=== PATIENT | male | born 1955 | race Caucasian/White ===

== ENCOUNTER 2023-11-18 12:29 | Emergency (ER) | payer BC, MEDICARE, SELFPAY ==
[2023-11-18 12:31] VITALS: BP 153/118
--- NOTE | 2023-11-18 13:37 | ED.GENMED ---
History of Present Illness
General
Chief Complaint: Urinary Symptoms
Source: patient
Exam Limitations: none
Time Seen by Provider: 11/18/23 13:25
Travel History
Have you had any contact with someone who has COVID-19?: No
Do you have any symptoms of coronavirus? Fever > 100 degrees, chills, cough, shortness of breath, sore throat, loss of taste or smell, muscle aches, or headache?: No
History of Present Illness
History of Present Illness:
68-year-old male presents with right lower back pain with associated dark urine starting this morning. This was sudden in onset has been coming and going in waves. He noted chills and shakes as well. He has a history of chronic kidney disease
stage III and follows with nephrology here. He is treated for hypertension
Past History
Past History
ED Past Medical History: HTN, Hypercholesterolemia, Hypothyroidism, Psychiatric and Other ( chronic kidney disease, gout, avascular necrosis, osteoarthritis, sciatica, Pancreatitis)
ED Past Surgical History: Orthopedic (Bilateral hip replacements)
Social History
Tobacco: Former smoker
Alcohol: None
Drug: None
Personal:
Living: with family
Employment: Retired
Family History
Family History: Hypertension
Phy Exam
Physical Exam
Physical Exam:
General: Well-appearing male no acute respiratory distress
HEENT: Normocephalic atraumatic
Heart: Regular rate and rhythm no murmurs
Lungs: Clear to auscultation bilaterally no wheezing
Abdomen is soft nontender nondistended no guarding rebound normal bowel sounds
Musculoskeletal exam: Mild right-sided lower back tenderness.
Extremities: No cyanosis
Course
Orders/Labs/Results
Orders:
Orders
11/18/23 13:33
CT Abd/pel Without Iv Or Oral Urgent
Comment:
Reason For Exam: right flank pain, dark urine
11/18/23 14:00
Complete Blood Count/With Diff Urgent
Comprehensive Metabolic Panel Urgent
11/18/23 14:13
Urinalysis Reflex To Culture Urgent
Date Specimen was Collected: 11/18/23
Time Specimen was Collected: 14:06
Urine Microscopic Reflex Cult Urgent
Abnormal Lab Results
11/18/23 11/18/23
14:00 14:13
Abs Immat Gran (auto) 0.1 H 10^3/uL
(0-0.05)
Absolute Neuts (auto) 6.9 H 10^3/uL
(1.4-6.5)
Absolute Monos (auto) 0.9 H 10^3/uL
(0.1-0.6)
Immature Gran % 0.9 H %
(0-0.5)
Lymphocytes % 13.8 L %
(20.5-51.1)
Monocytes % 9.6 H %
(1.7-9.3)
BUN 40 H mg/dl
(9-20)
Creatinine 2.2 H mg/dL
(0.7-1.3)
Glucose 105 H mg/dl
(70-99)
Urine Glucose 3+ A
(Negative)
Urine Albumin (Reflex) 1+ A
(Neg - Trace)
11/18/23 14:00
11/18/23 14:00
Vital Signs
Initial and Last Documented VS:
Initial Vital Signs
Temp Pulse Resp BP Pulse Ox
97.8 F 90 20 153/118 96
11/18/23 12:31 11/18/23 12:31 11/18/23 12:31 11/18/23 12:31 11/18/23 12:31
Last Documented Vital Signs
Temp Pulse Resp BP Pulse Ox
97.8 F 90 20 138/103 95
11/18/23 12:31 11/18/23 12:31 11/18/23 12:31 11/18/23 13:47 11/18/23 14:00
MDM/Problems Addressed
Differential Diagnosis Includes:
Lower back/flank pain with associated darker urine. Question UTI versus pyelonephritis versus renal colic. Will check labs and urinalysis. CT pending.
*Critical Care Note
Total Time (30-74mins, 75-104mins- exclusive of procedures): Not Applicable
Update Note
Update Note:
Urine has cleared kidney functions are stable CT negative. Labs reviewed without significant finding. Patient feeling better. Etiology of dark urine and flank pain unclear he may have passed a stone. No indication for any further invention at
this time. He will follow-up with his animal pathology teacher
ED Attending Note
-
Portions of this chart may have been created with voice recognition software.� Occasional wrong word or��sound alike� substitutions may have occurred due to the inherent limitations of voice recognition software.
Discharge Plan
Departure
Patient Disposition: Home (Routine Discharge)
Date of Disposition: 11/18/23
Time of Disposition: 15:50
Patient with high blood pressure during this ER visit?: No
Discharge Problem:
Acute flank pain
Prescriptions:
No Action
metoprolol tartrate 50 MG tablet
50 mg PO BID
valsartan 80 MG tablet
80 mg PO DAILY
levothyroxine 175 MCG tablet
175 mcg PO DAILY@0730 Qty: 60 0RF
tamsulosin 0.4 MG capsule
0.4 mg PO HS Qty: 60 0RF
nifedipine 60 MG tablet extended release
60 mg PO BID Qty: 1 0RF
Belsomra
15 mg PO HS
cyclobenzaprine 10 MG tablet
10 mg PO TIDPRN PRN (Reason: muscle spasm/pain) Qty: 12 0RF
cyclobenzaprine 10 MG tablet
10 mg PO TIDPRN PRN (Reason: muscle spasms) Qty: 20 1RF
Referrals:
Alicia Yanez PA [Family Provider] -
Activity Restrictions/Additional Instructions:
Please return here for worsening symptoms otherwise follow-up with your animal pathology teacher
Interventions
Interventions:
*Risk Screen - Suicide Last Done: 11/18/23 13:46
*General Assessment Last Done: 11/18/23 13:46
*Neglect/Abuse Screening Last Done: 11/18/23 13:46
ED- Fall Risk Assessment Last Done: 11/18/23 13:46
*ED COVID-19 Vaccine History Last Done: 11/18/23 12:31
ED-Male Genitourinary Assessment Last Done: 11/18/23 13:46
Discharge Date and Time
Print Language: JAMAICAN
[2023-11-18 13:46] VITALS: BMI 28.6
[2023-11-18 13:47] VITALS: BP 138/103
[2023-11-18 14:00] VITALS: BP 136/104
[2023-11-18 14:10] LABS: % Basophils 0.6 % (0-2); % Eosinophils 0.2 % (0-6); % Immature Granulocytes 0.9 % (0-0.5); % Lymphocytes 13.8 % (20.5-51.1); % Monocytes 9.6 % (1.7-9.3); % Neutrophils 74.9 % (42.2-75.2); Absolute Basophils 0.1 10^3/uL (0-0.2); Absolute Immature Granulocytes 0.1 10^3/uL (0-0.05); Absolute Lymphocytes 1.3 10^3/uL (1.2-3.4); Absolute Monocytes 0.9 10^3/uL (0.1-0.6); Absolute Neutrophils 6.9 10^3/uL (1.4-6.5); Hematocrit 42.5 % (39.0-52.0); Hemoglobin 14.5 g/dL (13.0-18.0); Mean Corp Hgb Conc. 34.1 g/dL (33.0-37.0); Mean Corpuscular Hgb 29.1 pg (27.0-31.0); Mean Corpuscular Volume 85.3 fL (80.0-94.0); Mean Platelet Volume 9.5 fL (7.4-10.4); Nucleated Red Blood Cells % 0 % (-); Platelet Count 252 10^3/uL (130-400); Red Blood Cell Count 4.98 10^6/uL (4.70-6.10); Red Cell Dist. Width 13.3 % (11.5-14.5); White Blood Cell Count 9.3 10^3/uL (4.8-10.8)
[2023-11-18 14:22] LABS: Urine Albumin 1+ (Neg - Trace); Urine Bilirubin Negative (Negative); Urine Character Clear (Clear); Urine Color Yellow; Urine Glucose 3+ (Negative); Urine Ketone Negative (Negative); Urine Leukocyte Negative (Negative); Urine Nitrite Negative (Negative); Urine Occult Blood Negative (Negative); Urine Specific Gravity 1.015 (<1.030); Urine Urobilinogen Negative (Neg - 1+)
[2023-11-18 14:26] LABS: ALT (SGPT) 16 U/L (0-50); AST (SGOT) 24 U/L (17-59); Albumin 4.2 g/dl (3.5-5.0); Alkaline Phosphatase 88 U/L (38-126); Blood Urea Nitrogen 40 mg/dl (9-20); Calcium 9.6 mg/dl (8.4-10.2); Carbon Dioxide 27 mmol/L (22-30); Chloride 104 mmol/L (98-107); Estimated Creatinine Clearance 32 ml/min; Glucose 105 mg/dl (70-99); Potassium 3.8 mmol/L (3.5-5.1); Sodium 137 mmol/L (135-145); Total Bilirubin 0.8 mg/dl (0.2-1.3); Total Protein 7.6 g/dl (6.3-8.2); eGFR 31.83
[2023-11-18 14:33] LABS: Urine Red Blood Cell 0-2 /HPF (0-2); Urine Squamous Cell 0-2 /LPF (Few); Urine White Cell 0-2 /HPF (0-5)
[2023-11-18 16:11] VITALS: BP 134/105
== END 2023-11-18 16:14 | disposition home or self-care (01) ==
LOC: EMR 12:29
PROVIDERS: Physician Assistant; EMERGENCY PHYSICIAN Emergency Medicine; FAMILY PHYSICIAN Physician Assistant Medical
DX: R10.9 Unspecified abdominal pain (principal); M54.50 Low back pain, unspecified; R68.83 Chills (without fever); R82.90 Unspecified abnormal findings in urine; I12.9 Hypertensive chronic kidney disease with stage 1 through stage 4 chronic kidney disease, or unspecified chronic kidney disease; N18.30 Chronic kidney disease, stage 3 unspecified; M10.9 Gout, unspecified; E78.00 Pure hypercholesterolemia, unspecified; M87.9 Osteonecrosis, unspecified; E03.9 Hypothyroidism, unspecified; M54.30 Sciatica, unspecified side; M19.90 Unspecified osteoarthritis, unspecified site; Z96.643 Presence of artificial hip joint, bilateral; Z87.891 Personal history of nicotine dependence
CPT/HCPCS: 99284; 74176; 80053; 81003; 81015; 85025

== ENCOUNTER 2024-05-02 18:45 | Inpatient (IN) | payer BC, MEDICARE, SELFPAY ==
[2024-05-02] VITALS (13 sets, daily range): BP systolic 146–201; BP diastolic 88–128; BMI 27.6; BMI 26.0
--- NOTE | 2024-05-02 14:34 | ED.GENMED ---
History of Present Illness
General
Chief Complaint: Change in Mental Status
Source: patient
Exam Limitations: none
Time Seen by Provider: 05/02/24 14:22
History of Present Illness
History of Present Illness:
69-year-old male presents via EMS from home with change in mental status. Patient was noticed to be confused by family. Patient states he got on the floor last evening to do something. He refused help. He slept on the floor. He remained on the
floor all night. He denies pain. He denies headache or fever. He was found to be incontinent today. He denies any unilateral weakness. He is currently being worked up for Parkinson's. He denies any alcohol use
Past History
Past History
ED Past Medical History: HTN, Hypercholesterolemia, Hypothyroidism, Psychiatric and Other ( chronic kidney disease, gout, avascular necrosis, osteoarthritis, sciatica, Pancreatitis)
ED Past Surgical History: Orthopedic (Bilateral hip replacements)
Social History
Tobacco: Former smoker
Alcohol: None
Drug: None
Personal:
Living: with family
Employment: Retired
Family History
Family History: Hypertension
Phy Exam
Physical Exam
Physical Exam:
General: Unkempt male no acute respiratory distress
HEENT: Normocephalic atraumatic mucosa dry
Heart: Regular rate and rhythm no murmurs lungs: Clear no wheeze
Abdomen is soft nontender nondistended
Extremities: No cyanosis
Neurologic exam: Alert oriented to person and place. No unilateral deficit no facial asymmetry tends to lose focus at times
Skin is cool to the touch no rash
Course
Orders/Labs/Results
Orders:
Orders
05/02/24 14:13
EKG [Electrocardiogram (*1)] Urgent
Reason for Study: Fatigue / Weakness
05/02/24 14:15
EKG- Treatment ONCE
05/02/24 14:18
Complete Blood Count/With Diff Urgent
Comprehensive Metabolic Panel Urgent
Creatine Phosphokinase Urgent
05/02/24 14:32
CT Head W/o Iv Contrast Urgent
Comment:
Reason For Exam: confusion
05/02/24 14:47
0.9% Sodium Chloride 1000 ml [Nss] 1,000 ml IV BOLUS
05/02/24 15:04
COVID-19 Antigen Urgent
Source: Nasal Swab
Urinalysis Reflex To Culture Urgent
Date Specimen was Collected: 05/02/24
Time Specimen was Collected: 14:59
Urine Microscopic Reflex Cult Urgent
Influenza A+B Rapid Molecular Urgent
LUPILLO Source: Nasal Swab
Specimen Description:
Urine Culture Urgent
LUPILLO Source: U
Specimen Description:
Date Specimen was Collected: 05/02/24
Time Specimen was Collected: 14:59
05/02/24 16:22
CefTRIAXone [Rocephin] 1,000 mg IV NOW STA
Abnormal Lab Results
05/02/24 05/02/24
14:18 15:04
WBC 12.4 H 10^3/uL
(4.8-10.8)
Abs Immat Gran (auto) 0.2 H 10^3/uL
(0-0.05)
Absolute Neuts (auto) 9.9 H 10^3/uL
(1.4-6.5)
Absolute Lymphs (auto) 1.0 L 10^3/uL
(1.2-3.4)
Absolute Monos (auto) 1.3 H 10^3/uL
(0.1-0.6)
Immature Gran % 1.2 H %
(0-0.5)
Neutrophils % 79.6 H %
(42.2-75.2)
Lymphocytes % 7.9 L %
(20.5-51.1)
Monocytes % 10.7 H %
(1.7-9.3)
BUN 55 H mg/dl
(9-20)
Creatinine 2.7 H mg/dL
(0.7-1.3)
Glucose 113 H mg/dl
(70-99)
Total Bilirubin 1.7 H mg/dl
(0.2-1.3)
AST 70 H U/L
(17-59)
Creatine Kinase 1439 H U/L
(55-170)
Ur Occult Blood Reflex 4+ A
(Negative)
Urine RBC 3-6 A /HPF
(0-2)
Urine Bacteria (Reflex) Moderate A
(Negative)
Urine Glucose 3+ A
(Negative)
Urine Albumin (Reflex) 2+ A
(Neg - Trace)
05/02/24 14:18
05/02/24 14:18
Vital Signs
Initial and Last Documented VS:
Initial Vital Signs
Temp Pulse Resp Pulse Ox
98.6 F 92 25 98
05/02/24 14:04 05/02/24 14:04 05/02/24 14:04 05/02/24 14:04
Last Documented Vital Signs
Temp Pulse Resp BP Pulse Ox
98.6 F 94 5 183/120 95
05/02/24 14:04 05/02/24 15:01 05/02/24 14:33 05/02/24 15:01 05/02/24 15:01
MDM/Problems Addressed
Differential Diagnosis Includes:
Patient here with confusion and fatigue. He got on the floor to do something last evening but could not get up and refused help. He slept on the floor all night and was incontinent. Question underlying infectious source versus rhabdo versus
electrolyte abnormality. Will CT head check urine check for COVID and flu
*Critical Care Note
Total Time (30-74mins, 75-104mins- exclusive of procedures): Not Applicable
Update Note
Update Note:
Workup here demonstrates CT without acute traumatic injury. CPK is elevated at 1439. Patient has chronic kidney disease and creatinine is 2.7. now in the room. She states that he is off from his baseline. He is more confused than normal.
Urinalysis likely with UTI. Will order Rocephin and fluids. Admit to hospital for rhabdomyolysis and confusion
ED Attending Note
-
Portions of this chart may have been created with voice recognition software.� Occasional wrong word or��sound alike� substitutions may have occurred due to the inherent limitations of voice recognition software.
Discharge Plan
Departure
Patient Disposition: Admit
Date of Disposition: 05/02/24
Time of Disposition: 16:32
Admit to: Telemetry
Presentation/result/management discussed w/ accepting MD/DO: Hospitalist
Discharge Problem:
Rhabdomyolysis
Prescriptions:
No Action
valsartan 80 MG tablet
80 mg PO DAILY
metoprolol succinate 50 mg tablet extended release 24 hr
50 mg PO DAILY
Theragen Tablet
1 tab PO DAILY
carbidopa-levodopa 25-100 mg tablet
1 tab PO TID
dapagliflozin propanediol [Farxiga] 10 mg tablet
10 mg PO DAILY
psyllium husk [Metamucil] 0.4 gram Capsule
0.4 g PO DAILY
levothyroxine 175 MCG tablet
175 mcg PO DAILY
Referrals:
UNKNOWN - PT DOES,NOT KNOW [Family Provider] -
Interventions
Interventions:
*Risk Screen - Suicide Last Done: 05/02/24 14:04
*General Assessment Last Done: 05/02/24 14:04
*Neglect/Abuse Screening Last Done: 05/02/24 14:04
ED- Fall Risk Assessment Last Done: 05/02/24 14:15
*ED COVID-19 Vaccine History Last Done: 05/02/24 14:04
ED- Pulmonary Assessment Last Done: 05/02/24 14:15
ED- Neurological Assessment Last Done: 05/02/24 14:15
ED- Cardiac Assessment Last Done: 05/02/24 14:15
Discharge Date and Time
Print Language: GREEK
[2024-05-02 14:36] LABS: % Basophils 0.5 % (0-2); % Eosinophils 0.1 % (0-6); % Immature Granulocytes 1.2 % (0-0.5); % Lymphocytes 7.9 % (20.5-51.1); % Monocytes 10.7 % (1.7-9.3); % Neutrophils 79.6 % (42.2-75.2); Absolute Basophils 0.1 10^3/uL (0-0.2); Absolute Immature Granulocytes 0.2 10^3/uL (0-0.05); Absolute Monocytes 1.3 10^3/uL (0.1-0.6); Absolute Neutrophils 9.9 10^3/uL (1.4-6.5); Hematocrit 43.1 % (39.0-52.0); Hemoglobin 14.6 g/dL (13.0-18.0); Mean Corp Hgb Conc. 33.9 g/dL (33.0-37.0); Mean Corpuscular Hgb 29.6 pg (27.0-31.0); Mean Corpuscular Volume 87.4 fL (80.0-94.0); Mean Platelet Volume 9.7 fL (7.4-10.4); Nucleated Red Blood Cells % 0 % (-); Platelet Count 254 10^3/uL (130-400); Red Blood Cell Count 4.93 10^6/uL (4.70-6.10); Red Cell Dist. Width 13.3 % (11.5-14.5); White Blood Cell Count 12.4 10^3/uL (4.8-10.8)
[2024-05-02 14:52] LABS: ALT (SGPT) 26 U/L (0-50); AST (SGOT) 70 U/L (17-59); Albumin 4.1 g/dl (3.5-5.0); Alkaline Phosphatase 110 U/L (38-126); Blood Urea Nitrogen 55 mg/dl (9-20); Calcium 9.5 mg/dl (8.4-10.2); Carbon Dioxide 27 mmol/L (22-30); Chloride 104 mmol/L (98-107); Creatine Phosphokinase 1439 U/L (55-170); Estimated Creatinine Clearance 27 ml/min; Glucose 113 mg/dl (70-99); Potassium 3.6 mmol/L (3.5-5.1); Sodium 143 mmol/L (135-145); Total Bilirubin 1.7 mg/dl (0.2-1.3); Total Protein 7.2 g/dl (6.3-8.2); eGFR 24.74
[2024-05-02] MEDS: NSS 1000 IV ×2 (15:05→22:48)
[2024-05-02 15:19] LABS: Urine Albumin 2+ (Neg - Trace); Urine Bilirubin Negative (Negative); Urine Character Clear (Clear); Urine Color Yellow; Urine Glucose 3+ (Negative); Urine Ketone Negative (Negative); Urine Leukocyte Negative (Negative); Urine Nitrite Negative (Negative); Urine Occult Blood 4+ (Negative); Urine Urobilinogen Negative (Neg - 1+)
[2024-05-02 15:32] LABS: COVID-19 Antigen Negative (Negative)
[2024-05-02 15:43] LABS: Urine Bacteria Moderate (Negative); Urine White Cell 0-2 /HPF (0-5)
[2024-05-02] MEDS: ROCEPHIN 1000 MG IV (16:38)
--- NOTE | 2024-05-02 17:32 | HPS.HSE ---
Family Physician
-
Family Physician: NOT KNOW UNKNOWN - PT DOES
Chief Complaint
-
confusion
History of Present Illness
69-year-old male past medical history of HTN, Hypercholesterolemia, Hypothyroidism, Psychiatric and Other ( chronic kidney disease, gout, avascular necrosis, osteoarthritis, sciatica, Pancreatitis) presenting with altered mental status. He was
noted to be confused by family today. He got on the floor last evening to do something and refused help. He was on the floor all night. He denies pain. He denies headache or fever. He was incontinent of urine today. He denies any weakness.
Currently being worked up for Parkinson's disease. He denies alcohol use.
Medical History
Past Medical History
Past Medical History: Reports Other (HTN, Hypercholesterolemia, Hypothyroidism, Psychiatric and Other ( chronic kidney disease, gout, avascular necrosis, osteoarthritis, sciatica, Pancreatitis))
Past Surgical History: Reports None
Social History
Tobacco: Non-smoker
Alcohol: None
Drug: None
Family History
Family History: Not pertinent
Allergies / Home Medications
Allergies reflects when Allergies were last updated in [employer].
Home Medications with original date entered in [employer]
Allergy/Medication List:
Allergies
Allergy/AdvReac Type Severity Reaction Status Date / Time
No Known Allergies Allergy Verified 11/18/23 12:31
Home Medications
valsartan 80 mg tablet 80 mg PO DAILY 11/19/18
carbidopa 25 mg-levodopa 100 mg tablet 1 tab PO TID 05/02/24
dapagliflozin propanediol 10 mg tablet (Farxiga) 10 mg PO DAILY 05/02/24
levothyroxine 175 mcg tablet 175 mcg PO DAILY 05/02/24
metoprolol succinate 50 mg tablet,extended release 24 hr 50 mg PO DAILY 05/02/24
psyllium husk 0.4 gram capsule (Metamucil) 0.4 g PO DAILY 05/02/24
therapeutic multivitamin 1 tab PO DAILY 05/02/24
Review of Systems
-
History Source: Patient
A 12 point ROS was completed and negative except as noted: Yes
Constitutional: Reports No Symptoms
EENT: Reports No Symptoms
Respiratory: Reports No Symptoms
Cardiac: Reports No Symptoms
Abdomen/GI: Reports No Symptoms
: Reports No Symptoms
Musculoskeletal: Reports No Symptoms
Skin: Reports No Symptoms
Neurological: Reports No Symptoms
Endocrine: Reports No Symptoms
Hematologic/Lymphatic: Reports No Symptoms
Psych: Reports No Symptoms
Physical Exam
Vital Signs
Vital Signs
Temp Pulse Resp BP Pulse Ox
98.6 F 78 11 149/115 99
05/02/24 14:04 05/02/24 16:30 05/02/24 16:30 05/02/24 16:22 05/02/24 16:30
Physical Exam
General: Well Developed, Well Nourished and No Apparent Distress
HEENT: NormoCephalic, Moist mucous membranes and Atraumatic
Respiratory: Clear
Cardiac: S1/S2 and Regular Rhythm; No Murmur or Rub
GI: Soft, Non Tender, Non Distended and Normal Bowel Sounds; No Organomegaly
Rectal: Deferred by Provider
Musculoskeletal: No Clubbing, No Cyanosis and No Edema
Skin: No Rash
Neuro: Nonfocal/grossly intact
Laboratory Results
-
05/02/24 14:18
05/02/24 14:18
Laboratory Results
Total Bilirubin 1.7 mg/dl (0.2-1.3) H 05/02/24 14:18
AST 70 U/L (17-59) H 05/02/24 14:18
ALT 26 U/L (0-50) 05/02/24 14:18
Alkaline Phosphatase 110 U/L (38-126) 05/02/24 14:18
Data Reviewed
-
Lab Data: Labs Reviewed by me
Old Records: Reviewed
Impression/Plan
-
IMPRESSION:
PLAN:
# Acute kidney injury on CKD
# Rhabdomyolysis
-Creatinine of 2.7 from 2.2 baseline
-CK 1400
-CT head negative
-IV fluids
-Hold valsartan
-Hold dapagliflozin
-Urinalysis negative
Possible Parkinson's
-Continue carbidopa-levodopa
Essential hypertension
-Continue metoprolol
Hypercholesterolemia
Hypothyroidism
-Continue levothyroxine
Psychiatric history
Gout
Osteoarthritis
Full code
DVT prophylaxis�heparin
Regular diet
[2024-05-02] MEDS: HEPARIN 5000 UNITS SC (22:47)
[2024-05-02] MEDS: SINEMET 25-100 1 TABLET PO (22:48)
[2024-05-02] MEDS: LOPRESSOR 5 MG IV (23:57)
[2024-05-03] VITALS (7 sets, daily range): BP systolic 137–178; BP diastolic 97–113
[2024-05-03] MEDS: SYNTHROID 175 MCG PO (04:51)
[2024-05-03 08:28] LABS: % Basophils 0.5 % (0-2); % Eosinophils 0.1 % (0-6); % Immature Granulocytes 0.9 % (0-0.5); % Lymphocytes 7.9 % (20.5-51.1); % Monocytes 11.1 % (1.7-9.3); % Neutrophils 79.5 % (42.2-75.2); Absolute Basophils 0.1 10^3/uL (0-0.2); Absolute Immature Granulocytes 0.1 10^3/uL (0-0.05); Absolute Lymphocytes 1.1 10^3/uL (1.2-3.4); Absolute Monocytes 1.6 10^3/uL (0.1-0.6); Absolute Neutrophils 11.1 10^3/uL (1.4-6.5); Hematocrit 42.2 % (39.0-52.0); Hemoglobin 14.4 g/dL (13.0-18.0); Mean Corp Hgb Conc. 34.1 g/dL (33.0-37.0); Mean Corpuscular Hgb 29.8 pg (27.0-31.0); Mean Corpuscular Volume 87.4 fL (80.0-94.0); Mean Platelet Volume 10.3 fL (7.4-10.4); Nucleated Red Blood Cells % 0 % (-); Platelet Count 232 10^3/uL (130-400); Red Blood Cell Count 4.83 10^6/uL (4.70-6.10); Red Cell Dist. Width 13.4 % (11.5-14.5)
[2024-05-03] MEDS: THERAGRAN 1 TABLET PO (08:57)
[2024-05-03] MEDS: SINEMET 25-100 1 TABLET PO ×3 (08:57→21:59)
[2024-05-03] MEDS: METAMUCIL, KONSYL 1 PACKET PO (08:57)
[2024-05-03] MEDS: HEPARIN 5000 UNITS SC ×2 (08:57→21:59)
[2024-05-03] MEDS: TOPROL XL 50 MG PO (08:58)
[2024-05-03 09:07] LABS: ALT (SGPT) 13 U/L (0-50); AST (SGOT) 82 U/L (17-59); Albumin 3.8 g/dl (3.5-5.0); Alkaline Phosphatase 105 U/L (38-126); Blood Urea Nitrogen 47 mg/dl (9-20); Calcium 9.3 mg/dl (8.4-10.2); Carbon Dioxide 23 mmol/L (22-30); Chloride 107 mmol/L (98-107); Creatine Phosphokinase 1421 U/L (55-170); Estimated Creatinine Clearance 32 ml/min; Glucose 90 mg/dl (70-99); Potassium 3.9 mmol/L (3.5-5.1); Sodium 143 mmol/L (135-145); Total Bilirubin 1.4 mg/dl (0.2-1.3); Total Protein 6.8 g/dl (6.3-8.2); eGFR 29.99
--- NOTE | 2024-05-03 09:31 | W.PN.HOSP.TC ---
Today's Communication/Plan
-
Continue IV fluids
Monitor on telemetry
BMP/electrolytes recheck
Assessment / Plan
Assessment / Plan
Physical Exam
General: Well Developed, Well Nourished and No Apparent Distress
HEENT: NormoCephalic, Moist mucous membranes and Atraumatic
Respiratory: Clear
Cardiac: S1/S2 and Regular Rhythm
GI: Soft, Non Tender, Non Distended and Normal Bowel Sounds
Musculoskeletal: No Cyanosis and No Edema
Skin: Warm. Dry.
Neuro: Nonfocal/grossly intact
Assessment/Plan
# Acute kidney injury on CKD
# Rhabdomyolysis
-Creatinine of 2.7 from 2.2 baseline --> now down to 2.3
-CK 1439-->1421
-CT head negative
-Continue IV fluids
-Hold valsartan
-Hold dapagliflozin
-Urinalysis negative
Possible Parkinson's
-Continue carbidopa-levodopa
Essential hypertension
-Continue metoprolol
-Added Amlodipine 2.5 mg daily
-Also prn IV Hydralazine
Hypercholesterolemia
Hypothyroidism
-Continue levothyroxine
Psychiatric history
Gout
Osteoarthritis
Full code
DVT prophylaxis�heparin
Regular diet
Anticipated Discharge: 24 - 48 hours
Subjective/Interval History
-
Date of Service: May 03, 2024
Patient was seen and examined. He denied any new symptoms or complaints.
Objective Data
-
Labs:
Laboratory Results
05/03/24
07:58
WBC 14.0 H
Hgb 14.4
Hct 42.2
Plt Count 232
Sodium 143
Potassium 3.9
Chloride 107
Carbon Dioxide 23
BUN 47 H
Creatinine 2.3 H
Glucose 90
Calcium 9.3
Total Bilirubin 1.4 H
AST 82 H
ALT 13
Alkaline Phosphatase 105
Vital Signs:
Vital Signs
Temp Pulse Resp BP Pulse Ox
99.3 F 91 22 156/101 97
05/03/24 07:44 05/03/24 07:44 05/03/24 07:44 05/03/24 07:44 05/03/24 07:44
I&O
05/02/24 05/03/24 05/04/24
06:59 06:59 06:59
Intake Total 480 / 480
Output Total 200 / 200
Balance 280 / 280
[2024-05-03] MEDS: NORVASC 2.5 MG PO (11:18)
[2024-05-03] MEDS: NSS 1000 IV ×2 (11:20→17:53)
[2024-05-03] MEDS: APRESOLINE 5 MG IV (16:15)
[2024-05-04 00:41] LABS: Blood Urea Nitrogen 50 mg/dl (9-20); Calcium 9.1 mg/dl (8.4-10.2); Carbon Dioxide 24 mmol/L (22-30); Chloride 105 mmol/L (98-107); Estimated Creatinine Clearance 29 ml/min; Glucose 113 mg/dl (70-99); Potassium 4.2 mmol/L (3.5-5.1); Sodium 144 mmol/L (135-145); eGFR 25.88
[2024-05-04] MEDS: NSS 1000 IV ×3 (02:56→23:08)
[2024-05-04] MEDS: SYNTHROID 175 MCG PO (05:34)
[2024-05-04 07:50] VITALS: BP 164/98
[2024-05-04] MEDS: TOPROL XL 50 MG PO (09:04)
[2024-05-04] MEDS: SINEMET 25-100 1 TABLET PO ×3 (09:04→21:15)
[2024-05-04] MEDS: METAMUCIL, KONSYL 1 PACKET PO (09:05)
[2024-05-04] MEDS: THERAGRAN 1 TABLET PO (09:05)
[2024-05-04] MEDS: HEPARIN 5000 UNITS SC ×2 (09:05→21:15)
[2024-05-04] MEDS: NORVASC 2.5 MG PO (09:05)
[2024-05-04 10:05] LABS: % Basophils 0.4 % (0-2); % Eosinophils 0.1 % (0-6); % Immature Granulocytes 1.2 % (0-0.5); % Lymphocytes 4.1 % (20.5-51.1); % Monocytes 9.4 % (1.7-9.3); % Neutrophils 84.8 % (42.2-75.2); Absolute Basophils 0.1 10^3/uL (0-0.2); Absolute Immature Granulocytes 0.2 10^3/uL (0-0.05); Absolute Lymphocytes 0.8 10^3/uL (1.2-3.4); Absolute Monocytes 1.8 10^3/uL (0.1-0.6); Absolute Neutrophils 16.1 10^3/uL (1.4-6.5); Mean Corp Hgb Conc. 34.2 g/dL (33.0-37.0); Mean Corpuscular Hgb 29.1 pg (27.0-31.0); Mean Platelet Volume 10.2 fL (7.4-10.4); Nucleated Red Blood Cells % 0 % (-); Platelet Count 257 10^3/uL (130-400); Red Blood Cell Count 4.47 10^6/uL (4.70-6.10); Red Cell Dist. Width 13.9 % (11.5-14.5); White Blood Cell Count 18.9 10^3/uL (4.8-10.8)
[2024-05-04 11:06] LABS: ALT (SGPT) 10 U/L (0-50); AST (SGOT) 59 U/L (17-59); Albumin 3.3 g/dl (3.5-5.0); Alkaline Phosphatase 87 U/L (38-126); Blood Urea Nitrogen 59 mg/dl (9-20); Calcium 8.9 mg/dl (8.4-10.2); Carbon Dioxide 20 mmol/L (22-30); Chloride 108 mmol/L (98-107); Creatine Phosphokinase 617 U/L (55-170); Estimated Creatinine Clearance 24 ml/min; Glucose 111 mg/dl (70-99); Potassium 4.1 mmol/L (3.5-5.1); Sodium 143 mmol/L (135-145); Total Bilirubin 1.1 mg/dl (0.2-1.3); Total Protein 6.1 g/dl (6.3-8.2); eGFR 20.96
[2024-05-04 11:08] VITALS: BP 176/97
[2024-05-04] MEDS: APRESOLINE 5 MG IV ×2 (11:37→18:10)
--- NOTE | 2024-05-04 12:52 | PN.CDI ---
CDI
- -
CDI:
Physician Documentation Request
Admit Date: 05/02/24 18:45
Dear Doctor Austin,
Please review the following and provide your response in the progress notes.
Clinical Indicators:
- 05/03 PN 'Rhabdomyolysis'
- 05/02 H&P 'He got on the floor last evening to do something and refused help. He was on the floor all night'
- 5L IVF given
Laboratory Tests
05/02/24 05/03/24 05/04/24
14:18 07:58 09:34
Creatine Kinase 1439 H 1421 H 617 H D
Please provide a diagnosis that supports the above lab abnormalities and evaluation/monitoring.
Traumatic rhabdomyolysis
Non traumatic rhabdomyolysis
Other (please specify)
Use of terms such as suspected, likely, concern for, or probable (associated with a specific diagnosis that is being evaluated, monitored, or treated as if it exists) are acceptable and can be coded in the inpatient setting, when documented at the
time of discharge.
Thank you,
David Sibley RN
CDI Specialist
Please use your independent medical judgment in providing your response.
--- NOTE | 2024-05-04 12:58 | PN.CDI ---
CDI
- -
CDI:
Physician Documentation Request
Admit Date: 05/02/24 18:45
Dear Doctor Austin,
Please review the following and provide your response in the progress notes.
Clinical Indicators:
- 05/03 PN 'Acute kidney injury on CKD...2.2 baseline'
Laboratory Tests
05/02/24 05/03/24 05/04/24
14:18 07:58 00:11
Creatinine 2.7 H 2.3 H 2.6 H
eGFR 24.74 29.99 25.88
05/04/24
09:34
Creatinine 3.1 H
eGFR 20.96
Please clarify which of the following accurately represents the patient's renal status:
JIMMY on CKD 3b
JIMMY on CKD 4
Other (please specify)
Criteria for JIMMY*
1 Increase in serum creatinine by > or = to 0.3 mg/dL (> or = to 26.5 micromol/L) within 48 hours, OR
2 Increase in serum creatinine to > or = to 1.5 times baseline, which is known or presumed to have occurred within 7 days, OR
3 Urine volume < 0.5 nL/kg/hour for six hours
Stages of Chronic Kidney Disease*
Level Description GFR
G1 Normal or High >90
G2 Mildly decreased 60-89
G3a Mildly to moderately decreased 45-59
G3b Moderately to severely decreased 30-44
G4 Severely decreased 15-29
G5 Kidney failure <15
Use of terms such as suspected, likely, concern for, or probable (associated with a specific diagnosis that is being evaluated, monitored, or treated as if it exists) are acceptable and can be coded in the inpatient setting, when documented at the
time of discharge.
Thank you,
David Sibley RN
CDI Specialist
Please use your independent medical judgment in providing your response.
*Source: Kidney Disease: Improving Global Outcomes (KDIGO) 2012
[2024-05-04 13:52] VITALS: BP 174/95
[2024-05-04 15:32] VITALS: BP 179/109
--- NOTE | 2024-05-04 16:56 | W.PN.HOSP.TC ---
Today's Communication/Plan
-
Worsening leukocytosis, no fever, patient poor historian due to chronic Parkinson's Disease
CXR, UA, IV fluids, Bladder Scans, Renal and Bladder Ultrasound, Nephrology consult appreciated
Continue to monitor on tele
Assessment / Plan
Assessment / Plan
Physical Exam
General: Not in acute distress
HEENT: Normocephalic, Moist mucous membranes and Atraumatic
Respiratory: Clear to Auscultation Bilaterally
Cardiac: S1/S2 and Regular Rhythm
GI: Soft, Non Tender, Non Distended and Normal Bowel Sounds
Musculoskeletal: No Cyanosis and No Edema
Skin: Warm. Dry.
Neuro: Nonfocal/grossly intact
Assessment/Plan
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
# Concern for non-traumatic rhabdomyolysis
-Creatinine of 2.7 from 2.2 baseline --> now 2.3-->2.6-->3.1
-CK 1439-->1421-->617
-CT head negative
-Continue IV fluids
-Hold valsartan
-Hold dapagliflozin
-Urinalysis negative
-Ordered renal and bladder ultrasound
#Leukocytosis, worsening
-Check COVID again and Flu
-CXR, repeat UA
-Ordered renal and bladder ultrasound as above
-May need ID and maybe hematology consult
#Urinary Retention reported by patient's spouse
-Bladder Scans protocol
#Possible Parkinson's
-Continue carbidopa-levodopa
-Per patient's , patient sees Dr. Pozo outpatient -- planned for MRI brain in May 2024
#Essential hypertension
-Continue metoprolol
-Added Amlodipine 2.5 mg daily
-Also prn IV Hydralazine
#Hypercholesterolemia
#Hypothyroidism
-Continue levothyroxine
Psychiatric history
Gout
Osteoarthritis
Full code
DVT prophylaxis�heparin
Regular diet
I called patient's today and updated her.
Total time spent today on caring for patient, including chart review, seeing and examining patient, documentation, consulting nephrology, and speaking with patient's was 55 minutes.
Anticipated Discharge: > 48 hours
Subjective/Interval History
-
Date of Service: May 04, 2024
Patient was seen and examined. He was confused, no new events or complaints reported.
Objective Data
-
Labs:
Laboratory Results
05/04/24
09:34
WBC 18.9 H
Hgb 13.0
Hct 38.0 L
Plt Count 257
Sodium 143
Potassium 4.1
Chloride 108 H
Carbon Dioxide 20 L
BUN 59 H
Creatinine 3.1 H
Glucose 111 H
Calcium 8.9
Total Bilirubin 1.1
AST 59
ALT 10
Alkaline Phosphatase 87
Vital Signs:
Vital Signs
Temp Pulse Resp BP Pulse Ox
98.2 F 89 20 179/109 97
05/04/24 15:32 05/04/24 15:32 05/04/24 15:32 05/04/24 15:32 05/04/24 15:32
I&O
05/03/24 05/04/24 05/05/24
06:59 06:59 06:59
Intake Total 480 / 480 480 / 480
Output Total 200 / 200 200 / 200
Balance 280 / 280 280 / 280
--- NOTE | 2024-05-04 17:00 | CM ---
Patient seen bedside.
Confused conversation, answers some questions appropriately.
IA completed via call with spouse.
Spouse employed by and patient has insurance thru her.
Spouse home s/p mastectomy on Tuesday, still with drains in place.
Per spouse, she works from home and keeps an eye on .
He is usually more oriented and able to get around.
He was recently diagnosed with suspected Parkinsons.
Patient ambulates independently in the home.
Has been having morning incontinence, but continent of B+B the rest of the day.
Patient does not use assistive devices but has a RW in the home.
No hx VN.
Has not driven in about a year.
PCP and pharmacy verified, preferred pharmacy switched to [facility].
PT recommending skilled rehab.
referrals to [facility] and [facility].
Plan: skilled rehab one medically stable.
[2024-05-04 17:54] LABS: COVID-19 Antigen Negative (Negative)
--- NOTE | 2024-05-04 18:32 | PTCARENOTE ---
Patient agitated, screaming 'Help' non stop; naked, not letting us touch him and trying to hit staff. Dr. Avila notified via TT. Order received to adm Ativan IV. See MAR. Unable to bladder scan patient at this time due to agitation. Unable to go
for chest X-ray and Abd x-ray at this time. Plan of care ongoing.
[2024-05-04] MEDS: ATIVAN 0.125 MG IV (18:35)
[2024-05-04] MEDS: NSS (PRESERVATIVE FREE) 0.125 ML IV (18:36)
[2024-05-04 19:00] VITALS: BP 150/76
[2024-05-04 21:48] LABS: Blood Urea Nitrogen 70 mg/dl (9-20); Calcium 9.2 mg/dl (8.4-10.2); Carbon Dioxide 22 mmol/L (22-30); Chloride 108 mmol/L (98-107); Estimated Creatinine Clearance 18 ml/min; Glucose 122 mg/dl (70-99); Potassium 4.2 mmol/L (3.5-5.1); Sodium 144 mmol/L (135-145); eGFR 14.56
--- NOTE | 2024-05-04 22:45 | W.PN.UPDATE ---
Update Note
Progress Note Update
Cr level is trending up now cr is 4.2 previously 3.1, industrial security analyst recommended to increase IVF NSS to 125ml/hr and place pinto.
[2024-05-04 23:00] VITALS: BP 143/80
[2024-05-04 23:17] LABS: Urine Albumin 2+ (Neg - Trace); Urine Bilirubin Negative (Negative); Urine Character Clear (Clear); Urine Color Yellow; Urine Glucose 2+ (Negative); Urine Ketone Trace (Negative); Urine Leukocyte Negative (Negative); Urine Nitrite Negative (Negative); Urine Occult Blood Trace (Negative); Urine Specific Gravity 1.015 (<1.030); Urine Urobilinogen Negative (Neg - 1+)
[2024-05-04 23:27] LABS: Urine Bacteria Few (Negative)
[2024-05-04 23:30] LABS: Urine White Cell None Seen /HPF (0-5)
[2024-05-05] VITALS (16 sets, daily range): BP systolic 80–183; BP diastolic 62–112; BMI 26.0
[2024-05-05 00:47] LABS: Urine Sodium 65 mmol/L (30-90)
[2024-05-05] MEDS: SYNTHROID 175 MCG PO (05:40)
[2024-05-05 08:35] LABS: % Basophils 0.3 % (0-2); % Eosinophils 0.1 % (0-6); % Immature Granulocytes 1.2 % (0-0.5); % Lymphocytes 6.2 % (20.5-51.1); % Monocytes 8.3 % (1.7-9.3); % Neutrophils 83.9 % (42.2-75.2); Absolute Basophils 0.1 10^3/uL (0-0.2); Absolute Immature Granulocytes 0.2 10^3/uL (0-0.05); Absolute Lymphocytes 1.1 10^3/uL (1.2-3.4); Absolute Monocytes 1.4 10^3/uL (0.1-0.6); Absolute Neutrophils 14.3 10^3/uL (1.4-6.5); Hematocrit 36.3 % (39.0-52.0); Hemoglobin 12.3 g/dL (13.0-18.0); Mean Corp Hgb Conc. 33.9 g/dL (33.0-37.0); Mean Corpuscular Hgb 29.6 pg (27.0-31.0); Mean Corpuscular Volume 87.5 fL (80.0-94.0); Mean Platelet Volume 9.9 fL (7.4-10.4); Nucleated Red Blood Cells % 0 % (-); Platelet Count 247 10^3/uL (130-400); Red Blood Cell Count 4.15 10^6/uL (4.70-6.10); White Blood Cell Count 17.1 10^3/uL (4.8-10.8)
[2024-05-05 08:55] LABS: Blood Urea Nitrogen 69 mg/dl (9-20); Calcium 8.7 mg/dl (8.4-10.2); Carbon Dioxide 19 mmol/L (22-30); Chloride 113 mmol/L (98-107); Estimated Creatinine Clearance 19 ml/min; Glucose 92 mg/dl (70-99); Magnesium 2.1 mg/dl (1.6-2.3); Sodium 145 mmol/L (135-145); eGFR 15.44
[2024-05-05] MEDS: APRESOLINE 5 MG IV ×2 (09:23→15:07)
[2024-05-05] MEDS: NORVASC 2.5 MG PO (09:25)
[2024-05-05] MEDS: HEPARIN 5000 UNITS SC ×2 (09:25→20:28)
[2024-05-05] MEDS: SINEMET 25-100 1 TABLET PO ×3 (09:25→20:28)
[2024-05-05] MEDS: TOPROL XL 50 MG PO (09:26)
[2024-05-05] MEDS: NSS 1000 IV ×2 (09:26→18:05)
[2024-05-05] MEDS: THERAGRAN 1 TABLET PO (09:26)
[2024-05-05] MEDS: METAMUCIL, KONSYL 1 PACKET PO (09:40)
--- NOTE | 2024-05-05 10:02 | W.PN.HOSP.TC ---
Today's Communication/Plan
-
Transferred to IMU given hypertension, tachycardia, worsened leukocytosis and significantly worsened JIMMY
Continue IV fluids
Monitor closely for urinary retention
BMP in AM
Assessment / Plan
Assessment / Plan
Physical Exam
General: Not in acute distress
HEENT: Normocephalic, Moist mucous membranes and Atraumatic
Respiratory: Clear to Auscultation Bilaterally
Cardiac: S1/S2 and Regular Rhythm
GI: Soft, Non Tender, Non Distended and Normal Bowel Sounds
Musculoskeletal: No Cyanosis and No Edema
Skin: Warm. Dry.
Neuro: Confused. Responds to some questions.
Assessment/Plan
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
# Concern for non-traumatic rhabdomyolysis
-Creatinine of 2.7 from 2.2 baseline --> now 2.3-->2.6-->3.1-->4.2-->4.0
-Appreciate nephrology: it is suspected that this is all due to urinary retention and obstructive uropathy
-CK 1439-->1421-->617-->347
-CT head negative
-Continue IV fluids due to JIMMY
-Hold valsartan
-Hold dapagliflozin
-Urinalysis negative
-Ordered renal and bladder ultrasound
#Leukocytosis, worsened
-Check COVID again (negative) and Flu (negative)
-CXR (atelectasis), repeat UA
-Ordered renal and bladder ultrasound as above
-Consulted ID, appreciate their evaluation and recommendations
-Check PRP and WNV
-IR attempted LP on 05/05/24 --> but it was dry tap
-Follow blood cultures
#Urinary Retention reported by patient's spouse
-Bladder Scans protocol
#Microscopic Hematuria
#Proteinuria
-Needs nephrology follow-up
#Possible Parkinson's
-Continue carbidopa-levodopa
-Per patient's , patient sees Dr. Pozo outpatient -- planned for MRI brain in May 2024
#Essential hypertension
-Continue metoprolol
-Added Amlodipine 2.5 mg daily
-Also prn IV Hydralazine
#Hypercholesterolemia
#Hypothyroidism
-Continue levothyroxine
Psychiatric history
Gout
Osteoarthritis
Full code
DVT prophylaxis�heparin
Diet: IDDSI Level 4 Puree diet, thin liquids. Medications whole in puree. Aspiration precautions including 1:1 assist, ensure oral cavity clear after meal. Monitor for signs of aspiration and d/c oral diet if any decline in mental/respiratory status.
Total time spent today on caring for patient, including chart review, seeing and examining patient, documentation, consulting infectious disease, and speaking with patient's was 52 minutes.
Anticipated Discharge: > 48 hours
Subjective/Interval History
-
Date of Service: May 05, 2024
Patient was seen and examined. He was very restless and confused per patient's nurse, this morning.
Objective Data
-
Labs:
Laboratory Results
05/05/24
08:07
WBC 17.1 H
Hgb 12.3 L
Hct 36.3 L
Plt Count 247
Sodium 145
Potassium 4.0
Chloride 113 H
Carbon Dioxide 19 L
BUN 69 H
Creatinine 4.0 H
Glucose 92
Calcium 8.7
Vital Signs:
Vital Signs
Temp Pulse Resp BP Pulse Ox
100 F 103 20 183/102 98
05/05/24 07:30 05/05/24 09:26 05/05/24 07:30 05/05/24 09:26 05/05/24 07:30
I&O
05/04/24 05/05/24 05/06/24
06:59 06:59 06:59
Intake Total 480 / 480 1900 / 1900
Output Total 200 / 200 1800 / 1800
Balance 280 / 280 100 / 100
--- NOTE | 2024-05-05 10:09 | PTCARENOTE ---
Patient found with IV pump and pole across body in bed. Patient does not have any apparent injuries. MD notified. Patient placed on med sitter. BP 183/102 and heart rate 103. Hydralazine given as ordered. Temperature 100. Ice packs placed under both
arms. Patient's skin is warm and skin flushed. MD aware of vital signs. IVF maintained NSS at 125 mls/hour. Merrem ordered. Blood cultures ordered and pending.
--- NOTE | 2024-05-05 10:20 | PTCARENOTE ---
Repeat BP 150/78. Repeat temp 99.5. MD to bedside to examine patient. Blood cultures, thyroid studies and troponin drawn and pending. Renal US pending.
[2024-05-05] MEDS: MERREM 500 MG IV (10:54)
[2024-05-05] MEDS: STERILE WATER FOR INJECTION 10 ML IV (10:54)
[2024-05-05 11:12] LABS: Creatine Phosphokinase 347 U/L (55-170)
[2024-05-05 11:27] LABS: Troponin I 0.285 ng/ml
[2024-05-05 11:35] LABS: Free T4 1.49 ng/dl (0.78-2.19)
[2024-05-05 11:49] LABS: TSH Reflex To Free T4 4.98 uIU/ml (0.47-4.68)
--- NOTE | 2024-05-05 12:16 | PTCARENOTE ---
Positive trop called. Patient with complaints of chest pain and right shoulder pain. MD notified. EKG completed. Transferred to IMU. Report given to LUIS Miles.
--- NOTE | 2024-05-05 12:50 | PTCARENOTE ---
Pt to IR in bed
--- NOTE | 2024-05-05 13:11 | CON.NEURO ---
Addendum entered and electronically signed by Shonna Hutton MD 05/05/24 15:24:
L visual field defects with BL OUTSIDE SALES distribution hypodencities. Deferential diagnosis includes vascular vs neoplastic etiologies.
Original Note:
Consultation
Order
Date of Consultation: 05/05/24
Requesting Provider:
Reason for Consult: Multifactorial encephalopathy
CC:
HPI: This is a 69-year-old RH man who presented to [facility] on May 02, 2024 after he was found down.
ER VS: 155/113�201/88-, afebrile.
EKG: NSR, QTc Int : 486 ms
PDMP: Alprazolam 0.5 Mg�30 tabs filled in on 08/22/2023.
Labs: WBC�12.4-18.9, CK�1439�347, Cr 2.7-4.2, TSH-4.98, gluc 113,
CT head-prominent decreased density within the periventricular white matter, especially within the posterior occipital lobes. Findings would suggest leukomalacia, advanced for the patient's age of 69 years. Mild to moderate atrophy.
PMH: parkinsonism, HTN, hypothyroidism, CKD, BPH, OA, gout
PSH: BL MICHELLE
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
FH: father dies in his 40s
All: NKDA
ROS:Constitutional: Negative. Negative for chills, fever and unexpected weight change.
HENT: Negative for ear pain, hearing loss, tinnitus and trouble swallowing.
Eyes: Negative. Negative for photophobia, pain and visual disturbance.
Respiratory: Negative for cough, choking and shortness of breath.
Cardiovascular: Negative for chest pain, palpitations and leg swelling.
Gastrointestinal: positive for constipation
Endocrine: Negative. Negative for cold intolerance.
Genitourinary: Negative for dysuria, flank pain and urgency.
Musculoskeletal: Negative for back pain, gait problem, neck pain and neck stiffness.
Skin: Negative for rash.
Allergic/Immunologic: Negative. Negative for immunocompromised state.
Neurological: positive for encephalopathy, resting tremor
Psychiatric/Behavioral: positive behavioral problems, confusion
General: Well developed. In no acute distress.
Cardio: Regular rate and rhythm without murmur. Extremities are without cyanosis or edema.
Neuro:
Mental Status: Alert, oriented to place, month, not year. Impaired attention and recall. Good fund of knowledge. Follows complex requests across the midline. Comprehension, naming, and repetition intact.
Cranial Nerves: . Pupils are equally round and reactive to light. EOMs full. Visual sheth full to confrontation. No ptosis. No nystagmus. V1-V3 intact to light touch and pinprick bilaterally, symmetric. Face symmetric. Normal hearing AU.
The palate elevated well. SCMs and traps 5/5. Tongue midline. No dysarthria.
Motor: Increased motor tone in UE/LE
Reflexes: limited exam due to increased motor tone
Coordination: R hand resting tremor
Gait: deferred
Assessment and Plan:
I. Parkinsonism. LBD?
II. Encephalopathy
III. JIMMY on CKD
- Fall precautions
- Avoid DA blockers
- Brain MRI wo dieter
- Obtain Medical records form patient's neurologist
- I have contacted patient's spouse to obtain collateral history and left a massage with request to call back.
I personally reviewed all radiology and labs along with past medical records pertinent to current medical problems. Total time spent in patient care is 60 minutes.
Thank you for allowing us to participate in the care of this patient. We will continue to follow. Please do not hesitate to contact us with any questions or concerns.
Subjective/Objective
Subjective Data
Date of Service: May 05, 2024
Objective Data
Vital Signs
Temp Pulse Resp BP Pulse Ox
37.0 C 79 18 140/87 98
05/05/24 11:28 05/05/24 11:28 05/05/24 11:28 05/05/24 11:28 05/05/24 11:28
Lab Results
05/05/24 08:07
05/05/24 08:07
Sodium 145 mmol/L (135-145) 05/05/24 08:07
Potassium 4.0 mmol/L (3.5-5.1) 05/05/24 08:07
BUN 69 mg/dl (9-20) H 05/05/24 08:07
Glucose 92 mg/dl (70-99) 05/05/24 08:07
Calcium 8.7 mg/dl (8.4-10.2) 05/05/24 08:07
Patient Allergies
No Known Allergies Allergy (Verified 11/18/23 12:31)
Medications
-
Active Medications
Generic Name Dose Route Start Last Admin
Trade Name Freq PRN Reason Stop Dose Admin
Amlodipine Besylate 2.5 mg 05/03/24 10:00 05/05/24 09:25
Amlodipine 2.5 Mg Tablet PO 05/31/24 09:59 2.5 mg
DAILY ARELI Administration
Carbidopa/Levodopa 1 tablet 05/02/24 22:25 05/05/24 09:25
Carbidopa (25 Mg)/Levodopa (100 Mg) Regular Release Tablet PO 05/30/24 22:24 1 tablet
TID ARELI Administration
Heparin Sodium 5,000 units 05/02/24 22:25 05/05/24 09:25
Heparin 5,000 Units/Ml 1 Ml Vial SC 05/30/24 22:24 5,000 units
Q12 ARELI Administration
Hydralazine HCl 5 mg 05/03/24 09:32 05/05/24 09:23
Hydralazine 20 Mg/Ml Vial IV 05/31/24 09:31 5 mg
Q6HPRN PRN Administration
SBP>160 mmHg
Sodium Chloride 1,000 mls @ 125 mls/hr 05/02/24 22:25 05/05/24 09:26
Nss IV 1,000 mls
.Q8H ARELI Administration
Levothyroxine Sodium 175 mcg 05/03/24 06:00 05/05/24 05:40
Levothyroxine 175 Mcg Tablet PO 05/31/24 05:59 175 mcg
DAILY @ 0600 ARELI Administration
Meropenem 500 mg 05/05/24 10:00 05/05/24 10:54
Meropenem 500 Mg/10 Ml Vial IV 500 mg
Q12H ARELI Administration
Metoprolol Succinate 50 mg 05/03/24 08:00 05/05/24 09:26
Metoprolol 50 Mg Extended Release Tablet PO 05/31/24 07:59 50 mg
DAILY ARELI Administration
Multivitamins Therapeutic 1 tablet 05/03/24 08:00 05/05/24 09:26
Multivitamin Tablet PO 05/31/24 07:59 1 tablet
DAILY ARELI Administration
Psyllium Hydrophilic Mucilloid 1 packet 05/03/24 08:00 05/05/24 09:40
Psyllium Packet PO 05/31/24 07:59 1 packet
DAILY ARELI Administration
Sodium Chloride 0 flush 05/02/24 23:00
Sodium Chloride 0.9% (Flush) Syringe IV 05/30/24 22:59
PER PROTOCOL ARELI
Sterile Water 10 ml 05/05/24 10:00 05/05/24 10:54
Sterile Water For Injection 10 Ml Vial IV 06/02/24 09:59 10 ml
Q12H ARELI Administration
Home Medications
�Medication �Instructions �Recorded
valsartan 80 mg tablet 80 mg PO DAILY 11/19/18
carbidopa 25 mg-levodopa 100 mg 1 tab PO TID 05/02/24
tablet
dapagliflozin propanediol 10 mg 10 mg PO DAILY 05/02/24
tablet (Farxiga)
levothyroxine 175 mcg tablet 175 mcg PO DAILY 05/02/24
metoprolol succinate 50 mg 50 mg PO DAILY 05/02/24
tablet,extended release 24 hr
psyllium husk 0.4 gram capsule 0.4 g PO DAILY 05/02/24
(Metamucil)
therapeutic multivitamin 1 tab PO DAILY 05/02/24
Vital Signs and Labs
-
Vital Signs and Labs:
Vital Signs
Temp Pulse Resp BP Pulse Ox
37.0 C 80 16 171/103 95
05/05/24 11:28 05/05/24 13:20 05/05/24 13:20 05/05/24 15:07 05/05/24 13:20
Lab Results
05/05/24 08:07
05/05/24 08:07
Sodium 145 mmol/L (135-145) 05/05/24 08:07
Potassium 4.0 mmol/L (3.5-5.1) 05/05/24 08:07
BUN 69 mg/dl (9-20) H 05/05/24 08:07
Glucose 92 mg/dl (70-99) 05/05/24 08:07
Calcium 8.7 mg/dl (8.4-10.2) 05/05/24 08:07
Medications
-
Medications:
Generic Name Dose Route Start Last Admin
Trade Name Britney PRN Reason Stop Dose Admin
Amlodipine Besylate 2.5 mg 05/03/24 10:00 05/05/24 09:25
Amlodipine 2.5 Mg Tablet PO 05/31/24 09:59 2.5 mg
DAILY ARELI Administration
Carbidopa/Levodopa 1 tablet 05/02/24 22:25 05/05/24 15:06
Carbidopa (25 Mg)/Levodopa (100 Mg) Regular Release Tablet PO 05/30/24 22:24 1 tablet
TID ARELI Administration
Heparin Sodium 5,000 units 05/02/24 22:25 05/05/24 09:25
Heparin 5,000 Units/Ml 1 Ml Vial SC 05/30/24 22:24 5,000 units
Q12 ARELI Administration
Hydralazine HCl 5 mg 05/03/24 09:32 05/05/24 15:07
Hydralazine 20 Mg/Ml Vial IV 05/31/24 09:31 5 mg
Q6HPRN PRN Administration
SBP>160 mmHg
Sodium Chloride 1,000 mls @ 125 mls/hr 05/02/24 22:25 05/05/24 09:26
Nss IV 1,000 mls
.Q8H ARELI Administration
Levothyroxine Sodium 175 mcg 05/03/24 06:00 05/05/24 05:40
Levothyroxine 175 Mcg Tablet PO 05/31/24 05:59 175 mcg
DAILY @ 0600 ARELI Administration
Meropenem 500 mg 05/05/24 10:00 05/05/24 10:54
Meropenem 500 Mg/10 Ml Vial IV 500 mg
Q12H ARELI Administration
Metoprolol Succinate 50 mg 05/03/24 08:00 05/05/24 09:26
Metoprolol 50 Mg Extended Release Tablet PO 05/31/24 07:59 50 mg
DAILY ARELI Administration
Multivitamins Therapeutic 1 tablet 05/03/24 08:00 05/05/24 09:26
Multivitamin Tablet PO 05/31/24 07:59 1 tablet
DAILY ARELI Administration
Psyllium Hydrophilic Mucilloid 1 packet 05/03/24 08:00 05/05/24 09:40
Psyllium Packet PO 05/31/24 07:59 1 packet
DAILY ARELI Administration
Sodium Chloride 0 flush 05/02/24 23:00
Sodium Chloride 0.9% (Flush) Syringe IV 05/30/24 22:59
PER PROTOCOL ARELI
Sterile Water 10 ml 05/05/24 10:00 05/05/24 10:54
Sterile Water For Injection 10 Ml Vial IV 06/02/24 09:59 10 ml
Q12H ARELI Administration
Home Medications
-
Home Medications
valsartan 80 mg tablet 80 mg PO DAILY 11/19/18
carbidopa 25 mg-levodopa 100 mg tablet 1 tab PO TID 05/02/24
dapagliflozin propanediol 10 mg tablet (Farxiga) 10 mg PO DAILY 05/02/24
levothyroxine 175 mcg tablet 175 mcg PO DAILY 05/02/24
metoprolol succinate 50 mg tablet,extended release 24 hr 50 mg PO DAILY 05/02/24
psyllium husk 0.4 gram capsule (Metamucil) 0.4 g PO DAILY 05/02/24
therapeutic multivitamin 1 tab PO DAILY 05/02/24
--- NOTE | 2024-05-05 13:11 | PTCARENOTE ---
Pt from 4th floor AAO,talking elbows contracted very rigid body Lungs are diminished on RA, Awaiting IR for spinal tap
--- NOTE | 2024-05-05 13:14 | W.PN.UPDATE ---
Update Note
Progress Note Update
- Fluoro guided LP attempted x2. Needle in good position with no return of fluid. Dry tap.
- Pt tolerated well. No immediate issues.
--- NOTE | 2024-05-05 13:54 | W.CON.NEPH ---
Consultation
-
Date/Time Consultation Requested: 05/05/24 1000
Date/Time Consultation Performed: 05/05/24 1400
Requesting Provider: Dr. Avila
Performing Provider: Dr. Doe
Reason for Consultation: JIMMY
Medical History
-
Chief Complaint: Mental status change
History of Present Illness:
This is a 69-year-old gentleman with Parkinson's on Sinemet. He also has hypertension on a multidrug regimen as well as hypothyroidism on Synthroid therapy. He has known chronic kidney disease baseline creatinine approximately 2.2. He follows
with us with Dr. Tamayo in the office. He was brought in because of mental status change. Apparently he was found on the floor and had been there overnight. At the time of admission his creatinine was slightly elevated and has only worsened up
to 4.2. He remains somewhat confused. Zepeda catheter was placed with output of 1.1 L immediately.
Past Medical History
Hypertension, hyperlipidemia, hypothyroidism, Parkinson's, avascular necrosis, osteoarthritis, sciatica, pancreatitis, CKD 4
Social History
Tobacco: Non-Smoker
Alcohol: None
Family History
Family History: Not Pertinent
Allergies / Home Medications
Allergy/AdvReac Type Severity Reaction Status Date / Time
No Known Allergies Allergy Verified 11/18/23 12:31
�Medication �Instructions �Recorded �Confirmed �Type
valsartan 80 mg tablet 80 mg PO DAILY 11/19/18 05/02/24 History
carbidopa 25 mg-levodopa 100 mg 1 tab PO TID 05/02/24 05/02/24 History
tablet
dapagliflozin propanediol 10 mg 10 mg PO DAILY 05/02/24 05/02/24 History
tablet (Farxiga)
levothyroxine 175 mcg tablet 175 mcg PO DAILY 05/02/24 05/02/24 History
metoprolol succinate 50 mg 50 mg PO DAILY 05/02/24 05/02/24 History
tablet,extended release 24 hr
psyllium husk 0.4 gram capsule 0.4 g PO DAILY 05/02/24 05/02/24 History
(Metamucil)
therapeutic multivitamin 1 tab PO DAILY 05/02/24 05/02/24 History
Review of Systems
-
Thirsty
All other systems: Negative unless noted
Physical Exam
Vital Signs
Vital Signs
Temp Pulse Resp BP Pulse Ox
98.6 F 80 16 153/99 95
05/05/24 11:28 05/05/24 13:20 05/05/24 13:20 05/05/24 13:20 05/05/24 13:20
Lab Results
WBC 17.1 10^3/uL (4.8-10.8) H 05/05/24 08:07
RBC 4.15 10^6/uL (4.70-6.10) L 05/05/24 08:07
Hgb 12.3 g/dL (13.0-18.0) L 05/05/24 08:07
Hct 36.3 % (39.0-52.0) L 05/05/24 08:07
Plt Count 247 10^3/uL (130-400) 05/05/24 08:07
Sodium 145 mmol/L (135-145) 05/05/24 08:07
Potassium 4.0 mmol/L (3.5-5.1) 05/05/24 08:07
Chloride 113 mmol/L (98-107) H 05/05/24 08:07
Carbon Dioxide 19 mmol/L (22-30) L 05/05/24 08:07
BUN 69 mg/dl (9-20) H 05/05/24 08:07
Creatinine 4.0 mg/dL (0.7-1.3) H 05/05/24 08:07
eGFR 15.44 05/05/24 08:07
Glucose 92 mg/dl (70-99) 05/05/24 08:07
Calcium 8.7 mg/dl (8.4-10.2) 05/05/24 08:07
Albumin 3.3 g/dl (3.5-5.0) L 05/04/24 09:34
Laboratory Tests
11/18/23
14:00
Carbon Dioxide 27
Creatinine 2.2 H
Physical Exam
Patient is awake alert oriented and in no distress. Mood and affect were pleasant, insight and judgment were good. Pupils are equal round and reactive to light, extraocular movements are intact, sclera were anicteric. Hearing was normal, ears and
nose are intact. Oropharynx was clear and dry. Neck was supple with trachea midline and no thyromegaly. Heart was regular rate and rhythm without rubs. Lower extremities without edema. Lungs were clear to auscultation bilaterally and with normal
excursion. Abdomen was soft, nontender, with normal active bowel sounds, and no hepatosplenomegaly. Skin was without rash and with normal turgor.
Data Reviewed
-
Radiology: Image Personally Visualized and interpreted (Chest x-ray on 05/04/2024 by reading shows decreased lung volume, cardiomegaly)
Medical Tests (Nuc Med, Echo etc): Image Personally Visualized and interpreted (EKG on 05/02/2024 by my reading shows normal sinus rhythm prolonged QT, nonspecific ST abnormality)
Labs: Labs Reviewed by me
Old Records: Reviewed
Assessment/Plan
-
Assessment
CKD 4
JIMMY
Urinary retention
Mental status change
Parkinson's
Hypertension
Metabolic acidosis
Plan
IV fluids may continue
Goal is to keep I/O equal
Follow BMP
I suspect that this is all urinary retention and obstructive uropathy
--- NOTE | 2024-05-05 15:59 | PTOTSP ---
SPEECH THERAPY SWALLOW EVALUATION:
Patient exhibits clinical signs of oropharyngeal dysphagia, likely chronic related to Parkinson's Disease and acutely exacerbated by JIMMY/UTI and related AMS/confusion. Patient remains at risk for aspiration and related complications given confusion
and reduced awareness at this time. Recommend IDDSI Level 4 Puree diet, thin liquids. Medications whole in puree. Aspiration precautions: 1:1 assistance, 100% supervision; Upright positioning; Small single sips/bites; Slow rate of intake; Eat only
when awake/alert; Remain upright 30 minutes after eating; Ensure oral cavity clear after oral intake; Alternate textures; Monitor for signs of aspiration; D/c oral diet if any decline in mental or respiratory status. ST to follow, assess diet
tolerance and modify as appropriate, monitor CXR and labs, determine indication for VSE as warranted, provide continued diagnostic swallow therapy as appropriate.
RECOMMEND:
1) IDDSI Level 4 Puree diet, thin liquids
2) Medications whole in puree
3) Aspiration precautions: 1:1 assistance, 100% supervision; Upright positioning; Small single sips/bites; Slow rate of intake; Eat only when awake/alert; Remain upright 30 minutes after eating; Ensure oral cavity clear after oral intake; Alternate
textures; Monitor for signs of aspiration; D/c oral diet if any decline in mental or respiratory status
4) ST to follow, determine indication for VSE if appropriate
--- NOTE | 2024-05-05 17:02 | CON.ID ---
Consultation
-
Date/Time Consultation Requested: May 05, 2024
Date/Time Consultation Performed: May 05, 2024
Requesting Provider: Dr. Timothy Hernandez
Performing Provider: Dr. Barbara Alegria
Reason for Consultation: Fever and mental status change
Chief Complaint / Past History
Chief Complaint
Change in mental status
History of Present Illness
History obtained from review of medical records as well as from the patient who is a poor historian. He is a 69-year-old male with tremors, suspecting Parkinson's on Sinemet, hypertension, CKD 3 who presented to the hospital on May 02 after
being down on the floor overnight. Patient noted to be confused. Head CT no acute pathology. White count 12.4. Afebrile. Patient noted to be in acute renal failure and rhabdomyolysis. However renal function continues to deteriorate during the
hospital stay. Urine culture negative. Chest x-ray bibase atelectasis. White count continues to trend up. He was started on meropenem. Lumbar puncture ordered but it was unsuccessful with a dry tap by IR. Today patient keeps saying he wants to
see his mother which has had breast cancer surgery. He wants to leave the hospital. He is oriented to himself and place. He could not recall how he ended up on the floor. Has mild frontal headache. No sinus congestion. No sore throat. No neck
stiffness. No fevers. No cough. No abdominal pain or diarrhea. No dysuria or flank pain. No rash.
Past History
Additional Past Medical History:
Hypertension
Dyslipidemia
Hypothyroidism
CKD 3
gout
avascular necrosis
Lumbar radiculopathy
Bilateral MICHELLE
Allergy History:
No Known Allergies Allergy (Verified 11/18/23 12:31)
Medications Reviewed: Yes
Current Antibiotics:
Meropenem d1
Social History
Tobacco: Non-Smoker
Alcohol: None
Drug: None
Personal:
Family History
Family History: Not Pertinent
Review of Systems
Review of Systems
General: Negative Fever, Chills or Change in Appetite
HEENT: Negative Stiff Neck, Sinus Problems or Pharyngitis
Cardiovascular: Negative Chest Pain or Dyspnea
Respiratory: Negative Dyspnea or Cough
Gasteroenterology: Negative Nausea, Vomiting or Diarrhea
Genital / Urological: Negative Dysuria or Flank Pain
Neurological: Negative Dizziness
All systems: All other systems were reviewed and were negative
Vital Signs
Temp Pulse Resp BP Pulse Ox
98.8 F 88 28 132/84 95
05/05/24 15:05 05/05/24 16:00 05/05/24 16:00 05/05/24 16:00 05/05/24 14:00
Physical Exam
Physical Exam
Constitutional: No Acute Distress and Comfortable
Head: Other (No frontal or maxillary sinus tenderness)
Eyes: No Conjunctival Hemorrhage and Sclera Anicteric
Pharynx: Benign
Cardiovascular: Regular Rate and S1/S2
Pulmonary: Other (Decreased BS at bases)
Gastrointestinal: Soft, Non Tender, Non Distended, Normal Bowel Sounds and Decreased Bowel Sounds
Genito-Urinary: Zepeda and Clear Urine
Extremities: Negative Edema
Skin: Negative Rash or Jaundice
Neurological: Awake, Alert and Oriented (to self and place); Negative Meningeal Signs
Psychological: Confused
Lab / Diagnostic Study Results
05/05/24 08:07
05/05/24 08:07
Abs Immat Gran (auto) 0.2 10^3/uL (0-0.05) H 05/05/24 08:07
Absolute Neuts (auto) 14.3 10^3/uL (1.4-6.5) H 05/05/24 08:07
Absolute Lymphs (auto) 1.1 10^3/uL (1.2-3.4) L 05/05/24 08:07
Absolute Monos (auto) 1.4 10^3/uL (0.1-0.6) H 05/05/24 08:07
Absolute Basos (auto) 0.1 10^3/uL (0-0.2) 05/05/24 08:07
Immature Gran % 1.2 % (0-0.5) H 05/05/24 08:07
Neutrophils % 83.9 % (42.2-75.2) H 05/05/24 08:07
Lymphocytes % 6.2 % (20.5-51.1) L 05/05/24 08:07
Monocytes % 8.3 % (1.7-9.3) 05/05/24 08:07
Eosinophils % 0.1 % (0-6) 05/05/24 08:07
Basophils % 0.3 % (0-2) 05/05/24 08:07
Microbiology Results
Micro:
05/05/24 10:48 Blood Culture - Pending
Blood/Venous
05/04/24 17:15 Influenza Types A & B (LILIA) - Final
Nasal Swab Negative for Influenza A & B, NAAT
Negative results must be combined with clinical observations
and patient history.
Nucleic Acid Amplification test (NAAT)performed on the
[employer] platform.
05/02/24 15:04 Urine Culture - Final
Urine NO GROWTH
05/02/24 15:04 Influenza Types A & B (LILIA) - Final
Nasal Swab Negative for Influenza A & B, NAAT
Negative results must be combined with clinical observations
and patient history.
Nucleic Acid Amplification test (NAAT)performed on the
[employer] platform.
05/02 CT head No evidence of acute intracranial abnormality. Prominent decreased density within the periventricular white matter, especially within the posterior occipital lobes. 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
69 years. Mild to moderate atrophy.
05/04 CXR: Basilar probable atelectasis.
Assessment / Plan
# Encephalopathy
- Does not appear to have meningitis picture.
- LP dry tap. Cancelled LP lab orders
- Check PRP, WNV serology in am
- Appreciate neuro eval.
# Worsening leukocytosis - suspect reactive
- Afebrile
- UA/Ucx neg.
-CXR neg
- blood cx's pending
- dc meropenem
- Follow wbc
# JIMMY on CKD
# Hand tremors
- Parkinson's work-up in progress
- On Sinemet
# Constipation
- Ordered prn Miralax
Care Review
Plan reviewed with: Physician (Dr. Aguirre)
[2024-05-05 18:14] LABS: Troponin I 0.212 ng/ml
[2024-05-05 22:41] LABS: Troponin I 0.196 ng/ml
[2024-05-06] VITALS (11 sets, daily range): BP systolic 138–161; BP diastolic 86–136; BMI 26.4
[2024-05-06] MEDS: NSS 1000 IV ×3 (02:44→19:30)
--- NOTE | 2024-05-06 03:01 | PTCARENOTE ---
Patient noted to have necrotic right second toe. bingo caller provider made aware and wound care consult placed.
--- NOTE | 2024-05-06 03:17 | W.PN.UPDATE ---
Update Note
Progress Note Update
Nurse noted necrotic area to right 2nd toe. This has not been documented before during admission. Wound appears not new. Great toe and second toe with very cracked dry skin. +pulses.
Wound care consulted. No drainage so unable to obtain culture.
[2024-05-06 04:00] LABS: % Basophils 0.4 % (0-2); % Eosinophils 0.1 % (0-6); % Immature Granulocytes 1.1 % (0-0.5); % Lymphocytes 4.8 % (20.5-51.1); % Monocytes 8.3 % (1.7-9.3); % Neutrophils 85.3 % (42.2-75.2); Absolute Basophils 0.1 10^3/uL (0-0.2); Absolute Immature Granulocytes 0.2 10^3/uL (0-0.05); Absolute Lymphocytes 0.7 10^3/uL (1.2-3.4); Absolute Monocytes 1.2 10^3/uL (0.1-0.6); Absolute Neutrophils 12.6 10^3/uL (1.4-6.5); Hematocrit 37.6 % (39.0-52.0); Hemoglobin 12.6 g/dL (13.0-18.0); Mean Corp Hgb Conc. 33.5 g/dL (33.0-37.0); Mean Corpuscular Hgb 29.6 pg (27.0-31.0); Mean Corpuscular Volume 88.3 fL (80.0-94.0); Mean Platelet Volume 9.9 fL (7.4-10.4); Nucleated Red Blood Cells % 0 % (-); Platelet Count 248 10^3/uL (130-400); Red Blood Cell Count 4.26 10^6/uL (4.70-6.10); Red Cell Dist. Width 14.2 % (11.5-14.5); White Blood Cell Count 14.8 10^3/uL (4.8-10.8)
[2024-05-06 04:16] LABS: Blood Urea Nitrogen 68 mg/dl (9-20); Calcium 8.8 mg/dl (8.4-10.2); Carbon Dioxide 20 mmol/L (22-30); Chloride 112 mmol/L (98-107); Estimated Creatinine Clearance 22 ml/min; Glucose 99 mg/dl (70-99); Potassium 3.7 mmol/L (3.5-5.1); Sodium 145 mmol/L (135-145); eGFR 18.76
[2024-05-06] MEDS: SYNTHROID 175 MCG PO (05:00)
[2024-05-06] MEDS: TYLENOL 650 MG PO (05:40)
--- NOTE | 2024-05-06 07:30 | W.PN.HOSP.TC ---
Today's Communication/Plan
-
JIMMY improving
Doing better
No longer very hypertensive or tachycardic and Cr and leukocytosis improving - transfer back to telemetry
Assessment / Plan
Assessment / Plan
Physical Exam
General: Not in acute distress
HEENT: Normocephalic, Moist mucous membranes and Atraumatic
Respiratory: Clear to Auscultation Bilaterally
Cardiac: S1/S2 and Regular Rhythm
GI: Soft, Non Tender, Non Distended and Normal Bowel Sounds
Musculoskeletal: No Cyanosis and No Edema
Skin: Warm. Dry.
Neuro: Confused. Responds to some questions.
Assessment/Plan
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
# Concern for non-traumatic rhabdomyolysis
-Creatinine of 2.7 from 2.2 baseline --> now 2.3-->2.6-->3.1-->4.2-->4.0-->3.4
-Appreciate nephrology: it is suspected that this is all due to urinary retention and obstructive uropathy
-CK 1439-->1421-->617-->347
-CT head negative
-Continue IV fluids due to JIMMY
-Hold valsartan
-Hold dapagliflozin
-Urinalysis negative
-Ordered renal and bladder ultrasound
#Fever on 05/06/24
#Leukocytosis, worsened initially, now improving
#Necrotic area to the right 2nd toe - right second toe tip black hyperkeratotic lesion (?Verrucae vs subungular SCC vs benign)
-Check COVID again today given new fever
-CXR (atelectasis), repeat UA
-Ordered renal and bladder ultrasound as above
-Consulted ID, appreciate their evaluation and recommendations
-Check PRP and WNV
-IR attempted LP on 05/05/24 --> but it was dry tap
-Follow blood cultures
-Wound care
-Outpatient referral to Podiatry for excisional biopsy
#Suspected Acute Toxic Metabolic Encephalopathy
-Neurology consulted given patient's Parkinson's Disease and unclear etiology of confusion and leukocytosis
-MRI imaging pending
-Appreciate neurology
#Urinary Retention reported by patient's spouse
-Bladder Scans protocol
#Bilateral renal cysts which measure up to 10.0 cm on the left and 5.6 cm on the right (as per radiologist's report on renal ultrasound)
#Microscopic Hematuria
#Proteinuria
-Needs nephrology follow-up
#Possible Parkinson's
-Continue carbidopa-levodopa
-Per patient's , patient sees Dr. Pozo outpatient -- planned for MRI brain in May 2024
#Essential hypertension
-Continue metoprolol
-Added Amlodipine 2.5 mg daily
-Also prn IV Hydralazine
#Hypercholesterolemia
#Hypothyroidism
-Continue levothyroxine
Psychiatric history
Gout
Osteoarthritis
Full code
DVT prophylaxis�heparin
Diet: IDDSI Level 4 Puree diet, thin liquids. Medications whole in puree. Aspiration precautions including 1:1 assist, ensure oral cavity clear after meal. Monitor for signs of aspiration and d/c oral diet if any decline in mental/respiratory status.
Anticipated Discharge: > 48 hours
Subjective/Interval History
-
Date of Service: May 06, 2024
Patient was seen and examined. He was much more alert and interactive today.
Objective Data
-
Labs:
Laboratory Results
05/06/24
03:46
WBC 14.8 H
Hgb 12.6 L
Hct 37.6 L
Plt Count 248
Sodium 145
Potassium 3.7
Chloride 112 H
Carbon Dioxide 20 L
BUN 68 H
Creatinine 3.4 H
Glucose 99
Calcium 8.8
Vital Signs:
Vital Signs
Temp Pulse Resp BP Pulse Ox
100.8 F H 83 20 138/109 96
05/06/24 05:26 05/06/24 06:00 05/06/24 06:00 05/06/24 06:00 05/06/24 06:00
I&O
05/05/24 05/06/24 05/07/24
06:59 06:59 06:59
Intake Total 1900 / 1900 1979 / 1979 1500 / 1500
Output Total 1800 / 1800 3500 / 3500
Balance 100 / 100 -1520 / -1520 1500 / 1500
--- NOTE | 2024-05-06 07:44 | PTCARENOTE ---
DR Avila tt re necrotic toe on r ft 2nd toe
[2024-05-06] MEDS: HEPARIN 5000 UNITS SC ×2 (08:48→19:30)
[2024-05-06] MEDS: METAMUCIL, KONSYL 1 PACKET PO (08:48)
[2024-05-06] MEDS: SINEMET 25-100 1 TABLET PO ×3 (08:52→19:30)
[2024-05-06] MEDS: TOPROL XL 50 MG PO (08:54)
[2024-05-06] MEDS: NORVASC 2.5 MG PO (08:55)
[2024-05-06] MEDS: THERAGRAN 1 TABLET PO (08:55)
--- NOTE | 2024-05-06 09:28 | PTCARENOTE ---
Pt fed about 20% of breakfast he stated he was full. DR Nita Alegria saw pt. Iv teamreplacing IV site . Pt remains confused . Tp on RA at 96%. Mitts remain on due to pulls everything off including IV. Med sitter also on pt
--- NOTE | 2024-05-06 09:41 | W.PN.NEPH.PH ---
Today's Communication / Plan
-
IVF
Assessment/Plan
-
Assessment
CKD 4
JIMMY
Urinary retention
Mental status change
Parkinson's
Hypertension
Metabolic acidosis
Plan
IV fluids may continue
Goal is to keep I/O equal
Follow BMP
maintain pinto given obstructive uropathy
-
-
Date of Service: May 06, 2024
CC / HPI / ROS
-
Chief Complaint:
JIMMY
History of Present Illness:
JIMMY/CR down to 3.[address], nonoliguric
BP stable
restrained-pulling at lines
Review of Systems:
no CP/SOB
Labs
-
Labs:
WBC 14.8 10^3/uL (4.8-10.8) H 05/06/24 03:46
RBC 4.26 10^6/uL (4.70-6.10) L 05/06/24 03:46
Hgb 12.6 g/dL (13.0-18.0) L 05/06/24 03:46
Hct 37.6 % (39.0-52.0) L 05/06/24 03:46
Plt Count 248 10^3/uL (130-400) 05/06/24 03:46
Sodium 145 mmol/L (135-145) 05/06/24 03:46
Potassium 3.7 mmol/L (3.5-5.1) 05/06/24 03:46
Chloride 112 mmol/L (98-107) H 05/06/24 03:46
Carbon Dioxide 20 mmol/L (22-30) L 05/06/24 03:46
BUN 68 mg/dl (9-20) H 05/06/24 03:46
Creatinine 3.4 mg/dL (0.7-1.3) H 05/06/24 03:46
eGFR 18.76 05/06/24 03:46
Glucose 99 mg/dl (70-99) 05/06/24 03:46
Calcium 8.8 mg/dl (8.4-10.2) 05/06/24 03:46
Albumin 3.3 g/dl (3.5-5.0) L 05/04/24 09:34
Physical Exam
-
Vital Signs:
Vital Signs
Temp Pulse Resp BP Pulse Ox
100.8 F H 91 20 155/136 96
05/06/24 05:26 05/06/24 08:54 05/06/24 06:00 05/06/24 08:54 05/06/24 06:00
Cardiovascular:: Regular rate and rhythm
Respiratory:: Bilateral: Coarse
Lung Excursion:: Normal
Abdomen:: Nontender and Soft
Bowel Sounds:: Normal
Extremity Edema:: None: Bilateral:
--- NOTE | 2024-05-06 09:59 | W.PN.ID1 ---
Date of Service
Date of Service: May 06, 2024
Today's Communication
See below.
Assessment / Plan
# New fever today.
- Check COVID ag.
- 05/05 UA neg, BCX neg to date, CXR no PNA
- Observe off abx for now.
# leukocytosis trending down
- trend wbc
# Right second toe tip black hyperkeratotic lesion
- ?Verrucae vs subungular SCC vs benign
- Outpt referral to Podiatry for excisional biopsy
# Encephalopathy
- Does not appear to have septic meningitis picture.
- LP dry tap. Cancelled LP lab orders
- RPR, WNV serology pendion
- Appreciate neuro eval.
# JIMMY on CKD
# Hand tremors
- Parkinson's work-up in progress
- On Sinemet
Chief Complaint
-: Leukocytosis
Subjective / Review of Systems
Has mild frontal SO. No cough/SOB. No diarrhea.
Vital Signs / Physical Exam
Vital Signs
Vital Signs
Temp Pulse Resp BP Pulse Ox
100.8 F H 91 20 155/136 96
05/06/24 05:26 05/06/24 08:54 05/06/24 06:00 05/06/24 08:54 05/06/24 06:00
Physical Exam
Constitutional: No Acute Distress and Non-toxic
Head: Other (No frontal or maxillary sinus tenderness.)
Cardiovascular: Regular Rate and S1/S2
Pulmonary: Clear
Gastrointestinal: Soft, Non Tender, Non Distended and Normal Bowel Sounds
Genito-Urinary: Zepeda and Clear Urine
Extremities: Negative Edema
Wound: Other (Right second toe tip medial side - hard hyperkeratotic black tissue, dry, no surrounding erythema)
Neurological: Awake and Alert
Psychological: Confused
Objective Data
Lab Data
Lab Results
05/06/24 03:46
05/06/24 03:46
Estimated Creat Clear 22 ml/min 05/06/24 03:46
Total Bilirubin 1.1 mg/dl (0.2-1.3) 05/04/24 09:34
AST 59 U/L (17-59) 05/04/24 09:34
ALT 10 U/L (0-50) 05/04/24 09:34
Alkaline Phosphatase 87 U/L (38-126) 05/04/24 09:34
Most recent labs reviewed.
Micro Results:
05/05/24 17:18 Blood Culture - Pending
Blood/Venous
05/05/24 10:48 Blood Culture - Pending
Blood/Venous
05/04/24 17:15 Influenza Types A & B (LILIA) - Final
Nasal Swab Negative for Influenza A & B, NAAT
Negative results must be combined with clinical observations
and patient history.
Nucleic Acid Amplification test (NAAT)performed on the
[employer] NOW platform.
05/02/24 15:04 Urine Culture - Final
Urine NO GROWTH
05/02/24 15:04 Influenza Types A & B (LILIA) - Final
Nasal Swab Negative for Influenza A & B, NAAT
Negative results must be combined with clinical observations
and patient history.
Nucleic Acid Amplification test (NAAT)performed on the
[employer] NOW platform.
05/02 CT head No evidence of acute intracranial abnormality. Prominent decreased density within the periventricular white matter, especially within the posterior occipital lobes. 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
69 years. Mild to moderate atrophy.
05/04 CXR: Basilar probable atelectasis.
Care Review
Plan reviewed with: Physician (Dr. Avila)
[2024-05-06 11:14] LABS: COVID-19 Antigen Negative (Negative)
[2024-05-06] MEDS: THIAMINE INJECTION 100 MG IV (14:25)
--- NOTE | 2024-05-06 15:00 | PTCARENOTE ---
Pt brother visiting
[2024-05-06] MEDS: APRESOLINE 5 MG IV (21:25)
[2024-05-07] VITALS (14 sets, daily range): BP systolic 103–168; BP diastolic 67–123; PULSE 78–84; BMI 25.8
[2024-05-07] MEDS: NSS 1000 IV ×2 (00:59→08:56)
[2024-05-07 04:50] LABS: % Basophils 0.4 % (0-2); % Eosinophils 0.2 % (0-6); % Immature Granulocytes 1.1 % (0-0.5); % Lymphocytes 8.5 % (20.5-51.1); % Monocytes 8.9 % (1.7-9.3); % Neutrophils 80.9 % (42.2-75.2); Absolute Basophils 0.1 10^3/uL (0-0.2); Absolute Immature Granulocytes 0.2 10^3/uL (0-0.05); Absolute Lymphocytes 1.1 10^3/uL (1.2-3.4); Absolute Monocytes 1.2 10^3/uL (0.1-0.6); Absolute Neutrophils 10.8 10^3/uL (1.4-6.5); Hematocrit 37.2 % (39.0-52.0); Hemoglobin 12.5 g/dL (13.0-18.0); Mean Corp Hgb Conc. 33.6 g/dL (33.0-37.0); Mean Corpuscular Hgb 28.7 pg (27.0-31.0); Mean Corpuscular Volume 85.5 fL (80.0-94.0); Mean Platelet Volume 10.2 fL (7.4-10.4); Nucleated Red Blood Cells % 0 % (-); Platelet Count 286 10^3/uL (130-400); Red Blood Cell Count 4.35 10^6/uL (4.70-6.10); Red Cell Dist. Width 13.9 % (11.5-14.5); White Blood Cell Count 13.4 10^3/uL (4.8-10.8)
[2024-05-07] MEDS: SYNTHROID 175 MCG PO (04:57)
[2024-05-07 04:58] LABS: Blood Urea Nitrogen 54 mg/dl (9-20); Calcium 8.4 mg/dl (8.4-10.2); Carbon Dioxide 22 mmol/L (22-30); Chloride 109 mmol/L (98-107); Estimated Creatinine Clearance 31 ml/min; Glucose 88 mg/dl (70-99); Potassium 3.7 mmol/L (3.5-5.1); Sodium 145 mmol/L (135-145); eGFR 28.49
[2024-05-07] MEDS: APRESOLINE 5 MG IV (05:47)
[2024-05-07] MEDS: MIRALAX 17 GRAMS PO (05:47)
--- NOTE | 2024-05-07 05:51 | PTCARENOTE ---
Patient confused and hypertensive overnight. Medsitter in place. PRN hydralazine given.
--- NOTE | 2024-05-07 05:52 | PTCARENOTE ---
Patient with no bowel movement this admission. PRN miralax given.
[2024-05-07] MEDS: SINEMET 25-100 1 TABLET PO ×3 (08:51→21:06)
[2024-05-07] MEDS: THERAGRAN 1 TABLET PO (08:52)
[2024-05-07] MEDS: NORVASC 2.5 MG PO (08:52)
[2024-05-07] MEDS: THIAMINE INJECTION 100 MG IV (08:52)
[2024-05-07] MEDS: HEPARIN 5000 UNITS SC ×2 (08:52→20:50)
[2024-05-07] MEDS: TOPROL XL 50 MG PO (08:53)
[2024-05-07] MEDS: METAMUCIL, KONSYL 1 PACKET PO (08:56)
--- NOTE | 2024-05-07 09:36 | W.PN.NEPH.PH ---
Today's Communication / Plan
-
change IVFs to 1/2ns
maintain pinto
Assessment/Plan
-
Assessment
CKD 4
JIMMY
Urinary retention
Mental status change
Parkinson's
Hypertension
Metabolic acidosis
Plan
IV fluids may continue
Creatinine is down to 2.4
Urine output 3.4 L
change IVFs to 1/2 at reduced rate of 80cc/hr
Goal is to keep I/O equal
Follow BMP
maintain pinto given obstructive uropathy
Valsartan held in setting of acute kidney injury
for MRI of head due to mental status changes
-
-
Date of Service: May 07, 2024
CC / HPI / ROS
-
Chief Complaint:
JIMMY
History of Present Illness:
JIMMY/CR down to 2.[address], nonoliguric
BP stable
restrained-pulling at lines
Review of Systems:
no CP/SOB
some persistent mental status changes
Labs
-
Labs:
WBC 13.4 10^3/uL (4.8-10.8) H 05/07/24 04:05
RBC 4.35 10^6/uL (4.70-6.10) L 05/07/24 04:05
Hgb 12.5 g/dL (13.0-18.0) L 05/07/24 04:05
Hct 37.2 % (39.0-52.0) L 05/07/24 04:05
Plt Count 286 10^3/uL (130-400) 05/07/24 04:05
Sodium 145 mmol/L (135-145) 05/07/24 04:05
Potassium 3.7 mmol/L (3.5-5.1) 05/07/24 04:05
Chloride 109 mmol/L (98-107) H 05/07/24 04:05
Carbon Dioxide 22 mmol/L (22-30) 05/07/24 04:05
BUN 54 mg/dl (9-20) H 05/07/24 04:05
Creatinine 2.4 mg/dL (0.7-1.3) H 05/07/24 04:05
eGFR 28.49 05/07/24 04:05
Glucose 88 mg/dl (70-99) 05/07/24 04:05
Calcium 8.4 mg/dl (8.4-10.2) 05/07/24 04:05
Albumin 3.3 g/dl (3.5-5.0) L 05/04/24 09:34
Physical Exam
-
Vital Signs:
Vital Signs
Temp Pulse Resp BP Pulse Ox
99.2 F 99 18 149/83 99
05/07/24 07:33 05/07/24 08:53 05/07/24 06:50 05/07/24 08:53 05/06/24 19:36
Cardiovascular:: Regular rate and rhythm
Respiratory:: Bilateral: Coarse
Lung Excursion:: Normal
Abdomen:: Nontender and Soft
Bowel Sounds:: Normal
Extremity Edema:: None: Bilateral:
--- NOTE | 2024-05-07 10:26 | W.PN.NEURO.1 ---
Today's Communication / Plan
-
Ecasa 81 mg
Sinemet 25/100 TID
BP control
Neuro Assessment/Plan
Assessment
69 yr. old male with h/o uncontrolled HTN renal insufficiency and Parkinsons presented with AMS resolved with BP management
Plan
BP control
Ecasa
Sinemet 25/100 TID
Subjective/Objective
Subjective Data
Date of Service: May 07, 2024
Pat has no new complaints. Still confused with left arm tremor
Objective Data
Vital Signs
Temp Pulse Resp BP Pulse Ox
37.3 C 99 21 149/83 99
05/07/24 07:33 05/07/24 08:53 05/07/24 08:51 05/07/24 08:53 05/06/24 19:36
Lab Results
05/07/24 04:05
05/07/24 04:05
Sodium 145 mmol/L (135-145) 05/07/24 04:05
Potassium 3.7 mmol/L (3.5-5.1) 05/07/24 04:05
BUN 54 mg/dl (9-20) H 05/07/24 04:05
Glucose 88 mg/dl (70-99) 05/07/24 04:05
Calcium 8.4 mg/dl (8.4-10.2) 05/07/24 04:05
Patient Allergies
No Known Allergies Allergy (Verified 11/18/23 12:31)
Data Reviewed
-
MRI Head: Image Reviewed (MRI head: Right occipital lobe white matter changes c/w Posterior reversible encephalopathy )
--- NOTE | 2024-05-07 13:54 | W.PN.ID1 ---
Date of Service
Date of Service: May 07, 2024
Today's Communication
Observe off abx.
Assessment / Plan
# Fever today x 1 resolved
- COVID ag neg
- 05/05 UA neg, BCX neg to date, CXR no PNA
- Observe off abx
# leukocytosis trending down
- trend wbc
# Right second toe tip black hyperkeratotic lesion
- ?Verrucae vs subungular SCC vs benign
- Outpt referral to Podiatry for excisional biopsy
- Appreciate Wound Care eval.
# Encephalopathy
- MRI brain + 3.5cm lesion posterior right occipital lobe
- LP dry tap.
- RPR, WNV serology pending
# JIMMY on CKD
# Hand tremors
- Parkinson's work-up in progress
- On Sinemet
Chief Complaint
-: Leukocytosis
Subjective / Review of Systems
Sitting up in chair. Feels well.
Vital Signs / Physical Exam
Vital Signs
Vital Signs
Temp Pulse Resp BP Pulse Ox
99.3 F 77 17 138/111 94
05/07/24 11:06 05/07/24 12:00 05/07/24 12:00 05/07/24 12:00 05/07/24 12:35
Physical Exam
Constitutional: No Acute Distress and Comfortable
Eyes: No Conjunctival Hemorrhage and Sclera Anicteric
Cardiovascular: Regular Rate and S1/S2
Pulmonary: Clear
Gastrointestinal: Soft, Non Tender and Non Distended
Genito-Urinary: Clear Urine
Extremities: Negative Edema
Neurological: Awake and Alert
Objective Data
Lab Data
Lab Results
05/07/24 04:05
05/07/24 04:05
Estimated Creat Clear 31 ml/min 05/07/24 04:05
Total Bilirubin 1.1 mg/dl (0.2-1.3) 05/04/24 09:34
AST 59 U/L (17-59) 05/04/24 09:34
ALT 10 U/L (0-50) 05/04/24 09:34
Alkaline Phosphatase 87 U/L (38-126) 05/04/24 09:34
Most recent labs reviewed.
Micro Results:
05/05/24 10:48 Blood Culture - Preliminary
Blood/Venous No Growth in 48 hours- Final report to follow
05/05/24 17:18 Blood Culture - Preliminary
Blood/Venous No Growth in 24 hours- Final report to follow
05/04/24 17:15 Influenza Types A & B (LILIA) - Final
Nasal Swab Negative for Influenza A & B, NAAT
Negative results must be combined with clinical observations
and patient history.
Nucleic Acid Amplification test (NAAT)performed on the
[employer] platform.
05/02/24 15:04 Urine Culture - Final
Urine NO GROWTH
05/02/24 15:04 Influenza Types A & B (LILIA) - Final
Nasal Swab Negative for Influenza A & B, NAAT
Negative results must be combined with clinical observations
and patient history.
Nucleic Acid Amplification test (NAAT)performed on the
[employer] platform.
05/02 CT head No evidence of acute intracranial abnormality. Prominent decreased density within the periventricular white matter, especially within the posterior occipital lobes. 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
69 years. Mild to moderate atrophy.
05/04 CXR: Basilar probable atelectasis.
05/07 Brain MRI: 3.5 cm region of signal abnormality in the cortical ibanez matter and subcortical white matter of the POSTERIOR RIGHT OCCIPITAL LOBE with associated edema and a mild intraparenchymal microhemorrhage. Diagnostic possibilities are (1)
posterior reversible encephalopathy syndrome (PRES), (2) an acute inflammatory or infectious encephalitis, (3) a slow flow cerebral vascular malformation, or (4) a primary or metastatic brain tumor.
--- NOTE | 2024-05-07 14:00 | WOUNDNOTE ---
R 2ND TOE TIP
--- NOTE | 2024-05-07 14:06 | WOUNDNOTE ---
[facility] RN note: Patient admitted with JIMMY, rhabdomyolysis. Patient lives with his who recently had surgery.
See H&P for complete history.
PMH: CKD 4
JIMMY
Urinary retention
Mental status change Parkinson's Hypertension.
Wound Location and type/assessment: Patient admitted with: R distal 2nd to dry black ulcer/lesion. +Palpable pedal pulses. Trace pedal edema.
Appetite: good.
Pressure redistribution devices in place: [employer] air bed. He stood with a walker and 2 assist (RN Salma assisted) for sacral skin assessment.
Plan: Dressing applied to R 2nd toe. Air chair cushion placed in recliner chair. Instructed patient to follow up with a oven loader for toenail and R 2nd toe care.
Updated and confirmed local care with with Dr. Quijano and Dr. Alegria. Defer to hospitalist if podiatry consult indicated. Defer to ID if x-ray R 2nd toe indicated to r/o OM.
Care plan to be updated and will follow as needed.
Note to case management requested for discharge: VN if goes home.
--- NOTE | 2024-05-07 14:52 | PTOTSP ---
SPEECH THERAPY SWALLOW FOLLOW UP NOTE AND COGNITIVE EVALUATION:
Patient exhibits moderate-severe cognitive communication impairments, moderate receptive language impairments, and mild expressive language impairments characterized by deficits in: Formulation, processing speed, STM, Attention, safety awareness,
insight, visuospatial skills, executive functioning skills, abstraction, reasoning, orientation. MOCA version 8.1 administered. Patient scored 7/30, indicating below normal level of functioning (greater than or equal to 26/30). Subscores as follows:
Visuospatial/executive functionin/5; Namin/3; Memory/Recall: 0/5 (Memory Index Score 5/15); Attention: 1/2; Language: 0/2; Abstraction: 0/2; Orientation: 2/6. Deficits likely related to occipital lesion of unknown etiology as demonstrated on
MRI, along with Parkinson's disease. Speech Therapy services are indicated at the acute care level and upon discharge.
Patient continues to exhibit clinical signs of oropharyngeal dysphagia. Appears to be tolerating current diet without signs of aspiration at this time. Improved oral swallow function at this time. Recommend diet upgrade to IDDSI Level 6 Soft and
Bite diet, thin liquids. Medications whole in applesauce. Aspiration precautions: 100% supervision/assist as needed; Upright positioning; Small sips/ bites; Slow rate; Oral care after meals; Eat only when awake/alert; Remain upright 30 minutes after
eating/drinking; Alternate textures; Monitor for signs of aspiration; D/c oral diet if any decline in mental or respiratory status. ST to continue to follow, assess diet tolerance, and modify as appropriate.
RECOMMEND:
1) IDDSI Level 6 Soft and Bite diet, thin liquids
2) Medications whole in applesauce
3) Aspiration precautions: 100% supervision/assist as needed; Upright positioning; Small sips/ bites; Slow rate; Oral care after meals; Eat only when awake/alert; Remain upright 30 minutes after eating/drinking; Alternate textures; Monitor for signs
of aspiration; D/c oral diet if any decline in mental or respiratory status
4) ST to continue to follow for swallow and cognitive communication
[2024-05-07] MEDS: NSS IV (16:01)
[2024-05-07] MEDS: 0.45%NACL 1000 IV (16:02)
--- NOTE | 2024-05-07 17:58 | W.PN.HOSP.TC ---
Today's Communication/Plan
-
continue IVF
await further input from neuro
Assessment / Plan
Assessment / Plan
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
improving
# Concern for non-traumatic rhabdomyolysis
-Creatinine of 2.7 from 2.2 baseline --> now 2.3-->2.6-->3.1-->4.2-->4.0-->3.4-->2.4
-Appreciate nephrology: it is suspected that this is all due to urinary retention and obstructive uropathy
-CK 1439-->1421-->617-->347
-CT head negative
-Continue IV fluids due to JIMMY
changed by nephro to 1/2NS at 80 cc/hr
-Hold valsartan
-Hold dapagliflozin
-Urinalysis negative
#Fever on 05/06/24
#Leukocytosis, worsened initially, now improving
#Necrotic area to the right 2nd toe - right second toe tip black hyperkeratotic lesion (?Verrucae vs subungular SCC vs benign)
-Check COVID again today given new fever
-CXR (atelectasis), repeat UA
-Ordered renal and bladder ultrasound:No hydronephrosis or suspicious renal lesions. Bilateral renal cysts which measure up to 10.0 cm on the left and 5.6 cm on the right.
The urinary bladder is decompressed with Zepeda catheter.
-Consulted ID, appreciate their evaluation and recommendations
-Check PRP and WNV
-IR attempted LP on 05/05/24 --> but dry tap x2
-Follow blood cultures
-Wound care
-Outpatient referral to Podiatry for excisional biopsy
#Suspected Acute Toxic Metabolic Encephalopathy
-Neurology consulted given patient's Parkinson's Disease and unclear etiology of confusion and leukocytosis
-MRI:1. 3.5 cm region of signal abnormality in the cortical ibanez matter and subcortical white matter of the POSTERIOR RIGHT OCCIPITAL LOBE with associated edema and a mild intraparenchymal microhemorrhage. Diagnostic possibilities are (1)
posterior reversible encephalopathy syndrome (PRES), (2) an acute inflammatory or infectious encephalitis, (3) a slow flow cerebral vascular malformation, or (4) a primary or metastatic brain tumor.
2. Moderate white matter leukoaraiosis in both cerebral hemispheres.
3. Mild diffuse cerebral and cerebellar volume loss.
4. Severe discogenic degenerative disease at C3/C4 with a central disc-osteophyte complex causing moderate spinal cord compression and central canal stenosis.
-Appreciate neurology, have requested follow up
#Urinary Retention reported by patient's spouse
-Bladder Scans protocol
#Microscopic Hematuria
#Proteinuria
-Needs nephrology follow-up
#Possible Parkinson's
-Continue carbidopa-levodopa
-Per patient's , patient sees Dr. Pozo outpatient -- planned for MRI brain in May 2024
#Essential hypertension
-Continue metoprolol
-Added Amlodipine 2.5 mg daily
-Also prn IV Hydralazine
#Hypercholesterolemia
#Hypothyroidism
-Continue levothyroxine
Psychiatric history
Gout
Osteoarthritis
Full code
DVT prophylaxis�heparin
Diet: IDDSI Level 4 Puree diet, thin liquids. Medications whole in puree. Aspiration precautions including 1:1 assist, ensure oral cavity clear after meal. Monitor for signs of aspiration and d/c oral diet if any decline in mental/respiratory status.
Met with s-i-l (listed as contact assembler and son ~30 minutes) reviewed extensive hx, especially MRI report
reviewed with RN
extensive complex visit
Anticipated Discharge: > 48 hours
Subjective/Interval History
-
Date of Service: May 07, 2024
dgt in law in room, with extensive review of situation
Objective Data
-
Vital Signs:
Vital Signs
Temp Pulse Resp BP Pulse Ox
97.7 F 77 20 138/111 94
05/07/24 15:53 05/07/24 14:00 05/07/24 14:00 05/07/24 12:00 05/07/24 12:35
I&O
05/06/24 05/07/24 05/08/24
06:59 06:59 06:59
Intake Total 1979 / 1979 3000 / 3000
Output Total 3500 / 3500 3450 / 3450 1075 / 1075
Balance -1520 / -1520 -450 / -450 -1075 / -1075
Review of Systems
-
History Source: Patient, Family (son and d-i-l) and Coordinated Provider
Constitutional: Denies Fever (afebrile since 05/06 at 5:26 AM)
Respiratory: Reports No Symptoms; Denies Cough
Cardiac: Reports No Symptoms; Denies Chest Pain
Abdomen/GI: Reports No Symptoms
Physical Exam
-
General: Well Developed, Well Nourished, No Apparent Distress and Appears Chronically Ill
HEENT: Normocephalic, Atraumatic and Moist Mucous Membranes
Respiratory: Clear to Auscultation; Negative Wheezes, Rales or Rhonchi
Cardiac: Regular Rhythm and S1/S2
GI: Soft, Nontender and Nondistended
Musculoskeletal: No Clubbing, No Cyanosis and No Edema
Neuro: Awake, Alert and Oriented
--- NOTE | 2024-05-07 18:44 | TRANSFER ---
Received pt from IMU via stretcher. Pt AAOX2. NSR on monitor tech. Bed alarm on. Medsitter. Plan of care ongoing.
[2024-05-08] MEDS: APRESOLINE 5 MG IV (00:21)
[2024-05-08 03:48] VITALS: BP 148/87
[2024-05-08] MEDS: 0.45%NACL 1000 IV (03:50)
[2024-05-08 05:05] LABS: Vitamin B12 359 pg/ml (239-931)
[2024-05-08] MEDS: SYNTHROID 175 MCG PO (05:45)
[2024-05-08 06:00] VITALS: BMI 25.9
[2024-05-08 06:20] LABS: % Basophils 0.6 % (0-2); % Eosinophils 0.6 % (0-6); % Immature Granulocytes 1.2 % (0-0.5); % Monocytes 10.8 % (1.7-9.3); % Neutrophils 76.8 % (42.2-75.2); Absolute Basophils 0.1 10^3/uL (0-0.2); Absolute Eosinophils 0.1 10^3/uL (0-0.7); Absolute Immature Granulocytes 0.1 10^3/uL (0-0.05); Absolute Lymphocytes 1.2 10^3/uL (1.2-3.4); Absolute Monocytes 1.3 10^3/uL (0.1-0.6); Hematocrit 36.8 % (39.0-52.0); Hemoglobin 12.3 g/dL (13.0-18.0); Mean Corp Hgb Conc. 33.4 g/dL (33.0-37.0); Mean Corpuscular Hgb 28.5 pg (27.0-31.0); Mean Corpuscular Volume 85.4 fL (80.0-94.0); Mean Platelet Volume 10.3 fL (7.4-10.4); Nucleated Red Blood Cells % 0 % (-); Platelet Count 285 10^3/uL (130-400); Red Blood Cell Count 4.31 10^6/uL (4.70-6.10); Red Cell Dist. Width 13.8 % (11.5-14.5); White Blood Cell Count 11.7 10^3/uL (4.8-10.8)
[2024-05-08 06:41] LABS: Blood Urea Nitrogen 48 mg/dl (9-20); Calcium 8.4 mg/dl (8.4-10.2); Carbon Dioxide 23 mmol/L (22-30); Chloride 106 mmol/L (98-107); Estimated Creatinine Clearance 34 ml/min; Glucose 81 mg/dl (70-99); Potassium 3.5 mmol/L (3.5-5.1); Sodium 143 mmol/L (135-145); eGFR 31.63
[2024-05-08 07:18] VITALS: BP 146/95
--- NOTE | 2024-05-08 07:54 | EEG.RPT ---
Electroencephalogram Report
Recording
Date of EE05/08/24
Type of EEG: Routine
Length of EEG recordin minutes
Done with Video Recording: Yes
Patient Status: Inpatient
Recording Conditions: Awake and Drowsy
Hyperventilation Performed: No
Photic Stimulation Performed: Yes
Report
LESS THAN 1 HOUR EEG REPORT
LESS THAN 1 HOUR EEG INTERPRETATION:
Moderately abnormal EEG for age in wakefulness due to diffuse bihemispheric slowing
CLINICAL CORRELATION:
This study was suggestive of mild diffuse cortical dysfunction without focal abnormality. No seizures were recorded. Consideration for prolonged monitoring
Clinical correlation is advised.
METHODS:
A 21 channel digitized electroencephalogram (EEG) was performed at the bedside. The 10/20 international system of electrode placement was used with ECG and lateral/vertical eye movements recorded. The Infoharmoni quantitative system was utilized.
QUALITY OF STUDY:
Fair-good
ELECTROENCEPHALOGRAPHER IMPRESSION(S):
Background
Amplitude: Unremarkable
Anterior-Posterior Organization: Fair, good at times
Maximum: Theta
Asymmetry: None
Sleep
Drowsiness present
Photic Stimulation
Failed to activate the record
ECG
Normal sinus rhythm
[2024-05-08] MEDS: NORVASC 2.5 MG PO (09:02)
[2024-05-08] MEDS: THERAGRAN 1 TABLET PO (09:02)
[2024-05-08] MEDS: VITAMIN B1 200 MG PO (09:03)
[2024-05-08] MEDS: SINEMET 25-100 1 TABLET PO ×3 (09:03→23:03)
[2024-05-08] MEDS: TOPROL XL 50 MG PO (09:03)
[2024-05-08] MEDS: HEPARIN 5000 UNITS SC ×2 (09:04→20:20)
[2024-05-08] MEDS: BACTROBAN 2% OINTMENT 1 APPLIC TOPICAL (09:04)
[2024-05-08] MEDS: METAMUCIL, KONSYL 1 PACKET PO (09:04)
--- NOTE | 2024-05-08 09:30 | PN.CDI ---
CDI
- -
CDI:
Physician Documentation Request
Admit Date: 05/02/24 18:45
Dear Doctor Samm,
Please review the following and provide your response in the progress notes.
Clinical Indicators:
- Patient admit for change in mental status, JIMMY, and rhabdomyolysis
- per Nephrology baseline CKD 4
- 'maintain pinto given obstructive uropathy'
Laboratory Tests
05/05/24 05/05/24 05/05/24
10:49 17:18 22:01
Troponin I 0.285 H* 0.212 H* D 0.196 H*
Please clarify the following regarding the documented myocardial infarction
Non-ischemic myocardial injury
Clinically insignificant abnormal lab value
Other
Use of terms such as suspected, likely, concern for, or probable (associated with a specific diagnosis that is being evaluated, monitored, or treated as if it exists) are acceptable and can be coded in the inpatient setting, when documented at the
time of discharge.
Thank you,
David Sibley RN
CDI Specialist
Please use your independent medical judgment in providing your response.
[2024-05-08 11:28] VITALS: BP 136/92
--- NOTE | 2024-05-08 11:50 | PTOTSP ---
ST Follow-Up
Pt continues to present with clinical signs of mild oropharyngeal dysphagia characterized by prolonged mastication and distraction with PO intake with subsequent reduced airway protection.
Recommendations:
- Upgrade to SOFT BITE SIZED SOLIDS and continue with thin liquids with meds whole in puree.
- Aspiration precautions.
- MAINFRAME DEVELOPER to f/u re: dysphagia and cognitive linguistic tx. Would try to gather some information regarding baseline cognitive linguistic function to measure the extent in which pt has changed from baseline.
--- NOTE | 2024-05-08 13:26 | W.PN.ID1 ---
Date of Service
Date of Service: May 08, 2024
Today's Communication
Observing off abx.
Assessment / Plan
# Fever x 1 resolved
- COVID ag neg
- 05/05 UA neg, BCX neg to date, CXR no PNA
- Observe off abx
# leukocytosis trending down
- trend wbc
# Right second toe tip black hyperkeratotic lesion
- Foot XRAY no bony erosion
- Outpt referral to Podiatry
- Appreciate Wound Care eval.
# Encephalopathy - improving
- MRI brain + 3.5cm lesion posterior right occipital lobe
- LP dry tap.
- RPR, WNV serology pending
# JIMMY on CKD - improving
# Hand tremors
- Parkinson's work-up in progress
- On Sinemet
Chief Complaint
-: Leukocytosis
Subjective / Review of Systems
Feels better.
Vital Signs / Physical Exam
Vital Signs
Vital Signs
Temp Pulse Resp BP Pulse Ox
98.1 F 72 20 136/92 98
05/08/24 11:28 05/08/24 11:28 05/08/24 11:28 05/08/24 11:28 05/08/24 11:28
Physical Exam
Constitutional: No Acute Distress and Comfortable
Cardiovascular: Regular Rate and S1/S2
Pulmonary: Clear
Gastrointestinal: Soft, Non Tender and Non Distended
Neurological: AO x 3
Objective Data
Lab Data
Lab Results
05/08/24 04:26
05/08/24 04:26
Estimated Creat Clear 34 ml/min 05/08/24 04:26
Total Bilirubin 1.1 mg/dl (0.2-1.3) 05/04/24 09:34
AST 59 U/L (17-59) 05/04/24 09:34
ALT 10 U/L (0-50) 05/04/24 09:34
Alkaline Phosphatase 87 U/L (38-126) 05/04/24 09:34
Most recent labs reviewed.
Micro Results:
05/05/24 10:48 Blood Culture - Preliminary
Blood/Venous No Growth in 72 hours- Final report to follow
05/05/24 17:18 Blood Culture - Preliminary
Blood/Venous No Growth in 48 hours- Final report to follow
05/04/24 17:15 Influenza Types A & B (LILIA) - Final
Nasal Swab Negative for Influenza A & B, NAAT
Negative results must be combined with clinical observations
and patient history.
Nucleic Acid Amplification test (NAAT)performed on the
FinalCAD NOW platform.
05/02/24 15:04 Urine Culture - Final
Urine NO GROWTH
05/02/24 15:04 Influenza Types A & B (LILIA) - Final
Nasal Swab Negative for Influenza A & B, NAAT
Negative results must be combined with clinical observations
and patient history.
Nucleic Acid Amplification test (NAAT)performed on the
FinalCAD NOW platform.
05/02 CT head No evidence of acute intracranial abnormality. Prominent decreased density within the periventricular white matter, especially within the posterior occipital lobes. 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
69 years. Mild to moderate atrophy.
05/04 CXR: Basilar probable atelectasis.
05/07 Brain MRI: 3.5 cm region of signal abnormality in the cortical ibanez matter and subcortical white matter of the POSTERIOR RIGHT OCCIPITAL LOBE with associated edema and a mild intraparenchymal microhemorrhage. Diagnostic possibilities are (1)
posterior reversible encephalopathy syndrome (PRES), (2) an acute inflammatory or infectious encephalitis, (3) a slow flow cerebral vascular malformation, or (4) a primary or metastatic brain tumor.
--- NOTE | 2024-05-08 14:12 | W.PN.NEPH.PH ---
Today's Communication / Plan
-
Add back valsartan
Follow-up BMP
DC further IV fluid
Assessment/Plan
-
Assessment
CKD 4
JIMMY
Urinary retention
Mental status change
Parkinson's
Hypertension
Metabolic acidosis
MRI brain + 3.5cm lesion posterior right occipital lobe
Plan
Discontinue further IV fluids as patient now eating and attempting to drink
Creatinine is down to 2.2
Urine output 2L with pinto
change IVFs to 1/2 at reduced rate of 80cc/hr
Goal is to keep I/O equal
Follow BMP
maintain pinto given obstructive uropathy
Valsartan held in setting of acute kidney injury, will add back likely tomorrow if bp remains elevated
s/p MRI of head due to mental status changes, noted 3.5cm posterior right lobe lesion
Mental status is improving
-
-
Date of Service: May 08, 2024
CC / HPI / ROS
-
Chief Complaint:
JIMMY
History of Present Illness:
JIMMY/CR down to 2.[address], nonoliguric
BP stable
Review of Systems:
no CP/SOB
some persistent mental status changes now improving, patient recognized and asked appropriate questions
Labs
-
Labs:
WBC 11.7 10^3/uL (4.8-10.8) H 05/08/24 04:26
RBC 4.31 10^6/uL (4.70-6.10) L 05/08/24 04:26
Hgb 12.3 g/dL (13.0-18.0) L 05/08/24 04:26
Hct 36.8 % (39.0-52.0) L 05/08/24 04:26
Plt Count 285 10^3/uL (130-400) 05/08/24 04:26
Sodium 143 mmol/L (135-145) 05/08/24 04:26
Potassium 3.5 mmol/L (3.5-5.1) 05/08/24 04:26
Chloride 106 mmol/L (98-107) 05/08/24 04:26
Carbon Dioxide 23 mmol/L (22-30) 05/08/24 04:26
BUN 48 mg/dl (9-20) H 05/08/24 04:26
Creatinine 2.2 mg/dL (0.7-1.3) H 05/08/24 04:26
eGFR 31.63 05/08/24 04:26
Glucose 81 mg/dl (70-99) 05/08/24 04:26
Calcium 8.4 mg/dl (8.4-10.2) 05/08/24 04:26
Albumin 3.3 g/dl (3.5-5.0) L 05/04/24 09:34
Physical Exam
-
Vital Signs:
Vital Signs
Temp Pulse Resp BP Pulse Ox
98.1 F 72 20 136/92 98
05/08/24 11:28 05/08/24 11:28 05/08/24 11:28 05/08/24 11:28 05/08/24 11:28
Cardiovascular:: Regular rate and rhythm
Respiratory:: Bilateral: Coarse
Lung Excursion:: Normal
Abdomen:: Nontender and Soft
Bowel Sounds:: Normal
Extremity Edema:: None: Bilateral:
Pinto Catheter: Yes
--- NOTE | 2024-05-08 14:27 | CM ---
CM following for discharge planning. Ryan has been evaluated by PT, OT and ST with recommendation for SNF at discharge. CM met with Ryan today, however he was not able to provide any details about how he managed at home. He did mention that
he is going through a lot, and his was recently diagnosed with breast cancer which has been difficult for both of them.
CM contacted Ryan's at home to discuss transfer to SNF. She is familiar with [facility] and [facility] in [place] and would like referrals to be submitted to both facilities.
CM to place referrals via [facility] and will f/u in am to determine bed availability.
[2024-05-08 15:19] LABS: Syphilis/T. pallidum Ab Reflex Negative (Negative)
[2024-05-08 15:25] VITALS: BP 137/89
[2024-05-08] MEDS: 0.45%NACL IV (18:06)
--- NOTE | 2024-05-08 18:58 | W.PN.HOSP.TC ---
Today's Communication/Plan
-
advance diet
will need to further review with neuro
Assessment / Plan
Assessment / Plan
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
improving
# Concern for non-traumatic rhabdomyolysis
-Creatinine of 2.7 from 2.2 baseline --> now 2.3-->2.6-->3.1-->4.2-->4.0-->3.4-->2.4-->2.2
-Appreciate nephrology: it is suspected that this is all due to urinary retention and obstructive uropathy
-CK 1439-->1421-->617-->347
-CT head negative
-Continue IV fluids due to JIMMY
changed by nephro to 1/2NS at 80 cc/hr
-Hold valsartan
-Hold dapagliflozin
-Urinalysis negative
#Fever on 05/06/24
#Leukocytosis, worsened initially, now improving
#Necrotic area to the right 2nd toe - right second toe tip black hyperkeratotic lesion (?Verrucae vs subungular SCC vs benign)
-Check COVID again today given new fever
-CXR (atelectasis), repeat UA
-Ordered renal and bladder ultrasound:No hydronephrosis or suspicious renal lesions. Bilateral renal cysts which measure up to 10.0 cm on the left and 5.6 cm on the right.
The urinary bladder is decompressed with Zepeda catheter.
-Consulted ID, appreciate their evaluation and recommendations
-Check PRP and WNV
-IR attempted LP on 05/05/24 --> but dry tap x2
-Follow blood cultures
-Wound care
-Outpatient referral to Podiatry for excisional biopsy
#Suspected Acute Toxic Metabolic Encephalopathy
-Neurology consulted given patient's Parkinson's Disease and unclear etiology of confusion and leukocytosis
-MRI:1. 3.5 cm region of signal abnormality in the cortical ibanez matter and subcortical white matter of the POSTERIOR RIGHT OCCIPITAL LOBE with associated edema and a mild intraparenchymal microhemorrhage. Diagnostic possibilities are (1)
posterior reversible encephalopathy syndrome (PRES), (2) an acute inflammatory or infectious encephalitis, (3) a slow flow cerebral vascular malformation, or (4) a primary or metastatic brain tumor.
2. Moderate white matter leukoaraiosis in both cerebral hemispheres.
3. Mild diffuse cerebral and cerebellar volume loss.
4. Severe discogenic degenerative disease at C3/C4 with a central disc-osteophyte complex causing moderate spinal cord compression and central canal stenosis.
-Appreciate neurology, have requested follow up
#Urinary Retention reported by patient's spouse
-Bladder Scans protocol
#Microscopic Hematuria
#Proteinuria
-nephrology stopped IVF
#Possible Parkinson's
-Continue carbidopa-levodopa
-Per patient's , patient sees Dr. Pozo outpatient -- planned for MRI brain in May 2024
#Essential hypertension
-Continue metoprolol
-Added Amlodipine 2.5 mg daily
-Also prn IV Hydralazine
#Hypercholesterolemia
#Hypothyroidism
-Continue levothyroxine
Psychiatric history
Gout
Osteoarthritis
Full code
DVT prophylaxis�heparin
Diet: IDDSI Level 4 Puree diet, thin liquids. Medications whole in puree. Aspiration precautions including 1:1 assist, ensure oral cavity clear after meal. Monitor for signs of aspiration and d/c oral diet if any decline in mental/respiratory
status. As per speech, will advance diet
Call placed and reviewed with , Monica as per her request
reviewed with RN
Anticipated Discharge: > 48 hours
Subjective/Interval History
-
Date of Service: May 08, 2024
Awake, alert, generally looks better
Objective Data
-
Vital Signs:
Vital Signs
Temp Pulse Resp BP Pulse Ox
98.2 F 73 20 137/89 96
05/08/24 15:25 05/08/24 15:25 05/08/24 15:25 05/08/24 15:25 05/08/24 15:25
I&O
05/07/24 05/08/24 05/09/24
06:59 06:59 06:59
Intake Total 3000 / 3000 0 / 0 480 / 480
Output Total 3450 / 3450 2625 / 2625 1100 / 1100
Balance -450 / -450 -2625 / -2625 -620 / -620
Review of Systems
-
History Source: Patient and Coordinated Provider
Constitutional: Denies Fever (afebrile since 05/06 at 5:26 AM)
Respiratory: Reports No Symptoms; Denies Cough
Cardiac: Reports No Symptoms; Denies Chest Pain
Abdomen/GI: Reports No Symptoms
Physical Exam
-
General: Well Developed, Well Nourished, No Apparent Distress and Appears Chronically Ill
HEENT: Normocephalic, Atraumatic and Moist Mucous Membranes
Respiratory: Clear to Auscultation; Negative Wheezes, Rales or Rhonchi
Cardiac: Regular Rhythm and S1/S2
GI: Soft, Nontender and Nondistended
Musculoskeletal: No Clubbing, No Cyanosis and No Edema
Neuro: Awake, Alert and Oriented
[2024-05-08 19:44] VITALS: BP 175/114
[2024-05-08] MEDS: TYLENOL 650 MG PO (20:23)
--- NOTE | 2024-05-08 21:58 | W.PN.NEURO.1 ---
Today's Communication / Plan
-
Continue fluid management as per Nephrology
Neuro Assessment/Plan
Assessment
69 yr. old male with h/o uncontrolled HTN renal insufficiency and Parkinsons presented with fever & AMS improving with Fluid & BP management
Plan
BP control
Ecasa
Sinemet 25/100 TID
1/2 NS
PT
Subjective/Objective
Subjective Data
Date of Service: May 08, 2024
Pat remains confused
Objective Data
Lab Results
05/08/24 04:26
05/08/24 04:26
Sodium 143 mmol/L (135-145) 05/08/24 04:26
Potassium 3.5 mmol/L (3.5-5.1) 05/08/24 04:26
BUN 48 mg/dl (9-20) H 05/08/24 04:26
Glucose 81 mg/dl (70-99) 05/08/24 04:26
Calcium 8.4 mg/dl (8.4-10.2) 05/08/24 04:26
Vitamin B12 359 pg/ml (239-931) 05/07/24 04:05
Patient Allergies
No Known Allergies Allergy (Verified 11/18/23 12:31)
Physical Exam
-
General: Well Developed, Well Nourished, No Apparent Distress and Appears Chronically Ill
Eyes: Able to visualize OU and Unremarkable
HEENT: Normocephalic, Atraumatic and Anicteric
Neck: Full Range of Motion
Extremities: No Clubbing, No Cyanosis and Edema +1
Psych: Confused
Extended Neurological Exam
Mood & Affect: Unable to Assess
Attention Span & Concentration: Awake, Lethargic, Severe Difficulty with 2 Step Request and Unable to spell 5 letter words forwards and backwards
Memory: Reduced
Tremor: At Rest (Left hand Parkinsonian tremor)
Speech: Moderately Reduced Output
Cranial Nerve II: Left Eye: Pupillary Reactivity Unremarkable, Pupillary Size Unremarkable and Visual Patel Grossly Intact
Cranial Nerve II: Right Eye: Pupillary Reactivity Unremarkable, Pupillary Size Unremarkable and Visual Patel Grossly Intact
Cranial Nerves III, IV, : Extraocular Movement: Extraocular Movement Full in all Directions
Cranial Nerve V: Facial Sensation: Facial Sensation Unremarkable to Cold
Cranial Nerve VII: Facial Symmetry: Normal Facial Symmetry
Cranial Nerve VIII: Hearing: Grossly Reduced
Cranial Nerves IX, X: Palate Movement: Palate Elevation Symmetric
Cranial Nerve XI: Shoulder Shrug: Unremarkable
Cranial Nerve XII: Tongue Protusion: Midline
Muscle Strength, Overall: Reduced Throughout
Muscle Bulk & Tone: Increased Tone (LEFT)
Pronator Drift: Drift in Left Upper Extremity
Deep Tendon Reflexes: Trace Throughout
Cold Sensation: Reduced
Vibration Sensation: Reduced
Touch Sensation: Pin Prick Reduced
Coordination: Unable to Assess
Babinski Sign: Absent Bilaterally
Gait & Station: Up from Lying with Difficulty and Other (Bedbound)
Data Reviewed
-
MRI Head: Image Reviewed (PRES)
[2024-05-08 23:00] VITALS: BP 147/92
--- NOTE | 2024-05-09 00:47 | PTCARENOTE ---
Patient agitated. He made continuous attempts to get OOB, Pulled at IV and Zepeda. Unable to be redirected by Medsitter or this keno writer / runner. Restraints as per order.
[2024-05-09 04:00] VITALS: BP 154/93
--- NOTE | 2024-05-09 04:03 | DOWNTIME ---
There was a [employer] Client Transfusion Nurse Downtime on 05/09/2024 from 0100 to 05/09/2024 at 0355. Downtime documentation of patient's care, including medication administrations, has been reconciled in the electronic record per guidelines. Refer to the
patient's paper chart under the miscellaneous tab to see printed paper medication records and downtime forms.
[2024-05-09] MEDS: SYNTHROID 175 MCG PO (05:27)
[2024-05-09 06:00] VITALS: BMI 26.0
[2024-05-09 07:40] VITALS: BP 156/92
[2024-05-09 08:44] LABS: % Basophils 0.4 % (0-2); % Eosinophils 0.4 % (0-6); % Immature Granulocytes 1.6 % (0-0.5); % Lymphocytes 6.1 % (20.5-51.1); % Monocytes 8.7 % (1.7-9.3); % Neutrophils 82.8 % (42.2-75.2); Absolute Basophils 0.1 10^3/uL (0-0.2); Absolute Eosinophils 0.1 10^3/uL (0-0.7); Absolute Immature Granulocytes 0.2 10^3/uL (0-0.05); Absolute Lymphocytes 0.9 10^3/uL (1.2-3.4); Absolute Monocytes 1.3 10^3/uL (0.1-0.6); Absolute Neutrophils 12.6 10^3/uL (1.4-6.5); Hematocrit 38.4 % (39.0-52.0); Hemoglobin 12.9 g/dL (13.0-18.0); Mean Corp Hgb Conc. 33.6 g/dL (33.0-37.0); Mean Corpuscular Hgb 28.5 pg (27.0-31.0); Mean Platelet Volume 10.5 fL (7.4-10.4); Nucleated Red Blood Cells % 0 % (-); Platelet Count 331 10^3/uL (130-400); Red Blood Cell Count 4.52 10^6/uL (4.70-6.10); Red Cell Dist. Width 13.7 % (11.5-14.5); White Blood Cell Count 15.2 10^3/uL (4.8-10.8)
--- NOTE | 2024-05-09 09:06 | CM ---
[facility] referrals sent to [facility]. Both appear to have bed availability. Await response and will contact Ryan[facility] with available options.
[2024-05-09] MEDS: BACTROBAN 2% OINTMENT 1 APPLIC TOPICAL (09:26)
[2024-05-09] MEDS: DIOVAN 80 MG PO (09:27)
[2024-05-09] MEDS: NORVASC 2.5 MG PO (09:28)
[2024-05-09] MEDS: THERAGRAN 1 TABLET PO (09:28)
[2024-05-09] MEDS: TOPROL XL 50 MG PO (09:28)
[2024-05-09] MEDS: VITAMIN B1 200 MG PO (09:28)
[2024-05-09] MEDS: SINEMET 25-100 1 TABLET PO ×3 (09:29→21:05)
[2024-05-09] MEDS: HEPARIN 5000 UNITS SC ×2 (09:29→20:16)
[2024-05-09] MEDS: METAMUCIL, KONSYL 1 PACKET PO (09:29)
[2024-05-09 09:43] LABS: Blood Urea Nitrogen 45 mg/dl (9-20); Calcium 8.7 mg/dl (8.4-10.2); Carbon Dioxide 25 mmol/L (22-30); Chloride 103 mmol/L (98-107); Estimated Creatinine Clearance 35 ml/min; Glucose 83 mg/dl (70-99); Potassium 3.6 mmol/L (3.5-5.1); Sodium 141 mmol/L (135-145); eGFR 33.45
--- NOTE | 2024-05-09 10:20 | PN.CDI ---
CDI
- -
CDI:
Physician Documentation Request
Admit Date: 05/02/24 18:45
Dear Neurology,
Please review the following and provide your response in the progress notes.
Clinical Indicators:
The diagnosis of edema was included in the signed 05/07 Brain MRI
- 05/07 Brain MRI '3.5 cm region of signal abnormality ...of the POSTERIOR RIGHT OCCIPITAL LOBE with associated edema'
Please indicate in your progress notes if you are in agreement that the above diagnosis is valid for this patient:
____ - Cerebral edema is a valid diagnosis (Please include it in your progress notes)
____ - Cerebral edema is not a valid diagnosis for this patient
____ - Cerebral edema is not yet confirmed but remains a suspected condition
____ - Other
Use of terms such as suspected, likely, concern for, or probable are acceptable for a diagnosis that is being evaluated, monitored or treated as if it exists and can be coded in the inpatient setting, when documented at the time of discharge.
Thank you,
David Sibley RN
CDI Specialist
Please use your independent medical judgment in providing your response.
[2024-05-09 11:09] VITALS: BP 128/85
--- NOTE | 2024-05-09 12:08 | W.PN.NEPH.PH ---
Today's Communication / Plan
-
restart ARB
Assessment/Plan
-
Assessment
CKD 4
JIMMY
Urinary retention
Mental status change
Parkinson's
Hypertension
Metabolic acidosis
MRI brain + 3.5cm lesion posterior right occipital lobe
Plan
Follow BMP
maintain pinto given obstructive uropathy
back on valsartan
-
-
Date of Service: May 09, 2024
CC / HPI / ROS
-
Chief Complaint:
JIMMY
History of Present Illness:
JIMMY/CR down to 2.[address], nonoliguric
BP stable
Review of Systems:
no CP/SOB
Labs
-
Labs:
WBC 15.2 10^3/uL (4.8-10.8) H 05/09/24 07:23
RBC 4.52 10^6/uL (4.70-6.10) L 05/09/24 07:23
Hgb 12.9 g/dL (13.0-18.0) L 05/09/24 07:23
Hct 38.4 % (39.0-52.0) L 05/09/24 07:23
Plt Count 331 10^3/uL (130-400) 05/09/24 07:23
Sodium 141 mmol/L (135-145) 05/09/24 07:23
Potassium 3.6 mmol/L (3.5-5.1) 05/09/24 07:23
Chloride 103 mmol/L (98-107) 05/09/24 07:23
Carbon Dioxide 25 mmol/L (22-30) 05/09/24 07:23
BUN 45 mg/dl (9-20) H 05/09/24 07:23
Creatinine 2.1 mg/dL (0.7-1.3) H 05/09/24 07:23
eGFR 33.45 05/09/24 07:23
Glucose 83 mg/dl (70-99) 05/09/24 07:23
Calcium 8.7 mg/dl (8.4-10.2) 05/09/24 07:23
Albumin 3.3 g/dl (3.5-5.0) L 05/04/24 09:34
Physical Exam
-
Vital Signs:
Vital Signs
Temp Pulse Resp BP Pulse Ox
98.8 F 77 18 128/85 96
05/09/24 11:09 05/09/24 11:09 05/09/24 11:09 05/09/24 11:09 05/09/24 11:09
Cardiovascular:: Regular rate and rhythm
Respiratory:: Bilateral: Coarse
Lung Excursion:: Normal
Abdomen:: Nontender and Soft
Bowel Sounds:: Normal
Extremity Edema:: None: Bilateral:
[2024-05-09] MEDS: PROVIGIL 100 MG PO (12:46)
--- NOTE | 2024-05-09 15:09 | W.PN.NEURO.1 ---
Today's Communication / Plan
-
Bp management
Sinemet 25/100 TID
PT/OT
Neuro Assessment/Plan
Assessment
69 yr. old male with h/o uncontrolled HTN renal insufficiency and Parkinsons presented with fever & AMS improving with Fluid & BP management. MRI reveal subcortical hyperintensity c/w posterior reversible encephalopathy syndrome(PRES) secondary to
HTN. (self resolving with BP management)
Plan
BP control
[facility]
Sinemet 25/100 TID
1/2 NS
PT
Subjective/Objective
Subjective Data
Date of Service: May 09, 2024
Pat is easily arousable slow but oriented to person, place & month. Speech is slow but fluent. Denies pain. Continues to have pill rolling parkinsonian tremors
Objective Data
Vital Signs
Temp Pulse Resp BP Pulse Ox
37.1 C 77 18 128/85 96
05/09/24 11:09 05/09/24 11:09 05/09/24 11:09 05/09/24 11:09 05/09/24 11:09
Lab Results
05/09/24 07:23
05/09/24 07:23
Sodium 141 mmol/L (135-145) 05/09/24 07:23
Potassium 3.6 mmol/L (3.5-5.1) 05/09/24 07:23
BUN 45 mg/dl (9-20) H 05/09/24 07:23
Glucose 83 mg/dl (70-99) 05/09/24 07:23
Calcium 8.7 mg/dl (8.4-10.2) 05/09/24 07:23
Vitamin B12 359 pg/ml (239-931) 05/07/24 04:05
Patient Allergies
No Known Allergies Allergy (Verified 11/18/23 12:31)
Physical Exam
-
General: Comfortable and Appears Chronically Ill
Eyes: Able to visualize OU, Unremarkable and Round OU
HEENT: Normocephalic and Atraumatic
Neck: Full Range of Motion
Extended Neurological Exam
Attention Span & Concentration: Awake, Interactive and No Difficulty with 2 Step Request
Memory: Able to Recall
Tremor: Other (LUE: Parkinsonia tremor)
Involuntary Movement: None
Speech: Mildly Reduced Output
Cranial Nerve II: Left Eye: Pupillary Reactivity Unremarkable, Pupillary Size Unremarkable and Visual Patel Grossly Intact
Cranial Nerve II: Right Eye: Pupillary Reactivity Unremarkable, Pupillary Size Unremarkable and Visual Patel Grossly Intact
Cranial Nerves III, IV, : Extraocular Movement: Extraocular Movement Full in all Directions
Cranial Nerve V: Facial Sensation: Intact to Light Touch
Cranial Nerve VII: Facial Symmetry: Normal Facial Symmetry
Cranial Nerve VIII: Hearing: Unremarkable Hearing to Normal Conversational Volume
Cranial Nerve XI: Shoulder Shrug: Unremarkable
Cranial Nerve XII: Tongue Protusion: Midline
Muscle Strength, Overall: Reduced on Left
Muscle Bulk & Tone: Bulk Unremarkable and Increased Tone
Pronator Drift: Drift in Left Upper Extremity
Deep Tendon Reflexes: Trace Throughout
Cold Sensation: Unremarkable and Reduced
Vibration Sensation: Unremarkable
Touch Sensation: Unremarkable
Coordination: Reaches for Objects without Difficulty
Babinski Sign: Absent Bilaterally
Gait & Station: Up from Lying with Difficulty
--- NOTE | 2024-05-09 15:29 | W.PN.ID1 ---
Date of Service
Date of Service: May 09, 2024
Today's Communication
Observe off abx.
Assessment / Plan
# Fever x 1 resolved
- COVID ag neg
- 05/05 UA neg, BCX neg to date, CXR no PNA
- Observe off abx
# leukocytosis trended up today
- follow for now
# Encephalopathy - improving
- MRI brain + 3.5cm lesion posterior right occipital lobe
- LP dry tap.
- RPR, WNV serology NEGATIVE
# Right second toe tip black hyperkeratotic lesion
- Foot XRAY no bony erosion
- Outpt referral to Podiatry
- Appreciate Wound Care eval.
# JIMMY on CKD - improving
# Cosntipation
- Miralax daily, hold if diarrhea.
# Parkinson's
- On Sinemet
Chief Complaint
-: Leukocytosis
Vital Signs / Physical Exam
Vital Signs
Vital Signs
Temp Pulse Resp BP Pulse Ox
98.8 F 77 18 128/85 96
05/09/24 11:09 05/09/24 11:09 05/09/24 11:09 05/09/24 11:09 05/09/24 11:09
Physical Exam
Constitutional: No Acute Distress
Pulmonary: Clear
Gastrointestinal: Soft, Non Tender and Non Distended
Genito-Urinary: Zepeda and Clear Urine; Negative CVA Tenderness
Neurological: Awake and Alert
Objective Data
Lab Data
Lab Results
05/09/24 07:23
05/09/24 07:23
Estimated Creat Clear 35 ml/min 05/09/24 07:23
Total Bilirubin 1.1 mg/dl (0.2-1.3) 05/04/24 09:34
AST 59 U/L (17-59) 05/04/24 09:34
ALT 10 U/L (0-50) 05/04/24 09:34
Alkaline Phosphatase 87 U/L (38-126) 05/04/24 09:34
Most recent labs reviewed.
Micro Results:
05/05/24 10:48 Blood Culture - Preliminary
Blood/Venous No Growth in 4 days- Final report to follow
05/05/24 17:18 Blood Culture - Preliminary
Blood/Venous No Growth in 72 hours- Final report to follow
05/04/24 17:15 Influenza Types A & B (LILIA) - Final
Nasal Swab Negative for Influenza A & B, NAAT
Negative results must be combined with clinical observations
and patient history.
Nucleic Acid Amplification test (NAAT)performed on the
[employer] NOW platform.
05/02/24 15:04 Urine Culture - Final
Urine NO GROWTH
05/02/24 15:04 Influenza Types A & B (LILIA) - Final
Nasal Swab Negative for Influenza A & B, NAAT
Negative results must be combined with clinical observations
and patient history.
Nucleic Acid Amplification test (NAAT)performed on the
[employer] NOW platform.
05/02 CT head No evidence of acute intracranial abnormality. Prominent decreased density within the periventricular white matter, especially within the posterior occipital lobes. 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
69 years. Mild to moderate atrophy.
05/04 CXR: Basilar probable atelectasis.
05/07 Brain MRI: 3.5 cm region of signal abnormality in the cortical ibanez matter and subcortical white matter of the POSTERIOR RIGHT OCCIPITAL LOBE with associated edema and a mild intraparenchymal microhemorrhage. Diagnostic possibilities are (1)
posterior reversible encephalopathy syndrome (PRES), (2) an acute inflammatory or infectious encephalitis, (3) a slow flow cerebral vascular malformation, or (4) a primary or metastatic brain tumor.
[2024-05-09 15:30] VITALS: BP 143/80
--- NOTE | 2024-05-09 17:21 | W.PN.HOSP.TC ---
Today's Communication/Plan
-
check Procal
Assessment / Plan
Assessment / Plan
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
improving
# Concern for non-traumatic rhabdomyolysis
-Creatinine 2.3-->2.6-->3.1-->4.2-->4.0-->3.4-->2.4-->2.2-->2.1
-Appreciate nephrology: it is suspected that this is all due to urinary retention and obstructive uropathy
-CK 1439-->1421-->617-->347
-CT head negative
-Continue IV fluids due to JIMMY
changed by nephro to 1/2NS at 80 cc/hr
- valsartan resumed 05/09
-Hold dapagliflozin
-Urinalysis negative
#Fever on 05/06/24
#Leukocytosis, worsened initially
WBC 18.9-->17.1-->14.8-->13.4-->11.7-->15.2
of unclear etiology. Input of ID appreciated
will order procal
#Necrotic area to the right 2nd toe - right second toe tip black hyperkeratotic lesion (?Verrucae vs subungular SCC vs benign)
-Checked COVID x2 -negative
-CXR (atelectasis), repeat UA
-Ordered renal and bladder ultrasound:No hydronephrosis or suspicious renal lesions. Bilateral renal cysts which measure up to 10.0 cm on the left and 5.6 cm on the right.
The urinary bladder is decompressed with Zepeda catheter.
-Consulted ID, appreciate their evaluation and recommendations
-IR attempted LP on 05/05/24 --> but dry tap x2
-NGTD blood cultures
-Wound care
-Outpatient referral to Podiatry for excisional biopsy
Non-ischemic myocardial injury with minimal elevated troponin
#Suspected Acute Toxic Metabolic Encephalopathy
-Neurology consulted given patient's Parkinson's Disease and unclear etiology of confusion and leukocytosis
-MRI:1. 3.5 cm region of signal abnormality in the cortical ibanez matter and subcortical white matter of the POSTERIOR RIGHT OCCIPITAL LOBE with associated edema and a mild intraparenchymal microhemorrhage. Diagnostic possibilities are (1)
posterior reversible encephalopathy syndrome (PRES), (2) an acute inflammatory or infectious encephalitis, (3) a slow flow cerebral vascular malformation, or (4) a primary or metastatic brain tumor.
2. Moderate white matter leukoaraiosis in both cerebral hemispheres.
3. Mild diffuse cerebral and cerebellar volume loss.
4. Severe discogenic degenerative disease at C3/C4 with a central disc-osteophyte complex causing moderate spinal cord compression and central canal stenosis.
-Appreciate neurology, Dr. Rogers believes 3.5 cm signal abnormality is most consistent with posterior reversible encephalopathy syndrome (PRES). He also believes that pt has Parkinsonian dementia as a component.
Will need to start considering disposition to SNF rehab
#Urinary Retention reported by patient's spouse
-Bladder Scans protocol
#Microscopic Hematuria
#Proteinuria
-nephrology stopped IVF
# Parkinson's
-Continue carbidopa-levodopa
-Per patient's , patient sees Dr. Pozo outpatient -- planned for MRI brain in May 2024
#Essential hypertension
BP 128-156/80-92 range primarily
-Continue metoprolol
-Added Amlodipine 2.5 mg daily
-Also prn IV Hydralazine
#Hypercholesterolemia
#Hypothyroidism
-Continue levothyroxine
Psychiatric history
Gout
Osteoarthritis
Full code
DVT prophylaxis�heparin
Diet: IDDSI Level 4 Puree diet, thin liquids. Medications whole in puree. Aspiration precautions including 1:1 assist, ensure oral cavity clear after meal. Monitor for signs of aspiration and d/c oral diet if any decline in mental/respiratory
status. As per speech, will advance diet
Call placed and reviewed with , Monica as per her request 05/08
reviewed with RN
Anticipated Discharge: 24 - 48 hours
Subjective/Interval History
-
Date of Service: May 09, 2024
Mentation slightly better, though remains impaired
Objective Data
-
Labs:
Laboratory Results
05/09/24
07:23
WBC 15.2 H
Hgb 12.9 L
Hct 38.4 L
Plt Count 331
Sodium 141
Potassium 3.6
Chloride 103
Carbon Dioxide 25
BUN 45 H
Creatinine 2.1 H
Glucose 83
Calcium 8.7
Vital Signs:
Vital Signs
Temp Pulse Resp BP Pulse Ox
98.9 F 79 18 143/80 97
05/09/24 15:30 05/09/24 15:30 05/09/24 15:30 05/09/24 15:30 05/09/24 15:30
I&O
05/08/24 05/09/24 05/10/24
06:59 06:59 06:59
Intake Total 0 / 0 2079 / 2079
Output Total 2625 / 2625 1100 / 1100
Balance -2625 / -2625 980 / 980
Review of Systems
-
History Source: Patient and Coordinated Provider
Constitutional: Denies Fever (afebrile since 05/06 at 5:26 AM)
Respiratory: Reports No Symptoms; Denies Cough
Cardiac: Reports No Symptoms; Denies Chest Pain
Abdomen/GI: Reports No Symptoms
Physical Exam
-
General: Well Developed, Well Nourished, No Apparent Distress and Appears Chronically Ill
HEENT: Normocephalic, Atraumatic and Moist Mucous Membranes
Respiratory: Clear to Auscultation; Negative Wheezes, Rales or Rhonchi
Cardiac: Regular Rhythm and S1/S2
GI: Soft, Nontender and Nondistended
Musculoskeletal: No Clubbing, No Cyanosis and No Edema
Neuro: Awake, Alert, Oriented (though cognition remains marginal) and Other (cogwheel rigidity noted)
[2024-05-09 19:15] VITALS: BP 141/85
[2024-05-09] MEDS: TYLENOL 650 MG PO (20:24)
--- NOTE | 2024-05-09 21:00 | PTCARENOTE ---
Patient getting agitated/ trying to get OOB/ trying to pull pinto cath despite of frequent reorientation. GABRIELA Gore made aware. New order for restraints. when this nurse came back to room, Patient apologized for his behavior. will hold off
applying restraints at this time and will continue to monitor
[2024-05-09] MEDS: MELATONIN 10 MG PO (21:26)
[2024-05-09 23:47] VITALS: BP 137/81
[2024-05-10] VITALS (7 sets, daily range): BP systolic 110–162; BP diastolic 72–114; PULSE 82; O2SAT 97; BMI 25.5
[2024-05-10 06:01] LABS: % Basophils 0.5 % (0-2); % Eosinophils 0.6 % (0-6); % Immature Granulocytes 1.9 % (0-0.5); % Lymphocytes 9.1 % (20.5-51.1); % Neutrophils 78.9 % (42.2-75.2); Absolute Basophils 0.1 10^3/uL (0-0.2); Absolute Eosinophils 0.1 10^3/uL (0-0.7); Absolute Immature Granulocytes 0.3 10^3/uL (0-0.05); Absolute Lymphocytes 1.5 10^3/uL (1.2-3.4); Absolute Monocytes 1.5 10^3/uL (0.1-0.6); Absolute Neutrophils 13.2 10^3/uL (1.4-6.5); Hematocrit 35.3 % (39.0-52.0); Hemoglobin 12.2 g/dL (13.0-18.0); Mean Corp Hgb Conc. 34.6 g/dL (33.0-37.0); Mean Corpuscular Hgb 29.9 pg (27.0-31.0); Mean Corpuscular Volume 86.5 fL (80.0-94.0); Mean Platelet Volume 9.9 fL (7.4-10.4); Nucleated Red Blood Cells % 0 % (-); Platelet Count 316 10^3/uL (130-400); Red Blood Cell Count 4.08 10^6/uL (4.70-6.10); Red Cell Dist. Width 13.7 % (11.5-14.5); White Blood Cell Count 16.8 10^3/uL (4.8-10.8)
[2024-05-10 06:29] LABS: Blood Urea Nitrogen 51 mg/dl (9-20); Calcium 8.7 mg/dl (8.4-10.2); Carbon Dioxide 28 mmol/L (22-30); Chloride 103 mmol/L (98-107); Estimated Creatinine Clearance 31 ml/min; Glucose 90 mg/dl (70-99); Potassium 3.3 mmol/L (3.5-5.1); Sodium 140 mmol/L (135-145); eGFR 28.49
[2024-05-10 06:33] LABS: Procalcitonin 0.35 ng/ml (0.0-0.25)
[2024-05-10] MEDS: TOPROL XL 50 MG PO (09:41)
[2024-05-10] MEDS: PROVIGIL 100 MG PO (09:41)
[2024-05-10] MEDS: SINEMET 25-100 1 TABLET PO ×3 (09:41→21:05)
[2024-05-10] MEDS: DIOVAN 80 MG PO (09:42)
[2024-05-10] MEDS: VITAMIN B1 200 MG PO (09:43)
[2024-05-10] MEDS: HEPARIN 5000 UNITS SC ×2 (09:59→21:05)
[2024-05-10] MEDS: THERAGRAN 1 TABLET PO (10:01)
[2024-05-10] MEDS: MIRALAX 17 GRAMS PO (10:02)
[2024-05-10] MEDS: NORVASC 2.5 MG PO (10:02)
[2024-05-10] MEDS: METAMUCIL, KONSYL 1 PACKET PO (10:03)
[2024-05-10] MEDS: SYNTHROID 175 MCG PO (10:05)
--- NOTE | 2024-05-10 11:16 | W.PN.NEPH.PH ---
Today's Communication / Plan
-
hold vasartan
Assessment/Plan
-
Assessment
CKD 4
JIMMY
Urinary retention
Mental status change
Parkinson's
Hypertension
Metabolic acidosis
MRI brain + 3.5cm lesion posterior right occipital lobe
Plan
Follow BMP
maintain pinto given obstructive uropathy
hold valsartan
-
-
Date of Service: May 10, 2024
CC / HPI / ROS
-
Chief Complaint:
JIMMY
History of Present Illness:
JIMMY/Cr up to 2.4
K low 3.[address], nonoliguric
BP stable
Review of Systems:
no CP/SOB
Labs
-
Labs:
WBC 16.8 10^3/uL (4.8-10.8) H 05/10/24 05:33
RBC 4.08 10^6/uL (4.70-6.10) L 05/10/24 05:33
Hgb 12.2 g/dL (13.0-18.0) L 05/10/24 05:33
Hct 35.3 % (39.0-52.0) L 05/10/24 05:33
Plt Count 316 10^3/uL (130-400) 05/10/24 05:33
Sodium 140 mmol/L (135-145) 05/10/24 05:33
Potassium 3.3 mmol/L (3.5-5.1) L 05/10/24 05:33
Chloride 103 mmol/L (98-107) 05/10/24 05:33
Carbon Dioxide 28 mmol/L (22-30) 05/10/24 05:33
BUN 51 mg/dl (9-20) H 05/10/24 05:33
Creatinine 2.4 mg/dL (0.7-1.3) H 05/10/24 05:33
eGFR 28.49 05/10/24 05:33
Glucose 90 mg/dl (70-99) 05/10/24 05:33
Calcium 8.7 mg/dl (8.4-10.2) 05/10/24 05:33
Albumin 3.3 g/dl (3.5-5.0) L 05/04/24 09:34
Physical Exam
-
Vital Signs:
Vital Signs
Temp Pulse Resp BP Pulse Ox
98.7 F 78 18 157/114 95
05/10/24 11:02 05/10/24 11:02 05/10/24 11:02 05/10/24 11:02 05/10/24 11:02
Cardiovascular:: Regular rate and rhythm
Respiratory:: Bilateral: Coarse
Lung Excursion:: Normal
Abdomen:: Nontender and Soft
Bowel Sounds:: Normal
Extremity Edema:: None: Bilateral:
[2024-05-10] MEDS: BACTROBAN 2% OINTMENT 1 APPLIC TOPICAL (11:50)
--- NOTE | 2024-05-10 12:20 | WOUNDNOTE ---
[facility] RN note: Skin on patient's sacrum and heels intact. Instructed patient pressure injury prevention measures. Spoke with LUIS Salamanca re: recommend air mattress for patient. t/c Spoke with bed kirstin Hicks to bring up a [employer] air bed. LUIS Salamanca to
coordinate switching patient's bed from [employer] accumax to a [employer] air bed.
--- NOTE | 2024-05-10 15:33 | W.PN.ID1 ---
Date of Service
Date of Service: May 10, 2024
Today's Communication
-Trend wbc. If continues to trend up, check UA reflex Ucx, CXR.
Assessment / Plan
# Leukocytosis trending up again
# Fever (05/06/24) x 1 resolved
- COVID ag neg
- 05/04 UA neg, BCX neg to date, CXR no PNA
- No diarrhea. Is constipated. No BM since admission (05/02). Ordered Miralax daily.
- Procalcitonin 0.32 likely false positive in setting of JIMMY.
- Observing off abx.
-Trend wbc. If continues to trend up, check UA reflex Ucx, CXR.
# Encephalopathy - improving
- MRI brain + 3.5cm lesion posterior right occipital lobe
- LP dry tap.
- RPR, WNV serology NEGATIVE
# Right second toe tip black hyperkeratotic lesion
- Foot XRAY no bony erosion
- Outpt referral to Podiatry
- Appreciate Wound Care eval.
# JIMMY on CKD - improving
# Parkinson's
- On Sinemet
Chief Complaint
-: Leukocytosis
Subjective / Review of Systems
No complains. Frontal SO better.
No BM yet.
Review of Systems: No Fever, No Chills, No Cough, No Abdominal Pain, No Nausea and No Vomiting
Vital Signs / Physical Exam
Vital Signs
Vital Signs
Temp Pulse Resp BP Pulse Ox
97.6 F 72 18 129/73 95
05/10/24 15:04 05/10/24 15:04 05/10/24 15:04 05/10/24 15:04 05/10/24 15:04
Physical Exam
Constitutional: No Acute Distress and Comfortable
Eyes: No Conjunctival Hemorrhage and Sclera Anicteric
Cardiovascular: Regular Rate and S1/S2
Pulmonary: Clear and Non Labored
Gastrointestinal: Soft, Non Tender, Non Distended and Normal Bowel Sounds
Genito-Urinary: Zepeda and Clear Urine
Neurological: Awake and Alert
Objective Data
Lab Data
Lab Results
05/10/24 05:33
05/10/24 05:33
Estimated Creat Clear 31 ml/min 05/10/24 05:33
Total Bilirubin 1.1 mg/dl (0.2-1.3) 05/04/24 09:34
AST 59 U/L (17-59) 05/04/24 09:34
ALT 10 U/L (0-50) 05/04/24 09:34
Alkaline Phosphatase 87 U/L (38-126) 05/04/24 09:34
Most recent labs reviewed.
Micro Results:
05/05/24 10:48 Blood Culture - Final
Blood/Venous No Growth - Final Report
05/05/24 17:18 Blood Culture - Preliminary
Blood/Venous No Growth in 4 days- Final report to follow
05/04/24 17:15 Influenza Types A & B (LILIA) - Final
Nasal Swab Negative for Influenza A & B, NAAT
Negative results must be combined with clinical observations
and patient history.
Nucleic Acid Amplification test (NAAT)performed on the
[employer] ID NOW platform.
05/02/24 15:04 Urine Culture - Final
Urine NO GROWTH
05/02/24 15:04 Influenza Types A & B (LILIA) - Final
Nasal Swab Negative for Influenza A & B, NAAT
Negative results must be combined with clinical observations
and patient history.
Nucleic Acid Amplification test (NAAT)performed on the
[employer] ID NOW platform.
05/02 CT head No evidence of acute intracranial abnormality. Prominent decreased density within the periventricular white matter, especially within the posterior occipital lobes. 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
69 years. Mild to moderate atrophy.
05/04 CXR: Basilar probable atelectasis.
05/07 Brain MRI: 3.5 cm region of signal abnormality in the cortical ibanez matter and subcortical white matter of the POSTERIOR RIGHT OCCIPITAL LOBE with associated edema and a mild intraparenchymal microhemorrhage. Diagnostic possibilities are (1)
posterior reversible encephalopathy syndrome (PRES), (2) an acute inflammatory or infectious encephalitis, (3) a slow flow cerebral vascular malformation, or (4) a primary or metastatic brain tumor.
--- NOTE | 2024-05-10 18:55 | W.PN.HOSP.TC ---
Today's Communication/Plan
-
check UA, CXR
will need SNF rehab
Assessment / Plan
Assessment / Plan
# Acute kidney injury on CKD 4
improvement appears to have plateaued
# Concern for non-traumatic rhabdomyolysis
-Creatinine 2.3-->2.6-->3.1-->4.2-->4.0-->3.4-->2.4-->2.2-->2.1-->2.4
-Appreciate nephrology: it is suspected that this is all due to urinary retention and obstructive uropathy
-CK 1439-->1421-->617-->347
-CT head negative
-Continue IV fluids due to JIMMY
changed by nephro to 1/2NS at 80 cc/hr
- valsartan resumed 05/09, stopped 05/10 with rising Creat
-Hold dapagliflozin
-Urinalysis negative
#Fever on 05/06/24
#Leukocytosis, worsened initially
WBC 18.9-->17.1-->14.8-->13.4-->11.7-->15.2-->16.8
of unclear etiology. Input of ID appreciated, ?related to toe. Will trend, recheck UA and CXR
procal 0.35 (minimally elevated possibly from CKD)
#Necrotic area to the right 2nd toe - right second toe tip black hyperkeratotic lesion (?Verrucae vs subungular SCC vs benign)
-Checked COVID x2 -negative
-CXR (atelectasis), repeat UA
-Ordered renal and bladder ultrasound:No hydronephrosis or suspicious renal lesions. Bilateral renal cysts which measure up to 10.0 cm on the left and 5.6 cm on the right.
The urinary bladder is decompressed with Zepeda catheter.
-Consulted ID, appreciate their evaluation and recommendations
-IR attempted LP on 05/05/24 --> but dry tap x2
-NGTD blood cultures
-Wound care
-Outpatient referral to Podiatry for excisional biopsy
Non-ischemic myocardial injury with minimal elevated troponin
#Suspected Acute Toxic Metabolic Encephalopathy
-Neurology consulted given patient's Parkinson's Disease and unclear etiology of confusion and leukocytosis. Confusion appears to be improved (05/10) along with marked improvement in speech
-MRI:1. 3.5 cm region of signal abnormality in the cortical ibanez matter and subcortical white matter of the POSTERIOR RIGHT OCCIPITAL LOBE with associated edema and a mild intraparenchymal microhemorrhage. Diagnostic possibilities are (1)
posterior reversible encephalopathy syndrome (PRES), (2) an acute inflammatory or infectious encephalitis, (3) a slow flow cerebral vascular malformation, or (4) a primary or metastatic brain tumor.
2. Moderate white matter leukoaraiosis in both cerebral hemispheres.
3. Mild diffuse cerebral and cerebellar volume loss.
4. Severe discogenic degenerative disease at C3/C4 with a central disc-osteophyte complex causing moderate spinal cord compression and central canal stenosis.
-Appreciate neurology, Dr. Rogers believes 3.5 cm signal abnormality is most consistent with posterior reversible encephalopathy syndrome (PRES). He also believes that pt has Parkinsonian dementia as a component.
Will need to start considering disposition to SNF rehab ( told)
#Urinary Retention reported by patient's spouse
-Bladder Scans protocol
#Microscopic Hematuria
#Proteinuria
-nephrology stopped IVF
# Parkinson's
-Continue carbidopa-levodopa
-Per patient's , patient sees Dr. Pozo outpatient -- planned for MRI brain in May 2024
#Essential hypertension
BP 128-156/80-92 range primarily
-Continue metoprolol
-Added Amlodipine 2.5 mg daily
-Also prn IV Hydralazine
#Hypercholesterolemia
#Hypothyroidism
-Continue levothyroxine
Psychiatric history
Gout
Osteoarthritis
Full code
DVT prophylaxis�heparin
Diet: IDDSI Level 4 Puree diet, thin liquids. Medications whole in puree. Aspiration precautions including 1:1 assist, ensure oral cavity clear after meal. Monitor for signs of aspiration and d/c oral diet if any decline in mental/respiratory
status. As per speech, will advance diet
Call placed and reviewed with , Monica as per her request 05/10
reviewed with RN
Anticipated Discharge: > 48 hours
Subjective/Interval History
-
Date of Service: May 10, 2024
Speech much clearer
Objective Data
-
Vital Signs:
Vital Signs
Temp Pulse Resp BP Pulse Ox
97.6 F 72 18 129/73 95
05/10/24 15:04 05/10/24 15:04 05/10/24 15:04 05/10/24 15:04 05/10/24 15:04
I&O
05/09/24 05/10/24 05/11/24
06:59 06:59 06:59
Intake Total 2080 / 2080 360 / 360 360 / 360
Output Total 1100 / 1100 850 / 850 300 / 300
Balance 980 / 980 -490 / -490 60 / 60
Review of Systems
-
History Source: Patient and Coordinated Provider
Constitutional: Denies Fever (afebrile since 05/06 at 5:26 AM)
Respiratory: Reports No Symptoms; Denies Cough
Cardiac: Reports No Symptoms; Denies Chest Pain
Abdomen/GI: Reports No Symptoms
Physical Exam
-
General: Well Developed, Well Nourished, No Apparent Distress and Appears Chronically Ill
HEENT: Normocephalic, Atraumatic and Moist Mucous Membranes
Respiratory: Clear to Auscultation; Negative Wheezes, Rales or Rhonchi
Cardiac: Regular Rhythm and S1/S2
GI: Soft, Nontender and Nondistended
Musculoskeletal: No Clubbing, No Cyanosis and No Edema
Neuro: Awake, Alert, Oriented (though cognition remains marginal, speech has improved) and Other (cogwheel rigidity noted)
Psych: Calm
[2024-05-11 06:00] VITALS: BMI 25.7
[2024-05-11] MEDS: SYNTHROID 175 MCG PO (06:21)
[2024-05-11 07:40] VITALS: BP 140/88
[2024-05-11 08:06] LABS: Hematocrit 36.5 % (39.0-52.0); Hemoglobin 12.4 g/dL (13.0-18.0); Mean Corpuscular Hgb 28.6 pg (27.0-31.0); Mean Corpuscular Volume 84.3 fL (80.0-94.0); Mean Platelet Volume 9.9 fL (7.4-10.4); Platelet Count 315 10^3/uL (130-400); Red Blood Cell Count 4.33 10^6/uL (4.70-6.10); Red Cell Dist. Width 13.8 % (11.5-14.5); White Blood Cell Count 14.2 10^3/uL (4.8-10.8)
[2024-05-11 08:27] LABS: Blood Urea Nitrogen 55 mg/dl (9-20); Calcium 8.5 mg/dl (8.4-10.2); Carbon Dioxide 26 mmol/L (22-30); Chloride 102 mmol/L (98-107); Estimated Creatinine Clearance 28 ml/min; Glucose 89 mg/dl (70-99); Potassium 3.6 mmol/L (3.5-5.1); Sodium 140 mmol/L (135-145); eGFR 24.74
--- NOTE | 2024-05-11 09:30 | WOUNDNOTE ---
[facility] RN note: Confirmed patient is on a [facility] air bed.
[2024-05-11] MEDS: TOPROL XL 50 MG PO (09:51)
[2024-05-11] MEDS: PROVIGIL 100 MG PO (09:51)
[2024-05-11] MEDS: SINEMET 25-100 1 TABLET PO ×3 (09:51→21:52)
[2024-05-11] MEDS: THERAGRAN 1 TABLET PO (09:52)
[2024-05-11] MEDS: METAMUCIL, KONSYL 1 PACKET PO (09:52)
[2024-05-11] MEDS: NORVASC 2.5 MG PO (09:52)
[2024-05-11] MEDS: BACTROBAN 2% OINTMENT 1 APPLIC TOPICAL (09:53)
[2024-05-11] MEDS: HEPARIN 5000 UNITS SC ×2 (09:53→21:52)
[2024-05-11] MEDS: MIRALAX 17 GRAMS PO (09:53)
[2024-05-11] MEDS: TYLENOL 650 MG PO (10:09)
--- NOTE | 2024-05-11 10:50 | CM ---
Chart reviewed and call placed to [facility] to provide update regarding current status, therapy and placement. [facility] is not ready for SNF transfer, however referrals were sent to [facility] ([facility] who are willing to
admit at discharge pending bed availability.
MD indicates discharge to be >48 hours.
CM will continue to follow to coordinate transfer to SNF when medically ready and update [facility] via telephone; she is unable to come to the hospital due to her own medical needs. IMM reviewed via telephone; Ryan unable to sign IMM himself
due to confusion.
--- NOTE | 2024-05-11 11:47 | CM ---
Case discussed with Dr. Quijano. Discharge anticipated no earlier than 05/14/2024. CM will follow to coordinate SNF transfer when medically ready. Will need SNF authorization.
[2024-05-11 13:01] LABS: Urine Albumin 1+ (Neg - Trace); Urine Bilirubin Negative (Negative); Urine Character Clear (Clear); Urine Color Yellow; Urine Glucose 1+ (Negative); Urine Ketone Negative (Negative); Urine Leukocyte Negative (Negative); Urine Nitrite Negative (Negative); Urine Occult Blood 1+ (Negative); Urine Urobilinogen Negative (Neg - 1+)
--- NOTE | 2024-05-11 14:00 | W.PN.HOSP.TC ---
Today's Communication/Plan
-
follow Creat and WBC
Once these aspects settled, will need SNF rehab
Assessment / Plan
Assessment / Plan
# Acute kidney injury on CKD 4
improvement appears to have plateaued
slight rise in Creat possibly due to resumption of Valsartan, since stopped
# Concern for non-traumatic rhabdomyolysis
-Creatinine 2.3-->2.6-->3.1-->4.2-->4.0-->3.4-->2.4-->2.2-->2.1-->2.4-->2.7
-Appreciate nephrology: it is suspected that this is all due to urinary retention and obstructive uropathy
-CK 1439-->1421-->617-->347
-CT head negative
-Continue IV fluids due to JIMMY
changed by nephro to 1/2NS at 80 cc/hr
- valsartan resumed 05/09, stopped 05/10 with rising Creat
-Hold dapagliflozin
-Urinalysis negative
#Fever on 05/06/24
#Leukocytosis, worsened initially
WBC 18.9-->17.1-->14.8-->13.4-->11.7-->15.2-->16.8-->14.2
of unclear etiology. Input of ID appreciated, ?related to toe. Will trend, recheck UA (appears neg) and CXR (NAPD)
procal 0.35 (minimally elevated possibly from CKD)
#Necrotic area to the right 2nd toe - right second toe tip black hyperkeratotic lesion (?Verrucae vs subungular SCC vs benign)
-Checked COVID x2 -negative
-CXR (atelectasis), repeat UA
-Ordered renal and bladder ultrasound:No hydronephrosis or suspicious renal lesions. Bilateral renal cysts which measure up to 10.0 cm on the left and 5.6 cm on the right.
The urinary bladder is decompressed with Zepeda catheter.
-Consulted ID, appreciate their evaluation and recommendations
-IR attempted LP on 05/05/24 --> but dry tap x2
-NGTD blood cultures
-Wound care
-Outpatient referral to Podiatry for excisional biopsy
Non-ischemic myocardial injury with minimal elevated troponin
#Suspected Acute Toxic Metabolic Encephalopathy
-Neurology consulted given patient's Parkinson's Disease and unclear etiology of confusion and leukocytosis. Confusion appears to be improved (05/10) along with marked improvement in speech
-MRI:1. 3.5 cm region of signal abnormality in the cortical ibanez matter and subcortical white matter of the POSTERIOR RIGHT OCCIPITAL LOBE with associated edema and a mild intraparenchymal microhemorrhage. Diagnostic possibilities are (1)
posterior reversible encephalopathy syndrome (PRES), (2) an acute inflammatory or infectious encephalitis, (3) a slow flow cerebral vascular malformation, or (4) a primary or metastatic brain tumor.
2. Moderate white matter leukoaraiosis in both cerebral hemispheres.
3. Mild diffuse cerebral and cerebellar volume loss.
4. Severe discogenic degenerative disease at C3/C4 with a central disc-osteophyte complex causing moderate spinal cord compression and central canal stenosis.
-Appreciate neurology, Dr. Rogers believes 3.5 cm signal abnormality is most consistent with posterior reversible encephalopathy syndrome (PRES). He also believes that pt has Parkinsonian dementia as a component.
Will need to start considering disposition to SNF rehab ( told)
#Urinary Retention reported by patient's spouse
-Bladder Scans protocol
#Microscopic Hematuria
#Proteinuria
-nephrology stopped IVF
# Parkinson's
-Continue carbidopa-levodopa
-Per patient's , patient sees Dr. Pozo outpatient -- planned for MRI brain in May 2024
#Essential hypertension
BP 128-156/80-92 range primarily
-Continue metoprolol
-Added Amlodipine 2.5 mg daily
-Also prn IV Hydralazine
#Hypercholesterolemia
#Hypothyroidism
-Continue levothyroxine
Psychiatric history
Gout
Osteoarthritis
Full code
DVT prophylaxis�heparin
Diet: IDDSI Level 4 Puree diet, thin liquids. Medications whole in puree. Aspiration precautions including 1:1 assist, ensure oral cavity clear after meal. Monitor for signs of aspiration and d/c oral diet if any decline in mental/respiratory
status. As per speech, will advance diet
Call placed and reviewed with , Monica as per her request 05/10
reviewed with RN
Anticipated Discharge: > 48 hours
Subjective/Interval History
-
Date of Service: May 11, 2024
much more awake and conversant. Knew who the [employer] are playing on Tuesday ([employer]), answering multiple questions
Objective Data
-
Labs:
Laboratory Results
05/11/24
07:36
WBC 14.2 H
Hgb 12.4 L
Hct 36.5 L
Plt Count 315
Sodium 140
Potassium 3.6
Chloride 102
Carbon Dioxide 26
BUN 55 H
Creatinine 2.7 H
Glucose 89
Calcium 8.5
Vital Signs:
Vital Signs
Temp Pulse Resp BP Pulse Ox
98.7 F 65 18 140/88 99
05/11/24 07:40 05/11/24 09:51 05/11/24 07:40 05/11/24 09:51 05/11/24 07:40
I&O
05/10/24 05/11/24 05/12/24
06:59 06:59 06:59
Intake Total 360 / 360 360 / 360
Output Total 850 / 850 900 / 900
Balance -490 / -490 -540 / -540
Review of Systems
-
History Source: Patient and Coordinated Provider
Constitutional: Denies Fever (afebrile since 05/06 at 5:26 AM)
Respiratory: Reports No Symptoms; Denies Cough
Cardiac: Reports No Symptoms; Denies Chest Pain
Abdomen/GI: Reports No Symptoms
Physical Exam
-
General: Well Developed, Well Nourished, No Apparent Distress and Appears Chronically Ill
HEENT: Normocephalic, Atraumatic and Moist Mucous Membranes
Respiratory: Clear to Auscultation; Negative Wheezes, Rales or Rhonchi
Cardiac: Regular Rhythm and S1/S2
GI: Soft, Nontender and Nondistended
Musculoskeletal: No Clubbing, No Cyanosis and No Edema
Neuro: Awake, Alert, Oriented ( cognition significantly better, speech has improved) and Other (cogwheel rigidity noted)
Psych: Calm
--- NOTE | 2024-05-11 14:42 | W.PN.NEPH.PH ---
Today's Communication / Plan
-
Observe for Pinto catheter
Follow BMP
Assessment/Plan
-
Assessment
CKD 4
JIMMY
Urinary retention
Mental status change
Parkinson's
Hypertension
Metabolic acidosis
MRI brain + 3.5cm lesion posterior right occipital lobe
Plan
creatinine up to 2.7 remains nonoliguric via Pinto
Hemodynamically stable
Follow BMP
maintain pinto given obstructive uropathy
holding valsartan
-
-
Date of Service: May 11, 2024
CC / HPI / ROS
-
Chief Complaint:
JIMMY
History of Present Illness:
JIMMY/Cr up to 2.7
K low 3.[address], nonoliguric
BP stable
Review of Systems:
no CP/SOB
Pinto
remains confused
Labs
-
Labs:
WBC 14.2 10^3/uL (4.8-10.8) H 05/11/24 07:36
RBC 4.33 10^6/uL (4.70-6.10) L 05/11/24 07:36
Hgb 12.4 g/dL (13.0-18.0) L 05/11/24 07:36
Hct 36.5 % (39.0-52.0) L 05/11/24 07:36
Plt Count 315 10^3/uL (130-400) 05/11/24 07:36
Sodium 140 mmol/L (135-145) 05/11/24 07:36
Potassium 3.6 mmol/L (3.5-5.1) 05/11/24 07:36
Chloride 102 mmol/L (98-107) 05/11/24 07:36
Carbon Dioxide 26 mmol/L (22-30) 05/11/24 07:36
BUN 55 mg/dl (9-20) H 05/11/24 07:36
Creatinine 2.7 mg/dL (0.7-1.3) H 05/11/24 07:36
eGFR 24.74 05/11/24 07:36
Glucose 89 mg/dl (70-99) 05/11/24 07:36
Calcium 8.5 mg/dl (8.4-10.2) 05/11/24 07:36
Albumin 3.3 g/dl (3.5-5.0) L 05/04/24 09:34
Physical Exam
-
Vital Signs:
Vital Signs
Temp Pulse Resp BP Pulse Ox
98.7 F 65 18 140/88 99
05/11/24 07:40 05/11/24 09:51 05/11/24 07:40 05/11/24 09:51 05/11/24 07:40
Cardiovascular:: Regular rate and rhythm
Respiratory:: Bilateral: Coarse
Lung Excursion:: Normal
Abdomen:: Nontender and Soft
Bowel Sounds:: Normal
Extremity Edema:: None: Bilateral:
Pinto Catheter: Yes
[2024-05-11 14:48] LABS: Urine Amorphous Seen; Urine Mucus Few
[2024-05-11 14:49] LABS: Urine Granular Cast 0-2 /LPF (0); Urine Hyaline Cast 0-2 /LPF (0-2)
[2024-05-11 14:51] LABS: Urine Red Blood Cell 0-2 /HPF (0-2); Urine White Cell 0-2 /HPF (0-5)
[2024-05-11 15:04] VITALS: BP 132/85
[2024-05-11 15:24] VITALS: BP 131/79; PULSE 64; O2SAT 97
[2024-05-11] MEDS: MILK OF MAGNESIA 30 ML PO (17:05)
--- NOTE | 2024-05-11 21:33 | W.PN.NEURO.1 ---
Today's Communication / Plan
-
Increase Sinemet 25/100 QID
Modafinil 100 mg daily
May benefit from Inpatient Rehab
Strict BP control
Neuro Assessment/Plan
Assessment
69 yr. old male with h/o uncontrolled HTN renal insufficiency and Parkinsons presented with fever & AMS improving with Fluid & BP management. MRI reveal subcortical hyperintensity c/w posterior reversible encephalopathy syndrome(PRES) secondary to
HTN. (self resolving with BP management)
Plan
BP control
Ecasa 81 mg
Increase Sinemet 25/100 QID
May benefit from Inpatient Rehab
Subjective/Objective
Subjective Data
Date of Service: May 11, 2024
Mr Vilchis alertness has improved
Objective Data
Vital Signs
Temp Pulse Resp BP Pulse Ox
36.9 C 80 18 132/85 99
05/11/24 15:04 05/11/24 15:04 05/11/24 15:04 05/11/24 15:04 05/11/24 15:04
Lab Results
05/11/24 07:36
05/11/24 07:36
Sodium 140 mmol/L (135-145) 05/11/24 07:36
Potassium 3.6 mmol/L (3.5-5.1) 05/11/24 07:36
BUN 55 mg/dl (9-20) H 05/11/24 07:36
Glucose 89 mg/dl (70-99) 05/11/24 07:36
Calcium 8.5 mg/dl (8.4-10.2) 05/11/24 07:36
Vitamin B12 359 pg/ml (239-931) 05/07/24 04:05
Patient Allergies
No Known Allergies Allergy (Verified 11/18/23 12:31)
Physical Exam
-
General: Well Developed, Well Nourished, No Apparent Distress and Appears Chronically Ill
Eyes: Able to visualize OU, Unremarkable and Round OU
HEENT: Normocephalic, Atraumatic and Anicteric
Neck: Full Range of Motion
Extremities: No Clubbing, No Cyanosis and No Edema
Psych: Confused
Extended Neurological Exam
Mood & Affect: Mood Unremarkable and Affect Unremarkable
Attention Span & Concentration: Awake, Interactive and No Difficulty with 2 Step Request
Memory: Able to Recall and Recalls Objects
Tremor: At Rest (Left hand Parkinsonian tremor)
Speech: Quality Unremarkable and Mildly Reduced Output
Cranial Nerve II: Left Eye: Pupillary Reactivity Unremarkable, Pupillary Size Unremarkable and Visual Patel Grossly Intact
Cranial Nerve II: Right Eye: Pupillary Reactivity Unremarkable, Pupillary Size Unremarkable and Visual Patel Grossly Intact
Cranial Nerves III, IV, : Extraocular Movement: Extraocular Movement Full in all Directions
Cranial Nerve V: Facial Sensation: Intact to Light Touch
Cranial Nerve VII: Facial Symmetry: Normal Facial Symmetry and Other (Masked Face)
Cranial Nerve VIII: Hearing: Unremarkable Hearing to Normal Conversational Volume
Cranial Nerves IX, X: Palate Movement: Palate Elevation Symmetric
Cranial Nerve XI: Shoulder Shrug: Unremarkable
Cranial Nerve XII: Tongue Protusion: Midline
Muscle Strength, Overall: Reduced Throughout
Muscle Bulk & Tone: Increased Tone (Left hand cogwheeling)
Pronator Drift: No Drift in Upper Extremities and No Drift in Lower Extremities
Deep Tendon Reflexes: Trace Throughout
Cold Sensation: Unremarkable and Reduced
Vibration Sensation: Unremarkable
Touch Sensation: Unremarkable
Gait & Station: Up from Seated Without Problem, Romberg Test Positive and Unable to Assess (needs two person assist)
Modified De Borgia Score (MRS)
-
Modified De Borgia Scale (mRS): Moderately severe disability. Unable to attend to bodily needs/walk.
Score: 4
[2024-05-11] MEDS: COLACE 100 MG PO (21:52)
[2024-05-11 23:38] VITALS: BP 144/91
[2024-05-12] MEDS: TUMS CHEWABLE TABLET 200 MG PO (04:14)
[2024-05-12 05:27] VITALS: BMI 25.3
[2024-05-12] MEDS: SYNTHROID 175 MCG PO (05:58)
[2024-05-12 06:20] LABS: % Basophils 0.8 % (0-2); % Eosinophils 0.8 % (0-6); % Lymphocytes 8.8 % (20.5-51.1); % Monocytes 8.3 % (1.7-9.3); % Neutrophils 78.3 % (42.2-75.2); Absolute Basophils 0.1 10^3/uL (0-0.2); Absolute Eosinophils 0.1 10^3/uL (0-0.7); Absolute Immature Granulocytes 0.4 10^3/uL (0-0.05); Absolute Lymphocytes 1.2 10^3/uL (1.2-3.4); Absolute Monocytes 1.1 10^3/uL (0.1-0.6); Absolute Neutrophils 10.4 10^3/uL (1.4-6.5); Hematocrit 36.9 % (39.0-52.0); Hemoglobin 12.6 g/dL (13.0-18.0); Mean Corp Hgb Conc. 34.1 g/dL (33.0-37.0); Mean Corpuscular Hgb 28.4 pg (27.0-31.0); Mean Corpuscular Volume 83.3 fL (80.0-94.0); Mean Platelet Volume 9.8 fL (7.4-10.4); Nucleated Red Blood Cells % 0 % (-); Platelet Count 374 10^3/uL (130-400); Red Blood Cell Count 4.43 10^6/uL (4.70-6.10); Red Cell Dist. Width 13.6 % (11.5-14.5); White Blood Cell Count 13.3 10^3/uL (4.8-10.8)
[2024-05-12 06:45] LABS: Blood Urea Nitrogen 58 mg/dl (9-20); Calcium 8.9 mg/dl (8.4-10.2); Carbon Dioxide 26 mmol/L (22-30); Chloride 101 mmol/L (98-107); Estimated Creatinine Clearance 31 ml/min; Glucose 94 mg/dl (70-99); Potassium 3.9 mmol/L (3.5-5.1); Sodium 138 mmol/L (135-145); eGFR 28.49
[2024-05-12 08:16] VITALS: BP 139/96
[2024-05-12] MEDS: HEPARIN 5000 UNITS SC ×2 (09:26→21:06)
[2024-05-12] MEDS: PROVIGIL 100 MG PO (09:26)
[2024-05-12] MEDS: BACTROBAN 2% OINTMENT 1 APPLIC TOPICAL (09:27)
[2024-05-12] MEDS: THERAGRAN 1 TABLET PO (09:27)
[2024-05-12] MEDS: SINEMET 25-100 1 TABLET PO ×4 (09:27→21:06)
[2024-05-12] MEDS: NORVASC 2.5 MG PO (09:28)
[2024-05-12] MEDS: TOPROL XL 50 MG PO (09:28)
[2024-05-12] MEDS: METAMUCIL, KONSYL 1 PACKET PO (09:29)
[2024-05-12] MEDS: COLACE 100 MG PO ×2 (09:29→21:06)
[2024-05-12] MEDS: MIRALAX 17 GRAMS PO (09:29)
--- NOTE | 2024-05-12 10:44 | W.PN.HOSP.TC ---
Today's Communication/Plan
-
adjust bowel regiment
Assessment / Plan
Assessment / Plan
# Acute kidney injury on CKD 4
improvement appears to have plateaued
slight rise in Creat possibly due to resumption of Valsartan, since stopped
# Concern for non-traumatic rhabdomyolysis
-Creatinine 2.3-->2.6-->3.1-->4.2-->4.0-->3.4-->2.4-->2.2-->2.1-->2.4-->2.7-->2.4
-Appreciate nephrology: it is suspected that this is all due to urinary retention and obstructive uropathy
-CK 1439-->1421-->617-->347
-CT head negative
-IV fluids stopped
- valsartan resumed 05/09, stopped 05/10 with rising Creat
-Hold dapagliflozin
-Urinalysis negative
Constipation
will stop Metamucil, continue Miralax and add Dulcolax, may need enema, may benefit from pinto removal
#Fever on 05/06/24
#Leukocytosis, worsened initially
WBC 18.9-->17.1-->14.8-->13.4-->11.7-->15.2-->16.8-->14.2-->13.3
of unclear etiology. Input of ID appreciated, ?related to toe. Will trend, rechecked UA (appears neg) and CXR (NAPD)
procal 0.35 (minimally elevated possibly from CKD)
#Necrotic area to the right 2nd toe - right second toe tip black hyperkeratotic lesion (?Verrucae vs subungular SCC vs benign)
-Checked COVID x2 -negative
-CXR (atelectasis), repeat UA
-Ordered renal and bladder ultrasound:No hydronephrosis or suspicious renal lesions. Bilateral renal cysts which measure up to 10.0 cm on the left and 5.6 cm on the right.
The urinary bladder is decompressed with Pinto catheter.
-Consulted ID, appreciate their evaluation and recommendations
-IR attempted LP on 05/05/24 --> but dry tap x2
-NGTD blood cultures
-Wound care
-Outpatient referral to Podiatry for excisional biopsy
Non-ischemic myocardial injury with minimal elevated troponin
#Suspected Acute Toxic Metabolic Encephalopathy
-Neurology consulted given patient's Parkinson's Disease and unclear etiology of confusion and leukocytosis. Confusion appears to be improved (05/10) along with marked improvement in speech
-MRI:1. 3.5 cm region of signal abnormality in the cortical ibanez matter and subcortical white matter of the POSTERIOR RIGHT OCCIPITAL LOBE with associated edema and a mild intraparenchymal microhemorrhage. Diagnostic possibilities are (1)
posterior reversible encephalopathy syndrome (PRES), (2) an acute inflammatory or infectious encephalitis, (3) a slow flow cerebral vascular malformation, or (4) a primary or metastatic brain tumor.
2. Moderate white matter leukoaraiosis in both cerebral hemispheres.
3. Mild diffuse cerebral and cerebellar volume loss.
4. Severe discogenic degenerative disease at C3/C4 with a central disc-osteophyte complex causing moderate spinal cord compression and central canal stenosis.
-Appreciate neurology, Dr. Rogers believes 3.5 cm signal abnormality is most consistent with posterior reversible encephalopathy syndrome (PRES). He also believes that pt has Parkinsonian dementia as a component.
Will need to start considering disposition to SNF rehab ( told), reviewed with CM on 05/11, will need prior auth
#Urinary Retention reported by patient's spouse
pinto in place, will do voiding trial
-Bladder Scans protocol
#Microscopic Hematuria
#Proteinuria
-nephrology stopped IVF
# Parkinson's
-Continue carbidopa-levodopa
-Per patient's , patient sees Dr. Pozo outpatient -- planned for MRI brain in May 2024
#Essential hypertension
BP 128-156/80-96 range primarily
-Continue metoprolol
-Added Amlodipine 2.5 mg daily
-Also prn IV Hydralazine
#Hypercholesterolemia
#Hypothyroidism
-Continue levothyroxine
Psychiatric history
Gout
Osteoarthritis
Full code
DVT prophylaxis�heparin
Diet: IDDSI Level 4 Puree diet, thin liquids. Medications whole in puree. Aspiration precautions including 1:1 assist, ensure oral cavity clear after meal. Monitor for signs of aspiration and d/c oral diet if any decline in mental/respiratory
status. As per speech, will advance diet
Call placed and reviewed with , Monica as per her request 05/10
reviewed with RN
Anticipated Discharge: > 48 hours
Subjective/Interval History
-
Date of Service: May 12, 2024
Mentation continues to improve, but remains constipated
Objective Data
-
Labs:
Laboratory Results
05/12/24
05:54
WBC 13.3 H
Hgb 12.6 L
Hct 36.9 L
Plt Count 374
Sodium 138
Potassium 3.9
Chloride 101
Carbon Dioxide 26
BUN 58 H
Creatinine 2.4 H
Glucose 94
Calcium 8.9
Vital Signs:
Vital Signs
Temp Pulse Resp BP Pulse Ox
98.4 F 72 18 139/96 97
05/12/24 08:16 05/12/24 08:16 05/12/24 08:16 05/12/24 08:16 05/12/24 08:16
I&O
05/11/24 05/12/24 05/13/24
06:59 06:59 06:59
Intake Total 360 / 360 780 / 780
Output Total 900 / 900 1125 / 1125
Balance -540 / -540 -345 / -345
Review of Systems
-
History Source: Patient and Coordinated Provider
Constitutional: Denies Fever (afebrile since 05/06 at 5:26 AM)
Respiratory: Reports No Symptoms; Denies Cough
Cardiac: Reports No Symptoms; Denies Chest Pain
Abdomen/GI: Reports No Symptoms
Physical Exam
-
General: Well Developed, Well Nourished, No Apparent Distress and Appears Chronically Ill
HEENT: Normocephalic, Atraumatic and Moist Mucous Membranes
Respiratory: Clear to Auscultation; Negative Wheezes, Rales or Rhonchi
Cardiac: Regular Rhythm and S1/S2
GI: Soft, Nontender, Nondistended and Normal Bowel Sounds
Musculoskeletal: No Clubbing, No Cyanosis and No Edema
Neuro: Awake, Alert, Oriented ( cognition significantly better, speech has improved) and Other (cogwheel rigidity noted)
Psych: Calm
[2024-05-12] MEDS: MILK OF MAGNESIA 30 ML PO (10:49)
--- NOTE | 2024-05-12 11:36 | W.PN.NEPH.PH ---
Today's Communication / Plan
-
Observe
Assessment/Plan
-
Assessment
CKD 4
JIMMY
Urinary retention
Mental status change
Parkinson's
Hypertension
Metabolic acidosis
MRI brain + 3.5cm lesion posterior right occipital lobe
Plan
creatinine stableat 2.4 remains nonoliguric via Pinto
Hemodynamically stable
Follow BMP
maintain pinto given obstructive uropathy
holding valsartan due to recent rise in creatinine
-
-
Date of Service: May 12, 2024
CC / HPI / ROS
-
Chief Complaint:
JIMMY
History of Present Illness:
JIMMY/Cr down to 2.4
K lstable at 3.[address], nonoliguric
BP stable
Review of Systems:
no CP/SOB
Pinto
remains confused
Labs
-
Labs:
WBC 13.3 10^3/uL (4.8-10.8) H 05/12/24 05:54
RBC 4.43 10^6/uL (4.70-6.10) L 05/12/24 05:54
Hgb 12.6 g/dL (13.0-18.0) L 05/12/24 05:54
Hct 36.9 % (39.0-52.0) L 05/12/24 05:54
Plt Count 374 10^3/uL (130-400) 05/12/24 05:54
Sodium 138 mmol/L (135-145) 05/12/24 05:54
Potassium 3.9 mmol/L (3.5-5.1) 05/12/24 05:54
Chloride 101 mmol/L (98-107) 05/12/24 05:54
Carbon Dioxide 26 mmol/L (22-30) 05/12/24 05:54
BUN 58 mg/dl (9-20) H 05/12/24 05:54
Creatinine 2.4 mg/dL (0.7-1.3) H 05/12/24 05:54
eGFR 28.49 05/12/24 05:54
Glucose 94 mg/dl (70-99) 05/12/24 05:54
Calcium 8.9 mg/dl (8.4-10.2) 05/12/24 05:54
Albumin 3.3 g/dl (3.5-5.0) L 05/04/24 09:34
Physical Exam
-
Vital Signs:
Vital Signs
Temp Pulse Resp BP Pulse Ox
98.4 F 72 18 139/96 97
05/12/24 08:16 05/12/24 08:16 05/12/24 08:16 05/12/24 08:16 05/12/24 08:16
Cardiovascular:: Regular rate and rhythm
Respiratory:: Bilateral: Coarse
Lung Excursion:: Normal
Abdomen:: Nontender and Soft
Bowel Sounds:: Normal
Extremity Edema:: None: Bilateral:
Pinto Catheter: Yes
[2024-05-12] MEDS: PROTONIX 40 MG PO (12:50)
[2024-05-12] MEDS: DULCOLAX 10 MG RECTAL (14:44)
[2024-05-12 16:05] VITALS: BP 140/71
[2024-05-12 23:51] VITALS: BP 117/70
[2024-05-13] MEDS: SYNTHROID 175 MCG PO (05:53)
[2024-05-13 06:00] VITALS: BMI 26.2
[2024-05-13 07:00] VITALS: BP 142/79
[2024-05-13 07:08] LABS: % Basophils 0.7 % (0-2); % Eosinophils 1.4 % (0-6); % Immature Granulocytes 3.8 % (0-0.5); % Lymphocytes 17.5 % (20.5-51.1); % Monocytes 8.8 % (1.7-9.3); % Neutrophils 67.8 % (42.2-75.2); Absolute Basophils 0.1 10^3/uL (0-0.2); Absolute Eosinophils 0.2 10^3/uL (0-0.7); Absolute Immature Granulocytes 0.4 10^3/uL (0-0.05); Absolute Neutrophils 7.9 10^3/uL (1.4-6.5); Hematocrit 33.6 % (39.0-52.0); Hemoglobin 11.4 g/dL (13.0-18.0); Mean Corp Hgb Conc. 33.9 g/dL (33.0-37.0); Mean Corpuscular Hgb 28.8 pg (27.0-31.0); Mean Corpuscular Volume 84.8 fL (80.0-94.0); Mean Platelet Volume 10.1 fL (7.4-10.4); Nucleated Red Blood Cells % 0 % (-); Platelet Count 384 10^3/uL (130-400); Red Blood Cell Count 3.96 10^6/uL (4.70-6.10); Red Cell Dist. Width 13.9 % (11.5-14.5); White Blood Cell Count 11.6 10^3/uL (4.8-10.8)
[2024-05-13 07:33] LABS: ALT (SGPT) < 10 U/L (0-50); AST (SGOT) 29 U/L (17-59); Albumin 2.7 g/dl (3.5-5.0); Alkaline Phosphatase 77 U/L (38-126); Blood Urea Nitrogen 53 mg/dl (9-20); Calcium 8.7 mg/dl (8.4-10.2); Carbon Dioxide 28 mmol/L (22-30); Chloride 101 mmol/L (98-107); Creatine Phosphokinase 95 U/L (55-170); Estimated Creatinine Clearance 29 ml/min; Glucose 79 mg/dl (70-99); Potassium 3.9 mmol/L (3.5-5.1); Sodium 138 mmol/L (135-145); Total Bilirubin 0.5 mg/dl (0.2-1.3); Total Protein 5.5 g/dl (6.3-8.2); eGFR 25.88
[2024-05-13] MEDS: PROVIGIL 100 MG PO (08:18)
[2024-05-13] MEDS: BACTROBAN 2% OINTMENT 1 APPLIC TOPICAL (08:18)
[2024-05-13] MEDS: SINEMET 25-100 1 TABLET PO ×4 (08:19→21:01)
[2024-05-13] MEDS: TOPROL XL 50 MG PO (08:19)
[2024-05-13] MEDS: PROTONIX 40 MG PO (08:19)
[2024-05-13] MEDS: COLACE 100 MG PO (08:20)
[2024-05-13] MEDS: THERAGRAN 1 TABLET PO (08:20)
[2024-05-13] MEDS: NORVASC 2.5 MG PO (08:20)
[2024-05-13] MEDS: MIRALAX 17 GRAMS PO (08:21)
[2024-05-13] MEDS: HEPARIN 5000 UNITS SC ×2 (08:21→21:01)
--- NOTE | 2024-05-13 11:37 | W.PN.HOSP.TC ---
Today's Communication/Plan
-
SNF rehab
Assessment / Plan
Assessment / Plan
# Acute kidney injury on CKD 4
improvement appears to have plateaued
slight rise in Creat possibly due to resumption of Valsartan, since stopped
# Concern for non-traumatic rhabdomyolysis
-Creatinine 2.3-->2.6-->3.1-->4.2-->4.0-->3.4-->2.4-->2.2-->2.1-->2.4-->2.7-->2.4-->2.6
-Appreciate nephrology: it is suspected that this is all due to urinary retention and obstructive uropathy
-CK 1439-->1421-->617-->347-->95
no longer an issue
-CT head negative
-IV fluids stopped
- valsartan resumed 05/09, stopped 05/10 with rising Creat
-Hold dapagliflozin
-Urinalysis negative
Constipation
will stop Metamucil, continue Miralax and add Dulcolax, may need enema, may benefit from pinto removal
#Fever on 05/06/24
#Leukocytosis, worsened initially, now improving
WBC 18.9-->17.1-->14.8-->13.4-->11.7-->15.2-->16.8-->14.2-->13.3-->11.6
of unclear etiology. Input of ID appreciated, ?related to toe. Will trend, rechecked UA (appears neg) and CXR (NAPD)
procal 0.35 (minimally elevated possibly from CKD)
#Necrotic area to the right 2nd toe - right second toe tip black hyperkeratotic lesion (?Verrucae vs subungular SCC vs benign)
-Checked COVID x2 -negative
-CXR (atelectasis), repeat UA
-Ordered renal and bladder ultrasound:No hydronephrosis or suspicious renal lesions. Bilateral renal cysts which measure up to 10.0 cm on the left and 5.6 cm on the right.
The urinary bladder is decompressed with Pinto catheter.
-Consulted ID, appreciate their evaluation and recommendations
-IR attempted LP on 05/05/24 --> but dry tap x2
-NGTD blood cultures
-Wound care
-Outpatient referral to Podiatry for excisional biopsy
Non-ischemic myocardial injury with minimal elevated troponin
#Suspected Acute Toxic Metabolic Encephalopathy
-Neurology consulted given patient's Parkinson's Disease and unclear etiology of confusion and leukocytosis. Confusion appears to be improved (05/10) along with marked improvement in speech
-MRI:1. 3.5 cm region of signal abnormality in the cortical ibanez matter and subcortical white matter of the POSTERIOR RIGHT OCCIPITAL LOBE with associated edema and a mild intraparenchymal microhemorrhage. Diagnostic possibilities are (1)
posterior reversible encephalopathy syndrome (PRES), (2) an acute inflammatory or infectious encephalitis, (3) a slow flow cerebral vascular malformation, or (4) a primary or metastatic brain tumor.
2. Moderate white matter leukoaraiosis in both cerebral hemispheres.
3. Mild diffuse cerebral and cerebellar volume loss.
4. Severe discogenic degenerative disease at C3/C4 with a central disc-osteophyte complex causing moderate spinal cord compression and central canal stenosis.
-Appreciate neurology, Dr. Rogers believes 3.5 cm signal abnormality is most consistent with posterior reversible encephalopathy syndrome (PRES). He also believes that pt has Parkinsonian dementia as a component.
Will need to start considering disposition to SNF rehab ( told), reviewed with CM on 05/11, will need prior auth
#Urinary Retention reported by patient's spouse
pinto has been removed this morning, will check post void residual
-Bladder Scans protocol
#Microscopic Hematuria
#Proteinuria
-nephrology stopped IVF
# Parkinson's
-Continue carbidopa-levodopa
-Per patient's , patient sees Dr. Pozo outpatient -- planned for MRI brain in May 2024
#Essential hypertension
BP 128-156/80-96 range primarily
-Continue metoprolol
-Added Amlodipine 2.5 mg daily
-Also prn IV Hydralazine
#Hypercholesterolemia
#Hypothyroidism
-Continue levothyroxine
Psychiatric history
Gout
Osteoarthritis
Full code
DVT prophylaxis�heparin
Diet: IDDSI Level 4 Puree diet, thin liquids. Medications whole in puree. Aspiration precautions including 1:1 assist, ensure oral cavity clear after meal. Monitor for signs of aspiration and d/c oral diet if any decline in mental/respiratory
status. As per speech, will advance diet
Call placed and reviewed with , Monica as per her request 05/10
reviewed with RN. Has certainly improved, though should benefit from SNF rehab
Anticipated Discharge: > 48 hours
Subjective/Interval History
-
Date of Service: May 13, 2024
Mental status probably approaching baseline, very conversant
Objective Data
-
Labs:
Laboratory Results
05/13/24
05:59
WBC 11.6 H
Hgb 11.4 L
Hct 33.6 L
Plt Count 384
Sodium 138
Potassium 3.9
Chloride 101
Carbon Dioxide 28
BUN 53 H
Creatinine 2.6 H
Glucose 79
Calcium 8.7
Total Bilirubin 0.5
AST 29
ALT < 10
Alkaline Phosphatase 77
Vital Signs:
Vital Signs
Temp Pulse Resp BP Pulse Ox
98.1 F 65 18 142/79 97
05/13/24 07:00 05/13/24 07:00 05/13/24 07:00 05/13/24 07:00 05/13/24 07:00
I&O
05/12/24 05/13/24 05/14/24
06:59 06:59 06:59
Intake Total 780 / 780
Output Total 1125 / 1125 875 / 875
Balance -345 / -345 -875 / -875
Review of Systems
-
History Source: Patient and Coordinated Provider
Constitutional: Denies Fever (afebrile since 05/06 at 5:26 AM)
Respiratory: Reports No Symptoms; Denies Cough
Cardiac: Reports No Symptoms; Denies Chest Pain
Abdomen/GI: Reports No Symptoms
Physical Exam
-
General: Well Developed, Well Nourished, No Apparent Distress and Appears Chronically Ill
HEENT: Normocephalic, Atraumatic and Moist Mucous Membranes
Respiratory: Clear to Auscultation; Negative Wheezes, Rales or Rhonchi
Cardiac: Regular Rhythm and S1/S2
GI: Soft, Nontender, Nondistended and Normal Bowel Sounds
Musculoskeletal: No Clubbing, No Cyanosis and No Edema
Neuro: Awake, Alert, Oriented ( cognition significantly better, speech probably at baseline) and Other (cogwheel rigidity noted)
Psych: Calm
--- NOTE | 2024-05-13 14:50 | W.PN.NEPH.PH ---
Today's Communication / Plan
-
Observe
Follow BMP
No new recommendations
Assessment/Plan
-
Assessment
CKD 4 (2.2-2.4)
JIMMY
Urinary retention
Mental status change
Parkinson's
Hypertension
Metabolic acidosis
MRI brain + 3.5cm lesion posterior right occipital lobe
Plan
creatinine at 2.5 remains nonoliguric via Pinto
Hemodynamically stable
Follow BMP
maintain pinto given obstructive uropathy
holding valsartan due to recent rise in creatinine
No new recommendations
-
-
Date of Service: May 13, 2024
CC / HPI / ROS
-
Chief Complaint:
JIMMY
History of Present Illness:
JIMMY/Cr up to 2.6
K stable at 3.[address], nonoliguric
BP stable
Review of Systems:
no CP/SOB
Pinto
remains confused
Labs
-
Labs:
WBC 11.6 10^3/uL (4.8-10.8) H 05/13/24 05:59
RBC 3.96 10^6/uL (4.70-6.10) L 05/13/24 05:59
Hgb 11.4 g/dL (13.0-18.0) L 05/13/24 05:59
Hct 33.6 % (39.0-52.0) L 05/13/24 05:59
Plt Count 384 10^3/uL (130-400) 05/13/24 05:59
Sodium 138 mmol/L (135-145) 05/13/24 05:59
Potassium 3.9 mmol/L (3.5-5.1) 05/13/24 05:59
Chloride 101 mmol/L (98-107) 05/13/24 05:59
Carbon Dioxide 28 mmol/L (22-30) 05/13/24 05:59
BUN 53 mg/dl (9-20) H 05/13/24 05:59
Creatinine 2.6 mg/dL (0.7-1.3) H 05/13/24 05:59
eGFR 25.88 05/13/24 05:59
Glucose 79 mg/dl (70-99) 05/13/24 05:59
Calcium 8.7 mg/dl (8.4-10.2) 05/13/24 05:59
Albumin 2.7 g/dl (3.5-5.0) L 05/13/24 05:59
Physical Exam
-
Vital Signs:
Vital Signs
Temp Pulse Resp BP Pulse Ox
98.1 F 65 18 142/79 97
05/13/24 07:00 05/13/24 07:00 05/13/24 07:00 05/13/24 07:00 05/13/24 08:00
Cardiovascular:: Regular rate and rhythm
Respiratory:: Bilateral: Coarse
Lung Excursion:: Normal
Abdomen:: Nontender and Soft
Bowel Sounds:: Normal
Extremity Edema:: None: Bilateral:
Pinto Catheter: Yes
[2024-05-13 15:00] VITALS: BP 134/87
--- NOTE | 2024-05-13 16:00 | PTCARENOTE ---
Pt pinto removed at 0600am for void trial. Pt bladder scanned multiple times throughout shift for 200s. Bladder scanned at 1715 for 405ml straight cathed x1 for 400ml. Pt tolerated well. Per Dr Quijano pinto can be reinserted if patient retains
greater than 400 again after initial straight cath. Pt updated on POC, call east within reach, plan of care continues.
--- NOTE | 2024-05-13 16:14 | CM ---
CM met with Ryan and his family today. Mental status greatly improved. Will still need SNF transfer prior to returning home; updated therapy notes will be needed for SNF authorization when medically ready for discharge.
--- NOTE | 2024-05-13 18:00 | PTCARENOTE ---
Pt OOBTC for 5+ hours this shift per MD request along with family. Pt tolerated well.
[2024-05-13] MEDS: COLACE PO (20:59)
[2024-05-13 23:18] VITALS: BP 123/75
[2024-05-14] MEDS: SYNTHROID 175 MCG PO (05:24)
[2024-05-14 06:00] VITALS: BMI 25.4
[2024-05-14 07:44] LABS: % Eosinophils 1.7 % (0-6); % Immature Granulocytes 3.8 % (0-0.5); % Lymphocytes 16.9 % (20.5-51.1); % Monocytes 8.8 % (1.7-9.3); % Neutrophils 67.8 % (42.2-75.2); Absolute Basophils 0.1 10^3/uL (0-0.2); Absolute Eosinophils 0.2 10^3/uL (0-0.7); Absolute Immature Granulocytes 0.4 10^3/uL (0-0.05); Absolute Lymphocytes 1.9 10^3/uL (1.2-3.4); Absolute Neutrophils 7.6 10^3/uL (1.4-6.5); Hematocrit 35.4 % (39.0-52.0); Hemoglobin 11.8 g/dL (13.0-18.0); Mean Corp Hgb Conc. 33.3 g/dL (33.0-37.0); Mean Corpuscular Hgb 28.5 pg (27.0-31.0); Mean Corpuscular Volume 85.5 fL (80.0-94.0); Nucleated Red Blood Cells % 0 % (-); Platelet Count 383 10^3/uL (130-400); Red Blood Cell Count 4.14 10^6/uL (4.70-6.10); Red Cell Dist. Width 13.7 % (11.5-14.5); White Blood Cell Count 11.2 10^3/uL (4.8-10.8)
[2024-05-14 07:58] VITALS: BP 151/96
--- NOTE | 2024-05-14 08:05 | W.PN.HOSP.TC ---
Today's Communication/Plan
-
Have asked nurse to try and see whether we can get patient off Med-sitter safely
Fall Precautions. Asked nurse to have nurse and staff overnight monitor patient very closely.
Discharge planning
Assessment / Plan
Assessment / Plan
Physical Exam
General: Not in acute distress
HEENT: Normocephalic
Respiratory: Clear to Auscultation Bilaterally
Cardiac: Regular Rhythm and S1/S2
GI: Soft, Nontender, Nondistended and Normal Bowel Sounds
Musculoskeletal: No Cyanosis and No Edema
Neuro: Awake, Alert, Oriented ( cognition significantly better, speech probably at baseline) and Other (cogwheel rigidity noted)
Psych: Calm
Assessment/Plan
# Acute kidney injury on CKD 4
improvement appears to have plateaued
slight rise in Creat possibly due to resumption of Valsartan, since stopped
# Concern for non-traumatic rhabdomyolysis
-Creatinine 2.3-->2.6-->3.1-->4.2-->4.0-->3.4-->2.4-->2.2-->2.1-->2.4-->2.7-->2.4-->2.6
-Appreciate nephrology: it is suspected that this is all due to urinary retention and obstructive uropathy
-CK 1439-->1421-->617-->347-->95
no longer an issue
-CT head negative
-IV fluids stopped
- valsartan resumed 05/09, then stopped 05/10 with rising Creat
-Hold dapagliflozin
-Urinalysis negative
#Constipation
continue Miralax and add Dulcolax, may need enema, may benefit from pinto removal
#Fever on 05/06/24
#Leukocytosis, worsened initially, now improving
WBC 18.9-->17.1-->14.8-->13.4-->11.7-->15.2-->16.8-->14.2-->13.3-->11.6-->11.2
of unclear etiology. Input of ID appreciated, ?related to toe. Will trend, rechecked UA (appears neg) and CXR (NAPD)
procal 0.35 (minimally elevated possibly from CKD)
#Necrotic area to the right 2nd toe - right second toe tip black hyperkeratotic lesion (?Verrucae vs subungular SCC vs benign)
-Checked COVID x2 -negative
-CXR (atelectasis), repeat UA
-Ordered renal and bladder ultrasound: as per radiologists' report No hydronephrosis or suspicious renal lesions. Bilateral renal cysts which measure up to 10.0 cm on the left and 5.6 cm on the right.
The urinary bladder is decompressed with Pinto catheter.
-Consulted ID, appreciate their evaluation and recommendations
-IR attempted LP on 05/05/24 --> but dry tap x2
-NGTD blood cultures
-Wound care
-Outpatient referral to Podiatry for excisional biopsy
Non-ischemic myocardial injury with minimal elevated troponin
#Suspected Acute Toxic Metabolic Encephalopathy
-Neurology was consulted given patient's Parkinson's Disease and unclear etiology of confusion and leukocytosis. Confusion appears to be improved since 05/10/24 along with marked improvement in speech
-MRI:1. 3.5 cm region of signal abnormality in the cortical ibanez matter and subcortical white matter of the POSTERIOR RIGHT OCCIPITAL LOBE with associated edema and a mild intraparenchymal microhemorrhage. Diagnostic possibilities are (1)
posterior reversible encephalopathy syndrome (PRES), (2) an acute inflammatory or infectious encephalitis, (3) a slow flow cerebral vascular malformation, or (4) a primary or metastatic brain tumor.
2. Moderate white matter leukoaraiosis in both cerebral hemispheres.
3. Mild diffuse cerebral and cerebellar volume loss.
4. Severe discogenic degenerative disease at C3/C4 with a central disc-osteophyte complex causing moderate spinal cord compression and central canal stenosis.
-Appreciate neurology, Dr. Rogers believes 3.5 cm signal abnormality is most consistent with posterior reversible encephalopathy syndrome (PRES). He also believes that pt has Parkinsonian dementia as a component.
-Will need to start considering disposition to SNF rehab ( told), reviewed with CM on 05/11, will need prior auth
#Urinary Retention reported by patient's spouse
pinto has been removed this morning, will check post void residual
-Bladder Scans protocol
#Microscopic Hematuria
#Proteinuria
-nephrology stopped IVF
# Parkinson's
-Continue carbidopa-levodopa - Sinemet was increased to 25/100 QID as per neurology
-Modafinil 100 mg daily as per neurology
-Per patient's , patient sees Dr. Pozo outpatient -- planned for MRI brain in May 2024
#Essential hypertension
-Stable, on the elevated side
-Continue metoprolol
-Added Amlodipine 2.5 mg daily
-Also prn IV Hydralazine
#Hypercholesterolemia
#Hypothyroidism
-Continue levothyroxine
Psychiatric history
Gout
Osteoarthritis
Full code
DVT prophylaxis�heparin
Diet: IDDSI Level 4 Puree diet, thin liquids. Medications whole in puree. Aspiration precautions including 1:1 assist, ensure oral cavity clear after meal. Monitor for signs of aspiration and d/c oral diet if any decline in mental/respiratory
status. As per speech, will advance diet
Dr. Quijano placed call and he reviewed with , Monica as per her request 05/10/24
reviewed with RN. Has certainly improved, though should benefit from SNF rehab
Anticipated Discharge: 24 - 48 hours
Subjective/Interval History
-
Date of Service: May 14, 2024
Patient was seen and examined. He reported no new complaints. He is still on the sitter.
Objective Data
-
Labs:
Laboratory Results
05/14/24
06:32
WBC 11.2 H
Hgb 11.8 L
Hct 35.4 L
Plt Count 383
Sodium Pending
Potassium Pending
Chloride Pending
Carbon Dioxide Pending
BUN Pending
Creatinine Pending
Glucose Pending
Calcium Pending
Vital Signs:
Vital Signs
Temp Pulse Resp BP Pulse Ox
97.9 F 66 18 151/96 96
05/14/24 07:58 05/14/24 07:58 05/14/24 07:58 05/14/24 07:58 05/14/24 07:58
I&O
05/13/24 05/14/24 05/15/24
06:59 06:59 06:59
Intake Total 480 / 480
Output Total 875 / 875 1000 / 1000
Balance -875 / -875 -520 / -520
[2024-05-14 08:17] LABS: Blood Urea Nitrogen 53 mg/dl (9-20); Calcium 8.7 mg/dl (8.4-10.2); Carbon Dioxide 29 mmol/L (22-30); Chloride 100 mmol/L (98-107); Estimated Creatinine Clearance 29 ml/min; Glucose 77 mg/dl (70-99); Potassium 4.2 mmol/L (3.5-5.1); Sodium 139 mmol/L (135-145); eGFR 25.88
[2024-05-14] MEDS: MIRALAX 17 GRAMS PO (08:33)
[2024-05-14] MEDS: THERAGRAN 1 TABLET PO (08:34)
[2024-05-14] MEDS: HEPARIN 5000 UNITS SC ×2 (08:34→19:51)
[2024-05-14] MEDS: SINEMET 25-100 1 TABLET PO ×4 (08:34→22:43)
[2024-05-14] MEDS: TOPROL XL 50 MG PO (08:34)
[2024-05-14] MEDS: PROTONIX 40 MG PO (08:34)
[2024-05-14] MEDS: BACTROBAN 2% OINTMENT 1 APPLIC TOPICAL (08:35)
[2024-05-14] MEDS: COLACE 100 MG PO ×2 (08:35→19:50)
[2024-05-14] MEDS: PROVIGIL 100 MG PO (08:35)
[2024-05-14] MEDS: NORVASC 2.5 MG PO (08:35)
--- NOTE | 2024-05-14 10:13 | CM ---
Remains on med sitter.
Confusion remains
Needs updated PT OT . Past evals indicated SNF need.
as per care [facility] interested,[facility].
Will need auth
Plan Locate SNF obtain auth when medically ready
--- NOTE | 2024-05-14 12:38 | W.PN.NEPH.PH ---
Today's Communication / Plan
-
follow labs
Assessment/Plan
-
Assessment
CKD 4 (2.2-2.4)
JIMMY
Urinary retention
Mental status change
Parkinson's
Hypertension
Metabolic acidosis
MRI brain + 3.5cm lesion posterior right occipital lobe
Plan
cr relatively stable at 2.6 close to baseline
BP are stable
Follow BMP
maintain pinto given obstructive uropathy
holding valsartan due to recent rise in creatinine
placement
-
-
Date of Service: May 14, 2024
CC / HPI / ROS
-
Chief Complaint:
JIMMY
History of Present Illness:
JIMMY/Cr up to 2.6 -no change
K stable at 34.[address], nonoliguric
BP stable
Review of Systems:
no CP/SOB
remains confused
Labs
-
Labs:
WBC 11.2 10^3/uL (4.8-10.8) H 05/14/24 06:32
RBC 4.14 10^6/uL (4.70-6.10) L 05/14/24 06:32
Hgb 11.8 g/dL (13.0-18.0) L 05/14/24 06:32
Hct 35.4 % (39.0-52.0) L 05/14/24 06:32
Plt Count 383 10^3/uL (130-400) 05/14/24 06:32
Sodium 139 mmol/L (135-145) 05/14/24 06:32
Potassium 4.2 mmol/L (3.5-5.1) 05/14/24 06:32
Chloride 100 mmol/L (98-107) 05/14/24 06:32
Carbon Dioxide 29 mmol/L (22-30) 05/14/24 06:32
BUN 53 mg/dl (9-20) H 05/14/24 06:32
Creatinine 2.6 mg/dL (0.7-1.3) H 05/14/24 06:32
eGFR 25.88 05/14/24 06:32
Glucose 77 mg/dl (70-99) 05/14/24 06:32
Calcium 8.7 mg/dl (8.4-10.2) 05/14/24 06:32
Albumin 2.7 g/dl (3.5-5.0) L 05/13/24 05:59
Physical Exam
-
Vital Signs:
Vital Signs
Temp Pulse Resp BP Pulse Ox
97.9 F 66 18 151/96 96
05/14/24 07:58 05/14/24 08:34 05/14/24 07:58 05/14/24 08:34 05/14/24 08:20
Cardiovascular:: Regular rate and rhythm
Respiratory:: Bilateral: CTA
Lung Excursion:: Normal
Abdomen:: Nontender and Soft
Extremity Edema:: None: Bilateral:
Pinto Catheter: Yes
--- NOTE | 2024-05-14 13:48 | W.PN.ID1 ---
Date of Service
Date of Service: May 14, 2024
Today's Communication
ID will sign off.
Assessment / Plan
# Leukocytosis resolving
# Fever (05/06/24) x 1 resolved
- COVID ag neg
- 05/04 UA neg, BCX neg to date, CXR no PNA
- No diarrhea. Is constipated. No BM since admission (05/02). Ordered Miralax daily.
- Procalcitonin 0.32 likely false positive in setting of JIMMY.
- Observing off abx.
# Encephalopathy - improving
- MRI brain + 3.5cm lesion posterior right occipital lobe
- LP dry tap.
- RPR, WNV serology NEGATIVE
# Right second toe tip black hyperkeratotic lesion
- Foot XRAY no bony erosion
- Outpt referral to Podiatry
- Appreciate Wound Care eval.
# JIMMY on CKD - improving
# Parkinson's
- On Sinemet
ID will sign off.
Chief Complaint
-: Leukocytosis
Subjective / Review of Systems
No complaints
Vital Signs / Physical Exam
Vital Signs
Vital Signs
Temp Pulse Resp BP Pulse Ox
97.9 F 66 18 151/96 96
05/14/24 07:58 05/14/24 08:34 05/14/24 07:58 05/14/24 08:34 05/14/24 08:20
Physical Exam
Constitutional: No Acute Distress and Comfortable
Pulmonary: Clear
Gastrointestinal: Soft, Non Tender and Non Distended
Neurological: Negative Meningeal Signs
Objective Data
Lab Data
Lab Results
05/14/24 06:32
05/14/24 06:32
Estimated Creat Clear 29 ml/min 10/21/24 06:32
Total Bilirubin 0.5 mg/dl (0.2-1.3) 05/13/24 05:59
AST 29 U/L (17-59) 05/13/24 05:59
ALT < 10 U/L (0-50) 05/13/24 05:59
Alkaline Phosphatase 77 U/L (38-126) 05/13/24 05:59
Most recent labs reviewed.
Micro Results:
05/05/24 17:18 Blood Culture - Final
Blood/Venous No Growth - Final Report
05/05/24 10:48 Blood Culture - Final
Blood/Venous No Growth - Final Report
05/04/24 17:15 Influenza Types A & B (LILIA) - Final
Nasal Swab Negative for Influenza A & B, NAAT
Negative results must be combined with clinical observations
and patient history.
Nucleic Acid Amplification test (NAAT)performed on the
[employer] NOW platform.
05/02/24 15:04 Urine Culture - Final
Urine NO GROWTH
05/02/24 15:04 Influenza Types A & B (LILIA) - Final
Nasal Swab Negative for Influenza A & B, NAAT
Negative results must be combined with clinical observations
and patient history.
Nucleic Acid Amplification test (NAAT)performed on the
[employer] NOW platform.
05/02 CT head No evidence of acute intracranial abnormality. Prominent decreased density within the periventricular white matter, especially within the posterior occipital lobes. 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
69 years. Mild to moderate atrophy.
05/04 CXR: Basilar probable atelectasis.
05/07 Brain MRI: 3.5 cm region of signal abnormality in the cortical ibanez matter and subcortical white matter of the POSTERIOR RIGHT OCCIPITAL LOBE with associated edema and a mild intraparenchymal microhemorrhage. Diagnostic possibilities are (1)
posterior reversible encephalopathy syndrome (PRES), (2) an acute inflammatory or infectious encephalitis, (3) a slow flow cerebral vascular malformation, or (4) a primary or metastatic brain tumor.
[2024-05-14 14:00] VITALS: BP 145/101; PULSE 80; O2SAT 95
[2024-05-14 15:18] VITALS: BP 145/101; PULSE 80; O2SAT 95
[2024-05-14 15:57] VITALS: BP 144/95
--- NOTE | 2024-05-14 16:48 | CM ---
Pt remains on med sitter .
Will need off med sitter 24 hours and needs auth.
[facility] interested.
PT Ot indicate SNF.
PLAN To SNf after located /auth and medsitter removed
[2024-05-14 23:22] VITALS: BP 156/95
[2024-05-15] VITALS (33 sets, daily range): BP systolic 33–210; BP diastolic 14–145; BMI 25.5
[2024-05-15] MEDS: SYNTHROID 175 MCG PO (06:18)
[2024-05-15] MEDS: PROVIGIL 100 MG PO (07:34)
[2024-05-15] MEDS: THERAGRAN 1 TABLET PO (07:34)
[2024-05-15] MEDS: NORVASC 2.5 MG PO (07:34)
[2024-05-15] MEDS: SINEMET 25-100 1 TABLET PO ×3 (07:34→17:13)
[2024-05-15] MEDS: TOPROL XL 50 MG PO (07:34)
[2024-05-15 07:35] LABS: Hematocrit 37.1 % (39.0-52.0); Hemoglobin 12.3 g/dL (13.0-18.0); Mean Corp Hgb Conc. 33.2 g/dL (33.0-37.0); Mean Corpuscular Hgb 28.6 pg (27.0-31.0); Mean Corpuscular Volume 86.3 fL (80.0-94.0); Mean Platelet Volume 9.5 fL (7.4-10.4); Platelet Count 394 10^3/uL (130-400); Red Cell Dist. Width 13.8 % (11.5-14.5); White Blood Cell Count 11.6 10^3/uL (4.8-10.8)
[2024-05-15] MEDS: COLACE 100 MG PO (07:35)
[2024-05-15] MEDS: BACTROBAN 2% OINTMENT 1 APPLIC TOPICAL (07:35)
[2024-05-15] MEDS: HEPARIN 5000 UNITS SC (07:35)
[2024-05-15] MEDS: PROTONIX 40 MG PO (07:35)
[2024-05-15] MEDS: MIRALAX 17 GRAMS PO (07:35)
[2024-05-15] MEDS: TYLENOL 650 MG PO (07:36)
[2024-05-15 08:08] LABS: Blood Urea Nitrogen 50 mg/dl (9-20); Calcium 8.8 mg/dl (8.4-10.2); Carbon Dioxide 31 mmol/L (22-30); Chloride 98 mmol/L (98-107); Estimated Creatinine Clearance 30 ml/min; Glucose 86 mg/dl (70-99); Magnesium 2.4 mg/dl (1.6-2.3); Potassium 4.5 mmol/L (3.5-5.1); Sodium 139 mmol/L (135-145); eGFR 27.13
--- NOTE | 2024-05-15 12:00 | PTCARENOTE ---
Med sitter removed. Patient comfortable in bed. Bed alarm remains on.
--- NOTE | 2024-05-15 15:58 | W.PN.HOSP.TC ---
Today's Communication/Plan
-
Off sitter, hopefully can remain off sitter going into tomorrow so can be discharged to SNF
Assessment / Plan
Assessment / Plan
Physical Exam
General: Not in acute distress
HEENT: Normocephalic
Respiratory: Clear to Auscultation Bilaterally
Cardiac: Regular Rhythm and S1/S2
GI: Soft, Nontender, Nondistended and Normal Bowel Sounds
Musculoskeletal: No Cyanosis and No Edema
Neuro: Awake, Alert, Oriented ( cognition significantly better, speech probably at baseline) and Other (cogwheel rigidity noted)
Psych: Calm
Assessment/Plan
# Acute kidney injury on CKD 4
improvement appears to have plateaued
slight rise in Creat possibly due to resumption of Valsartan, since stopped
# Concern for non-traumatic rhabdomyolysis
-Creatinine 2.3-->2.6-->3.1-->4.2-->4.0-->3.4-->2.4-->2.2-->2.1-->2.4-->2.7-->2.4-->2.6-->2.5
-Appreciate nephrology: it is suspected that this is all due to urinary retention and obstructive uropathy
-CK 1439-->1421-->617-->347-->95
no longer an issue
-CT head negative
-IV fluids stopped
- valsartan resumed 05/09, then stopped 05/10 with rising Creat
-Hold dapagliflozin
-Urinalysis negative
#Constipation
continue Miralax and add Dulcolax, may need enema, may benefit from pinto removal
#Fever on 05/06/24
#Leukocytosis, worsened initially, now improving
WBC 18.9-->17.1-->14.8-->13.4-->11.7-->15.2-->16.8-->14.2-->13.3-->11.6-->11.2
of unclear etiology. Input of ID appreciated, ?related to toe. Will trend, rechecked UA (appears neg) and CXR (NAPD)
procal 0.35 (minimally elevated possibly from CKD)
#Necrotic area to the right 2nd toe - right second toe tip black hyperkeratotic lesion (?Verrucae vs subungular SCC vs benign)
-Checked COVID x2 -negative
-CXR (atelectasis), repeat UA
-Ordered renal and bladder ultrasound: as per radiologists' report No hydronephrosis or suspicious renal lesions. Bilateral renal cysts which measure up to 10.0 cm on the left and 5.6 cm on the right.
The urinary bladder is decompressed with Pinto catheter.
-Consulted ID, appreciate their evaluation and recommendations
-IR attempted LP on 05/05/24 --> but dry tap x2
-NGTD blood cultures
-Wound care
-Outpatient referral to Podiatry for excisional biopsy
Non-ischemic myocardial injury with minimal elevated troponin
#Suspected Acute Toxic Metabolic Encephalopathy
-Neurology was consulted given patient's Parkinson's Disease and unclear etiology of confusion and leukocytosis. Confusion appears to be improved since 05/10/24 along with marked improvement in speech
-MRI:1. 3.5 cm region of signal abnormality in the cortical ibanez matter and subcortical white matter of the POSTERIOR RIGHT OCCIPITAL LOBE with associated edema and a mild intraparenchymal microhemorrhage. Diagnostic possibilities are (1)
posterior reversible encephalopathy syndrome (PRES), (2) an acute inflammatory or infectious encephalitis, (3) a slow flow cerebral vascular malformation, or (4) a primary or metastatic brain tumor.
2. Moderate white matter leukoaraiosis in both cerebral hemispheres.
3. Mild diffuse cerebral and cerebellar volume loss.
4. Severe discogenic degenerative disease at C3/C4 with a central disc-osteophyte complex causing moderate spinal cord compression and central canal stenosis.
-Appreciate neurology, Dr. Rogers believes 3.5 cm signal abnormality is most consistent with posterior reversible encephalopathy syndrome (PRES). He also believes that pt has Parkinsonian dementia as a component.
-Will need to start considering disposition to SNF rehab ( told), reviewed with CM on 05/11, will need prior auth
#Urinary Retention reported by patient's spouse
-Bladder Scans protocol
#Microscopic Hematuria
#Proteinuria
-nephrology stopped IVF
# Parkinson's
-Continue carbidopa-levodopa - Sinemet was increased to 25/100 QID as per neurology
-Modafinil 100 mg daily as per neurology
-Per patient's , patient sees Dr. Pozo outpatient -- planned for MRI brain in May 2024
#Essential hypertension
-Stable, on the elevated side
-Continue metoprolol
-Added previously Amlodipine 2.5 mg daily
-Also prn IV Hydralazine
#Hypercholesterolemia
#Hypothyroidism
-Continue levothyroxine
Psychiatric history
Gout
Osteoarthritis
Full code
DVT prophylaxis�heparin
Diet: IDDSI Level 4 Puree diet, thin liquids. Medications whole in puree. Aspiration precautions including 1:1 assist, ensure oral cavity clear after meal. Monitor for signs of aspiration and d/c oral diet if any decline in mental/respiratory
status. As per speech, will advance diet
Dr. Quijano placed call and he reviewed with , Monica as per her request 05/10/24
reviewed with RN. Has certainly improved, though should benefit from SNF rehab
Anticipated Discharge: Within 24 hours
Subjective/Interval History
-
Date of Service: May 15, 2024
Patient was seen and examined. He denied any new symptoms or complaints.
Objective Data
-
Labs:
Laboratory Results
05/15/24
07:07
WBC 11.6 H
Hgb 12.3 L
Hct 37.1 L
Plt Count 394
Sodium 139
Potassium 4.5
Chloride 98
Carbon Dioxide 31 H
BUN 50 H
Creatinine 2.5 H
Glucose 86
Calcium 8.8
Vital Signs:
Vital Signs
Temp Pulse Resp BP Pulse Ox
98.3 F 73 18 114/73 96
05/15/24 15:14 05/15/24 15:14 05/15/24 15:14 05/15/24 15:14 05/15/24 15:14
I&O
05/14/24 05/15/24 05/16/24
06:59 06:59 06:59
Intake Total 480 / 480 960 / 960
Output Total 1000 / 1000 1150 / 1150
Balance -520 / -520 -190 / -190
--- NOTE | 2024-05-15 16:10 | W.PN.NEPH.PH ---
Today's Communication / Plan
-
follow labs
Assessment/Plan
-
Assessment
CKD 4 (2.2-2.4)
JIMMY
Urinary retention
Mental status change
Parkinson's
Hypertension
Metabolic acidosis
MRI brain + 3.5cm lesion posterior right occipital lobe
Plan
cr relatively stable at 2.5 close to baseline
BP are stable
maintain pinto given obstructive uropathy
holding valsartan due to recent rise in creatinine
pending placement , off sitter
follow labs
-
-
Date of Service: May 15, 2024
CC / HPI / ROS
-
Chief Complaint:
JIMMY
History of Present Illness:
JIMMY/Cr up to 2.5 -no change
pinto in place, nonoliguric
BP stable
Review of Systems:
no CP/SOB
holds the conversation
no complaints
Labs
-
Labs:
WBC 11.6 10^3/uL (4.8-10.8) H 05/15/24 07:07
RBC 4.30 10^6/uL (4.70-6.10) L 05/15/24 07:07
Hgb 12.3 g/dL (13.0-18.0) L 05/15/24 07:07
Hct 37.1 % (39.0-52.0) L 05/15/24 07:07
Plt Count 394 10^3/uL (130-400) 05/15/24 07:07
Sodium 139 mmol/L (135-145) 05/15/24 07:07
Potassium 4.5 mmol/L (3.5-5.1) 05/15/24 07:07
Chloride 98 mmol/L (98-107) 05/15/24 07:07
Carbon Dioxide 31 mmol/L (22-30) H 05/15/24 07:07
BUN 50 mg/dl (9-20) H 05/15/24 07:07
Creatinine 2.5 mg/dL (0.7-1.3) H 05/15/24 07:07
eGFR 27.13 05/15/24 07:07
Glucose 86 mg/dl (70-99) 05/15/24 07:07
Calcium 8.8 mg/dl (8.4-10.2) 05/15/24 07:07
Albumin 2.7 g/dl (3.5-5.0) L 05/13/24 05:59
Physical Exam
-
Vital Signs:
Vital Signs
Temp Pulse Resp BP Pulse Ox
98.3 F 73 18 114/73 96
05/15/24 15:14 05/15/24 15:14 05/15/24 15:14 05/15/24 15:14 05/15/24 15:14
Cardiovascular:: Regular rate and rhythm
Respiratory:: Bilateral: CTA
Lung Excursion:: Normal
Abdomen:: Nontender and Soft
Extremity Edema:: None: Bilateral:
Pinto Catheter: Yes
--- NOTE | 2024-05-15 16:15 | CS.PSYCHR ---
Consult Summary - Psychiatry
-
Pt is a 69 yo male who presented 05/04/24 with altered mental status, noted by family to be confused, was on the floor at home doing something, refused help to get up and spent the night down. Pt admitted with JIMMY, Rhabdomyolysis. Pt seen by
Neurology, dx'd with encephalopathy, Parkinson's. Brain imaging revealed periventricular white matter ischemic dz, a 3.5 cm post Rt occipital finding c/w PRES due to HTN. Pt was continued on Sinemet, started on Provigil 100 mg daily 05/09. Pt's
mental status has improved overall. He has been noted to be somewhat agitated at night, pulling at tubes, trying to get OOB, although he did well last night. The med-sitter was stopped today at noon in preparation for referral to SNF. Nursing
staff reports pt was mildly agitated this morning, but has done well today. Pt is not on any psychotropic med. He has an order for melatonin 10 mg HS prn, was given only once on 05/09. On interview, pt is alert, mostly oriented, calm,
cooperative, reclining in been in no distress. No agitation. Denies any mood disturbance or anxiety.
Psych Hx: denied
PMH: HTN, Hypercholesterolemia, Hypothyroidism, chronic kidney disease, gout, osteoarthritis, sciatica, pancreatitis
SH: , living with spouse
MSE: alert, calm, mostly oriented, pleasant. No signs of psychosis, no agitation. slight resting tremor of left hand. Insight fair
Imp: TME, improving, with intermittent nighttime mild agitation/restlessness
Rec: continue melatonin at HS prn; will add Ativan 0.5 mg HS as needed
Pt appears psychiatrically stable for discharge. Will follow
--- NOTE | 2024-05-15 17:30 | PTCARENOTE ---
Patient yelling in bed 'I'm having a cardiac arrest' and holding chest. Patient assessed and noted unresponsive. Code 9 called.
--- NOTE | 2024-05-15 17:42 | W.PN.ANESINT ---
Anesthesia Intubation Note
- Intubation Note
Intubation Note:
Diagnosis: cardiac arrest
Blade: 4.0
Tube Size: 8.0 Hi Lo
Depth: 20cm
Side Taped:right
Drugs Used:none
Grade View:I
EtCO2 Present:yes
Atraumatic:yes
Attempts: 1
Insertion Start and Stop Time:4940-4949
SaO2 Pre:0
SaO2 Post:0 CPR stiill going
Glidescope Used:yes
Other Airway Adjustments:
Pre-Oxygenated:yes
Portable Chest X-Ray:ordered
RSI:
Suctioned:yes
Bilateral Breath Sounds Confirmed: yes
Vent Settings:
Settings per ___xAttending Physician
--- NOTE | 2024-05-15 18:00 | W.PN.UPDATE ---
Addendum entered and electronically signed by Marek Carty MD 05/15/24 18:13:
Update: Contact made with , and I discussed the patient's clinical status with her. Continue with full medical management for now. Code status discussed and she we will review this in more detail upon arrival.
Original Note:
Update Note
Progress Note Update
Responded to code 9. When I arrived to the patient's room, CPR was in progress. Appeared to be PEA arrest. Multiple doses of epi were given with ROSC obtained, then pulse lost again with ACLS/CPR resumed. Family were called multiple times with
no answer. Will try again. ROSC obtained after approximately 25 minutes. Epi drip started and is currently at 10mcg/min. End-tidal CO2 was low at 18. Patient intubated during cardiac arrest by anesthesia. Patient being transferred to the ICU
for further care.
--- NOTE | 2024-05-15 18:08 | PTCARENOTE ---
received pt post cod9. He remains unresponsive, HR 141, Epi @ 10mcg/min, BP 114/83 (94), EPI gtt tapered for MAP>65. #8ETT secured 25cm centered. Agonal on ventilator. AC 16/500/.10/+5 pulse ox 100%. Per shoemaker apprentice is on the julia and Enroute.
[2024-05-15 18:22] LABS: B.E. -15.8 mmol/L; PCO2 51 mmHg (35-48); PO2 292 mmHg (83-108)
[2024-05-15 18:24] LABS: HCO3 14.4 mmol/L (21-28); pH 7.06 (7.35-7.45)
--- NOTE | 2024-05-15 18:28 | PTCARENOTE ---
S/P bradycardia 40 with no pulse @ 1818, CODE 9 called, See code sheet. ROSC achieved. and brother at the bedside. ETCO2 26, remains ventilated. Administrative Assistant Office Manager updating family on the plan of care and the events leading up to present time.
--- NOTE | 2024-05-15 18:36 | CON.INTV ---
Consultation
Consultation Request
Date/Time Consultation Requested: 05/15/2024 - 1799
Date/Time Consultation Performed: 05/15/2024 - 1814
Requesting Provider: Dr. Avila
Performing Provider: Dr. Carty
Reason for Consultation: Cardiac Arrest
Medical History
-
Chief Complaint: Confusion
History of Present Illness:
69-year-old male former tobacco smoker with a past medical history of CKD stage IV, hypertension, hypothyroidism, gout, history of pulmonary nodules, anxiety, memory impairment, sciatica and history of urinary incontinence who presents from home for
altered mental status. Apparently 1 night prior to arrival the patient was on the floor and refused to get up and he slept there. [id number] called 911 and was brought here to [facility] for further evaluation. He also was incontinent of urine
on the day of hospital arrival. Initial urinalysis showed moderate bacteria but 0�2 urine WBC, negative nitrites with negative leukocyte esterase. Initial vitals in the ER showed he was afebrile to 98.6 �F, pulse rate 92, breathing at 25
breaths/min, BP 155/113 and saturating 98% on room air. Initial labs showed mild leukocytosis to 12.4, creatinine 2.7, glucose 113, T. bili 1.7, CK 1439, urinalysis with no signs of UTI and COVID antigen negative. Initial urine culture was sent
and flu A/B swab was negative. CT head initially showed no evidence of acute intracranial abnormality with prominently decreased density within the periventricular white matter especially in the posterior supra lobes. He was initially given
ceftriaxone + IVF with NS 0.9% with 1 L, and then admitted to [facility] for further care for JIMMY + rhabdomyolysis. He has continued to be managed on the floor and has been on room air this entire hospitalization. His creatinine continue to worsen
and nephrology was consulted. Also given his initial presentation of being found down with continued encephalopathy and resting tremor, neurology was consulted and parkinsonism was suspected. A lumbar puncture was performed on 05/05 however no CSF
fluid was obtained as it was a dry tap. Brain MRI was performed on 05/07 showing a 3.5 cm region of signal abnormality in the posterior right occipital lobe associated with edema and mild intraparenchymal hemorrhage, which neurology suspected to be
due to PRES. ID was consulted given leukocytosis however they were observing him off antibiotics given there was no pneumonia seen on x-ray, no diarrhea and procalcitonin was only slightly elevated and in the setting of an JIMMY. Neurology had
started the patient on Sinemet as well due to his parkinsonism. On the evening of 05/15/2024, he suffered a cardiac arrest. Apparently he was 'screaming' and said to the nurses that he was going to before he lost a pulse. Code 9 called, and
he was found to be in PEA arrest (see separate update note). Patient brought to the ICU for further care and now concrete pavement installer services consulted for additional management/recommendations.
When the patient was here in the ICU I performed a bedside ultrasound showing an enlarged RV which is >LV diameter, and lower extremity ultrasound shows concern for a left lower extremity popliteal thrombus. Heparin being started. He did suffer a
third cardiac arrest here in the ICU (third total today). ROSC obtained. Multiple family was at bedside including the patient's spouse, Monica, and his 2 brothers. All questions were answered and they verbalized understanding of how critically
ill Ryan is.
PMHx: CKD stage IV, hypertension, hypothyroidism, BPH, arthritis, gout, history of pulmonary nodules, anxiety, memory impairment, tremor in hands, gait disorder, history of urinary incontinence, sciatica, history of pancreatitis
PSHx: Bilateral hip replacement, left carpal tunnel release
Past Medical History
Past Medical History: Other (Above as per HPI)
Past Surgical History: Other (Above as per HPI)
Social History
Tobacco: Former Smoker
Alcohol: None
Drug: None
Employment: Retired ([employer])
Family History
Family History: Cancer (Mother: Pancreatic cancer)
Allergies / Home Medications
Allergies
Allergy/AdvReac Type Severity Reaction Status Date / Time
No Known Allergies Allergy Verified 11/18/23 12:31
Home Medications
�Medication �Instructions �Recorded �Confirmed �Last Taken �Type
valsartan 80 mg tablet 80 mg PO DAILY hypertension 11/19/18 05/02/24 05/02/24 History
carbidopa 25 mg-levodopa 100 mg 1 tab PO TID parkinson's disease 05/02/24 05/02/24 05/02/24 History
tablet
dapagliflozin propanediol 10 mg 10 mg PO DAILY 05/02/24 05/02/24 05/02/24 History
tablet (Farxiga)
levothyroxine 175 mcg tablet 175 mcg PO DAILY Thyroid 05/02/24 05/02/24 05/02/24 History
metoprolol succinate 50 mg 50 mg PO DAILY heart disease/BP 05/02/24 05/02/24 05/02/24 History
tablet,extended release 24 hr
psyllium husk 0.4 gram capsule 0.4 g PO DAILY Constipation 05/02/24 05/02/24 05/02/24 History
(Metamucil)
therapeutic multivitamin 1 tab PO DAILY Supplement 05/02/24 05/02/24 05/02/24 History
melatonin 10 mg tablet 10 mg PO HS PRN sleep 05/09/24 05/09/24 Unknown History
Review of Systems
-
Unable to Obtain full review of systems at this time due to: Acuity and Patient Intubation
Vitals / Labs / Diagnostic Testing
Vital Signs
Temp Pulse Resp BP Pulse Ox
96.5 F L 153 21 121/91 100
05/15/24 19:56 05/15/24 18:30 05/15/24 18:30 05/15/24 18:30 05/15/24 18:54
Lab Data
05/15/24 19:09
Laboratory Results
05/15/24 05/15/24 05/15/24
18:15 19:09 19:25
PT 20.0 H Cancelled
INR 1.72 Cancelled
APTT > 200 H*
pH 7.06 L*
pCO2 51 H
pO2 292 H
HCO3 14.4 L*
O2 Delivery Level 100% fio2
Diagnostic Testing:
Physical Exam
-
HEENT: Normocephalic, Anicteric and Other (ETT in place)
Cardiovascular: S1/S2 and Peripheral Edema (negative)
Respiratory: Wheeze (negative), Rales (negative), Rhonchi (negative), Accessory Resp Muscle Use (positive) and Other (Mechanical breath sounds heard bilaterally)
GI: Soft, Non Distended, Non Tender and Normal Bowel Sounds
Neurology: Tremors (negative) and Other (Unresponsive)
Skin: Warm and Dry
General: Respiratory Distress (Yes, mild at rest), Fever (negative) and Chills (negative)
Assessment
-
Assessment: 69-year-old M former tobacco smoker with a PMHx of CKD stage IV, hypertension, hypothyroidism, gout, history of pulmonary nodules, anxiety, memory impairment, sciatica and history of urinary incontinence who presents from home for
altered mental status. He was admitted to the floor for JIMMY and rhabdomyolysis with nephrology and neurology consulted. LP was attempted but no CSF fluid could be obtained. Brain MRI performed on 05/07/2024 showed a 3.5 cm region of signal
abnormality in the posterior right occipital lobe consistent with mild IPH likely due to posterior reversible encephalopathy syndrome. Patient also had parkinsonism features and Sinemet was started. On the evening of 05/15/2024 he suffered a PEA
cardiac arrest, ROSC obtained and he was brought to the ICU for further care. Water Tester service is now consulted for additional management/recommendations.
Chronic conditions SAUSAGE CUTTER: CKD stage IV, hypertension, hypothyroidism, BPH, arthritis, gout, history of pulmonary nodules, anxiety, memory impairment, tremor in hands, gait disorder, history of urinary incontinence, sciatica, history of pancreatitis
Impression:
#In-hospital cardiac arrest (PEA) likely due to acute PE in the setting of left lower extremity acute DVT
#Acute left lower extremity popliteal DVT seen on bedside ultrasound
#Severe metabolic acidosis likely due to cardiac arrest with lactic acodisos
#Circulatory shock - likely due to vasoplegia from severe metabolic acidosis
#Acute respiratory failure with hypoxia + hypercapnia on mechanical ventilation
#Leukocytosis
#Right occipital lobe white matter changes with history of uncontrolled hypertension which is due to suspected posterior reversible encephalopathy syndrome (per neurology) with 3.5cm R-occipital lobe IPH
#CKD (appears at baseline creatinine is approximately 2.4)
# Anxiety
#Altered mental status with parkinsonism
Plan:
- Continue with mechanical ventilation
- Titrate FiO2 + PEEP to maintain SpO2 >94%
- Maintain plateau pressure <30 with goal driving pressure 15�20
- Daily SAT/SBT if clinically appropriate
- When sedation is lowered he does appear to be awakening and is moving all 4 extremities, hence we will hold off on therapeutic hypothermia and instead will avoid fever for the next 24 hours; consider ATC IV tylenol
- There is concern for a R-sided PTX given absence of lung sliding and reduce BS on right with crepitus felt on exam --> check CTA chest to confirm presence of PTX and if positive then IR to place chest tube
- Bedside ultrasound showed enlarged RV which was >LV, and confirmed presence of left lower extremity popliteal thrombus; no thrombus seen in the entire right lower extremity
- Official echo + lower extremity duplex is pending to confirm the finding seen on my bedside ultrasound
- Check troponin and BNP
- Start heparin drip; would not administer systemic tPA given his right occipital IPH seen on recent brain MRI from 05/07/2024, however if he has another cardiac arrest then would give tPA as a bolus, assuming the family is aware of the high risk
of bleeding, including a hemorrhagic CVA
- Interestingly he has been on heparin SQ 5,000 units q12hr since 05/03/2024
- Check CTA chest and CT head when patient stable to transfer off the ICU floor to radiology
- Once CTA chest confirms presence of an acute PE, would have patient undergo catheter directed thrombolysis versus suction thrombectomy given his recurrent PEA arrest due to suspected massive PE
- In the presence of recent posterior right occipital lobe IPH, would favor suction thrombectomy as opposed to catheter directed thrombolysis, however will defer this decision to IR
- Continue bicarb gtt
- Check lactate and trend until <2mmol/L
- Keep MAP>65
- PICC team consult for better IV access - triple lumen if possible
- Replete electrolytes with K>4, Mg>2
- Maintain euglycemia with goal BG 140-180
- Continue sinemet; neurology on board with recs appreciated
- Trend H/H and transfuse if needed to keep Hb>7g/dL; kep plt>20k, unless there is concern for bleeding then keep plt>50k
- prn nebulized bronchodilators - not currently bronchospastic
- DVT ppx: Heparin gtt
Critical care statement: A total of 40 minutes of critical care time was provided for this patient today. This includes management of unstable vital signs, evaluation of the patient at bedside, reviewing the patient's pertinent medical records
including radiographs, microbiology, laboratory evaluations, and discussion with primary team, consultants, pharmacy, nutrition, physical therapy, case management, charge nurse, critical care nursing, and respiratory therapy.
Data:
CXR 05/15/2024:
Stable appearance of the support lines and tubes.
Chronic elevation of the right hemidiaphragm. No pneumothorax.
Brain MRI 05/07/2024:
1. 3.5 cm region of signal abnormality in the cortical ibanez matter and subcortical white matter of the POSTERIOR RIGHT OCCIPITAL LOBE with associated edema and a mild intraparenchymal microhemorrhage. Diagnostic possibilities are (1) posterior
reversible encephalopathy syndrome (PRES), (2) an acute inflammatory or infectious encephalitis, (3) a slow flow cerebral vascular malformation, or (4) a primary or metastatic brain tumor.
2. Moderate white matter leukoaraiosis in both cerebral hemispheres.
3. Mild diffuse cerebral and cerebellar volume loss.
4. Severe discogenic degenerative disease at C3/C4 with a central disc-osteophyte complex causing moderate spinal cord compression and central canal stenosis.
[2024-05-15 18:38] LABS: Blood Urea Nitrogen 44 mg/dl (9-20); Calcium 7.5 mg/dl (8.4-10.2); Carbon Dioxide 20 mmol/L (22-30); Chloride 100 mmol/L (98-107); Estimated Creatinine Clearance 32 ml/min; Glucose 157 mg/dl (70-99); Potassium 3.5 mmol/L (3.5-5.1); Sodium 139 mmol/L (135-145); eGFR 29.99
[2024-05-15] MEDS: HEPARIN 25000 UNITS/250 ML IV (18:49)
--- NOTE | 2024-05-15 18:49 | W.PN.UPDATE ---
Update Note
Progress Note Update
69 y/o had a code 9 called at 5.57 pm. Responded to it, But was present for the code.
Pt arrested again 6.21 pm. PEA arrest.
pt attained Rosc after CPR and Epinephrine.
Wide open IVF , epinephrine drip was started. Already on Levophed also.
BP post
Bedside echo showed large RV, bedside ultrasound showed left popliteal DVT
USS and CT PE study ordered.
spoke to IRAD and was recommended formal imaging .
Too risky for systemic TPA with 2 CODES
when pt stabiles would get CTA and then get IRAD involved for catheter directed TPA /Suction thrombectomy.
Started on Heparin gtt PE protocol
Would also get a heaad CT at the time .
Multiple family members aware re risks of bleeding .
D/W ICU team
Total critical care time 37 min
Signed out to ICU night team.
[2024-05-15 18:54] LABS: Magnesium 2.3 mg/dl (1.6-2.3); Phosphorus 4.6 mg/dl (2.5-4.5)
--- NOTE | 2024-05-15 19:00 | PTCARENOTE ---
Minimally responsive and following simple commands.
--- NOTE | 2024-05-15 19:01 | W.PN.UPDATE ---
Update Note
Progress Note Update
Patient brought to the ICU and then unfortunately suffered another cardiac arrest after braiding down. Rhythm was PEA. Multiple doses of epi, bicarb x 4 A and calcium gluconate were given. ROSC obtained then post ROSC bedside ultrasound performed
showing enlarged RV with preserved LVEF, no pericardial effusion, lung sliding seen bilaterally with left lower extremity popliteal DVT. Call made out to IR to see if they would agree for catheter directed thrombolysis versus suction thrombectomy.
Unfortunately Dr. Guerrero would need an official CTA chest to confirm the presence of an acute PE before they would call in IR for a procedure. CTA chest and CT head ordered and we will in the meantime start heparin drip and if patient were to have
another cardiac arrest, we will give a bolus of tPA. In the setting of prolonged CPR, would try to avoid systemic tPA given significant bleeding diathesis. Would favor catheter directed thrombolysis vs suction thrombectomy which we will be in
contact with IR tonight following imaging, assuming patient is stable for travel off the ICU floor. Family (, [id number] + brother) were updated on this plan, they are in agreement and all questions were answered.
[2024-05-15] MEDS: SUBLIMAZE 50 MCG IV ×2 (19:15→21:45)
[2024-05-15 19:35] LABS: Hematocrit 33.2 % (39.0-52.0); Hemoglobin 10.7 g/dL (13.0-18.0); Mean Corp Hgb Conc. 32.2 g/dL (33.0-37.0); Mean Corpuscular Hgb 28.8 pg (27.0-31.0); Mean Corpuscular Volume 89.5 fL (80.0-94.0); Mean Platelet Volume 10.2 fL (7.4-10.4); Platelet Count 297 10^3/uL (130-400); Red Blood Cell Count 3.71 10^6/uL (4.70-6.10); Red Cell Dist. Width 13.7 % (11.5-14.5); White Blood Cell Count 26.6 10^3/uL (4.8-10.8)
[2024-05-15 19:38] LABS: INR 1.72
[2024-05-15 19:55] LABS: APTT > 200 Sec (23.4-35.0)
[2024-05-15 20:27] LABS: Blood Urea Nitrogen 43 mg/dl (9-20); Calcium 7.8 mg/dl (8.4-10.2); Carbon Dioxide 19 mmol/L (22-30); Chloride 93 mmol/L (98-107); Estimated Creatinine Clearance 31 ml/min; Glucose 411 mg/dl (70-99); Potassium 3.7 mmol/L (3.5-5.1); Sodium 130 mmol/L (135-145); Triglycerides 116 mg/dl (10-149); eGFR 28.49
[2024-05-15] MEDS: SODIUM BICARBONATE 1150 MEQ IV (21:00)
--- NOTE | 2024-05-15 21:05 | PTCARENOTE ---
"See code sheet. ROSC achieved. Pt maxed on Levo/Epi, Jose added for MAP goal 65. Pt purposeful, reaching for ETT, opening eyes. Propofol restarted for comfort. Fent boluses as needed. Restraints as ordered. Right TLC PICC placed by VAT team. "Kathy"Carloz at bedside,clot suspected in LLE. CT PE ordered. Pt maintained on Heparin/Levo/Jose/Epi/Propofol/Bicarb. Will transport via ACLS protocol. "
--- NOTE | 2024-05-15 22:51 | W.PN.UPDATE ---
Update Note
Progress Note Update
05/15/24
Responded to Code 9 called, PEA arrest 1820 (2nd arrest), see code 9 sheet for full resuscitative efforts. Multiple doses of epi, bicarb, and calcium gluconate were given. ROSC obtained and Dr. Carty did bedside ultrasound of heart showing
enlarged RV concern for pulmonary embolism as probable cause for PEA arrest. Discussed with interventional radiologist Dr. Guerrero whether intervention would be possible with catheter thrombolysis vs suction thrombectomy, he recommended CT angio
chest for complete clinical picture. Case discussed with Dr. Carty, freedom of information officer. Heparin gtt was initiated given suspicion for Pulmonary embolism with right RV strain. CTA chest ordered and US bilateral lower extremities. Systemic TPA was
discussed but only if another arrest. Family updated at bedside, risk/benefits of anticoagulation discussed including complications of bleeding.
I placed patient's Dobbhoff in right nares, auscultated and heard in stomach, chest xray obtained and confirmed placement.
Patient arrested again 1933 (3rd arrest), PEA, CPR initiated with epi and bicarb, ROSC (at 194) achieved again. Dr. Garcia hospitalist at bedside and patient case discussed. Also case and plan of care discussed with Dr. Carty freedom of information officer.
Systemic TPA discussed but upon further chart review MRI of the brain 05/07/24- '3.5 cm region of signal abnormality in the cortical ibanez matter and subcortical white matter of the POSTERIOR RIGHT OCCIPITAL LOBE with associated edema and a mild
intraparenchymal microhemorrhage. Diagnostic possibilities are (1) posterior reversible encephalopathy syndrome (PRES), (2) an acute inflammatory or infectious encephalitis, (3) a slow flow cerebral vascular malformation, or (4) a primary or
metastatic brain tumor.' At this time TPA would be too great of risk for possible intracranial hemorrhage. Decision was made to obtain CTA chest and CT head. Also noted after code patient's had uneven chest rise, no breath sounds on right side,
clinically correlated bedside ultrasound anterior right chest- no lung/muscle sliding right upper chest. Chest xray obtained STAT. Dr. Guerrero, interventional radiologist updated with clinical suspicion for pneumothorax, which was not overtly seen
on chest xray but concerned clinical findings; recommended obtain Ct chest. Family at bedside and updated on clinical condition and plan of care (patient's brothers and ).
PICC line placed by PICC team, chest xray obtained and in place. Currently on vasopressors: levophed, epi, and nicola gtts for hypotension. Propofol gtt for sedation.
Patient given 50mcg fentanyl IV for pain and transported to CT scanner. 'CTA chest 05/15/24- 1. Large, saddle pulmonary embolus extending from the distal main pulmonary artery into the right and left main pulmonary arteries, the bilateral lower
lobe segmental and subsegmental pulmonary arteries as well as the right upper lobe segmental and subsegmental pulmonary arteries. There is evidence of right heart strain with buffered bowing of the interventricular septum, elevated RV/LV ratio and
reflux of contrast into the hepatic veins. 2. Large right-sided pneumothorax with partial collapse of the right lung. 3. Bilateral, displaced anterior rib fractures including the right second through fourth ribs within anterior costal cartilage
fracture of the fifth rib on the right in the left second through fifth ribs. Findings are likely sequelae of chest compressions. 4. Endotracheal tube tip terminates within the mid thoracic trachea. Nasoenteric feeding tube terminates within the
stomach.' 'CT head 05/15/24 - No acute intracranial hemorrhage. There is prominent periventricular white matter hypodensity, most pronounced in the right occipital lobes, similar in appearance to prior.' Dr. Guerrero, interventional radiologist at
CT scanner, discussed risk/benefits of procedures, agreed for right chest tube placement and catheter directed thrombolysis in the pulmonary artery. Patient given fentanyl bolus 50mcg for procedure. Heparin gtt will be continued for PE/DVT protocol.
2340- Patient's Monica called and updated about Ctscan findings, IR intervention procedure, and placement of right chest tube. Again discussed risk/benefits and answered all questions.
Arterial line placement at 0000, left radial.
Cardiology consult Dr. Perez for s/p code/PEA arrest.
[2024-05-15] MEDS: CATHFLO/ACTIVASE 1000 MG INF CATH (23:00)
--- NOTE | 2024-05-15 23:02 | W.PN.IRAD.PR ---
Procedure Note
-
Successful right chest tube placement and initiation off catheter directed thrombolysis via a single infusion catheter positioned within the pulmonary artery trunk.
[2024-05-15] MEDS: SUBLIMAZE 100 IV (23:37)
[2024-05-16] VITALS (21 sets, daily range): BP systolic 66–121; BP diastolic 46–92; BMI 27.2
--- NOTE | 2024-05-16 | PTCARENOTE ---
CTA showed saddle PE and right penumothorax. Pt taken to IRAD for right anterior pigtail CT. Sheath placed in right femoral vein, alteplase to infuse at 1mg/hour. RLE requiring knee immobilizer as well as restraint to maintain straight position.
Propofol/Fentanyl gtt for comfort. Labs repeated. Family updated on plan of care/procedures.
[2024-05-16 00:10] LABS: Lactic Acid 7.2 mmol/L (0.7-2.0)
[2024-05-16 00:22] LABS: NT-proBNP 2920 pg/ml
[2024-05-16 00:41] LABS: B.E. 6.4 mmol/L; HCO3 29.2 mmol/L (21-28); O2 Saturation % 99.9 % (94-98); PCO2 35 mmHg (35-48); PO2 191 mmHg (83-108); pH 7.53 (7.35-7.45)
[2024-05-16] MEDS: LEVOPHED 250 IV ×8 (00:42→20:51)
[2024-05-16 00:45] LABS: O2 Therapy VENT
--- NOTE | 2024-05-16 00:54 | W.PN.UPDATE ---
Update Note
Progress Note Update
05/16/24 at midnight
Operation/Procedure: left radial arterial line placement
Consent for operation or procedure: Emergent need due to patient condition - need for invasive monitoring per protocol
Indications: Hemodynamic monitoring
After properly positioning the patient's wrist in the standard fashion, the site was prepped and draped in a sterile fashion. The radial artery was entered, noting bright red, pulsatile flow. A guidewire was easily inserted, the needle removed, and
the catheter was then placed using the Seldinger technique. The guidewire was removed, with good flow present. The catheter was then connected to the transducer with a good waveform noted. The catheter was secured an occlusive dressing was placed
after properly cleaning and prepping the site.
Complications: The patient tolerated the procedure well and no complications were noted.
Estimated Blood Loss: minimal
Plan: Arterial line to remain in place for hemodynamic monitoring.
[2024-05-16] MEDS: UNASYN IV ×3 (00:55→21:24)
[2024-05-16 01:02] LABS: Hematocrit 33.9 % (39.0-52.0); Hemoglobin 11.8 g/dL (13.0-18.0); INR 1.64; Mean Corp Hgb Conc. 34.8 g/dL (33.0-37.0); Mean Corpuscular Hgb 29.4 pg (27.0-31.0); Mean Corpuscular Volume 84.3 fL (80.0-94.0); Mean Platelet Volume 9.2 fL (7.4-10.4); PT 19.2 Sec (11.4-14.6); Platelet Count 352 10^3/uL (130-400); Red Blood Cell Count 4.02 10^6/uL (4.70-6.10); Red Cell Dist. Width 13.8 % (11.5-14.5); White Blood Cell Count 48.3 10^3/uL (4.8-10.8)
[2024-05-16 01:03] LABS: Fibrinogen 297 MG/DL (199-459)
[2024-05-16 01:17] LABS: APTT > 200 Sec (23.4-35.0)
[2024-05-16 01:30] LABS: ALT (SGPT) 57 U/L (0-50); AST (SGOT) 740 U/L (17-59); Albumin 2.9 g/dl (3.5-5.0); Alkaline Phosphatase 122 U/L (38-126); Blood Urea Nitrogen 57 mg/dl (9-20); Carbon Dioxide 26 mmol/L (22-30); Chloride 93 mmol/L (98-107); Estimated Creatinine Clearance 23 ml/min; Glucose 272 mg/dl (70-99); Potassium 3.9 mmol/L (3.5-5.1); Sodium 137 mmol/L (135-145); Total Bilirubin 0.8 mg/dl (0.2-1.3); eGFR 20.18
[2024-05-16] MEDS: KCL ELIXIR 20 MEQ TUBE (02:24)
[2024-05-16] MEDS: SINEMET 25-100 1 TABLET TUBE ×4 (02:24→23:16)
[2024-05-16 04:40] LABS: B.E. 8.7 mmol/L; HCO3 30.1 mmol/L (21-28); O2 Saturation % 99.8 % (94-98); PCO2 30 mmHg (35-48); PO2 203 mmHg (83-108)
[2024-05-16 04:43] LABS: pH 7.61 (7.35-7.45)
[2024-05-16] MEDS: NEO-SYNEPHRINE 250 IV ×2 (05:09→17:38)
[2024-05-16] MEDS: ADRENALIN 250 IV ×2 (05:09→17:13)
[2024-05-16] MEDS: SYNTHROID 175 MCG TUBE (05:23)
[2024-05-16 05:52] LABS: INR 1.64; PT 19.2 Sec (11.4-14.6)
[2024-05-16 05:53] LABS: Fibrinogen 277 MG/DL (199-459); Lactic Acid 3.4 mmol/L (0.7-2.0)
[2024-05-16 06:00] LABS: APTT 150.7 Sec (23.4-35.0)
[2024-05-16] MEDS: SODIUM BICARBONATE IV (06:10)
[2024-05-16 06:16] LABS: ALT (SGPT) 54 U/L (0-50); AST (SGOT) 549 U/L (17-59); Albumin 2.4 g/dl (3.5-5.0); Alkaline Phosphatase 104 U/L (38-126); Blood Urea Nitrogen 57 mg/dl (9-20); Calcium 7.5 mg/dl (8.4-10.2); Carbon Dioxide 31 mmol/L (22-30); Chloride 94 mmol/L (98-107); Estimated Creatinine Clearance 24 ml/min; Glucose 167 mg/dl (70-99); Magnesium 2.2 mg/dl (1.6-2.3); Phosphorus 3.3 mg/dl (2.5-4.5); Potassium 4.1 mmol/L (3.5-5.1); Sodium 136 mmol/L (135-145); Total Bilirubin 0.5 mg/dl (0.2-1.3); eGFR 20.96
[2024-05-16 06:29] LABS: % Basophils 0.1 % (0-2); % Immature Granulocytes 3.7 % (0-0.5); % Lymphocytes 5.9 % (20.5-51.1); % Monocytes 5.3 % (1.7-9.3); Absolute Basophils 0.1 10^3/uL (0-0.2); Absolute Immature Granulocytes 1.3 10^3/uL (0-0.05); Absolute Lymphocytes 2.1 10^3/uL (1.2-3.4); Absolute Monocytes 1.9 10^3/uL (0.1-0.6); Absolute Neutrophils 30.1 10^3/uL (1.4-6.5); Hematocrit 30.2 % (39.0-52.0); Hemoglobin 10.4 g/dL (13.0-18.0); Mean Corp Hgb Conc. 34.4 g/dL (33.0-37.0); Mean Corpuscular Hgb 28.6 pg (27.0-31.0); Mean Platelet Volume 9.4 fL (7.4-10.4); Nucleated Red Blood Cells % 0.1 % (-); Platelet Count 328 10^3/uL (130-400); Red Blood Cell Count 3.64 10^6/uL (4.70-6.10); Red Cell Dist. Width 13.6 % (11.5-14.5); White Blood Cell Count 35.4 10^3/uL (4.8-10.8)
--- NOTE | 2024-05-16 07:00 | PTCARENOTE ---
Bedside handoff, verified drips, and right femoral site/pulse/neurovascular checks.
--- NOTE | 2024-05-16 07:25 | CON.CAR ---
Addendum entered and electronically signed by Doretha Oglesby MD 05/16/24 10:44:
I saw and examined the patient.
The Infection Control Rn's note was reviewed and I agree with the note.
Comment:
Saddle pulmonary embolism with code and cardiogenic shock. Patient critically ill. On multiple pressors with hypotension. Echocardiogram reviewed with severe RV dilation and moderate to severe RV dysfunction. Increased PA pressure. Left
ventricle appears underfilled. Continue pressor support. Consider dobutamine. Consider boluses of fluid if needed. Continue to follow oxygenation. Multisystem organ failure. Continue to follow. Will reach out to director index service. Trend
troponins but elevation likely secondary to RV dysfunction and pulmonary embolism. Discussed with nursing.
Broken ribs and chest tube in place.
EKG reviewed and likely a junctional tachycardia. Will continue to follow. Follow telemetry.
Intubated and sedated and being followed by director index. Oxygenation stable.
Nephrology following. Renal dysfunction.
Parkinson's disease noted.
Greater than 30 minutes total critical care time coordinating care, discussion with nursing. Reaching out to director index service
Original Note:
Consultation
Consultation Request
Date/Time Consultation Requested: 05/16/24 at 0034
Date/Time Consultation Performed: 05/16/24 at 0730
Requesting Provider: Dr. Avila
Performing Provider: Dr. Paz
Reason for Consultation: Elevated Troponin
Medical History
-
History of Present Illness:
Patient came to [facility] on 05/02/24 with change in mental status and has been admitted since then for work-up and had an in-hospital cardiac arrest last night and cardiology is now consulted. Patient lives at home with his who works for [employer] in
billing. Patient has not seen cardiology in the past. Patient reportedly lowered himself to the floor the night prior to admission to perform an unknown activity and then could not stand on his own and refused help so he slept on the floor that
night. The next day he still could not get up and his family called 911. Patient was admitted for change in mental status and JIMMY on CKD 4. He was seen by nephrology and given IVFs. Patient was already following with neurology as an outpatient for
possible Parkinson's disease work-up and so neurology saw him this admission as well and an LP was attempted, but no fluid could be collected. He seemed to be improving from JIMMY standpoint and Neuro started Sinemet. ID stopped antibiotics, but WBC
continued to trend up. Patient was awaiting SNF placement which was delayed due to ongoing confusion requiring med sitter services. Psychiatry saw patient yesterday. Later last evening patient had bed sitter removed from room and hours later cried
out that he was having chest pain and felt like he was having a heart attack and then coded. Code details as above. Patient now in ICU with Levo, Epi and Jose running. Troponin up to 9 and ECG abnormal.
PMH:
CKD 4
Possible Parkinson's disease
HTN
Hyperlipidemia
Past Medical History
Past Medical History: Other (in HPI)
Past Surgical History: Orthopedic
Social History
Tobacco: Former Smoker
Alcohol: Occasional
Drug: None
Personal:
Living: With Family
Family History
Family History: Cancer (mother with pancreatic cancer)
Allergies / Home Medications
Allergy/AdvReac Type Severity Reaction Status Date / Time
No Known Allergies Allergy Verified 11/18/23 12:31
�Medication �Instructions �Recorded �Confirmed �Type
valsartan 80 mg tablet 80 mg PO DAILY hypertension 11/19/18 05/02/24 History
carbidopa 25 mg-levodopa 100 mg 1 tab PO TID parkinson's disease 05/02/24 05/02/24 History
tablet
dapagliflozin propanediol 10 mg 10 mg PO DAILY 05/02/24 05/02/24 History
tablet (Farxiga)
levothyroxine 175 mcg tablet 175 mcg PO DAILY Thyroid 05/02/24 05/02/24 History
metoprolol succinate 50 mg 50 mg PO DAILY heart disease/BP 05/02/24 05/02/24 History
tablet,extended release 24 hr
psyllium husk 0.4 gram capsule 0.4 g PO DAILY Constipation 05/02/24 05/02/24 History
(Metamucil)
therapeutic multivitamin 1 tab PO DAILY Supplement 05/02/24 05/02/24 History
melatonin 10 mg tablet 10 mg PO HS PRN sleep 05/09/24 05/09/24 History
Review of Systems
-
History Source: Patient
All other systems: Negative unless noted
Physical Exam
Vital Signs
Temp Pulse Resp BP Pulse Ox
97.6 F 115 16 146/116 98
05/16/24 03:17 05/16/24 06:00 05/16/24 06:00 05/15/24 23:14 05/16/24 06:00
GEN: Intubated and sedated
HEENT: MMM
LUNGS: Intubated and on the ventilator. Coarse BS throughout
CV: Sinus tachycardia on tele. Reg and fast, S1/S2, no murmur
ABD: +Dobbhoff, soft, BS+, ND
EXT: No clubbing, cyanosis, lesions or edema B/L
NEURO: Gross non-focal
SKIN: Warm, dry and pink. No rash
Lab Results
05/16/24 05:22
Troponin I 9.020 ng/ml H* 05/16/24 05:22
Eyf-D-Ylkrgoxqdjd Pept 2920 pg/ml 05/15/24 23:44
Impression / Plan
-
PCP: Alicia Yanez PA-C
Cardiology: None prior to admission
Impression:
s/p PEA arrest x3 05/15/24
Admitted with change in mental status 05/02/24
In-hospital cardiac arrest 05/15/24
PEA treated with Epi, CPR, intubation and then Epi gtt at 1800 on 05/15/24
PEA treated with Epi, CPR, Bicarb, calcium gluconate, bedside u/s showed enlarged RV and LLE DVT at 182 on 05/15/24
PEA treated CPR, Epi, Bicarb, CTA chest confirmed PE and Heparin gtt started at 1933 on 05/15/24
Saddle PE and catheter directed thrombolysis via right chest tube started 2301 on 05/15/24
Hypotension and shock
Elevated LFTs and shock liver
LLE DVT by u/s 05/15/24
Elevated Troponin
Abnormal ECG
Acute hypoxic respiratory failure
JIMMY on CKD 4
Parkinson's disease
HTN
Hyperlipidemia
Echo 05/16/24: Study pending
Plan:
-Patient came to [facility] on 05/02/24 with change in mental status and has been admitted since then for work-up and had an in-hospital cardiac arrest last night and cardiology is now consulted. Patient lives at home with his who works for [employer] in
billing. Patient has not seen cardiology in the past. Patient reportedly lowered himself to the floor the night prior to admission to perform an unknown activity and then could not stand on his own and refused help so he slept on the floor that
night. The next day he still could not get up and his family called 911. Patient was admitted for change in mental status and JIMMY on CKD 4. He was seen by nephrology and given IVFs. Patient was already following with neurology as an outpatient for
possible Parkinson's disease work-up and so neurology saw him this admission as well and an LP was attempted, but no fluid could be collected. He seemed to be improving from JIMMY standpoint and Neuro continued Sinemet. ID stopped antibiotics, but WBC
continued to trend up. Patient was awaiting SNF placement which was delayed due to ongoing confusion requiring med sitter services. Psychiatry saw patient yesterday. Later last evening patient had bed sitter removed from room and hours later cried
out that he was having chest pain and felt like he was having a heart attack and then coded. Code details as above. Patient now in ICU with Levo, Epi and Jose running. Troponin up to 9 and ECG abnormal.
-Troponin up to 9 this morning, repeat Troponin at 0900 and 1200 when other labs are already planned for. Troponin elevation could be due to code, CPR and/or PE or ACS. Await echo.
-Check urgent bedside echo
-ECG reviewed by me with anterior T wave inversions
-Check CVE
-Outpatient doses of Toprol XL 50 mg daily and valsartan 80 mg daily on hold
-Hypotensive on pressors, Levo at 16
-Epi at 4
-Jose at 20
-Follow on tele
-IR and Radiology Special Procedure Tech handling pressors and thrombolytics
--- NOTE | 2024-05-16 07:43 | PTCARENOTE ---
Received pt intubated and sedated with restraints. He intermittently is TRIANA's. Left U/E tremors noted at times. Pupils pin point and reactive. Extremities pale, cool poor capillary refill. Right upper arm TL PICC with drip per worklist. Left wrist
with NSS kvo. Left AC#20g protective catheter with Fentanyl and Heparin per worklist. Left radial arterial line transduced, calibrated and monitored with all ports patent ans secured. Correlates to cuff pressure. #8ETT secured 25cm right lip. AC
16/550/.50/+5. Breath sounds anteriorly with right diminished. Right ACW pigtail chest tube to suction, no crepitus, tidaling, or air leak noted. Righ upper quadrant hypoactive BS. None appreciated in the left upper and bilateral lower quadrants.
Right nare DHT clamped, secured 70cm. Zepeda with scant yellow urine, secured. Foul odor noted during catheter care with milky drainage from meatus. Right femoral sheath in place with alteplase infusing @1mg/hr with right knee immobilizer intact.
Strict bedrest with HOB retractions followed as ordered. Right heel protective foam dressing CDI. Right 2nd toe care performed as ordered. Aspiration precautions maintained. Holding Meds via DHT until after he is able to have his head elevated to
prevent aspiration per Dr. Hernandez. Will continue to monitor.
--- NOTE | 2024-05-16 08:12 | W.PN.INTV ---
Today's Communication / Plan
Recommendations
Continue CDT with plans to go back to IR this afternoon for clot burden re-assessment and possible thrombectomy
Continue heparin gtt
Remove pinto
Continue mechanical ventilation
Daily SAT/SBT
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
EEG pending
neuro consulted
Remains full code - Guarded prognosis
Assessment
-
Assessment: 69-year-old M former tobacco smoker with a PMHx of CKD stage IV, hypertension, hypothyroidism, gout, history of pulmonary nodules, anxiety, memory impairment, sciatica and history of urinary incontinence who presents from home for
altered mental status. He was admitted to the floor for JIMMY and rhabdomyolysis with nephrology and neurology consulted. LP was attempted but no CSF fluid could be obtained. Brain MRI performed on 05/07/2024 showed a 3.5 cm region of signal
abnormality in the posterior right occipital lobe consistent with mild IPH likely due to posterior reversible encephalopathy syndrome. Patient also had parkinsonism features and Sinemet was started. On the evening of 05/15/2024 he suffered a PEA
cardiac arrest, ROSC obtained and he was brought to the ICU for further care. Iron Erector service is now consulted for additional management/recommendations.
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
Impression:
#In-hospital cardiac arrest (PEA) due to acute PE in the setting of left lower extremity acute DVT
#Acute massive saddle PE now on catheter directed thrombolysis
#Secondary pneumothorax due to CPR
#Acute left lower extremity popliteal DVT seen on bedside ultrasound
#Severe metabolic acidosis likely due to cardiac arrest with lactic acidoses
#Shock - initially due to severe metabolic acidosis, but now shock is due to obstructive shock due to acute saddle PE
#Acute respiratory failure with hypoxia + hypercapnia on mechanical ventilation
#Leukocytosis
#Acute anemia
#Right occipital lobe white matter changes with history of uncontrolled hypertension which is due to suspected posterior reversible encephalopathy syndrome (per neurology) with 3.5cm R-occipital lobe IPH
#CKD (appears at baseline creatinine is approximately 2.4)
#Hx of anxiety
#Altered mental status with parkinsonism
Plan:
- Continue with mechanical ventilation
- Titrate FiO2 + PEEP to maintain SpO2 >94%
- Maintain plateau pressure <30 with goal driving pressure 15�20
- Daily SAT/SBT if clinically appropriate
- When sedation is lowered he does appear to be awakening and is moving all 4 extremities, hence we will hold off on therapeutic hypothermia and instead will avoid fever for the next 24 hours; consider ATC IV tylenol
- He underwent R-sided chest tube on 05/15/2024 by IR --> keep at negative suction at -[id number], and monitor for air leak
- After his cardiac arrest on 05/15/2024, bedside ultrasound performed by Dr. Carty showed enlarged RV which was >LV, and confirmed presence of left lower extremity popliteal thrombus; no thrombus seen in the entire right lower extremity
- CTA chest showed acute saddle PE and he underwent catheter directed thrombolysis on 05/15/2024 --> going back down to IR today for re-assessment of PA-pressures and clot burden
- Official echo showed enlarged RV with moderate-severely reduced RV systolic function, and moderate PH --> consider starting dobutamine to help improve RV contractility
- LE duplex confirmed LLE popliteal DVT
- Troponin peaked at 9.15 on 05/16/2024 --> no need to continue trending at this point
- Continue heparin drip; would not administer systemic tPA given his right occipital IPH seen on recent brain MRI from 05/07/2024, however if he has another cardiac arrest then would give tPA as a bolus, assuming the family is aware of the high
risk of bleeding, including a hemorrhagic CVA
- Interestingly he has been on heparin SQ 5,000 units q12hr since 05/03/2024
- Continue vasopressors and resume vasopressin
- Start hydrocortisone 50mg IV q6hr
- Now off bicarb gtt
- Trend until <2mmol/L
- Keep MAP>65
- He is at risk of hypoxic/ischemic encephalopathy due to recurrent cardiac arrest --> neurology consulted; EEG today shows mild diffuse cortical dysfunction without focal abnormality with no seizures were recorded.
-There is foul-smelling drainage from around his meatus. Pinto catheter has been in place for over several days. Remove Pinto catheter today and continue to monitor without replacing Pinto catheter at this point.
- PICC team consult for better IV access - triple lumen if possible
- Replete electrolytes with K>4, Mg>2
- Maintain euglycemia with goal BG 140-180
- Continue sinemet; neurology on board with recs appreciated
- Trend H/H and transfuse if needed to keep Hb>7g/dL; kep plt>20k, unless there is concern for bleeding then keep plt>50k
- prn nebulized bronchodilators - not currently bronchospastic
- DVT ppx: Heparin gtt
Critical care statement: A total of 38 minutes of critical care time was provided for this patient today. This includes management of unstable vital signs, evaluation of the patient at bedside, reviewing the patient's pertinent medical records
including radiographs, microbiology, laboratory evaluations, and discussion with primary team, consultants, pharmacy, nutrition, physical therapy, case management, charge nurse, critical care nursing, and respiratory therapy.
Data:
CTA Chest 05/15/2024:
1. Large, saddle pulmonary embolus extending from the distal main pulmonary artery into the right and left main pulmonary arteries, the bilateral lower lobe segmental and subsegmental pulmonary arteries as well as the right upper lobe segmental and
subsegmental pulmonary arteries. There is evidence of right heart strain with buffered bowing of the interventricular septum, elevated RV/LV ratio and reflux of contrast into the hepatic veins.
2. Large right-sided pneumothorax with partial collapse of the right lung.
3. Bilateral, displaced anterior rib fractures including the right second through fourth ribs within anterior costal cartilage fracture of the fifth rib on the right in the left second through fifth ribs. Findings are likely sequelae of chest
compressions.
4. Endotracheal tube tip terminates within the mid thoracic trachea. Nasoenteric feeding tube terminates within the stomach.
CXR 05/15/2024:
Stable appearance of the support lines and tubes.
Chronic elevation of the right hemidiaphragm. No pneumothorax.
Brain MRI 05/07/2024:
1. 3.5 cm region of signal abnormality in the cortical ibanez matter and subcortical white matter of the POSTERIOR RIGHT OCCIPITAL LOBE with associated edema and a mild intraparenchymal microhemorrhage. Diagnostic possibilities are (1) posterior
reversible encephalopathy syndrome (PRES), (2) an acute inflammatory or infectious encephalitis, (3) a slow flow cerebral vascular malformation, or (4) a primary or metastatic brain tumor.
2. Moderate white matter leukoaraiosis in both cerebral hemispheres.
3. Mild diffuse cerebral and cerebellar volume loss.
4. Severe discogenic degenerative disease at C3/C4 with a central disc-osteophyte complex causing moderate spinal cord compression and central canal stenosis.
Lower Extremity Duplex 05/16/2024:
1. Occlusive left popliteal vein thrombus.
2. No evidence of deep venous thrombosis in the right lower extremity
Subjective Dataa
Subjective Data
Date of Service:
Date of Service: May 16, 2024
Chief Complaint: Iron Erector Follow Up
Subjective:
Seen and evaluated this morning. No acute events reported from overnight. He did wake up last night and was trying to speak. He is sedated on 10mcg/kg/min of prop and fent gtt at 50mcg/min. HR 105. Currently on levo at 24mcg/min, epi at
4mcg/min, nicola at 20mcg/min, and heparin gtt. He has a right femoral sheath where CDT is running through. Making little urine. Pinto in place. A-line in place. R-sided chest tube in place, at -[id number] suction, no air leak seen.
Review of Systems
General: Other (unable to obtain given patient's acute clinical status/unresponsive)
Objective Data
Data Reviewed
Vital Signs / I&O / Oxygen:
Vital Signs
Temp Pulse Resp BP Pulse Ox
97.8 F 103 16 95/70 99
05/16/24 07:00 05/16/24 08:00 05/16/24 08:00 05/16/24 08:00 05/16/24 08:43
Intake and Output
05/15/24 05/16/24 05/17/24
06:59 06:59 06:59
Intake Total 960 / 960 3786.6 / 3982.1 701.5 / 701.5
Output Total 1150 / 1150 750 / 750 50 / 50
Balance -190 / -190 3036.6 / 3232.1 651.5 / 651.5
SaO2 [A/C] 99
SaO2 99
Physical Exam
General: Respiratory Distress (negative), Chills (negative), Sweats (negative) and Other (ETT in place)
HEENT: Normocephalic and Anicteric
Cardiovascular: S1-S2 and Peripheral Edema (negative)
Respiratory: Wheeze (negative), Crackles (negative), Rhonchi (negative), ET Tube (mechanical breath sounds heard bilaterally) and Chest Tube (right hemithorax)
GI: Soft, Non Distended, Non Tender and Normal Bowel Sounds
Neurology: Tremors (negative) and Unresponsive
Skin: Warm, Dry, Cyanosis (negative) and Jaundice (negative)
Labs/Micro/Reports
Lab Data
05/16/24 05:22
Laboratory Results
05/15/24 05/15/24 05/15/24
18:15 18:38 19:09
PT 20.0 H
INR 1.72
APTT > 200 H*
pH 7.06 L* Cancelled
pCO2 51 H Cancelled
pO2 292 H Cancelled
HCO3 14.4 L* Cancelled
O2 Delivery Level 100% fio2 Cancelled
05/15/24 05/16/24 05/16/24
19:25 00:32 00:32
PT Cancelled 19.2 H
INR Cancelled 1.64
APTT > 200 H* Cancelled
pH 7.53 H
pCO2 35
pO2 191 H
HCO3 29.2 H
O2 Delivery Level Vent
05/16/24 05/16/24 05/16/24
04:26 05:22 06:00
PT 19.2 H
INR 1.64
APTT 150.7 H*
pH 7.61 H* Cancelled
pCO2 30 L Cancelled
pO2 203 H Cancelled
HCO3 30.1 H Cancelled
O2 Delivery Level Cancelled
--- NOTE | 2024-05-16 08:13 | W.PN.NEPH.PH ---
Today's Communication / Plan
-
Follow labs and ABG
Patient will be at high risk for continued renal deterioration given CT angiogram contrast exposure and hemodynamic instability following PEA events
Assessment/Plan
-
Assessment
CKD 4 (2.2-2.4)
JIMMY
Urinary retention
Mental status change
Parkinson's
Hypertension
Metabolic acidosis
MRI brain + 3.5cm lesion posterior right occipital lobe
Status post PEA event on 05/15/2024 with associated saddle embolus
Plan
patient transferred to ICU last PM following cardiac arrest with PEA,noted left lower extremity popliteal DVT
Chest CT with IV contrast obtained last evening with noted large saddle pulmonary embolus, large right-sided pneumothorax multiple rib fractures
Now on heparin and alteplase infusion
Creatinine rising to 3.1, uop ~750cc
BP are stable
maintain pinto given obstructive uropathy
Patient now maintained on 3 pressor support to keep MAP at 65 or
-
-
Date of Service: May 16, 2024
CC / HPI / ROS
-
Chief Complaint:
JIMMY
History of Present Illness:
JIMMY/Cr up to 3.1
PEA events times 3 last evening
Remains on 3 pressor support
Intubatedwith FiO2
Bilateral saddle embolus now on heparin drip and alteplase infusion
pinto in place, nonoliguric
Review of Systems:
no CP/SOB
Intubated and sedated
pinto
Labs
-
Labs:
Sodium 136 mmol/L (135-145) 05/16/24 05:22
Potassium 4.1 mmol/L (3.5-5.1) 05/16/24 05:22
Chloride 94 mmol/L (98-107) L 05/16/24 05:22
Carbon Dioxide 31 mmol/L (22-30) H 05/16/24 05:22
BUN 57 mg/dl (9-20) H 05/16/24 05:22
Creatinine 3.1 mg/dL (0.7-1.3) H 05/16/24 05:22
eGFR 20.96 05/16/24 05:22
Glucose 167 mg/dl (70-99) H 05/16/24 05:22
Calcium 7.5 mg/dl (8.4-10.2) L 05/16/24 05:22
Phosphorus 3.3 mg/dl (2.5-4.5) 05/16/24 05:22
Ajj-I-Djctgoogvna Pept 2920 pg/ml 05/15/24 23:44
Albumin 2.4 g/dl (3.5-5.0) L 05/16/24 05:22
Physical Exam
-
Vital Signs:
Vital Signs
Temp Pulse Resp BP Pulse Ox
97.6 F 115 16 146/116 98
05/16/24 03:17 05/16/24 06:00 05/16/24 06:00 05/15/24 23:14 05/16/24 06:00
Cardiovascular:: Regular rate and rhythm
Respiratory:: Bilateral: Coarse
Lung Excursion:: Normal
Abdomen:: Nontender
Extremity Edema:: None: Bilateral:
Pinto Catheter: Yes
Other Findings::
Chest tube
Intubated and sedated
right femoral line
[2024-05-16] MEDS: CALCIUM GLUCONATE 100 IV ×3 (08:19→20:44)
[2024-05-16] MEDS: CATHFLO/ACTIVASE 1000 MG INF CATH (08:38)
--- NOTE | 2024-05-16 08:40 | CARDSERVLU ---
Echocardiogram with Lumason completed after protocol screening completed. Allergies verified.
Patent IV site: _Left wrist 20 G PC____
IV site flushed with 0.9% NaCl pre and post administration.
Diluted bolus method utilized to enhance visualization of ventricular gregg.
Total volume given: __3__ mL
Patient tolerated all procedures well without complications.
--- NOTE | 2024-05-16 08:41 | W.PN.HOSP.TC ---
Today's Communication/Plan
-
Appreciate IR procedure to break up and remove clot
CDT
Continue Heparin Drip
Continue pressor support
Monitor closely in the ICU
Appreciate shot peen operator and cardiology, nephrology and neurology
Assessment / Plan
Assessment / Plan
Physical Exam
General: Sedated and intubated
HEENT: Normocephalic
Respiratory: Breath sounds heard bilaterally, patient on mechanical ventilation. Chest tube.
Cardiac: Regular Rhythm and S1/S2
GI: Soft, Nontender, Nondistended and Normal Bowel Sounds
Musculoskeletal: No Cyanosis and No Edema
Neuro: Sedated
Psych: Calm
Assessment/Plan
#In-hospital cardiac arrest (PEA) due to acute PE in the setting of left lower extremity acute DVT
#Acute massive saddle PE now on catheter directed thrombolysis
#Enlarged Right Ventricle on Echocardiogram
#Secondary pneumothorax due to CPR status post right-sided chest tube on 05/15/24 by interventional radiology
#Acute left lower extremity popliteal DVT seen on bedside ultrasound
#Shock, likely obstructive shock
#Acute hypoxic and hypercapnic respiratory failure, currently on mechanical ventilation
-Patient had cardiopulmonary arrest on 05/15/24, 3 times, and then again during IR procedure on 05/16/24. In all instances, ROSC was able to be achieved.
-Bedside echo showed enlarged right ventricle and ultrasound of the lower extremities revealed LLE DVT
-Patient had already been on Heparin DVT prophylaxis dose since hospital admission, and was recently doing well (until cardiopulmonary arrest on 05/15/24), with no signs or symptoms of DVT or PE
-Appreciate Chief Recordist management and help, vent adjustments as per shot peen operator
-Keep chest tube at negative suction, as per shot peen operator
-Received CDT (catheter-directed thrombolysis)
-On 05/16/24, IR removed a large amount of clot from right side, and good amount from the left, and repeat arteriogram showed significant improvement, with relatively good parenchymal perfusion.
-Continue heparin drip
-Continue Vasopressors
-Continue Hydrocortisone
-Continue monitoring of blood pressure with the arterial line
-Additional IV fluids bolus given on 05/16/24 due to hypotension despite pressors
-No systemic tPA given his right occipital IPH seen on recent brain MRI from 05/07/2024, however if patient has another cardiac arrest then would give tPA as a bolus (assuming the family is aware of the high risk of bleeding -
including a hemorrhagic CVA)
-Neurology consulted given patient's recent suspected microhemorrhage finding on Brain MRI and because patient is high risk for ischemic encephalopathy given cardiac arrest
-Appreciate cardiology
#Severe metabolic acidosis likely from cardiac arrest
-Was on bicarb drip, now off
# Acute kidney injury on CKD 4
# Recent concern for non-traumatic rhabdomyolysis
-CK values had improved, previously
-Creatinine 2.3-->2.6-->3.1-->4.2-->4.0-->3.4-->2.4-->2.2-->2.1-->2.4-->2.7-->2.4-->2.6-->2.5-->....-->3.3
-Appreciate nephrology: it was initially suspected that this was all due to urinary retention and obstructive uropathy
-Nephrology following, may need to resume Zepeda Catheter soon
-Now JIMMY from cardiac arrest
-Hold Valsartan and Dapagliflozin
#Constipation
-Will need continued bowel regimen at some point
#Fever on 05/06/24
#Leukocytosis
WBC 18.9-->17.1-->14.8-->13.4-->11.7-->15.2-->16.8-->14.2-->13.3-->11.6-->11.2--->.....--->35.1
initially thought to be of unclear etiology. Input of ID appreciated, ?related to toe.
procal 0.35 (minimally elevated possibly from CKD)
#Necrotic area to the right 2nd toe - right second toe tip black hyperkeratotic lesion (?Verrucae vs subungular SCC vs benign)
-Checked COVID x2 -negative
-CXR (atelectasis), repeat UA
-Ordered renal and bladder ultrasound: as per radiologists' report No hydronephrosis or suspicious renal lesions. Bilateral renal cysts which measure up to 10.0 cm on the left and 5.6 cm on the right.
The urinary bladder is decompressed with Zepeda catheter.
-Consulted ID, appreciate their evaluation and recommendations
-IR attempted LP on 05/05/24 --> but dry tap x2
-NGTD blood cultures
-Wound care
-Outpatient referral to Podiatry for excisional biopsy
#Right occipital lobe white matter changes with history of uncontrolled hypertension which is due to suspected posterior reversible encephalopathy syndrome (per neurology) with 3.5cm R-occipital lobe IPH
#Intraparenchymal microhemorrhage on Brain MRI
-Neurology was consulted given patient's Parkinson's Disease and unclear etiology of confusion and leukocytosis. Confusion had been improving since 05/10/24 along with marked improvement in speech, prior to cardiac arrest
-MRI:1. 3.5 cm region of signal abnormality in the cortical ibanez matter and subcortical white matter of the POSTERIOR RIGHT OCCIPITAL LOBE with associated edema and a mild intraparenchymal microhemorrhage. Diagnostic possibilities are (1)
posterior reversible encephalopathy syndrome (PRES), (2) an acute inflammatory or infectious encephalitis, (3) a slow flow cerebral vascular malformation, or (4) a primary or metastatic brain tumor.
2. Moderate white matter leukoaraiosis in both cerebral hemispheres.
3. Mild diffuse cerebral and cerebellar volume loss.
4. Severe discogenic degenerative disease at C3/C4 with a central disc-osteophyte complex causing moderate spinal cord compression and central canal stenosis.
-Appreciate neurology, Dr. Rogers believes 3.5 cm signal abnormality is most consistent with posterior reversible encephalopathy syndrome (PRES). He also believes that pt has Parkinsonian dementia as a component.
-Re-consulted neurology given patient's hemorrhage on a recent MRI, prior to cardiopulmonary arrest
-EEG completed and results noted
-Seizure precautions
#Urinary Retention reported by patient's spouse
-Bladder Scans protocol
-Zepeda catheter removed on 05/16/24 due to foul smell, but patient may need it again given recent JIMMY with obstructive uropathy thought to be the cause of the JIMMY
#Microscopic Hematuria
#Proteinuria
# Parkinson's
-Continue carbidopa-levodopa - Sinemet was increased to 25/100 QID as per neurology
-Modafinil 100 mg daily held for now
-Per patient's , patient sees Dr. Pozo outpatient -- planned for MRI brain in May 2024
#Essential hypertension
-Hold metoprolol for now given above
-Hold Amlodipine for now given above
#Hypercholesterolemia
#Hypothyroidism
-Continue levothyroxine
Psychiatric history
Gout
Osteoarthritis
Full code
DVT prophylaxis�heparin
Diet: Tube Feeds
Intubation, mechanical ventilation and post cardiac arrest is a high risk encounter.
Anticipated Discharge: > 48 hours
Subjective/Interval History
-
Date of Service: May 16, 2024
Patient was seen and examined today. He remained intubated and on pressors. Patient had a cardiopulmonary arrest yesterday, was resuscitated, he woke up overnight and was trying to speak.
Objective Data
-
Labs:
Laboratory Results
05/15/24 05/16/24 05/16/24
18:38 00:32 00:32
WBC 48.3 H*
Hgb 11.8 L
Hct 33.9 L
Plt Count 352
PT 19.2 H
INR 1.64
APTT > 200 H* Cancelled
HCO3 Cancelled 29.2 H
Sodium
Potassium
Chloride
Carbon Dioxide
BUN
Creatinine
Glucose
Calcium
Total Bilirubin
AST
ALT
Alkaline Phosphatase
05/16/24 05/16/24 05/16/24
00:41 04:26 05:22
WBC 35.4 H
Hgb 10.4 L
Hct 30.2 L
Plt Count 328
PT 19.2 H
INR 1.64
APTT 150.7 H*
HCO3 30.1 H
Sodium 137 136
Potassium 3.9 4.1
Chloride 93 L 94 L
Carbon Dioxide 26 31 H
BUN 57 H 57 H
Creatinine 3.2 H 3.1 H
Glucose 272 H 167 H
Calcium 8.0 L 7.5 L
Total Bilirubin 0.8 0.5
AST 740 H* 549 H*
ALT 57 H 54 H
Alkaline Phosphatase 122 104
05/16/24 05/16/24 05/16/24
06:00 06:15 09:00
WBC
Hgb
Hct
Plt Count
PT
INR
APTT Pending
HCO3 Cancelled Pending
Sodium
Potassium
Chloride
Carbon Dioxide
BUN
Creatinine
Glucose
Calcium
Total Bilirubin
AST
ALT
Alkaline Phosphatase
05/16/24 05/16/24
12:00 18:00
WBC Pending Pending
Hgb Pending Pending
Hct Pending Pending
Plt Count Pending Pending
PT Pending Pending
INR Pending Pending
APTT Pending Pending
HCO3
Sodium
Potassium
Chloride
Carbon Dioxide
BUN
Creatinine
Glucose
Calcium
Total Bilirubin
AST
ALT
Alkaline Phosphatase
Vital Signs:
Vital Signs
Temp Pulse Resp BP Pulse Ox
97.8 F 115 16 146/116 98
05/16/24 07:00 05/16/24 06:00 05/16/24 06:00 05/15/24 23:14 05/16/24 06:00
I&O
05/15/24 05/16/24 05/17/24
06:59 06:59 06:59
Intake Total 960 / 960 3786.6 / 3982.1 195.5 / 195.5
Output Total 1150 / 1150 750 / 750
Balance -190 / -190 3036.6 / 3232.1 195.5 / 195.5
[2024-05-16] MEDS: BACTROBAN 2% OINTMENT 1 APPLIC TOPICAL (09:27)
[2024-05-16] MEDS: NSS (PRESERVATIVE FREE) 10 ML IV ×2 (09:28→20:49)
[2024-05-16] MEDS: THERAGRAN PO (09:28)
[2024-05-16] MEDS: PROTONIX IV 40 MG IV ×2 (09:28→20:50)
[2024-05-16] MEDS: SINEMET 25-100 TUBE ×2 (09:28→20:49)
[2024-05-16 09:29] LABS: HCO3 29.5 mmol/L (21-28); PCO2 33 mmHg (35-48); PO2 103 mmHg (83-108); pH 7.56 (7.35-7.45)
[2024-05-16 10:02] LABS: Lactic Acid 2.4 mmol/L (0.7-2.0)
[2024-05-16] MEDS: DIPRIVAN 100 IV (10:32)
[2024-05-16] MEDS: NSS 250 IV (11:32)
[2024-05-16] MEDS: PITRESSIN 100 IV ×2 (11:35→20:29)
[2024-05-16 11:37] LABS: HDL Cholesterol 35 mg/dl; LDL Cholesterol, Calculated 34 mg/dl; Total Cholesterol 82 mg/dl (50-199); Triglyceride 68 mg/dl (10-149); Very Low Density Lipoprotein 13 mg/dl (0-30)
--- NOTE | 2024-05-16 11:46 | W.PN.UPDATE ---
Update Note
Progress Note Update
chart was reviewed. psych will sign off at this point . patient transferred to icu and currently intubated. please call us if you need us to return.
--- NOTE | 2024-05-16 12:53 | W.PN.NEURO.1 ---
Today's Communication / Plan
-
stat EEG
repeat MRI brain when able
Neuro Assessment/Plan
Assessment
69 yr. old male with h/o uncontrolled HTN renal insufficiency and possible Parkinson's presented with fever & AMS, admitted 05/02. MRI brain revealed 3.5 cm region of signal abnormality in the cortical ibanez matter and subcortical white matter of the
POSTERIOR RIGHT OCCIPITAL LOBE with associated edema and a mild intraparenchymal microhemorrhage felt to be d/t PRES 2/2 hypertension.
Now s/p PEA arrest x3 on 05/15/24, found to have saddle PE, DVT, cardiogenic shock with pneumothorax, rib fractures and multisystem organ failure; hypotensive, on pressors. HCT was unchanged compared to imaging prior in hospitalization.
He woke up and spoke ('What is going on here?') during his CTA, otherwise no purposeful speech/movement; moves all 4 extremities spontaneously but not to command, has not followed commands but remains sedated on propofol. No overt clinical seizure
activity noted.
His presentation is concerning for possible anoxic encephalopathy s/p cardiac arrest.
Results:
HCT showed, 05/15 s/p code:
No acute intracranial hemorrhage.
There is prominent periventricular white matter hypodensity, most pronounced in the right occipital lobes, similar in appearance to prior.
MRI brain, 05/07:
1. 3.5 cm region of signal abnormality in the cortical ibanez matter and subcortical white matter of the POSTERIOR RIGHT OCCIPITAL LOBE with associated edema and a mild intraparenchymal microhemorrhage. Diagnostic possibilities are (1) posterior
reversible encephalopathy syndrome (PRES), (2) an acute inflammatory or infectious encephalitis, (3) a slow flow cerebral vascular malformation, or (4) a primary or metastatic brain tumor.
2. Moderate white matter leukoaraiosis in both cerebral hemispheres.
3. Mild diffuse cerebral and cerebellar volume loss.
4. Severe discogenic degenerative disease at C3/C4 with a central disc-osteophyte complex causing moderate spinal cord compression and central canal stenosis.
MRA neck, 05/07:
1. Mild atherosclerotic plaque in both proximal internal carotid arteries causing less than 50% diameter stenosis.
2. Mild diffuse hypoplasia of the right vertebral artery.
HCT, 05/02:
No evidence of acute intracranial abnormality.
Prominent decreased density within the periventricular white matter, especially within the posterior occipital lobes. Findings would suggest leukomalacia, advanced for the patient's age of 69 years. Mild to moderate atrophy.
Plan
-stat EEG
-continue pressors, supportive care
-MRI brain when able to assess for evidence of anoxic injury
-continue neurochecks, seizure precautions
-reviewed cardiology, social media campaign manager, nephrology, previous neurology notes, imaging results; discussed with nursing at bedside
Critical care time 45 mins
Will c/t follow
Subjective/Objective
Subjective Data
Date of Service: May 16, 2024
intubated and sedated on propofol, not following any commands, no overt clinical seizure activity
Objective Data
Vital Signs
Temp Pulse Resp BP Pulse Ox
98.2 F 104 16 88/66 99
05/16/24 11:00 05/16/24 10:37 05/16/24 10:37 05/16/24 10:37 05/16/24 12:00
Lab Results
05/16/24 05:22
PT 19.2 Sec (11.4-14.6) H 05/16/24 05:22
INR 1.64 05/16/24 05:22
APTT Cancelled 05/16/24 06:15
Sodium 136 mmol/L (135-145) 05/16/24 05:22
Potassium 4.1 mmol/L (3.5-5.1) 05/16/24 05:22
BUN 57 mg/dl (9-20) H 05/16/24 05:22
Glucose 167 mg/dl (70-99) H 05/16/24 05:22
Calcium 7.5 mg/dl (8.4-10.2) L 05/16/24 05:22
Phosphorus 3.3 mg/dl (2.5-4.5) 05/16/24 05:22
Vjb-G-Fwralxlegjd Pept 2920 pg/ml 05/15/24 23:44
LDL Cholesterol, Calc 34 mg/dl 05/16/24 05:22
Vitamin B12 359 pg/ml (506-931) 05/07/24 04:05
Patient Allergies
No Known Allergies Allergy (Verified 11/18/23 12:31)
Physical Exam
Extended Neurological Exam
Mood & Affect: Unable to Assess (intubated and sedated on propofol, unresponsive to voice/noxious stimulation, follows no commands)
Memory: Unable to Assess
Tremor: Negative Hand Tremor Absent (currently no evidence of tremor on my exam but nursing noted a rest tremor earlier today at times) or Head Tremor Absent
Involuntary Movement: None
Speech: Mute
Cranial Nerve II: Left Eye: Unable to Assess Visual Patel
Cranial Nerve II: Right Eye: Unable to Assess Visual Patel
Cranial Nerves III, IV, : Extraocular Movement: Unable to Assess
Cranial Nerve V: Facial Sensation: Unable to Assess
Cranial Nerve VII: Facial Symmetry: Unable to Assess
Cranial Nerve VIII: Hearing: Unable to Assess
Cranial Nerve XI: Shoulder Shrug: Unable to Assess
Cranial Nerve XII: Tongue Protusion: Unable to Assess
Muscle Strength, Overall: Negative Spontaneously Moves
Muscle Bulk & Tone: Reduced Tone (diffusely)
Deep Tendon Reflexes: Trace Throughout
Touch Sensation: Negative Withdrawal to Pain (in all 4 extremities)
Coordination: Unable to Assess
Babinski Sign: Other (mute bilaterally)
Gait & Station: Unable to Assess
[2024-05-16 13:02] LABS: Hematocrit 23.4 % (39.0-52.0); Hemoglobin 8.1 g/dL (13.0-18.0); Mean Corp Hgb Conc. 34.6 g/dL (33.0-37.0); Mean Corpuscular Hgb 28.9 pg (27.0-31.0); Mean Corpuscular Volume 83.6 fL (80.0-94.0); Mean Platelet Volume 9.3 fL (7.4-10.4); Platelet Count 267 10^3/uL (130-400); Red Cell Dist. Width 13.9 % (11.5-14.5); White Blood Cell Count 28.7 10^3/uL (4.8-10.8)
[2024-05-16 13:08] LABS: INR 1.46; PT 17.9 Sec (11.4-14.6)
[2024-05-16 13:09] LABS: APTT 64.6 Sec (23.4-35.0)
[2024-05-16 13:13] LABS: Fibrinogen 333 MG/DL (199-459)
[2024-05-16 13:14] LABS: Lactic Acid 2.6 mmol/L (0.7-2.0)
--- NOTE | 2024-05-16 13:17 | SUR.OPER ---
Hemoglobin drop >1gm. Dr. Zuñiga notified via TT, then called [facility] @[phone] and spoke with Hoa SMITH. Will continue with current therapy and she will notify Dr. Zuñiga who is currently in a case.
[2024-05-16] MEDS: HEPARIN 3300 UNITS IV (13:31)
[2024-05-16] MEDS: DOBUTREX 500 MG 250 IV (14:03)
--- NOTE | 2024-05-16 14:04 | EEG.RPT ---
Electroencephalogram Report
Recording
Date of EE05/16/24
Type of EEG: Routine
Length of EEG recordin minutes
Done with Video Recording: Yes
Patient Status: Inpatient
Recording Conditions: Drowsy
Hyperventilation Performed: No
Photic Stimulation Performed: Yes
Report
GREATER THAN 1 HOUR EEG REPORT
GREATER THAN 1 HOUR EEG INTERPRETATION:
Mildly abnormal EEG for age in wakefulness through sleep due to mild diffuse bihemispheric slowing
CLINICAL CORRELATION:
This study was suggestive of mild diffuse cortical dysfunction without focal abnormality. No seizures were recorded.
Clinical correlation is advised.
METHODS:
A 21 channel digitized electroencephalogram (EEG) was performed at the bedside in the ICU. The 10/20 international system of electrode placement was used with ECG and lateral/vertical eye movements recorded. The [employer] quantitative analysis system
was utilized.
QUALITY OF STUDY:
Fair
ELECTROENCEPHALOGRAPHER IMPRESSION(S):
Background
Amplitude: Low
Anterior-Posterior Organization: None
Maximum: Theta, typically theta
Asymmetry: None
Sleep
Drowsiness present
Photic Stimulation
Failed to activate the record
ECG
Normal sinus rhythm
--- NOTE | 2024-05-16 14:45 | PTCARENOTE ---
Pt transported to [facility] with RPT on ventilator, with drips per work list monitored with chest tube off suction as ordered. He was unstable with MAP 55. Report provided to [facility] RN and remained with pt until on the table and titrated drips as ordered.
[2024-05-16] MEDS: SOLU-CORTEF 100 MG IV (15:45)
--- NOTE | 2024-05-16 15:51 | W.PN.UPDATE ---
Update Note
Progress Note Update
Called for code 9 in IR when they were re-assessing his acute PE. I arrived to the IR suite and CPR was in progress. ROSC obtained after several rounds of CPR, epi + bicarb. I called the and told her that Ryan is in cardiac arrest again.
She is unable to come into the hospital as she just had breast surgery. She is aware that he is very ill and that this clot in his lungs is the primary etiology of his cardiac arrest. I explained that we can give a bolus of tPA to help break up
this clot, but this carries great risk, including internal bleeding, hemorrhagic stroke, and . Given that there is a chance that this tPA will lead to his heart pumping again on its own, she was ok with tPA push despite these risks. I
answered all her questions, and she verbalized understanding. I explained that if we continue to do CPR and total time passes 30 minutes, that we will stop CPR at that time due to futility. She was ok with this as well. She wants full medical
management in the meantime.
--- NOTE | 2024-05-16 15:51 | W.PN.UPDATE ---
Update Note
Progress Note Update
Repeat right pulmonary arteriogram showed large amount of residual right sided embolus, PA pressure elevated (27/11, mean PA pressure 15 mmHg). Right arteriogram showed large residual embolus burden on the right.
Used Penumbra Lightning catheter to remove large amount of embolus from right main PA. While repositioning the catheter, the patient's blood pressure dropped, and the pulse was lost. Code called, patient is currently undergoing
resuscitation/compressions.
--- NOTE | 2024-05-16 16:13 | PTOTSP ---
Reviewed chart, noted events from 05/15. Pt had code 9, transferred from 4th floor to ICU, intubated at this time. Will require new PT orders when stable to participate in PT activity.
[2024-05-16 16:18] LABS: B.E. 10.5 mmol/L; HCO3 35.8 mmol/L (21-28); O2 Saturation % 99.3 % (94-98); PCO2 54 mmHg (35-48); PO2 204 mmHg (83-108); pH 7.43 (7.35-7.45)
--- NOTE | 2024-05-16 16:22 | W.PN.UPDATE ---
Update Note
Progress Note Update
Code 9 called overhead to IR. Patient in IR for planned thrombectomy. Thrombectomy procedure was in progress with small of amount of clot suctioned when patient started with bradycardia and then PEA. CPR, Epi and Bicarb. Pulse returned and then lost
x2. ABG ordered. STAT CBC, CMP and Troponin repeated. Echo from earlier today with EF 70-75%, enlarged right ventricular size, moderately to severely reduced right ventricular systolic function. Catheter in RV. Cigar Head Holer and [facility] considering
attempting additional thrombectomy. Cardiology will be on standby. 31 min critical care time.
[2024-05-16 16:27] LABS: Hematocrit 17.1 % (39.0-52.0); Hemoglobin 5.6 g/dL (13.0-18.0); Mean Corp Hgb Conc. 32.7 g/dL (33.0-37.0); Mean Corpuscular Hgb 29.2 pg (27.0-31.0); Mean Corpuscular Volume 89.1 fL (80.0-94.0); Red Blood Cell Count 1.92 10^6/uL (4.70-6.10); Red Cell Dist. Width 14.3 % (11.5-14.5); White Blood Cell Count 31.1 10^3/uL (4.8-10.8)
--- NOTE | 2024-05-16 16:27 | W.PN.UPDATE ---
Update Note
Progress Note Update
Responded to code called. He was treated again for PEA arrest in the setting of PE while undergoing thrombectomy. ROSC acheived with ACLS protocol including epinepherine and bicarb.
Cont to monitor bp with A-line
Labs pending including ABG.
IR to resume procedure given significance of the large clot burden causing hemodynamic compromise and family would like to continue to be aggressive with care. unable to come to hospital due to her illness.
Pt remains in serious condition.
Cont supportive care.
Discussed with golf manager and with primary service.
[2024-05-16 16:35] LABS: Mean Platelet Volume 9.7 fL (7.4-10.4); Platelet Count 185 10^3/uL (130-400)
[2024-05-16 16:54] LABS: AST (SGOT) 266 U/L (17-59); Albumin 1.4 g/dl (3.5-5.0); Alkaline Phosphatase 41 U/L (38-126); Blood Urea Nitrogen 49 mg/dl (9-20); Calcium 6.6 mg/dl (8.4-10.2); Carbon Dioxide 17 mmol/L (22-30); Chloride 99 mmol/L (98-107); Estimated Creatinine Clearance 23 ml/min; Glucose 320 mg/dl (70-99); Potassium 3.6 mmol/L (3.5-5.1); Sodium 137 mmol/L (135-145); Total Bilirubin 0.3 mg/dl (0.2-1.3); Total Protein 2.9 g/dl (6.3-8.2); eGFR 19.44
[2024-05-16 17:03] LABS: ALT (SGPT) 33 U/L (0-50)
--- NOTE | 2024-05-16 17:20 | W.PN.UPDATE ---
Update Note
Progress Note Update
Patient coded on the table after procedure started. ROSC and we were able to resume procedure. Removed a large amount of clot from right side, and good amount from the left. Repeat arteriogram showed significant improvement, with relatively good
parenchymal perfusion.
A good deal of the embolus appeared to be older on gross inspection.
OK to resume systemic anticoagulation around 7 pm.
--- NOTE | 2024-05-16 17:45 | PTCARENOTE ---
Post [facility] procedure. Incontinent of loose brown heme + stool. Complete CHG bath given. Right femoral gauze dressing CDI, site soft, no s/s hematoma. Extremities cool, mottled, poor capillary refill, + palpable DP pulses. Right L/E knee immobilizer
intact. Heels elevated on air pillows. Right heel protective foam dressing intact. Optifoam gentle dressing to his sacrum intact. Drips as documented in the work list. Propofol and fentanyl drips were turned off in [facility] due to hypotension & Code-9.
Was temporarily restarted @ 10mcg/kg/min prior to leaving [facility] due to restlessness and movement of his extremities, and increased WOB. Was very shortly there after turned off for MAP 50's. Aspiration precautions maintained. Will continue to
monitor. Pt's brother Ken remains in the waiting room and was provided an update from our nurse educator who remained with the pt intraprocedure. PRBS's called for. Safe environment maintained. Will continue to monitor.
--- NOTE | 2024-05-16 18:02 | PTCARENOTE ---
Dr. Carty and Dr. Hernandez notified of Heme + stool and that his SBP is 71 w/MAP 57. They are aware that sedation contnues to be off since [facility].
[2024-05-16] MEDS: SUBLIMAZE 100 IV (18:07)
[2024-05-16] MEDS: MIRALAX TUBE (18:11)
[2024-05-16] MEDS: NSS 1000 IV ×2 (18:12→19:52)
--- NOTE | 2024-05-16 18:28 | PTCARENOTE ---
Dr. Zuñiga notified via TT that Heparin drip was infusing throughout [facility] procedure and that I had received him with Heparin @ 650units/hr.
[2024-05-16] MEDS: SUBLIMAZE 50 MCG IV ×7 (18:42→23:54)
--- NOTE | 2024-05-16 18:44 | PTCARENOTE ---
Pt opening his eyes, Moving and bending his legs. Right knee immobilizer intact. Fentanyl bolus administered
[2024-05-16 19:53] LABS: Hematocrit 17.4 % (39.0-52.0); Hemoglobin 5.7 g/dL (13.0-18.0); INR 2.62; Mean Corp Hgb Conc. 32.8 g/dL (33.0-37.0); Mean Corpuscular Hgb 29.7 pg (27.0-31.0); Mean Corpuscular Volume 90.6 fL (80.0-94.0); Mean Platelet Volume 9.7 fL (7.4-10.4); PT 28.4 Sec (11.4-14.6); Platelet Count 154 10^3/uL (130-400); Red Blood Cell Count 1.92 10^6/uL (4.70-6.10); Red Cell Dist. Width 15.6 % (11.5-14.5); White Blood Cell Count 35.1 10^3/uL (4.8-10.8)
[2024-05-16] MEDS: SODIUM BICARBONATE 50 MEQ IV (19:53)
[2024-05-16 19:54] LABS: Fibrinogen 202 MG/DL (199-459)
[2024-05-16] MEDS: KCL ELIXIR 40 MEQ TUBE (19:59)
[2024-05-16 20:11] LABS: Lactic Acid 12.3 mmol/L (0.7-2.0)
--- NOTE | 2024-05-16 20:18 | W.PN.UPDATE ---
Addendum entered and electronically signed by GABRIELA Swenson 05/16/24 20:59:
At this time patient is hemodynamically unstable to transport for Ctscan.
Original Note:
Update Note
Progress Note Update
Repeat hgb after 1 u PRBC transfused is 5 and continues to be hypotensive increased vasopressors. Assessed patient abdomen soft not rigid, no new ecchymotic areas, no bruising on flank or swelling. No s/s of bleeding from pinto, ETT or IV sites.
Nursing marked previous bruising sites to watch for expansion (patient had chest tube placed and cpr previously). RN sent for second unit of PRBCs. Ordered additional 2 u PRBCs to be transfused (4 in total), albumin, bicarb 1 amp push IV, calcium
gluconate IV, and repeat labs H&H and BMP. Discussed continued drop in hgb with Dr. Carty, carpenter form, agreed with plan of care and orders.
[2024-05-16 20:44] LABS: APTT > 200 Sec (23.4-35.0)
[2024-05-16] MEDS: NEO-SYNEPHRINE IV (20:50)
[2024-05-16 21:22] LABS: APTT > 200 Sec (23.4-35.0)
[2024-05-16] MEDS: SOLU-CORTEF 50 MG IV (21:37)
[2024-05-16] MEDS: CATHFLO/ACTIVASE INF CATH (21:54)
[2024-05-16] MEDS: FLEXBUMIN 100 IV (21:58)
[2024-05-16] MEDS: NEO-SYNEPHRINE 1% 260 MG IV (22:03)
[2024-05-16] MEDS: LEVOPHED 258 MG IV (22:31)
[2024-05-16 23:06] LABS: Hematocrit 29.2 % (39.0-52.0); Hemoglobin 9.7 g/dL (13.0-18.0)
[2024-05-16] MEDS: ADRENALIN 258 MG IV (23:12)
[2024-05-16 23:20] LABS: APTT 194.9 Sec (23.4-35.0)
[2024-05-17] VITALS (19 sets, daily range): BP systolic 84–158; BP diastolic 53–111; PULSE 103
[2024-05-17 00:07] LABS: Blood Urea Nitrogen 52 mg/dl (9-20); Calcium 7.3 mg/dl (8.4-10.2); Carbon Dioxide 22 mmol/L (22-30); Chloride 99 mmol/L (98-107); Estimated Creatinine Clearance 21 ml/min; Glucose 127 mg/dl (70-99); Sodium 135 mmol/L (135-145); eGFR 18.12
[2024-05-17] MEDS: SUBLIMAZE 50 MCG IV ×4 (00:37→08:44)
--- NOTE | 2024-05-17 01:00 | PTCARENOTE ---
initial assessment as documented, 2130 SBP from A-line 80's pt restless CPOT 4 fentanyl bolus per SEP fent gtt started per worklist, pt remains maxed on levo epi and nicola, labs drawn, PTT >200 Heparin gtt off PROCESSING TECH notified, calcium repleted, albumin,
total of 4 units PRBC repeat H&H 9.7, pharm ordered DC pressors, R chest tube @ handoff 15cc serosanguineous output, 2230 chest tube output 50cc PROCESSING TECH notified CXR ordered, pt remained restless multiple fentanyl boluses per SEP fent gtt titrated per
worklist, R PICC dressing changed, CT scan ordered, transferred with x3 RN PROCESSING TECH RT otherwise refer to documentation
--- NOTE | 2024-05-17 01:41 | W.PN.UPDATE ---
Update Note
Progress Note Update
05/16/24
2000- hgb repeat is 5.7, ordered additional 2 u PRBCs.
2100- PTT high >200, heparin gtt on hold.
2200- Blood noted in chest tube drainage approximately 50cc, continues to drain blood when tubing drained. Concerning for bleeding and discussed with Dr. Carty. Will finish PRBCs and stabilize patient prior to Ctscan.
2300- Ordered Ctscan head, chest abdomen, pelvis without IV contrast (creat 3.5). Concern for bleeding with continued anemia and hypotension.
05/17/24
0115- Results Ctscan- 'small right side pneumothorax, decreased in size compared to prior, has chest tube. Small bilateral pleural effusions, tracheobronchomalacia with atelectasis at the lung bases. Small amount of hemorrhage in the anterior
mediastinum presumably related to CPR and multiple bilateral costicartilage fractures. Additional bilateral anterior rib fractures compatible with cpr. New moderate amoount of hemoperitoneum with blood clot noted around the liver and spleen. In
the left hepatic lobe there is a 6.9x4.3 cm low attenuation area, this is concerning for cpr related to liver injury/laceration.' Results communicated with Dr. Carty, ob/gyn physician, will stop heparin gtt (it has been on hold since 9pm). Discussed
with general surgeon Dr. Velazquez patient is not a surgical candidate with Ctscan findings, medical management only recommended.
0130- Updated patient's Monica that patient now has internal bleeding including hemoperitoneum with blood clot around liver/spleen. Discussed with general surgeon, Dr. Velazquez patient not deemed surgical candidate give multiple medical
complications and overall poor prognosis/outcome. Heparin gtt cannot be continued with these new findings on Ctscan. verbalized understanding and answered all questions. She agreed to make patient DNR with no CPR, no defibrillation or ACLS
medications, but continue all current treatment.
[2024-05-17 01:55] LABS: B.E. -5.7 mmol/L; HCO3 22.1 mmol/L (21-28); O2 Saturation % 98.3 % (94-98); PCO2 54 mmHg (35-48); PO2 97 mmHg (83-108); pH 7.22 (7.35-7.45)
[2024-05-17 02:02] LABS: Hemoglobin 9.6 g/dL (13.0-18.0); Mean Corp Hgb Conc. 34.3 g/dL (33.0-37.0); Mean Corpuscular Hgb 28.7 pg (27.0-31.0); Mean Corpuscular Volume 83.6 fL (80.0-94.0); Platelet Count 143 10^3/uL (130-400); Red Blood Cell Count 3.35 10^6/uL (4.70-6.10); Red Cell Dist. Width 17.6 % (11.5-14.5); White Blood Cell Count 47.3 10^3/uL (4.8-10.8)
[2024-05-17 02:09] LABS: INR 2.08; PT 23.6 Sec (11.4-14.6)
[2024-05-17 02:11] LABS: APTT 66.3 Sec (23.4-35.0)
--- NOTE | 2024-05-17 02:19 | PTCARENOTE ---
returned from CT scan, vitals stable through transfer, gtts titrated per worklist, CHG bath oral care, MANAGER OF INVESTIGATIONS dc'd heparin after CT revealed liver laceration, code status updated by MANAGER OF INVESTIGATIONS to limited DNR per , labs sent otherwise refer to documentation
[2024-05-17] MEDS: LEVOPHED 258 MG IV ×5 (02:38→21:38)
[2024-05-17 02:44] LABS: Fibrinogen 238 MG/DL (199-459)
[2024-05-17 02:45] LABS: Blood Urea Nitrogen 53 mg/dl (9-20); Calcium 7.2 mg/dl (8.4-10.2); Carbon Dioxide 22 mmol/L (22-30); Chloride 101 mmol/L (98-107); Estimated Creatinine Clearance 20 ml/min; Glucose 132 mg/dl (70-99); Potassium 5.2 mmol/L (3.5-5.1); Sodium 136 mmol/L (135-145); eGFR 16.95
[2024-05-17 03:35] LABS: Lactic Acid 4.6 mmol/L (0.7-2.0)
[2024-05-17 03:41] LABS: Magnesium 1.9 mg/dl (1.6-2.3)
[2024-05-17] MEDS: SOLU-CORTEF 50 MG IV ×4 (04:41→21:38)
[2024-05-17] MEDS: NOVOLIN R 10 UNITS IV ×2 (04:50→21:39)
[2024-05-17] MEDS: DEXTROSE 50% SYRINGE 25 GRAMS IV ×2 (04:50→21:39)
[2024-05-17] MEDS: CALCIUM GLUCONATE 100 IV ×2 (04:50→22:25)
[2024-05-17 04:59] LABS: Glucose - Point of Care 150 mg/dl (70-99)
[2024-05-17] MEDS: SYNTHROID 175 MCG TUBE (05:06)
[2024-05-17 05:36] LABS: B.E. -6.5 mmol/L; HCO3 20.6 mmol/L (21-28); O2 Saturation % 99.5 % (94-98); PCO2 48 mmHg (35-48); PO2 166 mmHg (83-108); pH 7.24 (7.35-7.45)
[2024-05-17 05:53] LABS: Fibrinogen 243 MG/DL (199-459); INR 1.92; PT 22.1 Sec (11.4-14.6)
[2024-05-17 05:54] LABS: APTT 46.5 Sec (23.4-35.0)
[2024-05-17 05:59] LABS: Hematocrit 24.3 % (39.0-52.0); Hemoglobin 8.5 g/dL (13.0-18.0); Mean Corpuscular Hgb 29.3 pg (27.0-31.0); Mean Corpuscular Volume 83.8 fL (80.0-94.0); Platelet Count 130 10^3/uL (130-400); Red Cell Dist. Width 17.8 % (11.5-14.5)
[2024-05-17 06:15] LABS: Glucose - Point of Care 198 mg/dl (70-99)
[2024-05-17] MEDS: PITRESSIN 100 IV ×2 (06:30→19:55)
[2024-05-17 07:25] LABS: Glucose - Point of Care 170 mg/dl (70-99)
--- NOTE | 2024-05-17 07:40 | W.PN.CARDCBS ---
Addendum entered and electronically signed by Fco Paz DO 05/17/24 10:34:
I saw and examined the patient.
The Screwdown Operator's note was reviewed and I agree with the note.
Comment:
Plan:
Patient remains critically ill. He is on 4 pressors. Beta-bruce and valsartan are on hold.
PEA arrest last evening in the setting of IR procedure for suction thrombectomy of saddle PE.
Significant anemia, status post 4 units PRBCs. Hemoglobin improving to 8.5 on May 17.
Liver laceration noted by CT. Heparin is stopped. Patient is not a surgical candidate.
Patient is now limited DNR with no additional CPR, only medications and vent management.
Recent echo with preserved EF without wall motion abnormalities. RV enlarged in the setting of significant PE.
Discussed with catering chef last 24 hours
Discussed with nursing
Prognosis is extremely poor
Critical care time 33 minutes.
Original Note:
Today's Communication / Plan
-
Recheck ECG
Troponin trending down
Pressors and vent only, no compressions or shocks
Impression / Plan
-
PCP: Alicia Yanez PA-C
Cardiology: None prior to admission
Impression:
s/p PEA arrest x3 05/15/24 and again in IR during thrombectomy 05/16/24
Admitted with change in mental status 05/02/24
In-hospital cardiac arrest
PEA treated with Epi, CPR, intubation and then Epi gtt at 1800 on 05/15/24
PEA treated with Epi, CPR, Bicarb, calcium gluconate, bedside u/s showed enlarged RV and LLE DVT at 1821 on 05/15/24
PEA treated CPR, Epi, Bicarb, CTA chest confirmed PE and Heparin gtt started at 1934 on 05/15/24
PEA treated with CPR, Epi and Bicarb during thrombectomy 05/16/24
Saddle PE and catheter directed thrombolysis via right chest tube started 2302 on 05/15/24
Hypotension and shock
Elevated LFTs and shock liver
LLE DVT by u/s 05/15/24
Right-sided PTX with CT placement 05/15/24
Hemoperitoneum, possible liver injury/laceration by CT 05/17/24
Elevated Troponin
Abnormal ECG
Acute hypoxic respiratory failure
JIMMY on CKD 4
Parkinson's disease
HTN
Hyperlipidemia
Right 2nd toe nonhealing wound
Echo 05/16/24: EF 70 to 75%, normal regional wall motion, mild concentric LVH, enlarged RV size, moderate to severely reduced RV systolic function mild TR with PAP 40 to 45 mmHg
Plan:
-Overnight events noted, patient now with flail chest and hemoperitoneum with concern for liver injury/laceration on CT. Heparin gtt stopped. Patient is not a surgical candidate. Patient is now a limited DNR with no additional CPR, meds and vent
only.
-4 units PRBCs given, Hgb 8.5 on 05/17/24 AM
-Troponin peaked at 9.15 on 05/16/24. ECG with anterior T wave inversions, will repeat 05/17/24.
-EF stable without WMA by echo. RV enlarged and moderately to severely reduced RV systolic function in the setting of PE
-LDL 34
-Outpatient doses of Toprol XL 50 mg daily and valsartan 80 mg daily on hold
-Hypotensive on pressors, Levo at 30
-Epi at 10
-Jose at 160
-Vasopressin at 0.03
HPI: [facility] with change in mental status and has been admitted since then for work-up and had an in-hospital cardiac arrest last night and cardiology is now consulted. Patient lives at home with his who works for [employer] in
[place]. Patient has not seen cardiology in the past. Patient reportedly lowered himself to the floor the night prior to admission to perform an unknown activity and then could not stand on his own and refused help so he slept on the floor that
night. The next day he still could not get up and his family called 911. Patient was admitted for change in mental status and JIMMY on CKD 4. He was seen by nephrology and given IVFs. Patient was already following with neurology as an outpatient for
possible Parkinson's disease work-up and so neurology saw him this admission as well and an LP was attempted, but no fluid could be collected. He seemed to be improving from JIMMY standpoint and Neuro continued Sinemet. ID stopped antibiotics, but WBC
continued to trend up. Patient was awaiting SNF placement which was delayed due to ongoing confusion requiring med sitter services. Psychiatry saw patient yesterday. Later last evening patient had bed sitter removed from room and hours later cried
out that he was having chest pain and felt like he was having a heart attack and then coded. Code details as above. Patient now in ICU with Levo, Epi and Jose running. Troponin up to 9 and ECG abnormal.
Progress Note - Director Of Rehabilitation And Wellness
Subjective
Date of Service: May 17, 2024
Unresponsive
Objective
Labs:
Labs
Hgb 8.5 g/dL (13.0-18.0) L 05/17/24 05:29
Hct 24.3 % (39.0-52.0) L 05/17/24 05:29
Plt Count 130 10^3/uL (130-400) 05/17/24 05:29
PT 22.1 Sec (11.4-14.6) H 05/17/24 05:29
INR 1.92 05/17/24 05:29
APTT 46.5 Sec (23.4-35.0) H 05/17/24 05:29
Sodium 136 mmol/L (135-145) 05/17/24 01:48
Potassium 5.2 mmol/L (3.5-5.1) H 05/17/24 01:48
BUN 53 mg/dl (9-20) H 05/17/24 01:48
Creatinine 3.7 mg/dL (0.7-1.3) H 05/17/24 01:48
Glucose 132 mg/dl (70-99) H 05/17/24 01:48
Troponins
05/15/24 05/16/24 05/16/24
23:44 05:22 09:20
Troponin I 7.980 H* 9.020 H* 9.150 H*
05/16/24 05/16/24
12:40 16:00
Troponin I 8.970 H* 7.800 H*
Vital Signs and I&O:
Vital Signs
Temp Pulse Resp BP Pulse Ox
98.2 F 106 21 131/89 100
05/17/24 07:31 05/17/24 06:30 05/17/24 06:30 05/17/24 04:00 05/17/24 06:30
Vital Signs
Temp Pulse Resp BP Pulse Ox
98.2 F 106 21 131/89 100
05/17/24 07:31 05/17/24 06:30 05/17/24 06:30 05/17/24 04:00 05/17/24 06:30
Intake & Output
05/15/24 05/16/24 05/17/24 05/18/24
06:59 06:59 06:59 06:59
Intake Total 960 / 960 3786.6 / 3982.1 8338.0 / 8338.0
Output Total 1150 / 1150 750 / 750 218 / 218
Balance -190 / -190 3036.6 / 3232.1 8120.0 / 8120.0
Physical Exam
Physical Exam
GEN: Intubated and sedated
HEENT: MMM
LUNGS: Intubated and on the ventilator. Coarse BS throughout
CV: Sinus tachycardia on tele. No murmur
ABD: +Dobbhoff, soft
EXT: No edema B/L. Right second toe wound wrapped
NEURO: Sedated
SKIN: No rash
[2024-05-17 07:45] LABS: Blood Urea Nitrogen 56 mg/dl (9-20); Calcium 7.6 mg/dl (8.4-10.2); Carbon Dioxide 23 mmol/L (22-30); Chloride 99 mmol/L (98-107); Estimated Creatinine Clearance 19 ml/min; Glucose 156 mg/dl (70-99); Sodium 135 mmol/L (135-145); eGFR 15.44
[2024-05-17] MEDS: NEO-SYNEPHRINE 1% 260 MG IV (07:49)
--- NOTE | 2024-05-17 08:15 | W.PN.NEPH.PH ---
Today's Communication / Plan
-
Blood products
Pressor support
If family demands continued aggressive care ill-advised CRRT could be implemented
Assessment/Plan
-
Assessment
CKD 4 (2.2-2.4)
JIMMY
Urinary retention
Mental status change
Parkinson's
Hypertension
Metabolic acidosis
MRI brain + 3.5cm lesion posterior right occipital lobe
Status post PEA event on 05/15/2024 with associated saddle embolus
Plan
JIMMY continues to worsen with creatinine now up to 4
patient transferred to ICU following cardiac arrest with PEA (05/15/24),noted left lower extremity popliteal DVT
Repeat PEA event yesterday in IR, status post clot thrombectomy
Chest CT with IV contrast obtained with noted large saddle pulmonary embolus, large right-sided pneumothorax multiple rib fractures
Now off anti-coagulation due to ongoing hemorrhage
Remains on 4 pressor support
Creatinine rising to 4, uop ~28cc
Intermittently hemodynamically unstable
Continues to require blood transfusions for worsening anemia and hypotension
Patient now DNR, no ACLS
I would not pursue CRRT as I do not believe this is even feasible given his ongoing hemorrhaging and hemodynamic compromise on 4 pressors
I also do not believe the modality is indicated as patient is now DNR no ACLS
Zepeda was removed due to gross purulent discharge
Patient remains critically ill with vent dependent respiratory failure worsening renal failure ongoing hemorrhage requiring multiple blood transfusion and 4 pressor dependent hypotension
32 minutes critical care time spent with patient
-
-
Date of Service: May 17, 2024
CC / HPI / ROS
-
Chief Complaint:
JIMMY
History of Present Illness:
JIMMY/Cr up to 4
Multiple PEA events requiring code and chest compression over past 48 hours
Remains on 4 pressor support
Remains intubated
Bilateral saddle embolus now off heparin drip and alteplase infusion due to hemorrhage
Review of Systems:
Anuric
Weights up greater than 14 kg
Intubated and sedated
Labs
-
Labs:
Sodium 135 mmol/L (135-145) 05/17/24 07:14
Potassium 5.0 mmol/L (3.5-5.1) 05/17/24 07:14
Chloride 99 mmol/L (98-107) 05/17/24 07:14
Carbon Dioxide 23 mmol/L (22-30) 05/17/24 07:14
BUN 56 mg/dl (9-20) H 05/17/24 07:14
Creatinine 4.0 mg/dL (0.7-1.3) H 05/17/24 07:14
eGFR 15.44 05/17/24 07:14
Glucose 156 mg/dl (70-99) H 05/17/24 07:14
Calcium 7.6 mg/dl (8.4-10.2) L 05/17/24 07:14
Phosphorus 3.3 mg/dl (2.5-4.5) 05/16/24 05:22
Obc-F-Fuyskzvaxuj Pept 2920 pg/ml 05/15/24 23:44
Albumin 1.4 g/dl (3.5-5.0) L 05/16/24 16:00
Physical Exam
-
Vital Signs:
Vital Signs
Temp Pulse Resp BP Pulse Ox
98.2 F 106 21 131/89 100
05/17/24 07:31 05/17/24 06:30 05/17/24 06:30 05/17/24 04:00 05/17/24 06:30
Cardiovascular:: Regular rate and rhythm
Respiratory:: Bilateral: Coarse
Lung Excursion:: Normal
Abdomen:: Distended
Extremity Edema:: +2: Bilateral:
Zepeda Catheter: No
Other Findings::
General Intubated sedated
Chest tube
--- NOTE | 2024-05-17 08:20 | W.PN.INTV ---
Today's Communication / Plan
Recommendations
Stop heparin gtt
Transfuse PRBC if Hb<7, keep plt>50k, INR<1.8
Continue mechanical ventilation
Brain MRI when able to travel off the ICU floor
Daily SAT/SBT
Given recurrent cardiac arrest he likely has SHANK TURNER dysfunction due to hypoxic/ischemic encephalopathy
Neuro consulted, recs appreciated
DNR
Guarded prognosis
Assessment
-
Assessment: 69-year-old M former tobacco smoker with a PMHx of CKD stage IV, hypertension, hypothyroidism, gout, history of pulmonary nodules, anxiety, memory impairment, sciatica and history of urinary incontinence who presents from home for
altered mental status. He was admitted to the floor for JIMMY and rhabdomyolysis with nephrology and neurology consulted. LP was attempted but no CSF fluid could be obtained. Brain MRI performed on 05/07/2024 showed a 3.5 cm region of signal
abnormality in the posterior right occipital lobe consistent with mild IPH likely due to posterior reversible encephalopathy syndrome. Patient also had parkinsonism features and Sinemet was started. On the evening of 05/15/2024 he suffered a PEA
cardiac arrest, ROSC obtained and he was brought to the ICU for further care. Retail Training Manager service is now consulted for additional management/recommendations.
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
Impression:
#In-hospital cardiac arrest (PEA) due to acute PE in the setting of left lower extremity acute DVT
#Acute massive saddle PE s/p catheter directed thrombolysis (05/15) with subsequent suction thrombectomy (05/16)
#CPR related internal bleeding with anterior hemomediastinum + hemoperitoneum in setting of systemic AC; also liver hematoma with suspected --> heparin gtt now off and he has required multiple blood transfusions
#Acute blood loss anemia due to CPR in setting of heparin gtt to treat acute massive PE
#Secondary R-sided pneumothorax due to CPR
#Acute left lower extremity popliteal DVT
#Severe metabolic acidosis likely due to cardiac arrest with lactic acidosis
#Shock - initially due to severe metabolic acidosis, but now shock is due to hemorrhage in setting of obstructive shock due to acute saddle PE
#Acute respiratory failure with hypoxia + hypercapnia on mechanical ventilation
#Leukocytosis
#Acute anemia
#Elevated tropinin due to demand ischemia with type II NC in setting of severe acute blood loss anemia
#Right occipital lobe white matter changes with history of uncontrolled hypertension which is due to suspected posterior reversible encephalopathy syndrome (per neurology) with 3.5cm R-occipital lobe IPH
#JIMMY on CKD (appears at baseline creatinine is approximately 2.4) - likely due to shock in setting of contrast-induced JIMMY
#Hx of anxiety
#Altered mental status with parkinsonism
#New onset atrial flutter with variable AV block (seen on EKG from 05/17/2024)
Plan:
- Continue with mechanical ventilation
- Titrate FiO2 + PEEP to maintain SpO2 >94%
- Maintain plateau pressure <30 with goal driving pressure 15�20
- Daily SAT/SBT if clinically appropriate
- When sedation is lowered he initially appeared to be awakening and was moving all 4 extremities, hence we held off on therapeutic hypothermia and instead will avoid fever; consider ATC IV tylenol
- He underwent R-sided chest tube on 05/15/2024 by IR --> keep at negative suction at [id number], and monitor for air leak
- Bloody output seen on 05/16/2024 which coincided with acute anemia --> continue to monitor output; no evidence of hemothorax on CT chest from 05/17/2024
- After his cardiac arrest on 05/15/2024, bedside ultrasound performed by Dr. Craty showed enlarged RV which was >LV, and confirmed presence of left lower extremity popliteal thrombus; no thrombus seen in the entire right lower extremity
- Interestingly he has been on heparin SQ 5,000 units q12hr since 05/03/2024
- CTA chest showed acute saddle PE and he underwent catheter directed thrombolysis on 05/15/2024 --> went back down to IR on 05/16/2024 for suction thrombectomy, where he suffered another PEA cardiac arrest. ROSC obtained and suction embolectomy
completed with large amount of embolus removed from the central right main, left main and main pulmonary trunk. There was significant improvement of the angiographic appearance of the embolus and significant improved parenchymal perfusion following
embolectomy.
- Official echo showed enlarged RV with moderate-severely reduced RV systolic function, and moderate PH --> started dobutamine to help improve RV contractility ---> this was started on 05/16 however he became hypotensive afterwards which coincided
with him being in IR during thrombectomy --> for now we will keep dobutamine off
- LE duplex confirmed LLE popliteal DVT
- Troponin peaked at 9.15 on 05/16/2024 --> no need to continue trending at this point
-In the setting of hemoperitoneum/pneumomediastinum, stop all anticoagulation/antiplatelets
- Trend H/H and transfuse if needed to keep Hb>7g/dL; kep plt>50k
- He is at risk of hypoxic/ischemic encephalopathy due to recurrent cardiac arrest --> neurology consulted; EEG from 05/16/2024 shows mild diffuse cortical dysfunction without focal abnormality with no seizures were recorded.
- Neurology saw the patient today and unfortunately he has poor prognosis --> obtain oli MRI when able considering he is on multiple drips with severe circulatory shock
- EEG performed on 05/16/2024 showed mild diffuse cortical dysfunction without focal abnormality and no seizures recorded
- In setting of A-flutter, keep HR<110
- Unable to do heparin gtt given acute severe anemia
- Replete K>4, Mg>2
- Continue vasopressors
- Continue hydrocortisone 50mg IV q6hr
- Now off bicarb gtt
- Trend until <2mmol/L
- Keep MAP>65
- Continue ABx for suspected aspiration (unasyn)
- Renally dose
-There is foul-smelling drainage from around his meatus seen on 05/16/2024. Zepeda catheter has been in place for over several days, and was removed on 05/16 - continue to monitor without replacing Zepeda catheter at this point
- PICC team consult for better IV access - triple lumen inserted on 05/15/2024
- Replete electrolytes with K>4, Mg>2
- Maintain euglycemia with goal BG 140-180
- Continue sinemet; neurology on board with recs appreciated
- prn nebulized bronchodilators - not currently bronchospastic
- DVT ppx: SCDs
Critical care statement: A total of 51 minutes of critical care time was provided for this patient today. This includes management of unstable vital signs, evaluation of the patient at bedside, reviewing the patient's pertinent medical records
including radiographs, microbiology, laboratory evaluations, and discussion with primary team, consultants, pharmacy, nutrition, physical therapy, case management, charge nurse, critical care nursing, and respiratory therapy.
Data:
CTA Chest 05/15/2024:
1. Large, saddle pulmonary embolus extending from the distal main pulmonary artery into the right and left main pulmonary arteries, the bilateral lower lobe segmental and subsegmental pulmonary arteries as well as the right upper lobe segmental and
subsegmental pulmonary arteries. There is evidence of right heart strain with buffered bowing of the interventricular septum, elevated RV/LV ratio and reflux of contrast into the hepatic veins.
2. Large right-sided pneumothorax with partial collapse of the right lung.
3. Bilateral, displaced anterior rib fractures including the right second through fourth ribs within anterior costal cartilage fracture of the fifth rib on the right in the left second through fifth ribs. Findings are likely sequelae of chest
compressions.
4. Endotracheal tube tip terminates within the mid thoracic trachea. Nasoenteric feeding tube terminates within the stomach.
CT Head 05/17/2024: No acute intracranial hemorrhage. No mass effect. Stable prominent periventricular and subcortical white matter diminished attenuation, most pronounced in the parietal and occipital lobes, right greater than left.
CT Chest/Abd/Pelvis w/o contrast 05/17/2024:
1. Small right-sided pneumothorax, decreased in size status post interval placement of a right-sided pigtail chest tube.
2. Small bilateral pleural effusions which appear increased attenuation, suggesting hemopneumothorax.
3. Small amount of hemorrhage in the anterior mediastinum, likely related to CPR related trauma.
4. Right PICC catheter tip at the inferior cavoatrial junction.
5. Moderate hemoperitoneum, with blood clots and thrombus.
6. Enlarging low-attenuation lesion in the left lobe of the liver, suspicious for hematoma, possibly on the basis of CT or related liver injury/laceration.
7. Persistent renal nephrograms, concerning for acute tubular necrosis or contrast-induced nephropathy.
8. No retroperitoneal hemorrhage.
9. Numerous bilateral anterior rib fractures.
CXR 05/15/2024:
Stable appearance of the support lines and tubes.
Chronic elevation of the right hemidiaphragm. No pneumothorax.
Brain MRI 05/07/2024:
1. 3.5 cm region of signal abnormality in the cortical ibanez matter and subcortical white matter of the POSTERIOR RIGHT OCCIPITAL LOBE with associated edema and a mild intraparenchymal microhemorrhage. Diagnostic possibilities are (1) posterior
reversible encephalopathy syndrome (PRES), (2) an acute inflammatory or infectious encephalitis, (3) a slow flow cerebral vascular malformation, or (4) a primary or metastatic brain tumor.
2. Moderate white matter leukoaraiosis in both cerebral hemispheres.
3. Mild diffuse cerebral and cerebellar volume loss.
4. Severe discogenic degenerative disease at C3/C4 with a central disc-osteophyte complex causing moderate spinal cord compression and central canal stenosis.
Lower Extremity Duplex 05/16/2024:
1. Occlusive left popliteal vein thrombus.
2. No evidence of deep venous thrombosis in the right lower extremity
Subjective Dataa
Subjective Data
Date of Service:
Date of Service: May 17, 2024
Chief Complaint: Retail Training Manager Follow Up
Subjective:
Patient seen and evaluated this morning. Hb yesterday evening was 5.7. Received a total of 4 units PRBC yesterday. Hb this morning is 8.5. Stool was heme positive yesterday. Bloody output from chest tube with no airleak. Currently heart rate
105, BP 103/79, SpO2 100% AC/VC 22/70%/450/5 with PIP 27 cmH2O, VTe 430 and breathing at 24 b/min. Corneal reflexes + gag reflex are intact. Currently on vasopressin at 0.03 units/min, Jose-Synephrine at 130 mcg/min, epi at 10mcg/min, and levo
30mcg/min. Sedated on fentanyl at 100mcg/hr. he was made DNR last night. CT chest, abdomen, pelvis done last night shows a hemomediastinum + hemoperitoneum.
Review of Systems
General: Unobtainable - Pat Unresp
Objective Data
Data Reviewed
Vital Signs / I&O / Oxygen:
Vital Signs
Temp Pulse Resp BP Pulse Ox
98.2 F 102 21 123/79 100
05/17/24 07:31 05/17/24 08:00 05/17/24 08:00 05/17/24 08:00 05/17/24 08:31
Intake and Output
05/16/24 05/17/24 05/18/24
06:59 06:59 06:59
Intake Total 3786.6 / 3982.1 8338.0 / 8456.1 348.3 / 348.3
Output Total 750 / 750 218 / 218 46 / 46
Balance 3036.6 / 3232.1 8120.0 / 8238.1 302.3 / 302.3
SaO2 [A/C] 99
SaO2 100
Physical Exam
General: Respiratory Distress (negative), Chills (negative), Sweats (negative) and Other (ETT in place)
HEENT: Normocephalic and Anicteric
Cardiovascular: S1-S2 and Peripheral Edema (negative)
Respiratory: Wheeze (negative), Crackles (negative), Rhonchi (negative), Non-Labored Respirations, ET Tube (mechanical breath sounds heard bilaterally) and Chest Tube (right hemithorax)
GI: Soft, Non Distended, Non Tender and Normal Bowel Sounds
Neurology: Tremors (negative) and Unresponsive
Skin: Warm, Dry, Cyanosis (negative) and Jaundice (negative)
Labs/Micro/Reports
Lab Data
05/17/24 07:14
Laboratory Results
05/16/24 05/16/24 05/16/24
06:15 12:40 16:01
PT 17.9 H
INR 1.46
APTT Cancelled 64.6 H
pH 7.43
pCO2 54 H
pO2 204 H
HCO3 35.8 H
O2 Delivery Level
05/16/24 05/16/24 05/16/24
19:27 20:43 22:56
PT 28.4 H
INR 2.62
APTT > 200 H* > 200 H* 194.9 H*
pH
pCO2
pO2
HCO3
O2 Delivery Level
05/17/24 05/17/24
01:48 05:29
PT 23.6 H 22.1 H
INR 2.08 1.92
APTT 66.3 H 46.5 H
pH 7.22 L 7.24 L
pCO2 54 H 48
pO2 97 166 H
HCO3 22.1 20.6 L
O2 Delivery Level
[2024-05-17] MEDS: MIRALAX 17 GRAMS TUBE (08:45)
[2024-05-17] MEDS: SINEMET 25-100 1 TABLET TUBE ×4 (08:45→21:39)
[2024-05-17] MEDS: BACTROBAN 2% OINTMENT 1 APPLIC TOPICAL (08:45)
--- NOTE | 2024-05-17 08:53 | PTOTSP ---
Reviewed chart and events noted. Pt in ICU and intubated. Not appropriate for skilled PT at this time. PT will sign off at this time. Please re-order at a later date when stable to restart PT activity.
[2024-05-17 09:22] LABS: Glucose - Point of Care 157 mg/dl (70-99)
--- NOTE | 2024-05-17 09:29 | PTCARENOTE ---
Premedicated w/Fentanyl IVP for repositioning pt on his right side. He drained 46ml's SS fluid from his right ACW chest tube at that time. BUN and creatinine continues to rise. Unasyn dose due at this time. TT Dr. Carty regarding this dose given
recent BUN/Cret. Will hold for now as ordered. Will reevaluated in rounds.
[2024-05-17] MEDS: NSS (PRESERVATIVE FREE) 10 ML IV ×2 (10:01→19:56)
[2024-05-17] MEDS: PROTONIX IV 40 MG IV ×2 (10:02→19:56)
[2024-05-17] MEDS: SUBLIMAZE 100 IV ×2 (10:03→22:14)
--- NOTE | 2024-05-17 10:35 | PTCARENOTE ---
23 hours since pinto catheter removed. Pt has not voided yet. Bladder scans have been <250ml's. Dr. Carty aware. Plan is to straight cath for bladder scan >400ml's.
[2024-05-17] MEDS: UNASYN IV ×2 (11:07→21:37)
[2024-05-17 11:14] LABS: Glucose - Point of Care 158 mg/dl (70-99)
[2024-05-17] MEDS: ADRENALIN 258 MG IV (12:02)
--- NOTE | 2024-05-17 12:03 | CM ---
CM following rte: discharge planning.
Discussed in Rounds, reviewed pt's chart, met with pt. Per Rounds meeting, pt intubated on 05/15 due to recurrent cardiac arrests, remains intubated and sedated, on ventilator, continue supportive care, prognosis guarded.
D/C plan: uncertain at this time and will dep[end on pt's progress.
CM will follow with discharge plan updates as hospitalization progresses
--- NOTE | 2024-05-17 12:03 | W.PN.NEURO.1 ---
Today's Communication / Plan
-
MRI brain when able
Neuro Assessment/Plan
Assessment
69 yr. old male with h/o uncontrolled HTN renal insufficiency and possible Parkinson's presented with fever & AMS, admitted 05/02. MRI brain revealed 3.5 cm region of signal abnormality in the cortical ibanez matter and subcortical white matter of the
POSTERIOR RIGHT OCCIPITAL LOBE with associated edema and a mild intraparenchymal microhemorrhage felt to be d/t PRES 2/2 hypertension.
Now s/p PEA arrest x3 on 05/15/24, found to have saddle PE, DVT, cardiogenic shock with pneumothorax, rib fractures and multisystem organ failure; hypotensive, on pressors. HCT was unchanged compared to imaging prior in hospitalization.
He woke up and spoke ('What is going on here?') during his CTA, otherwise no purposeful speech/movement; moves all 4 extremities spontaneously but not to command, has not followed commands but remains sedated on propofol. No overt clinical seizure
activity noted.
On 05/16, EEG showed mild diffuse slowing and no epileptiform abnormalities/seizure. On 05/16 he also had another PEA arrest in the setting of IR procedure for suction thrombectomy of saddle PE.
His presentation is concerning for anoxic encephalopathy s/p cardiac arrest.
Results:
EEG, 05/16:
Mildly abnormal EEG for age in wakefulness through sleep due to mild diffuse bihemispheric slowing
CLINICAL CORRELATION:
This study was suggestive of mild diffuse cortical dysfunction without focal abnormality. No seizures were recorded.
HCT showed, 05/15 s/p code:
No acute intracranial hemorrhage.
There is prominent periventricular white matter hypodensity, most pronounced in the right occipital lobes, similar in appearance to prior.
MRI brain, 05/07:
1. 3.5 cm region of signal abnormality in the cortical ibanez matter and subcortical white matter of the POSTERIOR RIGHT OCCIPITAL LOBE with associated edema and a mild intraparenchymal microhemorrhage. Diagnostic possibilities are (1) posterior
reversible encephalopathy syndrome (PRES), (2) an acute inflammatory or infectious encephalitis, (3) a slow flow cerebral vascular malformation, or (4) a primary or metastatic brain tumor.
2. Moderate white matter leukoaraiosis in both cerebral hemispheres.
3. Mild diffuse cerebral and cerebellar volume loss.
4. Severe discogenic degenerative disease at C3/C4 with a central disc-osteophyte complex causing moderate spinal cord compression and central canal stenosis.
MRA neck, 05/07:
1. Mild atherosclerotic plaque in both proximal internal carotid arteries causing less than 50% diameter stenosis.
2. Mild diffuse hypoplasia of the right vertebral artery.
HCT, 05/02:
No evidence of acute intracranial abnormality.
Prominent decreased density within the periventricular white matter, especially within the posterior occipital lobes. Findings would suggest leukomalacia, advanced for the patient's age of 69 years. Mild to moderate atrophy.
Plan
-continue pressors, supportive care
-MRI brain when able to assess for evidence of anoxic injury
-continue neurochecks, seizure precautions
-reviewed cardiology, contact center specialist, nephrology, previous neurology notes, imaging results; discussed with nursing at bedside
Critical care time 30 mins
Will c/t follow
Subjective/Objective
Subjective Data
Date of Service: May 17, 2024
Objective Data
Vital Signs
Temp Pulse Resp BP Pulse Ox
98.1 F 102 21 123/79 100
05/17/24 12:03 05/17/24 08:00 05/17/24 08:00 05/17/24 08:00 05/17/24 11:25
PT 22.1 Sec (11.4-14.6) H 05/17/24 05:29
INR 1.92 05/17/24 05:29
APTT 46.5 Sec (23.4-35.0) H 05/17/24 05:29
Sodium 135 mmol/L (135-145) 05/17/24 07:14
Potassium 5.0 mmol/L (3.5-5.1) 05/17/24 07:14
BUN 56 mg/dl (9-20) H 05/17/24 07:14
Glucose 156 mg/dl (70-99) H 05/17/24 07:14
Calcium 7.6 mg/dl (8.4-10.2) L 05/17/24 07:14
Phosphorus 3.3 mg/dl (2.5-4.5) 05/16/24 05:22
Smj-I-Pinujhkeeog Pept 2920 pg/ml 05/15/24 23:44
LDL Cholesterol, Calc 34 mg/dl 05/16/24 05:22
Vitamin B12 359 pg/ml (239-931) 05/07/24 04:05
Patient Allergies
No Known Allergies Allergy (Verified 11/18/23 12:31)
Physical Exam
-
Mood & Affect: Unable to Assess (intubated and sedated, unresponsive to voice/noxious stimulation, follows no commands)
Memory: Unable to Assess
Tremor: Hand Tremor Absent
Involuntary Movement: None
Speech: Mute
Cranial Nerve II: Left Eye: Unable to Assess Visual Patel
Cranial Nerve II: Right Eye: Unable to Assess Visual Patel
Cranial Nerves III, IV, : Extraocular Movement: Unable to Assess
Cranial Nerve V: Facial Sensation: +corneals
Cranial Nerve VII: Facial Symmetry: Unable to Assess
Cranial Nerve VIII: Hearing: Unable to Assess
Cranial Nerve XI: Shoulder Shrug: Unable to Assess
Cranial Nerve XII: +gag
Muscle Strength, Overall: Negative Spontaneously Moves
Muscle Bulk & Tone: Reduced Tone (diffusely)
Deep Tendon Reflexes: Trace Throughout
Touch Sensation: Negative Withdrawal to Pain (in all 4 extremities)
Coordination: Unable to Assess
Babinski Sign: Other (mute bilaterally)
Gait & Station: Unable to Assess
[2024-05-17] MEDS: SUBLIMAZE 100 MCG IV ×3 (12:09→22:14)
--- NOTE | 2024-05-17 12:15 | PTCARENOTE ---
Repositioning pt. He opened his eyes. Upward gaze observed. He was able to wiggle his toes, when asked. I informed him of the plan of care. PERRLA +1. Gross anasarca. Smear light brown stool. +hypoactive BS bilateral lower quadrants. Aspiration
precautions maintained. Continuing to taper vasopressors as ordered.
[2024-05-17 12:21] LABS: Hematocrit 24.3 % (39.0-52.0); Hemoglobin 8.4 g/dL (13.0-18.0); Mean Corp Hgb Conc. 34.6 g/dL (33.0-37.0); Mean Corpuscular Hgb 28.8 pg (27.0-31.0); Mean Corpuscular Volume 83.2 fL (80.0-94.0); Mean Platelet Volume 10.4 fL (7.4-10.4); Platelet Count 135 10^3/uL (130-400); Red Blood Cell Count 2.92 10^6/uL (4.70-6.10); Red Cell Dist. Width 18.1 % (11.5-14.5); White Blood Cell Count 44.8 10^3/uL (4.8-10.8)
[2024-05-17 12:29] LABS: APTT 39.5 Sec (23.4-35.0); Fibrinogen 319 MG/DL (199-459); INR 1.49; PT 18.1 Sec (11.4-14.6)
[2024-05-17 12:32] LABS: Blood Urea Nitrogen 59 mg/dl (9-20); Calcium 7.4 mg/dl (8.4-10.2); Carbon Dioxide 25 mmol/L (22-30); Chloride 98 mmol/L (98-107); Estimated Creatinine Clearance 17 ml/min; Glucose 157 mg/dl (70-99); Magnesium 1.9 mg/dl (1.6-2.3); Potassium 5.5 mmol/L (3.5-5.1); Sodium 134 mmol/L (135-145); eGFR 14.15
[2024-05-17 12:41] LABS: Albumin 2.3 g/dl (3.5-5.0)
--- NOTE | 2024-05-17 13:30 | PTCARENOTE ---
Labs resulted. Dr. Carty notified of worsening BUN/ CRET, potassium, magnesium, HGB and platelets. Will administer magnesium at this time & repeat CMP with Mg, phos @1800 as ordered.
[2024-05-17] MEDS: MAGNESIUM OXIDE 500 MG TUBE (15:36)
[2024-05-17] MEDS: THERAGRAN PO (15:44)
--- NOTE | 2024-05-17 16:25 | W.PN.SURGUPD ---
Surgical Update
Surgical Update
pt with suspected hemoperitoneum and possible liver laceration or contusion post CPR this past evening
remains critically ill - intubated and sedated in ICU on numerous pressors
Hgb 9.6 -> 8.5, 8.4
therapeutic AC was stopped following CT imaging
continue to follow H&H and support with transfusions as needed
if concern for repeat/ongoing bleeding could consider CT a/p with contrast understanding and angioembolization if active extravasation
--- NOTE | 2024-05-17 17:43 | W.PN.HOSP.TC ---
Today's Communication/Plan
-
Patient remains critically ill
Continue intubation and mechanical ventilation
Continue vasopressors, hydrocortisone
Monitor labwork, cbc, cmp, magnesium closely
If there is concern for repeat/ongoing bleeding, call surgery/IR, could consider CT a/p with contrast understanding and angioembolization if active extravasation (as per surgery)
Assessment / Plan
Assessment / Plan
Physical Exam
General: Sedated and intubated
HEENT: Normocephalic
Respiratory: Breath sounds heard bilaterally, patient on mechanical ventilation. Chest tube.
Cardiac: Regular Rhythm and S1/S2
GI: Soft, Nontender, Nondistended and Normal Bowel Sounds
Musculoskeletal: No Cyanosis and No Edema
Neuro: Sedated
Psych: Calm
Assessment/Plan
#In-hospital cardiac arrest (PEA) due to acute PE in the setting of left lower extremity acute DVT
#Acute massive saddle PE now on catheter directed thrombolysis
#Enlarged Right Ventricle on Echocardiogram
#Secondary pneumothorax due to CPR status post right-sided chest tube on 05/15/24 by interventional radiology
#Acute left lower extremity popliteal DVT seen on bedside ultrasound
#Shock, likely obstructive shock
#Acute hypoxic and hypercapnic respiratory failure, currently on mechanical ventilation
-Patient had cardiopulmonary arrest on 05/15/24, 3 times, and then again during IR procedure on 05/16/24. In all instances, ROSC was able to be achieved.
-Bedside echo showed enlarged right ventricle and ultrasound of the lower extremities revealed LLE DVT
-Patient had already been on Heparin DVT prophylaxis dose since hospital admission, and was recently doing well (until cardiopulmonary arrest on 05/15/24), with no signs or symptoms of DVT or PE prior to cardiopulmonary arrest on 05/15/24
-Appreciate Assistant Dean management and help, vent adjustments as per tenant coordinator
-Continue chest tube as per tenant coordinator
-Received CDT (catheter-directed thrombolysis)
-On 05/16/24, IR removed a large amount of clot from right side, and good amount from the left, and repeat arteriogram showed significant improvement, with relatively good parenchymal perfusion.
-Stop heparin drip given bleeding and anemia
-Continue Vasopressors
-Continue Hydrocortisone
-Continue monitoring of blood pressure with the arterial line
-Additional IV fluids bolus given on 05/16/24 due to hypotension despite pressors
-No systemic tPA given his right occipital IPH seen on recent brain MRI from 05/07/2024, however if patient has another cardiac arrest then would give tPA as a bolus (assuming the family is aware of the high risk of bleeding -
including a hemorrhagic CVA)
-Neurology consulted given patient's recent suspected microhemorrhage finding on Brain MRI and because patient is high risk for ischemic encephalopathy given cardiac arrest
-Appreciate cardiology
#CPR related internal bleeding with anterior hemomediastinum and hemoperitoneum in setting of Heparin anticoagulation; also liver hematoma
#Acute Blood Loss Anemia
-Stop Heparin Drip
-Transfuse PRBC if Hb<7, keep plt>50k, INR<1.8
-If there is concern for repeat/ongoing bleeding could consider CT a/p with contrast understanding and angioembolization if active extravasation, as per surgery
#Severe metabolic acidosis likely from cardiac arrest
-Was on bicarb drip, now off
# Acute kidney injury on CKD 4
# Recent concern for non-traumatic rhabdomyolysis
-CK values had improved, previously
-Creatinine 2.3-->2.6-->3.1-->4.2-->4.0-->3.4-->2.4-->2.2-->2.1-->2.4-->2.7-->2.4-->2.6-->2.5-->....-->3.3->4.3
-Appreciate nephrology: it was initially suspected that this was all due to urinary retention and obstructive uropathy
-Nephrology following, may need to resume Zepeda Catheter soon
-Now JIMMY from cardiac arrest
-Hold Valsartan and Dapagliflozin
#Constipation
-Will need continued bowel regimen at some point
#Fever on 05/06/24
#Leukocytosis
WBC 18.9-->17.1-->14.8-->13.4-->11.7-->15.2-->16.8-->14.2-->13.3-->11.6-->11.2--->.....--->35.1
initially thought to be of unclear etiology. Input of ID appreciated, ?related to toe.
procal 0.35 (minimally elevated possibly from CKD)
#Necrotic area to the right 2nd toe - right second toe tip black hyperkeratotic lesion (?Verrucae vs subungular SCC vs benign)
-Checked COVID x2 -negative
-CXR (atelectasis), repeat UA
-Ordered renal and bladder ultrasound: as per radiologists' report No hydronephrosis or suspicious renal lesions. Bilateral renal cysts which measure up to 10.0 cm on the left and 5.6 cm on the right.
The urinary bladder is decompressed with Zepeda catheter.
-Consulted ID, appreciate their evaluation and recommendations
-IR attempted LP on 05/05/24 --> but dry tap x2
-NGTD blood cultures
-Wound care
-Outpatient referral to Podiatry for excisional biopsy
#Right occipital lobe white matter changes with history of uncontrolled hypertension which is due to suspected posterior reversible encephalopathy syndrome (per neurology) with 3.5cm R-occipital lobe IPH
#Intraparenchymal microhemorrhage on Brain MRI
-Neurology was consulted given patient's Parkinson's Disease and unclear etiology of confusion and leukocytosis. Confusion had been improving since 05/10/24 along with marked improvement in speech, prior to cardiac arrest
-MRI:1. 3.5 cm region of signal abnormality in the cortical ibanez matter and subcortical white matter of the POSTERIOR RIGHT OCCIPITAL LOBE with associated edema and a mild intraparenchymal microhemorrhage. Diagnostic possibilities are (1)
posterior reversible encephalopathy syndrome (PRES), (2) an acute inflammatory or infectious encephalitis, (3) a slow flow cerebral vascular malformation, or (4) a primary or metastatic brain tumor.
2. Moderate white matter leukoaraiosis in both cerebral hemispheres.
3. Mild diffuse cerebral and cerebellar volume loss.
4. Severe discogenic degenerative disease at C3/C4 with a central disc-osteophyte complex causing moderate spinal cord compression and central canal stenosis.
-Appreciate neurology, Dr. Rogers believes 3.5 cm signal abnormality is most consistent with posterior reversible encephalopathy syndrome (PRES). He also believes that pt has Parkinsonian dementia as a component.
-Re-consulted neurology given patient's hemorrhage on a recent MRI, prior to cardiopulmonary arrest
-EEG completed and results noted
-MRI brain when able to assess for evidence of anoxic injury
-Seizure precautions
#Urinary Retention reported by patient's spouse
-Bladder Scans protocol
-Zepeda catheter removed on 05/16/24 due to foul smell, but patient may need it again given recent JIMMY with obstructive uropathy thought to be the cause of the JIMMY
#Microscopic Hematuria
#Proteinuria
# Parkinson's
-Continue carbidopa-levodopa - Sinemet was increased to 25/100 QID as per neurology
-Modafinil 100 mg daily held for now
-Per patient's , patient sees Dr. Pozo outpatient -- planned for MRI brain in May 2024
#Essential hypertension
-Hold metoprolol for now given above
-Hold Amlodipine for now given above
#Hypercholesterolemia
#Hypothyroidism
-Continue levothyroxine
Psychiatric history
Gout
Osteoarthritis
Code Status: DNR
DVT prophylaxis�heparin
Diet: Tube Feeds
Intubation, mechanical ventilation, anemia, bleeding and post cardiac arrest is a high risk encounter.
Anticipated Discharge: > 48 hours
Subjective/Interval History
-
Date of Service: May 17, 2024
Patient was seen and examined. He remained intubated and sedated.
Objective Data
-
Labs:
Laboratory Results
05/17/24 05/17/24 05/17/24
05:29 07:14 12:00
WBC 43.0 H* 44.8 H*
Hgb 8.5 L 8.4 L
Hct 24.3 L 24.3 L
Plt Count 130 135
PT 22.1 H 18.1 H
INR 1.92 1.49
APTT 46.5 H 39.5 H
Sodium 135 134 L
Potassium 5.0 5.5 H
Chloride 99 98
Carbon Dioxide 23 25
BUN 56 H 59 H
Creatinine 4.0 H 4.3 H*
Glucose 156 H 157 H
Calcium 7.6 L 7.4 L
Total Bilirubin
AST
ALT
Alkaline Phosphatase
05/17/24 05/17/24
17:34 18:00
WBC Pending Cancelled
Hgb Pending Cancelled
Hct Pending Cancelled
Plt Count Pending Cancelled
PT Cancelled
INR Cancelled
APTT Cancelled
Sodium Pending
Potassium Pending
Chloride Pending
Carbon Dioxide Pending
BUN Pending
Creatinine Pending
Glucose Pending
Calcium Pending
Total Bilirubin Pending
AST Pending
ALT Pending
Alkaline Phosphatase Pending
Vital Signs:
Vital Signs
Temp Pulse Resp BP Pulse Ox
99.2 F 98 21 92/80 100
05/17/24 15:45 05/17/24 16:00 05/17/24 16:00 05/17/24 16:00 05/17/24 16:24
I&O
05/16/24 05/17/24 05/18/24
06:59 06:59 06:59
Intake Total 3786.6 / 3982.1 8338.0 / 8456.1 1277.2 / 1277.2
Output Total 750 / 750 218 / 218 46 / 46
Balance 3036.6 / 3232.1 8120.0 / 8238.1 1231.2 / 1231.2
[2024-05-17 17:45] LABS: Hematocrit 22.3 % (39.0-52.0); Hemoglobin 7.7 g/dL (13.0-18.0); Mean Corp Hgb Conc. 34.5 g/dL (33.0-37.0); Mean Corpuscular Hgb 28.5 pg (27.0-31.0); Mean Corpuscular Volume 82.6 fL (80.0-94.0); Mean Platelet Volume 10.3 fL (7.4-10.4); Platelet Count 97 10^3/uL (130-400); Red Cell Dist. Width 18.5 % (11.5-14.5); White Blood Cell Count 40.2 10^3/uL (4.8-10.8)
[2024-05-17 18:10] LABS: Lactic Acid 2.7 mmol/L (0.7-2.0)
[2024-05-17 18:11] LABS: ALT (SGPT) 26 U/L (0-50); AST (SGOT) 479 U/L (17-59); Albumin 2.2 g/dl (3.5-5.0); Alkaline Phosphatase 63 U/L (38-126); Blood Urea Nitrogen 63 mg/dl (9-20); Calcium 7.2 mg/dl (8.4-10.2); Carbon Dioxide 23 mmol/L (22-30); Chloride 97 mmol/L (98-107); Estimated Creatinine Clearance 16 ml/min; Glucose 141 mg/dl (70-99); Magnesium 1.9 mg/dl (1.6-2.3); Phosphorus 6.9 mg/dl (2.5-4.5); Potassium 5.7 mmol/L (3.5-5.1); Sodium 132 mmol/L (135-145); Total Bilirubin 0.9 mg/dl (0.2-1.3); Total Protein 4.3 g/dl (6.3-8.2); eGFR 13.05
--- NOTE | 2024-05-17 20:40 | PTCARENOTE ---
pt received from previous rn- ett to vent- pupils 2 sluggish, pt wiggling feet and rigid throughout body, does not follow commands. opens eyes spontaneously. pt with flail chest, right anterior chest tube to -20cm wall suction, serosang drainage
noted. site c/d/i. no crepitus. right side diminished on auscultation. pt with hypoactive lower quad. bowel sounds. sinus tach on monitor. left radial vishal zeroed and functioning- remains on vaso, levo, epi and restarted nicola gtt to maintain map
>65- Ken gonzalez at bedside- aware of lab results and need for increase pressors. 1 unit of prbc infusing per order. turned and repositioned. due to void- bladder scanned for 305cc. condom cath intact. oral care provided. right arm triple
lumen picc c/d/i, flushes with good blood return. all safety precautions in place.
[2024-05-17 21:48] LABS: Glucose - Point of Care 191 mg/dl (70-99)
[2024-05-17 23:17] LABS: Glucose - Point of Care 155 mg/dl (70-99)
[2024-05-18] VITALS (14 sets, daily range): BP systolic 89–144; BP diastolic 60–85; BMI 31.1
--- NOTE | 2024-05-18 00:21 | PTCARENOTE ---
received 1 unit prbc, weaning pressors per protocol to maintain map>65. assessment unchanged. labs sent per order. poc discussed with oli gonzalez.
[2024-05-18 00:36] LABS: Glucose - Point of Care 141 mg/dl (70-99)
[2024-05-18 00:43] LABS: Hematocrit 22.7 % (39.0-52.0); Hemoglobin 8.2 g/dL (13.0-18.0)
--- NOTE | 2024-05-18 01:42 | PTCARENOTE ---
oli gonzalez aware of pts bp throughout shift- ordered to titrate pressors see flowsheet- repeat hnh- no new orders at this time.
--- NOTE | 2024-05-18 04:08 | PTCARENOTE ---
pt remains rigid and tense during care, opens eyes spontaneously continues to not follow commands. pressors weaned as tolerated. full bed bath and am care provided. bladder scanned for 355cc oli gonzalez aware of no urine output- ordered to straight
cath, straight cathed for 500cc kanchan urine. assessment unchanged further, in nsr.
[2024-05-18] MEDS: SOLU-CORTEF 50 MG IV ×4 (04:58→22:06)
[2024-05-18] MEDS: PITRESSIN 100 IV (04:58)
[2024-05-18] MEDS: SYNTHROID 175 MCG TUBE (04:58)
[2024-05-18] MEDS: LEVOPHED 258 MG IV ×2 (04:58→17:32)
[2024-05-18 05:26] LABS: B.E. -2.2 mmol/L; HCO3 22.3 mmol/L (21-28); O2 Saturation % 99.4 % (94-98); PCO2 36 mmHg (35-48); PO2 200 mmHg (83-108)
[2024-05-18 05:31] LABS: Hematocrit 21.8 % (39.0-52.0); Hemoglobin 7.7 g/dL (13.0-18.0); Mean Corp Hgb Conc. 35.3 g/dL (33.0-37.0); Mean Corpuscular Hgb 28.7 pg (27.0-31.0); Mean Corpuscular Volume 81.3 fL (80.0-94.0); Mean Platelet Volume 10.7 fL (7.4-10.4); Platelet Count 89 10^3/uL (130-400); Red Blood Cell Count 2.68 10^6/uL (4.70-6.10); Red Cell Dist. Width 17.7 % (11.5-14.5); White Blood Cell Count 33.1 10^3/uL (4.8-10.8)
[2024-05-18 05:34] LABS: INR 1.18
[2024-05-18 05:35] LABS: APTT 36.8 Sec (23.4-35.0)
[2024-05-18 05:55] LABS: ALT (SGPT) 26 U/L (0-50); AST (SGOT) 278 U/L (17-59); Albumin 2.2 g/dl (3.5-5.0); Alkaline Phosphatase 72 U/L (38-126); Blood Urea Nitrogen 69 mg/dl (9-20); Calcium 7.2 mg/dl (8.4-10.2); Carbon Dioxide 22 mmol/L (22-30); Chloride 98 mmol/L (98-107); Direct Bilirubin 0.6 mg/dl (0.0-0.4); Estimated Creatinine Clearance 17 ml/min; Glucose 129 mg/dl (70-99); Phosphorus 5.9 mg/dl (2.5-4.5); Sodium 131 mmol/L (135-145); Total Protein 4.4 g/dl (6.3-8.2); Triglycerides 111 mg/dl (10-149)
[2024-05-18] MEDS: DEXTROSE 50% SYRINGE 25 GRAMS IV (06:09)
[2024-05-18] MEDS: NOVOLIN R 10 UNITS IV (06:09)
[2024-05-18 06:17] LABS: Glucose - Point of Care 128 mg/dl (70-99)
[2024-05-18] MEDS: CALCIUM GLUCONATE 100 IV (06:28)
[2024-05-18 07:29] LABS: Glucose - Point of Care 111 mg/dl (70-99)
--- NOTE | 2024-05-18 07:40 | PTCARENOTE ---
Received pt intubated with Fentanyl @75mcg/hr via right TL PICC. He opened his eyes to noxious stimuli. PERRLA +1. Upward gaze when eyes opened. Not following commands, bites on toothbrush with mouth care. Startles, and pedaling of his feet noted
intermittently without stimuli. Left radial arterial line transduced, calibrated and monitored. All ports patent and secured. Correlates to cuff pressure. Right TL PICC with Vasopressin & Norepinephrine per work list. Open port on PICC flushed and
patent with blood return. Left wrist and left AC#20g protective catheter flushed and patent. Gross anasarca, with profound weigh gain in the last 3 days. +palpable DP pulses with the right>left. Poor capillary refill. Weak radial pulses. #8ETT
secured 24 centered, repositioned on the left. Tolerating AC 22/450/.50/+5, RPT tapered FiO2 to .40. Pulse ox 99% while supine with HOB >30 degrees. Breath sounds on the right diminished, left base breath sounds diminished. Scant to no secretions
via ETT, minimal orally. +hypoactive BS LLQ. NPO. Right nare DHT secured 70cm. No residual. No urinary output. S/P straight cath from prior shift. Will continue to bladder scan Q6H as ordered. Heels elevated on air pillows with protective foam
dressings bilaterally. Scattered ecchymosis of his upper extremities. Right 2nd toe w/black necrotic lesion. Wound care as ordered. Protective foam to sacrum intact. Right femoral puncture site REEL BLADE BENDER FURNACE TENDER, scabbed. Aspiration precautions maintained. Safe
environment maintained.
--- NOTE | 2024-05-18 08:18 | W.PN.INTV ---
Today's Communication / Plan
Recommendations
Continue to tredn H/H, transfuse to keep Hb>7g/dL
Keep plt>50k, INR<1.8
Continue mechanical ventilation
Daily SAT/SBT
Given recurrent cardiac arrest he likely has STORE PERSON dysfunction due to hypoxic/ischemic encephalopathy
Neuro consulted, recs appreciated
Brain MRI when able to travel off the ICU floor
Worsening JIMMY --> not a candidate for CRRT given active internal bleeding with instable acute anemia
DNR
Guarded prognosis
Assessment
-
Assessment: 69-year-old M former tobacco smoker with a PMHx of CKD stage IV, hypertension, hypothyroidism, gout, history of pulmonary nodules, anxiety, memory impairment, sciatica and history of urinary incontinence who presents from home for
altered mental status. He was admitted to the floor for JIMMY and rhabdomyolysis with nephrology and neurology consulted. LP was attempted but no CSF fluid could be obtained. Brain MRI performed on 05/07/2024 showed a 3.5 cm region of signal
abnormality in the posterior right occipital lobe consistent with mild IPH likely due to posterior reversible encephalopathy syndrome. Patient also had parkinsonism features and Sinemet was started. On the evening of 05/15/2024 he suffered a PEA
cardiac arrest, ROSC obtained and he was brought to the ICU for further care. Supervisor Backfilling service is now consulted for additional management/recommendations.
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
Impression:
#Multiple in-hospital cardiac arrest (PEA) due to acute PE in the setting of left lower extremity acute DVT
#Acute massive saddle PE s/p catheter directed thrombolysis (05/15) with subsequent suction thrombectomy (05/16)
#CPR-related internal bleeding with anterior hemomediastinum + hemoperitoneum in setting of systemic AC; also liver hematoma with suspected liver laceration -->he has required multiple blood transfusions
#Acute blood loss anemia due to CPR in setting of heparin gtt to treat acute massive PE
#Secondary R-sided pneumothorax due to CPR s/p chest tube (placed by IR on 05/15)
#Acute left lower extremity popliteal DVT
#Severe metabolic acidosis likely due to cardiac arrest with lactic acidosis - acidosis now resolved
#Shock - initially due to severe metabolic acidosis, but now shock is due to hemorrhage in setting of obstructive shock due to acute saddle PE
#Acute respiratory failure with hypoxia + hypercapnia on mechanical ventilation
#Leukocytosis
#Elevated tropinin due to demand ischemia with type II OH in setting of severe acute blood loss anemia - troponin peaked at 9.15 on 05/16/2024
#Right occipital lobe white matter changes with history of uncontrolled hypertension which is due to suspected posterior reversible encephalopathy syndrome (per neurology) with 3.5cm R-occipital lobe IPH
#JIMMY on CKD (appears at baseline creatinine is approximately 2.4) - likely due to shock in setting of contrast-induced JIMMY
#Hx of anxiety
#Altered mental status with parkinsonism
#New onset atrial flutter with variable AV block (seen on EKG from 05/17/2024)
Plan:
- Continue with mechanical ventilation
- Titrate FiO2 + PEEP to maintain SpO2 >94%
- Maintain plateau pressure <30 with goal driving pressure 15�20
- Daily SAT/SBT if clinically appropriate
- When sedation is lowered he initially appeared to be awakening and was moving all 4 extremities, hence we held off on therapeutic hypothermia and instead will avoid fever --> as of 05/18 he is no longer awakening or following commands -->
neurology following, will check MRI brain when able to assess for hypoxic-ischemic encephalopathy
- Continue neurochecks
- He underwent R-sided chest tube on 05/15/2024 by IR --> keep at negative suction at [id number], and monitor for air leak
- Bloody output seen on 05/16/2024 which coincided with acute anemia --> continue to monitor output; no evidence of hemothorax on CT chest from 05/17/2024
- After his cardiac arrest on 05/15/2024, bedside ultrasound performed by Dr. Carty showed enlarged RV which was >LV, and confirmed presence of left lower extremity popliteal thrombus; no thrombus seen in the entire right lower extremity
- Interestingly he had been on heparin SQ 5,000 units q12hr since 05/03/2024
- CTA chest showed acute saddle PE and he underwent catheter directed thrombolysis on 05/15/2024 --> went back down to IR on 05/16/2024 for suction thrombectomy, where he suffered another PEA cardiac arrest. ROSC obtained and suction embolectomy
completed with large amount of embolus removed from the central right main, left main and main pulmonary trunk. There was significant improvement of the angiographic appearance of the embolus and significant improved parenchymal perfusion following
embolectomy.
- Official echo on 05/16/2024 showed enlarged RV with moderate-severely reduced RV systolic function, and moderate PH --> started dobutamine to help improve RV contractility ---> this was started on 05/16 however he became hypotensive afterwards
which coincided with him being in IR during thrombectomy --> for now we will keep dobutamine off
- LE duplex confirmed LLE popliteal DVT
- Troponin peaked at 9.15 on 05/16/2024 --> no need to continue trending at this point
- In the setting of hemoperitoneum/pneumomediastinum, stop all anticoagulation/antiplatelets
- Trend H/H and transfuse if needed to keep Hb>7g/dL; kep plt>50k
- General surgery consulted --> no acute indication for surgery samy given his poor prognosis; if pt continues to bleed w/ unstable anemia then could consider CTA A/P and IR angio/embolization if hemoperitoneum worsens - would want to first
establish goals of care before any additional imaging or procedure is performed
- He is at risk of hypoxic/ischemic encephalopathy due to recurrent cardiac arrest --> neurology consulted; EEG from 05/16/2024 shows mild diffuse cortical dysfunction without focal abnormality with no seizures were recorded.
- Neurology saw the patient today and unfortunately he has poor prognosis --> obtain brain MRI when able considering he is on multiple drips with severe circulatory shock and suffered multiple cardiac arrests
- Continue modafinil
- In setting of A-flutter, keep HR<110
- Unable to do heparin gtt given acute severe anemia
- Replete K>4, Mg>2
- Continue vasopressors
- Continue hydrocortisone 50mg IV q6hr x 3 days then wean down as tolerated
- Now off bicarb gtt
- Trend lactate until <2mmol/L
- Keep MAP>65
- Continue ABx for suspected aspiration (unasyn)
- Renally dose
-There is foul-smelling drainage from around his meatus seen on 05/16/2024. Pinto catheter has been in place for over several days, and was removed on 05/16 - continue to monitor without replacing Pinto catheter at this point
- His JIMMY continues to worsen
- He has a poor prognosis, and HD/CRRT is not being offered by nephrology, samy with his ongoing unstable anemia and hemodynamic compromise
- Continue diuresis to help prevent hyperkalemia and see if this improves UOP --> will start lasix gtt; continue q6hr bladder scans and if urinary retention requires straight cath >3 times, then re-insert pinto
- PICC team consult for better IV access - triple lumen inserted on 05/15/2024
- Replete electrolytes with K>4, Mg>2
- Maintain euglycemia with goal BG 140-180
- Continue sinemet; neurology on board with recs appreciated
- prn nebulized bronchodilators - not currently bronchospastic
- DVT ppx: SCDs
- Guarded prognosis
Critical care statement: A total of 47 minutes of critical care time was provided for this patient today. This includes management of unstable vital signs, evaluation of the patient at bedside, reviewing the patient's pertinent medical records
including radiographs, microbiology, laboratory evaluations, and discussion with primary team, consultants, pharmacy, nutrition, physical therapy, case management, charge nurse, critical care nursing, and respiratory therapy.
Data:
CTA Chest 05/15/2024:
1. Large, saddle pulmonary embolus extending from the distal main pulmonary artery into the right and left main pulmonary arteries, the bilateral lower lobe segmental and subsegmental pulmonary arteries as well as the right upper lobe segmental and
subsegmental pulmonary arteries. There is evidence of right heart strain with buffered bowing of the interventricular septum, elevated RV/LV ratio and reflux of contrast into the hepatic veins.
2. Large right-sided pneumothorax with partial collapse of the right lung.
3. Bilateral, displaced anterior rib fractures including the right second through fourth ribs within anterior costal cartilage fracture of the fifth rib on the right in the left second through fifth ribs. Findings are likely sequelae of chest
compressions.
4. Endotracheal tube tip terminates within the mid thoracic trachea. Nasoenteric feeding tube terminates within the stomach.
CT Chest/Abd/Pelvis w/o contrast 05/17/2024:
1. Small right-sided pneumothorax, decreased in size status post interval placement of a right-sided pigtail chest tube.
2. Small bilateral pleural effusions which appear increased attenuation, suggesting hemopneumothorax.
3. Small amount of hemorrhage in the anterior mediastinum, likely related to CPR related trauma.
4. Right PICC catheter tip at the inferior cavoatrial junction.
5. Moderate hemoperitoneum, with blood clots and thrombus.
6. Enlarging low-attenuation lesion in the left lobe of the liver, suspicious for hematoma, possibly on the basis of CT or related liver injury/laceration.
7. Persistent renal nephrograms, concerning for acute tubular necrosis or contrast-induced nephropathy.
8. No retroperitoneal hemorrhage.
9. Numerous bilateral anterior rib fractures.
CT Head 05/17/2024: No acute intracranial hemorrhage. No mass effect. Stable prominent periventricular and subcortical white matter diminished attenuation, most pronounced in the parietal and occipital lobes, right greater than left.
Brain MRI 05/07/2024:
1. 3.5 cm region of signal abnormality in the cortical ibanez matter and subcortical white matter of the POSTERIOR RIGHT OCCIPITAL LOBE with associated edema and a mild intraparenchymal microhemorrhage. Diagnostic possibilities are (1) posterior
reversible encephalopathy syndrome (PRES), (2) an acute inflammatory or infectious encephalitis, (3) a slow flow cerebral vascular malformation, or (4) a primary or metastatic brain tumor.
2. Moderate white matter leukoaraiosis in both cerebral hemispheres.
3. Mild diffuse cerebral and cerebellar volume loss.
4. Severe discogenic degenerative disease at C3/C4 with a central disc-osteophyte complex causing moderate spinal cord compression and central canal stenosis.
CXR 05/15/2024:
Stable appearance of the support lines and tubes.
Chronic elevation of the right hemidiaphragm. No pneumothorax.
CXR 05/18/2024:
1. Hazy bibasilar opacity, which may be related to subsegmental atelectasis, aspiration, or pneumonia.
2. No pneumothorax on the current study.
Lower Extremity Duplex 05/16/2024:
1. Occlusive left popliteal vein thrombus.
2. No evidence of deep venous thrombosis in the right lower extremity
Subjective Dataa
Subjective Data
Date of Service:
Date of Service: May 18, 2024
Chief Complaint: Supervisor Backfilling Follow Up
Subjective:
Patient seen and evaluated this morning. Heart rate 88, BP 106/73, saturating 93%. Intubated on: AC/VC 22/450/40%/5. He opens his eyes to noxious stimuli. Currently on vasopressin at 0.03 units/min, Levophed at 14mcg/min, and fentanyl drip at 50
mcg/hr. Has scant ETT secretions. Potassium level worsening (6 this AM), creatinine also worsenin.9 this morning. Received 1 unit PRBC last night and going to receive another unit today. Obtained urine this morning via straight cath for
500cc. He remains unresponsive. Chest tube with 62 cc over last 24 hours and there is no airleak this morning.
Review of Systems
General: Unobtainable - Pat Unresp
Objective Data
Data Reviewed
Vital Signs / I&O / Oxygen:
Vital Signs
Temp Pulse Resp BP Pulse Ox
98.9 F 84 23 99/71 90
05/18/24 07:40 05/18/24 07:31 05/18/24 07:31 05/18/24 07:31 05/18/24 08:47
Intake and Output
05/17/24 05/18/24 05/19/24
06:59 06:59 06:59
Intake Total 8338.0 / 8456.1 2615.3 / 2754.3 175.5 / 175.5
Output Total 218 / 218 562 / 562
Balance 8120.0 / 8238.1 2053.3 / 2192.3 175.5 / 175.5
SaO2 [A/C] 99
SaO2 90
Physical Exam
General: Respiratory Distress (negative), Chills (negative), Sweats (negative) and Other (ETT in place)
HEENT: Normocephalic and Anicteric
Cardiovascular: S1-S2 and Peripheral Edema (negative)
Respiratory: Wheeze (negative), Crackles (Bibasilar), Rhonchi (negative), Non-Labored Respirations, ET Tube (mechanical breath sounds heard bilaterally) and Chest Tube (right hemithorax currently with no airleak)
GI: Soft, Non Distended, Non Tender and Normal Bowel Sounds
Neurology: Tremors (negative), Unresponsive and Other (Corneal reflexes intact, intact gag/cough reflex)
Skin: Warm, Dry, Cyanosis (negative) and Jaundice (negative)
Labs/Micro/Reports
Laboratory Results
05/17/24 05/17/24 05/18/24
12:00 18:00 05:14
PT 18.1 H Cancelled 15.0 H
INR 1.49 Cancelled 1.18
APTT 39.5 H Cancelled 36.8 H
pH 7.40
pCO2 36
pO2 200 H
HCO3 22.3
O2 Delivery Level
[2024-05-18 08:23] LABS: Glucose - Point of Care 96 mg/dl (70-99)
--- NOTE | 2024-05-18 08:47 | PTCARENOTE ---
Right side lying, pulse ox 90-91% on .40 FiO2. Pt extremely rigid to move and reposition, draws his arm up into flexed position, no L/E movement.
[2024-05-18] MEDS: BACTROBAN 2% OINTMENT 1 APPLIC TOPICAL (08:51)
[2024-05-18] MEDS: MIRALAX 17 GRAMS TUBE (08:52)
[2024-05-18] MEDS: PROTONIX IV 40 MG IV ×2 (08:52→20:18)
[2024-05-18] MEDS: SINEMET 25-100 1 TABLET TUBE ×4 (08:52→22:07)
[2024-05-18] MEDS: NSS (PRESERVATIVE FREE) 10 ML IV ×2 (08:52→20:18)
[2024-05-18] MEDS: THERAGRAN 1 TABLET TUBE (08:52)
--- NOTE | 2024-05-18 08:56 | W.PN.HOSP.TC ---
Today's Communication/Plan
-
Continue pressors, antibiotics, hydrocortisone. No dialysis as per discussion between nephrology and patient's today.
Continue blood transfusions as needed.
Appreciate cto and all specialists involved.
Assessment / Plan
Assessment / Plan
Physical Exam
General: Sedated and intubated
HEENT: Normocephalic
Respiratory: Breath sounds heard bilaterally, patient on mechanical ventilation. Chest tube.
Cardiac: Regular Rhythm and S1/S2
GI: Soft, Nontender, Nondistended and Normal Bowel Sounds
Musculoskeletal: No Cyanosis and No Edema
Neuro: Sedated
Psych: Calm
Assessment/Plan
#In-hospital cardiac arrest (PEA) due to acute PE in the setting of left lower extremity acute DVT
#Acute massive saddle PE now on catheter directed thrombolysis
#Enlarged Right Ventricle on Echocardiogram
#Secondary pneumothorax due to CPR status post right-sided chest tube on 05/15/24 by interventional radiology
#Acute left lower extremity popliteal DVT seen on bedside ultrasound
#Shock, likely obstructive shock
#Acute hypoxic and hypercapnic respiratory failure, currently on mechanical ventilation
-Patient had cardiopulmonary arrest on 05/15/24, 3 times, and then again during IR procedure on 05/16/24. In all instances, ROSC was able to be achieved.
-Bedside echo showed enlarged right ventricle and ultrasound of the lower extremities revealed LLE DVT
-Patient had already been on Heparin DVT prophylaxis dose since hospital admission, and was recently doing well (until cardiopulmonary arrest on 05/15/24), with no signs or symptoms of DVT or PE prior to cardiopulmonary arrest on 05/15/24
-Appreciate Car Shunter management and help, vent adjustments as per cto
-Continue chest tube as per cto
-Received CDT (catheter-directed thrombolysis)
-On 05/16/24, IR removed a large amount of clot from right side, and good amount from the left, and repeat arteriogram showed significant improvement, with relatively good parenchymal perfusion.
-Stop heparin drip given bleeding and anemia
-Continue Vasopressors -- wean as tolerated
-Continue intravenous Hydrocortisone
-Continue monitoring of blood pressure with the arterial line
-Additional IV fluids bolus given on 05/16/24 due to hypotension despite pressors
-No systemic tPA given his right occipital IPH seen on recent brain MRI from 05/07/2024, however if patient has another cardiac arrest then would give tPA as a bolus (assuming the family is aware of the high risk of bleeding -
including a hemorrhagic CVA)
-Neurology consulted given patient's recent suspected microhemorrhage finding on Brain MRI and because patient is high risk for ischemic encephalopathy given cardiac arrest
-Appreciate cardiology
#CPR related internal bleeding with anterior hemomediastinum and hemoperitoneum in setting of Heparin anticoagulation; also liver hematoma
#Acute Blood Loss Anemia
-Stop Heparin Drip
-Received 5 units of PRBCs so far
-Transfuse PRBC if Hb<7, keep plt>50k, INR<1.8
-If concern for repeat/ongoing bleeding could consider CT a/p with contrast understanding and angioembolization if active extravasation
#Severe metabolic acidosis likely from cardiac arrest
-Was on bicarb drip, now off
# Acute kidney injury on CKD 4
# Recent concern for non-traumatic rhabdomyolysis
-CK values had improved, previously
-Creatinine 2.3-->2.6-->3.1-->4.2-->4.0-->3.4-->2.4-->2.2-->2.1-->2.4-->2.7-->2.4-->2.6-->2.5-->....-->3.3->4.3->5.2
-Appreciate nephrology: it was initially suspected that this was all due to urinary retention and obstructive uropathy
-Nephrology following, okay to hold Zepeda Catheter at this time
-Nephrology contacted patient's regarding dialysis, and since dialysis in patient's case can result in more complications, patient's agreed not to pursue dialysis for him at this time
-Now JIMMY from cardiac arrest
-Hold Valsartan and Dapagliflozin
#Constipation
#Fever on 05/06/24
#Leukocytosis
WBC 18.9-->17.1-->14.8-->13.4-->11.7-->15.2-->16.8-->14.2-->13.3-->11.6-->11.2--->.....--->35.1
initially thought to be of unclear etiology. Input of ID appreciated, ?related to toe.
procal 0.35 (minimally elevated possibly from CKD)
#Necrotic area to the right 2nd toe - right second toe tip black hyperkeratotic lesion (?Verrucae vs subungular SCC vs benign)
-Checked COVID x3 -negative
-CXR (atelectasis), repeat UA
-Ordered renal and bladder ultrasound: as per radiologists' report No hydronephrosis or suspicious renal lesions. Bilateral renal cysts which measure up to 10.0 cm on the left and 5.6 cm on the right.
The urinary bladder is decompressed with Zepeda catheter.
-Consulted ID, appreciate their evaluation and recommendations
-IR attempted LP on 05/05/24 --> but dry tap x2
-NGTD blood cultures
-Wound care
-Was planned for outpatient referral to Podiatry for excisional biopsy
#Right occipital lobe white matter changes with history of uncontrolled hypertension which is due to suspected posterior reversible encephalopathy syndrome (per neurology) with 3.5cm R-occipital lobe IPH
#Intraparenchymal microhemorrhage on Brain MRI
-Neurology was consulted given patient's Parkinson's Disease and unclear etiology of confusion and leukocytosis. Confusion had been improving since 05/10/24 along with marked improvement in speech, prior to cardiac arrest
-MRI:1. 3.5 cm region of signal abnormality in the cortical ibanez matter and subcortical white matter of the POSTERIOR RIGHT OCCIPITAL LOBE with associated edema and a mild intraparenchymal microhemorrhage. Diagnostic possibilities are (1)
posterior reversible encephalopathy syndrome (PRES), (2) an acute inflammatory or infectious encephalitis, (3) a slow flow cerebral vascular malformation, or (4) a primary or metastatic brain tumor.
2. Moderate white matter leukoaraiosis in both cerebral hemispheres.
3. Mild diffuse cerebral and cerebellar volume loss.
4. Severe discogenic degenerative disease at C3/C4 with a central disc-osteophyte complex causing moderate spinal cord compression and central canal stenosis.
-Appreciate neurology, Dr. Rogers believes 3.5 cm signal abnormality is most consistent with posterior reversible encephalopathy syndrome (PRES). He also believes that pt has Parkinsonian dementia as a component.
-Re-consulted neurology given patient's hemorrhage on a recent MRI, prior to cardiopulmonary arrest
-EEG completed and results noted
-MRI brain when able to assess for evidence of anoxic injury
-Seizure precautions
#Urinary Retention reported by patient's spouse
-Bladder Scans protocol
-Zepeda catheter removed on 05/16/24 due to foul smell, but patient might need it again given recent JIMMY with obstructive uropathy thought to be the cause of the JIMMY
#Microscopic Hematuria
#Proteinuria
# Parkinson's
-Continue carbidopa-levodopa - Sinemet was increased to 25/100 QID as per neurology
-Modafinil 100 mg daily held for now
-Per patient's , patient sees Dr. Pozo outpatient -- planned for MRI brain in May 2024
#Essential hypertension
-Hold metoprolol for now given above
-Hold Amlodipine for now given above
-Hold Valsartan for now given above
#Hypercholesterolemia
#Hypothyroidism
-Continue levothyroxine
Psychiatric history
Gout
Osteoarthritis
Code Status: DNR
DVT prophylaxis�heparin
Diet: Tube Feeds
Intubation, mechanical ventilation, anemia, bleeding and post cardiac arrest is a high risk encounter.
Anticipated Discharge: > 48 hours
Subjective/Interval History
-
Date of Service: May 18, 2024
Patient was seen and examined. He remains intubated, sedated and on pressors.
Objective Data
-
Labs:
Laboratory Results
05/18/24 05/18/24 05/18/24
00:26 05:14 05:14
WBC 33.1 H
Hgb 8.2 L 7.7 L
Hct 22.7 L 21.8 L
Plt Count 89 L
PT 15.0 H
INR 1.18
APTT 36.8 H
HCO3 22.3 Pending
Sodium 131 L
Potassium 6.0 H
Chloride 98
Carbon Dioxide 22
BUN 69 H
Creatinine 4.9 H*
Glucose 129 H
Calcium 7.2 L
Total Bilirubin 1.0
AST 278 H
ALT 26
Alkaline Phosphatase 72
05/18/24
10:00
WBC
Hgb Pending
Hct Pending
Plt Count
PT
INR
APTT
HCO3
Sodium Pending
Potassium Pending
Chloride Pending
Carbon Dioxide Pending
BUN Pending
Creatinine Pending
Glucose Pending
Calcium Pending
Total Bilirubin
AST
ALT
Alkaline Phosphatase
Vital Signs:
Vital Signs
Temp Pulse Resp BP Pulse Ox
98.9 F 84 23 99/71 90
05/18/24 07:40 05/18/24 07:31 05/18/24 07:31 05/18/24 07:31 05/18/24 08:47
I&O
05/17/24 05/18/24 05/19/24
06:59 06:59 06:59
Intake Total 8338.0 / 8456.1 2615.3 / 2754.3 175.5 / 175.5
Output Total 218 / 218 562 / 562
Balance 8120.0 / 8238.1 2053.3 / 2192.3 175.5 / 175.5
--- NOTE | 2024-05-18 09:45 | W.PN.CARDCBS ---
Today's Communication / Plan
-
Remains critically ill but pressor support has decreased.
Continue to wean Levophed and vasopressin as needed.
Hemoglobin down to 7.7 with likely liver laceration. Continue transfusion and supportive care.
Currently off anticoagulation
Troponin is abnormal but likely in the setting of massive PE and hypotension.
Prognosis is poor
Impression / Plan
-
PCP: Alicia Yanez PA-C
Cardiology: None prior to admission
Impression:
s/p PEA arrest x3 05/15/24 and again in IR during thrombectomy 05/16/24
Admitted with change in mental status 05/02/24
In-hospital cardiac arrest
PEA treated with Epi, CPR, intubation and then Epi gtt at 1800 on 05/15/24
PEA treated with Epi, CPR, Bicarb, calcium gluconate, bedside u/s showed enlarged RV and LLE DVT at 1821 on 05/15/24
PEA treated CPR, Epi, Bicarb, CTA chest confirmed PE and Heparin gtt started at 1934 on 05/15/24
PEA treated with CPR, Epi and Bicarb during thrombectomy 05/16/24
Saddle PE and catheter directed thrombolysis via right chest tube started 2301 on 05/15/24
Hypotension and shock
Elevated LFTs and shock liver
Liver laceration
LLE DVT by u/s 05/15/24
Right-sided PTX with CT placement 05/15/24
Hemoperitoneum, possible liver injury/laceration by CT 05/17/24
Elevated Troponin
Abnormal ECG
Acute hypoxic respiratory failure
JIMMY on CKD 4
Parkinson's disease
HTN
Hyperlipidemia
Right 2nd toe nonhealing wound
Echo 05/16/24: EF 70 to 75%, normal regional wall motion, mild concentric LVH, enlarged RV size, moderate to severely reduced RV systolic function mild TR with PAP 40 to 45 mmHg
Plan:
-Overnight events noted, patient now with flail chest and hemoperitoneum with concern for liver injury/laceration on CT. Heparin gtt stopped. Patient is not a surgical candidate. Patient is now a limited DNR with no additional CPR, meds and vent
only.
-Continue supportive care.
-Hemoglobin down to 7.7. Continue to transfuse as needed.
-Troponin peaked at 9.15 on 05/16/24. ECG with anterior T wave inversions. Recommend conservative therapy for now
-EF stable without WMA by echo. RV enlarged and moderately to severely reduced RV systolic function in the setting of PE
-LDL 34
-Outpatient doses of Toprol XL 50 mg daily and valsartan 80 mg daily on hold
-His pressor requirement has decreased and he is now on Levophed and vasopressin. Off epinephrine.
CC time 34 min
HPI: Patient came to [facility] on 05/02/24 with change in mental status and has been admitted since then for work-up and had an in-hospital cardiac arrest last night and cardiology is now consulted. Patient lives at home with his who works for [employer] in
[place]. Patient has not seen cardiology in the past. Patient reportedly lowered himself to the floor the night prior to admission to perform an unknown activity and then could not stand on his own and refused help so he slept on the floor that
night. The next day he still could not get up and his family called 911. Patient was admitted for change in mental status and JIMMY on CKD 4. He was seen by nephrology and given IVFs. Patient was already following with neurology as an outpatient for
possible Parkinson's disease work-up and so neurology saw him this admission as well and an LP was attempted, but no fluid could be collected. He seemed to be improving from JIMMY standpoint and Neuro continued Sinemet. ID stopped antibiotics, but WBC
continued to trend up. Patient was awaiting SNF placement which was delayed due to ongoing confusion requiring med sitter services. Psychiatry saw patient yesterday. Later last evening patient had bed sitter removed from room and hours later cried
out that he was having chest pain and felt like he was having a heart attack and then coded. Code details as above. Patient now in ICU with Levo, Epi and Jose running. Troponin up to 9 and ECG abnormal.
Progress Note - [employer]
Subjective
Date of Service: May 18, 2024
Intubated and sedated on multiple pressors.
Objective
Labs:
Labs
Hgb 7.7 g/dL (13.0-18.0) L 05/18/24 05:14
Hct 21.8 % (39.0-52.0) L 05/18/24 05:14
Plt Count 89 10^3/uL (130-400) L 05/18/24 05:14
PT 15.0 Sec (11.4-14.6) H 05/18/24 05:14
INR 1.18 05/18/24 05:14
APTT 36.8 Sec (23.4-35.0) H 05/18/24 05:14
Sodium 131 mmol/L (135-145) L 05/18/24 05:14
Potassium 6.0 mmol/L (3.5-5.1) H 05/18/24 05:14
BUN 69 mg/dl (9-20) H 05/18/24 05:14
Creatinine 4.9 mg/dL (0.7-1.3) H* 05/18/24 05:14
Glucose 129 mg/dl (70-99) H 05/18/24 05:14
Troponins
05/15/24 05/16/24 05/16/24
23:44 05:22 09:20
Troponin I 7.980 H* 9.020 H* 9.150 H*
05/16/24 05/16/24
12:40 16:00
Troponin I 8.970 H* 7.800 H*
Vital Signs and I&O:
Vital Signs
Temp Pulse Resp BP Pulse Ox
98.9 F 84 23 99/71 90
05/18/24 07:40 05/18/24 07:31 05/18/24 07:31 05/18/24 07:31 05/18/24 08:47
Vital Signs
Temp Pulse Resp BP Pulse Ox
98.9 F 84 23 99/71 90
05/18/24 07:40 05/18/24 07:31 05/18/24 07:31 05/18/24 07:31 05/18/24 08:47
Intake & Output
05/16/24 05/17/24 05/18/24 05/19/24
06:59 06:59 06:59 06:59
Intake Total 3786.6 / 3982.1 8338.0 / 8456.1 2615.3 / 2754.3 175.5 / 175.5
Output Total 750 / 750 218 / 218 562 / 562
Balance 3036.6 / 3232.1 8120.0 / 8238.1 2053.3 / 2192.3 175.5 / 175.5
Physical Exam
Physical Exam
GEN: No distress, intubated and sedated
HEENT: supple, anicteric, mmm, ET tube
LUNGS: bilat rhonchi
CV: Reg, S1/S2, 1/6 syst LSB, no gallop
ABD: soft, BS+, NT/ND
EXT: No edema
NEURO: sedated
SKIN: No rash
[2024-05-18 10:08] LABS: Glucose - Point of Care 118 mg/dl (70-99)
--- NOTE | 2024-05-18 10:11 | W.PN.NEPH.PH ---
Today's Communication / Plan
-
lasix, follow repeat labs
if enteral route accessible, try Lokelma
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
Assessment/Plan
-
Assessment
CKD 4 (2.2-2.4)
JIMMY
Urinary retention
Mental status change
Parkinson's
Hypertension
Metabolic acidosis
MRI brain + 3.5cm lesion posterior right occipital lobe
Status post PEA event on 05/15/2024 with associated saddle embolus
Plan
JIMMY -ATN continues to worsen with creatinine now up to 4.9, oliguric
worsening hyperkalemia, s/p temporization this am , will give lasix
multiple cardiac arrest with PEA so far, noted left lower extremity popliteal DVT and saddle PE
status post clot thrombectomy, now off AC for liver lac and bleeding
prn transfusions continue, hb at 7.7
Remains on pressor support, keep MAP >65
Patient now DNR, no ACLS
I would not pursue CRRT as I do not believe this is even feasible given his ongoing hemorrhaging and hemodynamic compromise on pressors
I also do not believe the modality is indicated as patient is now DNR no ACLS
remains off Zepeda due to gross purulent discharge
poor prognosis, left VM on wifes phone to call back
Patient remains critically ill with vent dependent respiratory failure worsening renal failure, anemia-from bleeding, and pressor dependent hypotension
35 minutes critical care time spent with patient
d/w nursing and ICU
-
-
Date of Service: May 18, 2024
CC / HPI / ROS
-
Chief Complaint:
JIMMY
History of Present Illness:
JIMMY/Cr up to 4.9, oliguric
Multiple PEA cardiac arrests
Remains on 2 pressor support
Remains intubated
Bilateral saddle embolus now off heparin drip and alteplase infusion due to hemorrhage
WBC improving, hb lo 7.7
k high 6, sodium low 131
Review of Systems:
oligoanuric
Weights up
Intubated and sedated
Labs
-
Labs:
WBC 33.1 10^3/uL (4.8-10.8) H 05/18/24 05:14
RBC 2.68 10^6/uL (4.70-6.10) L 05/18/24 05:14
Plt Count 89 10^3/uL (130-400) L 05/18/24 05:14
eGFR 12.10 05/18/24 05:14
Phosphorus 5.9 mg/dl (2.5-4.5) H 05/18/24 05:14
Wfx-M-Fujalwzsnxo Pept 2920 pg/ml 05/15/24 23:44
Albumin 2.2 g/dl (3.5-5.0) L 05/18/24 05:14
Physical Exam
-
Vital Signs:
Vital Signs
Temp Pulse Resp BP Pulse Ox
98.9 F 84 23 99/71 90
05/18/24 07:40 05/18/24 07:31 05/18/24 07:31 05/18/24 07:31 05/18/24 08:47
Cardiovascular:: Regular rate and rhythm
Respiratory:: Bilateral: Coarse
Lung Excursion:: Abnormal
Abdomen:: Soft
Extremity Edema:: +1: Bilateral:
Zepeda Catheter: No
[2024-05-18 10:15] LABS: Hematocrit 21.3 % (39.0-52.0); Hemoglobin 7.6 g/dL (13.0-18.0)
--- NOTE | 2024-05-18 10:19 | PTCARENOTE ---
Discussed the plan of care with rounds. Reviewed laboratory data, hemodynamics, vasopressor support, neuro status, urinary retention, & current ventilator settings. Will continue to monitor, taper vasopressors as ordered & trend laboratory data as
ordered.
[2024-05-18 11:08] LABS: Blood Urea Nitrogen 72 mg/dl (9-20); Calcium 7.6 mg/dl (8.4-10.2); Carbon Dioxide 22 mmol/L (22-30); Chloride 97 mmol/L (98-107); Estimated Creatinine Clearance 16 ml/min; Glucose 117 mg/dl (70-99); Potassium 5.8 mmol/L (3.5-5.1); Sodium 131 mmol/L (135-145); eGFR 11.27
--- NOTE | 2024-05-18 11:09 | W.PN.GS2 ---
Addendum entered and electronically signed by Marek Velazquez MD 05/18/24 14:15:
Patient seen and examined.
Intubated and sedated, minimally responsive
Abd: soft, no wincing with abd palpation, moderate distension, mild ecchymosis
Patient is a 69 yo M with multiple comorbidities with suspected hemoperitoneum and possible liver laceration or contusion post CPR
remains critically ill - intubated and sedated in ICU on numerous pressors
S/P 4 units after initial event and one more overnight
H/H relatively stable since that time
Therapeutic AC was stopped, would continue on hold
Plan:
No emergent surgical intervention planned
Continue to follow H&H and support with transfusions as needed
If concern for repeat/ongoing bleeding could consider CT a/p with contrast understanding and angioembolization if active extravasation
Original Note:
Today's Communication / Plan
-
follow h/h
Assessment / Plan
-
69 yo male with multiple comorbidities with suspected hemoperitoneum and possible liver laceration or contusion post CPR
remains critically ill - intubated and sedated in ICU on numerous pressors
S/P 4 units after initial event and one more overnight
H/H relatively stable since that time
therapeutic AC was stopped, would continue on hold
Plan:
no emergent surgical intervention planned
continue to follow H&H and support with transfusions as needed
if concern for repeat/ongoing bleeding could consider CT a/p with contrast understanding and angioembolization if active extravasation
Subjective Data
-
Date of Service: May 18, 2024
Objective Data
-
Intake and Output
05/17/24 05/18/24 05/19/24
06:59 06:59 06:59
Intake Total 8338.0 / 8456.1 2615.3 / 2754.3 346.1 / 346.1
Output Total 218 / 218 562 / 562
Balance 8120.0 / 8238.1 2053.3 / 2192.3 346.1 / 346.1
Intake:
IV fluids (Total) 6063.0 / 6181.1 1865.3 / 1904.3 156.1 / 156.1
0.9nss 1 liter fluid bolus 1999 / 1999
Epinephrine 476.6 / 495.4 251.7 / 251.7
Fentanyl 130.0 / 140.0 200.0 / 207.5 22.5 / 22.5
Heparin 57.5 / 57.5
Neosynephrine 522 / 546 120.0 / 120.0
Norepinephrine 1883.9 / 1940.2 1086.6 / 1109.1 97.6 / 97.6
Nss 990 ml @ 1 MG/HR 100 mls/hr 800 / 800
INF CATH .Q10H ARELI with
Cathflo/Activase 10 mg Rx#:
[id number]
Propofol 40 / 40
Sterile Water For Injection 0 / 0
1000 ml 1,000 ml @ 75 mls/hr IV
.[id number] ARELI with Sodium
Bicarbonate 150 Meq Rx#:
[id number]
Vasopressin 153 / 162 207 / 216 36 / 36
IV piggybacks 750 / 750 200 / 300 100 / 100
Feeding tube flush amount 25 / 25 300 / 300 90 / 90
Blood Products 1000 / 1000
Packed red blood cells 1000 / 1000
Blood Product Amount Infused ( 500 / 500 250 / 250
mL)
Packed Rbc Leukoreduced Unit 250 / 250
[id number]
Packed Rbc Leukoreduced Unit 250 / 250
[id number]
Packed Rbc Leukoreduced Unit 250 / 250
[id number]
Output:
CT Output (Total) 140 / 140 62 / 62
Right Upper Anterior 140 / 140 62 / 62
Urine, Zepeda 78 / 78
Straight cath output 500 / 500
Vital Signs
Temp Pulse Resp BP Pulse Ox
98.9 F 84 23 99/71 90
05/18/24 07:40 05/18/24 07:31 05/18/24 07:31 05/18/24 07:31 05/18/24 08:47
Lab Results
05/18/24 09:55
05/18/24 09:55
Calcium 7.6 mg/dl (8.4-10.2) L 05/18/24 09:55
Phosphorus 5.9 mg/dl (2.5-4.5) H 05/18/24 05:14
Magnesium 2.0 mg/dl (1.6-2.3) 05/18/24 05:14
Total Bilirubin 1.0 mg/dl (0.2-1.3) 05/18/24 05:14
Direct Bilirubin 0.6 mg/dl (0.0-0.4) H 05/18/24 05:14
AST 278 U/L (17-59) H 05/18/24 05:14
ALT 26 U/L (0-50) 05/18/24 05:14
Alkaline Phosphatase 72 U/L (38-126) 05/18/24 05:14
Total Protein 4.4 g/dl (6.3-8.2) L 05/18/24 05:14
Albumin 2.2 g/dl (3.5-5.0) L 05/18/24 05:14
[2024-05-18] MEDS: FLEXBUMIN 100 IV ×4 (11:52→20:17)
[2024-05-18 12:21] LABS: Glucose - Point of Care 127 mg/dl (70-99)
[2024-05-18] MEDS: LASIX 80 MG IV (13:12)
--- NOTE | 2024-05-18 13:32 | PTCARENOTE ---
First albumin infusion nearly complete when 80mg IVP Lasix administered as ordered. Bladder scanned for 135ml's when IVP Lasix given. Will continue to assess and taper vasopressors as ordered.
--- NOTE | 2024-05-18 13:36 | PTCARENOTE ---
Easily awakens. He immediately brought his hand up towards his face. He was oriednted to the recent events and that he is om a ventilator and cannot talk. Uncertain if he understood information.
--- NOTE | 2024-05-18 15:40 | W.PN.UPDATE ---
Update Note
Progress Note Update
spoke with on phone in detail about worsening renal function and persistent hyperkalemia
lasix with no response
We reviewed terminal system operator prognosis is poor with recent multiple cardiac arrests
may not tolerate dialysis with unstable vitals and requiring pressors
She understands dialysis likely will result in more complications than any benefit at this point and agreed not to pursue
--- NOTE | 2024-05-18 15:46 | CM ---
CM following rte: discharge planning.
Discussed in Rounds, reviewed pt's chart, met with pt. Per Rounds meeting, pt remains intubated and sedated, on ventilator, continue supportive care, prognosis guarded.
D/C plan: uncertain at this time and will depend on pt's progress.
CM will follow with discharge plan updates as hospitalization progresses
[2024-05-18 16:26] LABS: Hematocrit 17.6 % (39.0-52.0); Hemoglobin 6.3 g/dL (13.0-18.0); Mean Corp Hgb Conc. 35.8 g/dL (33.0-37.0); Mean Corpuscular Hgb 28.9 pg (27.0-31.0); Mean Corpuscular Volume 80.7 fL (80.0-94.0); Mean Platelet Volume 10.9 fL (7.4-10.4); Platelet Count 56 10^3/uL (130-400); Red Blood Cell Count 2.18 10^6/uL (4.70-6.10); Red Cell Dist. Width 17.6 % (11.5-14.5); White Blood Cell Count 24.5 10^3/uL (4.8-10.8)
--- NOTE | 2024-05-18 16:36 | PTCARENOTE ---
Dr. Carty ntified of recent CBC. Will transfuse as ordered.
[2024-05-18 16:48] LABS: ALT (SGPT) 22 U/L (0-50); AST (SGOT) 172 U/L (17-59); Albumin 2.8 g/dl (3.5-5.0); Alkaline Phosphatase 65 U/L (38-126); Blood Urea Nitrogen 76 mg/dl (9-20); Calcium 7.5 mg/dl (8.4-10.2); Carbon Dioxide 23 mmol/L (22-30); Chloride 96 mmol/L (98-107); Estimated Creatinine Clearance 16 ml/min; Glucose 106 mg/dl (70-99); Magnesium 2.1 mg/dl (1.6-2.3); Phosphorus 5.4 mg/dl (2.5-4.5); Potassium 5.5 mmol/L (3.5-5.1); Sodium 132 mmol/L (135-145); Total Protein 4.9 g/dl (6.3-8.2); eGFR 10.77
--- NOTE | 2024-05-18 20:30 | PTCARENOTE ---
cook mess, pt opens eyes spontaneously, appears restless with care, tense movements- no commands. SR HR 70s-90s. +anasarca. RTL PICC, LUE IV x 2 intact- Levo gtt infusing per work list. L yoon AL WNL. intubated, Sat 99% on 40%Fi02, intermittent
coughing. R CT WNL. R dht intact- clamped. bladder scan protocol ongoing. full assessments on work list.
[2024-05-18] MEDS: SUBLIMAZE 100 MCG IV ×2 (20:34→22:44)
[2024-05-18] MEDS: LASIX 50 IV (21:38)
[2024-05-18] MEDS: UNASYN IV (22:07)
[2024-05-18 23:21] LABS: Hematocrit 17.7 % (39.0-52.0); Hemoglobin 6.3 g/dL (13.0-18.0); Mean Corp Hgb Conc. 35.6 g/dL (33.0-37.0); Mean Corpuscular Volume 81.6 fL (80.0-94.0); Mean Platelet Volume 10.2 fL (7.4-10.4); Platelet Count 44 10^3/uL (130-400); Red Blood Cell Count 2.17 10^6/uL (4.70-6.10); Red Cell Dist. Width 17.4 % (11.5-14.5); White Blood Cell Count 21.2 10^3/uL (4.8-10.8)
[2024-05-18 23:42] LABS: ALT (SGPT) 20 U/L (0-50); AST (SGOT) 130 U/L (17-59); Albumin 3.2 g/dl (3.5-5.0); Alkaline Phosphatase 81 U/L (38-126); Blood Urea Nitrogen 80 mg/dl (9-20); Calcium 7.8 mg/dl (8.4-10.2); Carbon Dioxide 22 mmol/L (22-30); Chloride 96 mmol/L (98-107); Estimated Creatinine Clearance 15 ml/min; Glucose 108 mg/dl (70-99); Potassium 5.4 mmol/L (3.5-5.1); Sodium 132 mmol/L (135-145); Total Bilirubin 1.3 mg/dl (0.2-1.3); Total Protein 5.1 g/dl (6.3-8.2); eGFR 10.53
[2024-05-19] VITALS (9 sets, daily range): BP systolic 97–150; BP diastolic 68–93; BMI 31.3
--- NOTE | 2024-05-19 | PTCARENOTE ---
Reassessed, intermittently agitated/fighting vent, prn fent as documented in 2299 hgb check 6.3- BDoughertyNP aware, additional 1uPRBC to be given now. no UO- bladder scanned for 550cc- straight cath for 600cc. no further changes in assessment.
[2024-05-19] MEDS: SUBLIMAZE 100 MCG IV ×5 (01:50→19:26)
[2024-05-19 04:06] LABS: B.E. -3.2 mmol/L; HCO3 20.8 mmol/L (21-28); O2 Saturation % 99.1 % (94-98); PCO2 32 mmHg (35-48); PO2 121 mmHg (83-108); pH 7.42 (7.35-7.45)
[2024-05-19 04:22] LABS: Fibrinogen 273 MG/DL (199-459)
[2024-05-19 04:23] LABS: Hematocrit 20.2 % (39.0-52.0); Hemoglobin 7.3 g/dL (13.0-18.0); Mean Corp Hgb Conc. 36.1 g/dL (33.0-37.0); Mean Corpuscular Hgb 29.2 pg (27.0-31.0); Mean Corpuscular Volume 80.8 fL (80.0-94.0); Platelet Count 48 10^3/uL (130-400); Red Cell Dist. Width 16.6 % (11.5-14.5); White Blood Cell Count 20.2 10^3/uL (4.8-10.8)
[2024-05-19 04:56] LABS: ALT (SGPT) 20 U/L (0-50); AST (SGOT) 120 U/L (17-59); Albumin 3.2 g/dl (3.5-5.0); Alkaline Phosphatase 100 U/L (38-126); Blood Urea Nitrogen 83 mg/dl (9-20); Calcium 7.7 mg/dl (8.4-10.2); Carbon Dioxide 22 mmol/L (22-30); Chloride 96 mmol/L (98-107); Estimated Creatinine Clearance 15 ml/min; Glucose 113 mg/dl (70-99); Magnesium 2.2 mg/dl (1.6-2.3); Phosphorus 5.7 mg/dl (2.5-4.5); Potassium 5.5 mmol/L (3.5-5.1); Sodium 134 mmol/L (135-145); Total Bilirubin 1.3 mg/dl (0.2-1.3); Total Protein 5.1 g/dl (6.3-8.2); eGFR 9.88
[2024-05-19] MEDS: SOLU-CORTEF 50 MG IV ×2 (05:00→10:54)
[2024-05-19] MEDS: SYNTHROID 175 MCG TUBE (05:08)
--- NOTE | 2024-05-19 05:47 | PTCARENOTE ---
1u Plts infusing, no further changes.
--- NOTE | 2024-05-19 07:50 | PTCARENOTE ---
Received pt intubated with bilateral soft wrist restraints intact. +4 anasarca. Palpable peripheral pulses. He opened his eyes to verbal stimuli. Lips were moving slightly. He is very rigid and not answering simple question, unable to nod or shake
his head to simple questions. He stares upwards. PERRLA +1. Right TL PICC with Lasix@10mg/hr, other 2 ports capped, flushed and patent. Left radial arterial line transduced, calibrated and monitored. Left wrist #20g and left AC#20g protective
catheter both flushed and patent. #8 ETT secured 24cm left lip. Tolerating current settings. Breath sounds remain dim on the right and dim left base. Right ACW pigtail chest tube to -10 suction as ordered. No crepitus, no tidaling, no leak. Dressing
CDI. Coughing noted, strong at times w/weak gag. Scant amount thick brown secretion after cough with turn suctioned via ETT. Minimal oral secretions, swallowing intact. +Hyperactive BSX4. Right nare DHT @70cm. No residual noted. Oliguric. Condom
catheter fell off. Recent bladder scan <400ml's. Will reassess per protocol. Gross ecchymosis of his entire left torso, right torso also grossly ecchymotic. Ordered wound care to right 2nd toe's black eschar. Safe environment maintained.
--- NOTE | 2024-05-19 08:18 | W.PN.INTV ---
Today's Communication / Plan
Recommendations
Transition to comfort care with terminal extubation
Consult hospice as patient may not pass away today
Stop all medications unless tailored for comfort
Given his severe JIMMY, would avoid morphine and use fentanyl versus Dilaudid instead
Hall Tender services offered
Emotional support provided
No additional recommendation at this time. Sign Painter/Pulmonary service will now sign off. Please call back with any questions or concerns.
Assessment
-
Assessment: 69-year-old M former tobacco smoker with a PMHx of CKD stage IV, hypertension, hypothyroidism, gout, history of pulmonary nodules, anxiety, memory impairment, sciatica and history of urinary incontinence who presents from home for
altered mental status. He was admitted to the floor for JIMMY and rhabdomyolysis with nephrology and neurology consulted. LP was attempted but no CSF fluid could be obtained. Brain MRI performed on 05/07/2024 showed a 3.5 cm region of signal
abnormality in the posterior right occipital lobe consistent with mild IPH likely due to posterior reversible encephalopathy syndrome. Patient also had parkinsonism features and Sinemet was started. On the evening of 05/15/2024 he suffered a PEA
cardiac arrest, ROSC obtained and he was brought to the ICU for further care. Sign Painter service is now consulted for additional management/recommendations.
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
Impression:
#Multiple in-hospital cardiac arrest (PEA) due to acute PE in the setting of left lower extremity acute DVT
#Acute massive saddle PE s/p catheter directed thrombolysis (05/15) with subsequent suction thrombectomy (05/16)
#CPR-related internal bleeding with anterior hemomediastinum + hemoperitoneum in setting of systemic AC; also liver hematoma with suspected liver laceration -->he has required multiple blood transfusions
#Acute blood loss anemia due to CPR in setting of heparin gtt to treat acute massive PE
#Secondary R-sided pneumothorax due to CPR s/p chest tube (placed by IR on 05/15)
#Acute left lower extremity popliteal DVT
#Severe metabolic acidosis likely due to cardiac arrest with lactic acidosis - acidosis now resolved
#Shock - initially due to severe metabolic acidosis, but now shock is due to hemorrhage in setting of obstructive shock due to acute saddle PE - shock state now resolved as of 05/19/2024
#Acute respiratory failure with hypoxia + hypercapnia on mechanical ventilation
#Leukocytosis
#Elevated tropinin due to demand ischemia with type II GA in setting of severe acute blood loss anemia - troponin peaked at 9.15 on 05/16/2024
#Right occipital lobe white matter changes with history of uncontrolled hypertension which is due to suspected posterior reversible encephalopathy syndrome (per neurology) with 3.5cm R-occipital lobe IPH
#JIMMY on CKD (appears at baseline creatinine is approximately 2.4) - likely due to shock in setting of contrast-induced JIMMY
#Hx of anxiety
#Altered mental status with parkinsonism
#New onset atrial flutter with variable AV block (seen on EKG from 05/17/2024)
Plan:
- Family meeting held today with the patient's , Monica, patient's sister in law, Amaris, and the patient's brother, Ken, and they would like to transition to comfort care with terminal extubation
- Stop all medications unless tailored for comfort
- Terminally extubate with a dose of Dilaudid given prior to extubation + Ativan
- Glycopyrrolate prn for excessive secretions
- Chest tube was inserted by IR on 05/15 � currently on negative suction at -10 cm of water. There is no airleak. Would keep chest tube in place for comfort.
- Emotional support provided
- Hall Tender services offered
- If patient does not pass away today then would consult hospice for further management
No additional recommendations at this time. Sign Painter/Pulmonary service will now sign off. Thank you for allowing us to be involved in the care of this patient. Please reconsult if there are any additional questions/concerns, or if patient's
respiratory status deteriorates.
IV Access: Triple lumen inserted by PICC team on 05/15/2024
Total time spent today was 42 minutes for this encounter. Time includes reviewing laboratory test/imaging results, reviewing pertinent medical records, obtaining and reviewing medical history, performing an appropriate exam, ordering medications,
tests and procedures. Time also includes documentation of this encounter, coordinating patient care and communicating with other healthcare professionals. Total time does not include separately billed tests performed on this date of service.
Data:
CTA Chest 05/15/2024:
1. Large, saddle pulmonary embolus extending from the distal main pulmonary artery into the right and left main pulmonary arteries, the bilateral lower lobe segmental and subsegmental pulmonary arteries as well as the right upper lobe segmental and
subsegmental pulmonary arteries. There is evidence of right heart strain with buffered bowing of the interventricular septum, elevated RV/LV ratio and reflux of contrast into the hepatic veins.
2. Large right-sided pneumothorax with partial collapse of the right lung.
3. Bilateral, displaced anterior rib fractures including the right second through fourth ribs within anterior costal cartilage fracture of the fifth rib on the right in the left second through fifth ribs. Findings are likely sequelae of chest
compressions.
4. Endotracheal tube tip terminates within the mid thoracic trachea. Nasoenteric feeding tube terminates within the stomach.
CT Chest/Abd/Pelvis w/o contrast 05/17/2024:
1. Small right-sided pneumothorax, decreased in size status post interval placement of a right-sided pigtail chest tube.
2. Small bilateral pleural effusions which appear increased attenuation, suggesting hemopneumothorax.
3. Small amount of hemorrhage in the anterior mediastinum, likely related to CPR related trauma.
4. Right PICC catheter tip at the inferior cavoatrial junction.
5. Moderate hemoperitoneum, with blood clots and thrombus.
6. Enlarging low-attenuation lesion in the left lobe of the liver, suspicious for hematoma, possibly on the basis of CT or related liver injury/laceration.
7. Persistent renal nephrograms, concerning for acute tubular necrosis or contrast-induced nephropathy.
8. No retroperitoneal hemorrhage.
9. Numerous bilateral anterior rib fractures.
CT Head 05/17/2024: No acute intracranial hemorrhage. No mass effect. Stable prominent periventricular and subcortical white matter diminished attenuation, most pronounced in the parietal and occipital lobes, right greater than left.
Brain MRI 05/07/2024:
1. 3.5 cm region of signal abnormality in the cortical ibanez matter and subcortical white matter of the POSTERIOR RIGHT OCCIPITAL LOBE with associated edema and a mild intraparenchymal microhemorrhage. Diagnostic possibilities are (1) posterior
reversible encephalopathy syndrome (PRES), (2) an acute inflammatory or infectious encephalitis, (3) a slow flow cerebral vascular malformation, or (4) a primary or metastatic brain tumor.
2. Moderate white matter leukoaraiosis in both cerebral hemispheres.
3. Mild diffuse cerebral and cerebellar volume loss.
4. Severe discogenic degenerative disease at C3/C4 with a central disc-osteophyte complex causing moderate spinal cord compression and central canal stenosis.
CXR 05/15/2024:
Stable appearance of the support lines and tubes.
Chronic elevation of the right hemidiaphragm. No pneumothorax.
CXR 05/18/2024:
1. Hazy bibasilar opacity, which may be related to subsegmental atelectasis, aspiration, or pneumonia.
2. No pneumothorax on the current study.
Lower Extremity Duplex 05/16/2024:
1. Occlusive left popliteal vein thrombus.
2. No evidence of deep venous thrombosis in the right lower extremity
Subjective Dataa
Subjective Data
Date of Service:
Date of Service: May 19, 2024
Chief Complaint: Sign Painter Follow Up
Subjective:
Patient seen and evaluated this morning. Transfuse 1 unit yesterday evening another unit this morning. He continues to be minimally responsive, opening eyes but not following commands. Right hemithorax chest tube in place with no airleak -output
over the last 24 hours at <10cc. Creatinine continue to worsen, which is at 5.8 this morning with 5.5 potassium level. He is on Lasix drip, and net +1.2 L last 24 hours with 600 cc urine over the last 24 hours as well. Family called and they are
coming to the hospital today to terminally withdraw. He was actually off vasopressors this morning with BP 120/72.
Review of Systems
General: Unobtainable - Pat Unresp
Objective Data
Data Reviewed
Vital Signs / I&O / Oxygen:
Vital Signs
Temp Pulse Resp BP Pulse Ox
98.4 F 94 19 119/92 98
05/19/24 08:03 05/19/24 08:30 05/19/24 08:30 05/19/24 07:44 05/19/24 08:43
Intake and Output
05/18/24 05/19/24 05/20/24
06:59 06:59 06:59
Intake Total 2615.3 / 2754.3 1961.1 / 1962.1 122 / 122
Output Total 562 / 562 665 / 665
Balance 2053.3 / 2192.3 1296.1 / 1297.1 122 / 122
SaO2 [A/C] 99
SaO2 98
Physical Exam
General: Respiratory Distress (negative), Chills (negative), Sweats (negative) and Other (ETT in place)
HEENT: Normocephalic and Anicteric
Cardiovascular: S1-S2 and Peripheral Edema (negative)
Respiratory: Wheeze (negative), Crackles (bilateral), Rhonchi (negative), Non-Labored Respirations, ET Tube (mechanical breath sounds heard bilaterally) and Chest Tube (right hemithorax currently with no airleak)
GI: Soft, Distended, Non Tender and Normal Bowel Sounds
Neurology: Tremors (negative) and Other (Corneal reflexes intact, intact gag/cough reflex; opens eyes but not following any commands)
Skin: Warm, Dry, Cyanosis (negative) and Jaundice (negative)
Labs/Micro/Reports
Lab Data
05/19/24 04:00
Laboratory Results
05/18/24 05/19/24
05:14 04:00
pH Cancelled 7.42
pCO2 Cancelled 32 L
pO2 Cancelled 121 H
HCO3 Cancelled 20.8 L
O2 Delivery Level Cancelled 40%, peep of 5
[2024-05-19] MEDS: BACTROBAN 2% OINTMENT 1 APPLIC TOPICAL (08:25)
[2024-05-19] MEDS: MIRALAX 17 GRAMS TUBE (08:26)
[2024-05-19] MEDS: NSS (PRESERVATIVE FREE) 10 ML IV (08:26)
[2024-05-19] MEDS: PROTONIX IV 40 MG IV (08:26)
[2024-05-19] MEDS: THERAGRAN 1 TABLET TUBE (08:26)
[2024-05-19] MEDS: SINEMET 25-100 1 TABLET TUBE ×2 (08:26→12:38)
--- NOTE | 2024-05-19 08:38 | W.PN.CARDCBS ---
Today's Communication / Plan
-
Remains critically ill on pressor support in setting of massive PE and shock.
Worsening renal failure, creatinine now up to 5.8 and decision made not to pursue hemodialysis
Ongoing severe blood loss anemia being treated with transfusions
From a cardiac standpoint continue conservative care
Prognosis is poor
Impression / Plan
-
PCP: Alicia Yanez PA-C
Cardiology: None prior to admission
Impression:
s/p PEA arrests x3 05/15/24 and again in IR during thrombectomy 05/16/24
Admitted with change in mental status 05/02/24
In-hospital cardiac arrest
PEA treated with Epi, CPR, intubation and then Epi gtt at 1800 on 05/15/24
PEA treated with Epi, CPR, Bicarb, calcium gluconate, bedside u/s showed enlarged RV and LLE DVT at 1821 on 05/15/24
PEA treated CPR, Epi, Bicarb, CTA chest confirmed PE and Heparin gtt started at 1934 on 05/15/24
PEA treated with CPR, Epi and Bicarb during thrombectomy 05/16/24
Saddle PE and catheter directed thrombolysis via right chest tube started 2301 on 05/15/24
Hypotension and shock
Elevated LFTs and shock liver
Liver laceration
LLE DVT by u/s 05/15/24
Right-sided PTX with CT placement 05/15/24
Hemoperitoneum, possible liver injury/laceration by CT 05/17/24
Elevated Troponin
Abnormal ECG
Acute hypoxic respiratory failure
JIMMY on CKD 4
Parkinson's disease
HTN
Hyperlipidemia
Right 2nd toe nonhealing wound
Echo 05/16/24: EF 70 to 75%, normal regional wall motion, mild concentric LVH, enlarged RV size, moderate to severely reduced RV systolic function mild TR with PAP 40 to 45 mmHg
Plan:
-Shock requiring IV pressors
-patient now with flail chest and hemoperitoneum with concern for liver injury/laceration on CT. Heparin gtt stopped. Patient is not a surgical candidate. Patient is now a limited DNR with no additional CPR, meds and vent only.
-Continue supportive care.
-Worsening renal failure, creatinine now up to 5.8 and decision made not to pursue hemodialysis
-Ongoing severe blood loss anemia being treated with transfusions
-Troponin peaked at 9.15 on 05/16/24. ECG with anterior T wave inversions. Recommend conservative therapy for now
-EF stable without WMA by echo. RV enlarged and moderately to severely reduced RV systolic function in the setting of PE
-LDL 34
-Outpatient doses of Toprol XL 50 mg daily and valsartan 80 mg daily on hold
CC time 35 min
HPI: Patient came to [facility] on 05/02/24 with change in mental status and has been admitted since then for work-up and had an in-hospital cardiac arrest last night and cardiology is now consulted. Patient lives at home with his who works for [employer] in
billing. Patient has not seen cardiology in the past. Patient reportedly lowered himself to the floor the night prior to admission to perform an unknown activity and then could not stand on his own and refused help so he slept on the floor that
night. The next day he still could not get up and his family called 911. Patient was admitted for change in mental status and JIMMY on CKD 4. He was seen by nephrology and given IVFs. Patient was already following with neurology as an outpatient for
possible Parkinson's disease work-up and so neurology saw him this admission as well and an LP was attempted, but no fluid could be collected. He seemed to be improving from JIMMY standpoint and Neuro continued Sinemet. ID stopped antibiotics, but WBC
continued to trend up. Patient was awaiting SNF placement which was delayed due to ongoing confusion requiring med sitter services. Psychiatry saw patient yesterday. Later last evening patient had bed sitter removed from room and hours later cried
out that he was having chest pain and felt like he was having a heart attack and then coded. Code details as above. Patient now in ICU with Levo, Epi and Jose running. Troponin up to 9 and ECG abnormal.
Progress Note - Water Conservationist
Subjective
Date of Service: May 19, 2024
Intubated and sedated
Objective
Labs:
05/19/24 04:00
Labs
Hgb 7.3 g/dL (13.0-18.0) L 05/19/24 04:00
Hct 20.2 % (39.0-52.0) L* 05/19/24 04:00
Plt Count 48 10^3/uL (130-400) L 05/19/24 04:00
PT 15.0 Sec (11.4-14.6) H 05/18/24 05:14
INR 1.18 05/18/24 05:14
APTT 36.8 Sec (23.4-35.0) H 05/18/24 05:14
Sodium 134 mmol/L (135-145) L 05/19/24 04:00
Potassium 5.5 mmol/L (3.5-5.1) H 05/19/24 04:00
BUN 83 mg/dl (9-20) H 05/19/24 04:00
Creatinine 5.8 mg/dL (0.7-1.3) H* 05/19/24 04:00
Glucose 113 mg/dl (70-99) H 05/19/24 04:00
Troponins
05/16/24 05/16/24 05/16/24
09:20 12:40 16:00
Troponin I 9.150 H* 8.970 H* 7.800 H*
Vital Signs and I&O:
Vital Signs
Temp Pulse Resp BP Pulse Ox
98.4 F 79 22 150/83 98
05/19/24 08:03 05/19/24 06:18 05/19/24 06:18 05/19/24 06:18 05/19/24 06:18
Vital Signs
Temp Pulse Resp BP Pulse Ox
98.4 F 79 22 150/83 98
05/19/24 08:03 05/19/24 06:18 05/19/24 06:18 05/19/24 06:18 05/19/24 06:18
Intake & Output
05/17/24 05/18/24 05/19/24 05/20/24
06:59 06:59 06:59 06:59
Intake Total 8338.0 / 8456.1 2615.3 / 2754.3 1960. /
Output Total 218 / 218 562 / 562 665 / 665
Balance 8120.0 / 8238.1 2053.3 / 2192.3 1296.1 / 1296.1
Physical Exam
Physical Exam
GEN: No distress, intubated and sedated
HEENT: supple, anicteric, mmm, ET tube
LUNGS: bilat rhonchi
CV: Reg, S1/S2, 1/6 syst LSB, no gallop
ABD: soft, BS+, NT/ND
EXT: +1 b/l LE edema
NEURO: sedated
[2024-05-19 10:38] LABS: Hematocrit 21.2 % (39.0-52.0); Hemoglobin 7.6 g/dL (13.0-18.0)
--- NOTE | 2024-05-19 11:11 | PTCARENOTE ---
Dr. Carty and Dr. Lawton aware of 549ml bladder scan volume. Will straight cath now and reevaluate per protocol.
--- NOTE | 2024-05-19 11:24 | W.PN.NEPH.PH ---
Today's Communication / Plan
-
see plan
Assessment/Plan
-
Assessment
CKD 4 (2.2-2.4)
JIMMY
Urinary retention
Mental status change
Parkinson's
Hypertension
Metabolic acidosis
MRI brain + 3.5cm lesion posterior right occipital lobe
Status post PEA event on 05/15/2024 with associated saddle embolus
Plan
JIMMY -ATN continues to worsen with creatinine now up to 5.8, oliguric despite lasix
persistent hyperkalemia, cont lasix gtt per ICU
multiple cardiac arrest with PEA, noted left lower extremity popliteal DVT and saddle PE
status post clot thrombectomy, now off AC for liver lac and bleeding
prn transfusions continue, hb at 7.6
BP stable off pressors
follow bladder scan ,low threshold for pinto
Patient now DNR, no ACLS
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
dialysis likely will result in more complications than benefit
understands the prognosis and agrees no dialysis
Comfort care is appropriate
d/w ICU, nursing, and primary
CC time spent 40min
-
-
Date of Service: May 19, 2024
CC / HPI / ROS
-
Chief Complaint:
JIMMY
History of Present Illness:
JIMMY/Cr up to 5.9, oliguric
Multiple PEA cardiac arrests
off pressor support
Remains intubated
Bilateral saddle embolus now off heparin drip and alteplase infusion due to hemorrhage
WBC improving, hb lo 7.6 s/p 2 untis last night
k high 5.5, sodium low 134
wt increasing
Review of Systems:
oligoanuric
Weights up
Intubated and not responding off sedation
Labs
-
Labs:
WBC 20.2 10^3/uL (4.8-10.8) H 05/19/24 04:00
RBC 2.50 10^6/uL (4.70-6.10) L 05/19/24 04:00
Hgb 7.6 g/dL (13.0-18.0) L 05/19/24 10:27
Hct 21.2 % (39.0-52.0) L 05/19/24 10:27
Plt Count 48 10^3/uL (130-400) L 05/19/24 04:00
eGFR 9.88 05/19/24 04:00
Phosphorus 5.7 mg/dl (2.5-4.5) H 05/19/24 04:00
Zov-W-Vfrywpeddut Pept 2920 pg/ml 05/15/24 23:44
Physical Exam
-
Vital Signs:
Vital Signs
Temp Pulse Resp BP Pulse Ox
98.4 F 94 19 119/92 98
05/19/24 08:03 05/19/24 08:30 05/19/24 08:30 05/19/24 07:44 05/19/24 08:43
Cardiovascular:: Regular rate and rhythm
Lung Excursion:: Abnormal (decreased)
Abdomen:: Distended and Soft
Extremity Edema:: +2: Bilateral:
Pinto Catheter: No
[2024-05-19 11:29] LABS: ALT (SGPT) 23 U/L (0-50); AST (SGOT) 109 U/L (17-59); Albumin 3.2 g/dl (3.5-5.0); Alkaline Phosphatase 105 U/L (38-126); Blood Urea Nitrogen 89 mg/dl (9-20); Calcium 7.9 mg/dl (8.4-10.2); Carbon Dioxide 21 mmol/L (22-30); Chloride 96 mmol/L (98-107); Estimated Creatinine Clearance 14 ml/min; Glucose 111 mg/dl (70-99); Potassium 5.3 mmol/L (3.5-5.1); Sodium 133 mmol/L (135-145); Total Bilirubin 1.2 mg/dl (0.2-1.3); Total Protein 5.2 g/dl (6.3-8.2); eGFR 9.49
--- NOTE | 2024-05-19 12:29 | W.PN.HOSP.TC ---
Today's Communication/Plan
-
Start comfort care as per discussion between translator deaf and patient's family
Assessment / Plan
Assessment / Plan
Physical Exam
General: Intubated
HEENT: Normocephalic
Respiratory: Breath sounds heard bilaterally, patient on mechanical ventilation. Chest tube.
Cardiac: Regular Rhythm and S1/S2
GI: Soft, Nontender, Nondistended and Normal Bowel Sounds
Musculoskeletal: No Cyanosis and No Edema
Neuro: Sedated
Psych: Calm
Assessment/Plan
#In-hospital cardiac arrest (PEA) due to acute PE in the setting of left lower extremity acute DVT
#Acute massive saddle PE now on catheter directed thrombolysis
#Enlarged Right Ventricle on Echocardiogram
#Secondary pneumothorax due to CPR status post right-sided chest tube on 05/15/24 by interventional radiology
#Acute left lower extremity popliteal DVT seen on bedside ultrasound
#Shock, likely obstructive shock
#Acute hypoxic and hypercapnic respiratory failure, currently on mechanical ventilation
#CPR related internal bleeding with anterior hemomediastinum and hemoperitoneum in setting of Heparin anticoagulation; also liver hematoma
#Acute Blood Loss Anemia
#Severe metabolic acidosis likely from cardiac arrest
#Acute kidney injury on CKD 4
#Recent concern for non-traumatic rhabdomyolysis
#Constipation
#Fever on 05/06/24
#Leukocytosis
#Necrotic area to the right 2nd toe - right second toe tip black hyperkeratotic lesion (?Verrucae vs subungular SCC vs benign)
#Right occipital lobe white matter changes with history of uncontrolled hypertension which is due to suspected posterior reversible encephalopathy syndrome (per neurology) with 3.5cm R-occipital lobe IPH
#Intraparenchymal microhemorrhage on Brain MRI
#Urinary Retention
#Microscopic Hematuria
#Proteinuria
# Parkinson's
#Essential hypertension
#Hypercholesterolemia
#Hypothyroidism
#Psychiatric history
#Gout
#Osteoarthritis
- Dr. Carty had a family meeting held today with the patient's , Monica, patient's sister in law, Amaris, and the patient's brother, Ken, and they would like to transition to comfort care with terminal extubation
- Agree with stopping all medications unless tailored for comfort
- Terminally extubate
- Keep chest tube in place for comfort.
- Consulted hospice team, case management
Anticipated Discharge: 24 - 48 hours
Subjective/Interval History
-
Date of Service: May 19, 2024
Patient was seen and examined. He remained intubated when he was seen.
Objective Data
-
Labs:
Laboratory Results
05/19/24 05/19/24
04:00 10:27
WBC 20.2 H
Hgb 7.3 L 7.6 L
Hct 20.2 L* 21.2 L
Plt Count 48 L
HCO3 20.8 L
Sodium 134 L 133 L
Potassium 5.5 H 5.3 H
Chloride 96 L 96 L
Carbon Dioxide 22 21 L
BUN 83 H 89 H
Creatinine 5.8 H* 6.0 H*
Glucose 113 H 111 H
Calcium 7.7 L 7.9 L
Total Bilirubin 1.3 1.2
AST 120 H 109 H
ALT 20 23
Alkaline Phosphatase 100 105
Vital Signs:
Vital Signs
Temp Pulse Resp BP Pulse Ox
98.0 F 78 22 119/92 100
05/19/24 11:29 05/19/24 11:30 05/19/24 11:30 05/19/24 07:44 05/19/24 12:21
I&O
05/18/24 05/19/24 05/20/24
06:59 06:59 06:59
Intake Total 2615.3 / 2754.3 1960.1 / 1961.1 125 / 125
Output Total 562 / 562 665 / 665 560 / 560
Balance 2053.3 / 2191.3 1296.1 / 1297.1 -435 / -435
--- NOTE | 2024-05-19 12:48 | PTCARENOTE ---
S/P large formed BM. Medicated appropriately for pain. Tube feeds started as ordered. He was informed of the plan of care. He did nod his head yes, appropriately on two separate occasions, after repositioning and cleaning him up. He also did squeeze
with his right hand when asked. Safe environment maintained.
--- NOTE | 2024-05-19 14:55 | PTCARENOTE ---
Pt's , brother Ken and his [id number] are at the bedside. Reviewed then events of his hospitalization especially since his multiple events of PEA necessitating his transfer to the ICU. Recapped his medical management since that time leading
up to the present. He would open his eyes for his family but not following commands for them. His stated they did not want him to suffer further. I had discussed options to withdrawal care and transition to comfort. Together as a family they
would prefer to withdrawal care, ease his suffering. They expressed that they did not want to stay for the withdrawal of care. Dr. Carty was TT'd to discuss options of withdrawal with the family. Supportive care provided.
--- NOTE | 2024-05-19 15:32 | CHAP ---
Visited Mr. Cope at 1:55 pm. He was sleeping, non-responsive. No family was present at that time. I offered words of comfort at bedside, and a prayer.
--- NOTE | 2024-05-19 15:36 | CM ---
tt from Dr. Avila that patient's family spoke with Dr. Carty & will now be comfort care.
Family would like to meet/speak with hospice nurse. Mary García notified.
Case management consult completed & referral placed to Hospice to eval.
PLAN: comfort care, [facility]
--- NOTE | 2024-05-19 15:42 | HOSPNOTE ---
Addendum entered by Mary García RN 05/19/24 19:15:
Called and spoke to patients spouse. Reviewed hospice and comfort care. She is very familiar. She is in agreement with keeping patient on comfort and hospice to follow for support. is imminent. Attending and CM updated.
Original Note:
Referral received. Called and spoke to patients spouse. She asked that I call her at 7 pm to discuss hospice. Reviewed records, patient does not have unmanaged at symptoms at this time and I recommend to continue comfort care with the initiation of
fentanyl infusion. Hospice will of course follow for support. More information to follow after conversation with spouse this evening. Attending and CM updated.
[2024-05-19] MEDS: SUBLIMAZE 50 MCG IV ×2 (15:44→17:24)
[2024-05-19] MEDS: ROBINUL 0.2 MG IV ×2 (15:46→20:00)
[2024-05-19] MEDS: DILAUDID 1 MG IV (15:58)
[2024-05-19] MEDS: NSS (PRESERVATIVE FREE) 0.25 ML IV (15:59)
[2024-05-19] MEDS: ATIVAN 0.5 MG IV (15:59)
[2024-05-19] MEDS: SUBLIMAZE 100 IV (16:02)
[2024-05-19] MEDS: SOLU-CORTEF IV (17:16)
[2024-05-19] MEDS: NSS (PRESERVATIVE FREE) IV (20:06)
[2024-05-20] MEDS: SUBLIMAZE 50 MCG IV (03:05)
[2024-05-20] MEDS: ROBINUL 0.2 MG IV (03:07)
[2024-05-20 06:00] VITALS: BMI 31.3
[2024-05-20 08:10] VITALS: BP 63/51
--- NOTE | 2024-05-20 09:00 | PTCARENOTE ---
Rec'd pt at 0800 resting in bed. Pt on comfort measures. Unresponsive to verbal or tactile stimuli aside from a sl grimace when suctioned. Pupils are sluggish at 2mm. No focus or tracking. Follows no commands. On IV Fentanyl gtt via R TL PICC at 50
mcg. RDOS 2. Skin is sallow/pale wm and dry. Wounds unchanged. Necrotic area on R second toe. Respirs are slow 8-10 min somewhat agonal in nature but non-labored. RA sats 87%. Does have occasional gurgling sound and [employer] HEAD suctioned for small amt of
thick yellowish secretions. Very weak minimal cough and gag although will tend to close mouth with oral care/suctioning. Minimal actual oral secretions. BS are coarse throughout. R ant Chest tube to -10 mm water suction. No air leak or crepitus
noted. Dressing over is D+I. Scant serosang drainage. Monitor SR. VS as documented. Pt with L radial A line-zeroed and recalibrated. Conguent with cuff bp. A Line dc'd at 0840 as pt is comfort level. Pressure held over the site. No hematoma.
Nailbeds are dusky with refill >2 sec. +3 generalized anasarca. Abd is round distended. + BS. Zepeda in place for minimal urine output. Repositioned. Zepeda and Mouth care given. Pt for transfer to /S
[2024-05-20 09:38] VITALS: BP 51/22
--- NOTE | 2024-05-20 10:00 | PTCARENOTE ---
Pt over past 10 minutes with more agonal respirs and widened rhythm then asystole at 0952- no pulse no respirs. Dr. Avila notified
--- NOTE | 2024-05-20 10:10 | W.PN.DEATH ---
Pronouncement of
-
Called to see patient to pronounce.
No spontaneous heart tones or respirations noted.
Patient not responsive to verbal stimuli.
Patient is pronounced .
Time of : 10:06
Date of : 05/20/24
Cause of : Acute Hypoxic Respiratory Failure
Family Notified: Yes
--- NOTE | 2024-05-20 10:55 | PTCARENOTE ---
Dr. Avila in and pt pronounced at 1006. GOL notified and per LEAYNE pt a candidate for potential cornea donation. Body cannot be released to the home until cleared by [facility].
--- NOTE | 2024-05-20 10:59 | CHAP ---
Visited at 10:20. Offered final prayers for Mr. Cope at bedside, and provided a prayer blanket.
[2024-05-20] MEDS: NSS (PRESERVATIVE FREE) IV (11:52)
--- NOTE | 2024-05-20 11:54 | W.PN.HOSP.TC ---
Today's Communication/Plan
-
Patient was on Comfort Care, but this morning
Assessment / Plan
Assessment / Plan
Physical Exam
General: Intubated
HEENT: Normocephalic
Respiratory: Breath sounds heard bilaterally, patient on mechanical ventilation. Chest tube.
Cardiac: Regular Rhythm and S1/S2
GI: Soft, Nontender, Nondistended and Normal Bowel Sounds
Musculoskeletal: No Cyanosis and No Edema
Neuro: Sedated
Psych: Calm
Assessment/Plan
#In-hospital cardiac arrest (PEA) due to acute PE in the setting of left lower extremity acute DVT
#Acute massive saddle PE now on catheter directed thrombolysis
#Enlarged Right Ventricle on Echocardiogram
#Secondary pneumothorax due to CPR status post right-sided chest tube on 05/15/24 by interventional radiology
#Acute left lower extremity popliteal DVT seen on bedside ultrasound
#Shock, likely obstructive shock
#Acute hypoxic and hypercapnic respiratory failure, currently on mechanical ventilation
#CPR related internal bleeding with anterior hemomediastinum and hemoperitoneum in setting of Heparin anticoagulation; also liver hematoma
#Acute Blood Loss Anemia
#Severe metabolic acidosis likely from cardiac arrest
#Acute kidney injury on CKD 4
#Recent concern for non-traumatic rhabdomyolysis
#Constipation
#Fever on 05/06/24
#Leukocytosis
#Necrotic area to the right 2nd toe - right second toe tip black hyperkeratotic lesion (?Verrucae vs subungular SCC vs benign)
#Right occipital lobe white matter changes with history of uncontrolled hypertension which is due to suspected posterior reversible encephalopathy syndrome (per neurology) with 3.5cm R-occipital lobe IPH
#Intraparenchymal microhemorrhage on Brain MRI
#Urinary Retention
#Microscopic Hematuria
#Proteinuria
# Parkinson's
#Essential hypertension
#Hypercholesterolemia
#Hypothyroidism
#Psychiatric history
#Gout
#Osteoarthritis
- On 05/19/24, Dr. Carty had a family meeting with the patient's , Monica, patient's sister in law, Amaris, and the patient's brother, Ken, and they decided to transition to comfort care with terminal extubation after
patient's poor prognosis was explained
- Patient was under comfort care until his passing earlier this morning
- After pronouncement, I notified patient's of patient's
Anticipated Discharge: Today
Subjective/Interval History
-
Date of Service: May 20, 2024
Patient was seen and examined this morning prior to his passing away. He appeared to be comfortable at the time he was seen.
Objective Data
-
Vital Signs:
Vital Signs
Temp Pulse Resp BP Pulse Ox
97.5 F 0 0 87
05/20/24 08:10 05/20/24 10:03 05/20/24 10:03 05/20/24 09:38 05/20/24 08:30
I&O
05/19/24 05/20/24 05/21/24
06:59 06:59 06:59
Intake Total 1960.1 / 1961.1 284 / 289
Output Total 665 / 665 860 / 860
Balance 1296.1 / 1297.1 -576 / -571 -5 / -5
--- NOTE | 2024-05-20 12:00 | PTCARENOTE ---
pt cleared by [facility]. Post Mortem care preformed. [place] [facility] [place]
[2024-05-21 19:22] LABS: Hepatitis B Surface Antigen Negative (Negative)
[2024-05-21 19:40] LABS: Hepatitis B Core Ab, Total Negative (Negative); Hepatitis B Surface Antibody Negative; Hepatitis C Antibody Negative (Negative)
== END 2024-05-20 14:29 | disposition expired | DRG 981 ==
LOC: ICU 18:45
PROVIDERS: Internal Medicine; Nurse Practitioner Family; Nurse Practitioner Primary Care; Physician Assistant; Physician Assistant Medical; Psychiatry & Neurology Neurology; Radiology Diagnostic Radiology; Radiology Vascular & Interventional Radiology; Specialist; ADMITTING PHYSICIAN Hospitalist; ATTENDING PHYSICIAN Hospitalist; CONSULT PHYSICIAN Internal Medicine Critical Care Medicine; CONSULT PHYSICIAN Internal Medicine Infectious Disease; CONSULT PHYSICIAN Psychiatry & Neurology Neurology; CONSULT PHYSICIAN Psychiatry & Neurology Psychiatry; CONSULT PHYSICIAN Specialist; EMERGENCY PHYSICIAN Emergency Medicine; OTHER PHYSICIAN Internal Medicine Cardiovascular Disease
PROC: 00JU3ZZ Inspection of Spinal Canal, Percutaneous Approach (ICD-10-PCS; 2024-05-05)
PROC: 0W9930Z Drainage of Right Pleural Cavity with Drainage Device, Percutaneous Approach (ICD-10-PCS; 2024-05-15)
PROC: 5A12012 Performance of Cardiac Output, Single, Manual (ICD-10-PCS; 2024-05-15)
PROC: 3E0L317 Introduction of Other Thrombolytic into Pleural Cavity, Percutaneous Approach (ICD-10-PCS; 2024-05-15)
PROC: 0BH17EZ Insertion of Endotracheal Airway into Trachea, Via Natural or Artificial Opening (ICD-10-PCS; 2024-05-15)
PROC: 02HV33Z Insertion of Infusion Device into Superior Vena Cava, Percutaneous Approach (ICD-10-PCS; 2024-05-15)
PROC: 5A1945Z Respiratory Ventilation, 24-96 Consecutive Hours (ICD-10-PCS; 2024-05-15)
PROC: X2CY3T7 Extirpation of Matter from Great Vessel using Computer-aided Mechanical Aspiration, Percutaneous Approach, New Technology Group 7 (ICD-10-PCS; 2024-05-16)
PROC: 30233N1 Transfusion of Nonautologous Red Blood Cells into Peripheral Vein, Percutaneous Approach (ICD-10-PCS; 2024-05-16)
PROC: 03HY32Z Insertion of Monitoring Device into Upper Artery, Percutaneous Approach (ICD-10-PCS; 2024-05-16)
PROC: 30233R1 Transfusion of Nonautologous Platelets into Peripheral Vein, Percutaneous Approach (ICD-10-PCS; 2024-05-19)
DX: N17.9 Acute kidney failure, unspecified (principal); G92.8 Other toxic encephalopathy; I67.83 Posterior reversible encephalopathy syndrome; I26.92 Saddle embolus of pulmonary artery without acute cor pulmonale; J96.01 Acute respiratory failure with hypoxia; K72.00 Acute and subacute hepatic failure without coma; K66.1 Hemoperitoneum; I21.A1 Myocardial infarction type 2; J96.02 Acute respiratory failure with hypercapnia; G93.6 Cerebral edema; E87.20 Acidosis, unspecified; Z66 Do not resuscitate; Z51.5 Encounter for palliative care; I96 Gangrene, not elsewhere classified; I82.432 Acute embolism and thrombosis of left popliteal vein; S27.0XXA Traumatic pneumothorax, initial encounter; D62 Acute posthemorrhagic anemia; S36.113A Laceration of liver, unspecified degree, initial encounter; I48.92 Unspecified atrial flutter; T79.6XXA Traumatic ischemia of muscle, initial encounter; N18.4 Chronic kidney disease, stage 4 (severe); E78.00 Pure hypercholesterolemia, unspecified; E03.9 Hypothyroidism, unspecified; I12.9 Hypertensive chronic kidney disease with stage 1 through stage 4 chronic kidney disease, or unspecified chronic kidney disease; G20.A1 Parkinson's disease without dyskinesia, without mention of fluctuations; I46.8 Cardiac arrest due to other underlying condition; R57.0 Cardiogenic shock; K59.00 Constipation, unspecified; R31.29 Other microscopic hematuria; S91.101A Unspecified open wound of right great toe without damage to nail, initial encounter; E87.5 Hyperkalemia; N40.1 Benign prostatic hyperplasia with lower urinary tract symptoms; R33.8 Other retention of urine; M54.16 Radiculopathy, lumbar region; M10.9 Gout, unspecified; F41.9 Anxiety disorder, unspecified; N39.498 Other specified urinary incontinence; R26.89 Other abnormalities of gait and mobility; X58.XXXA Exposure to other specified factors, initial encounter; Z11.52 Encounter for screening for COVID-19; Z79.899 Other long term (current) drug therapy; Z87.891 Personal history of nicotine dependence; Z96.643 Presence of artificial hip joint, bilateral
CPT/HCPCS: 32557; 36600; 36620; 37184; 37214; 62328; 70450; 70547; 70551; 71045; 71046; 71250; 71275; 73630; 74018; 74176; 75746; 76000; 76770; 76937; 80048; 80053; 80061; 81003; 81015; 82040; 82248; 82550; 82570; 82607; 82805; 82962; 83605; 83735; 83880; 84100; 84145; 84300; 84439; 84443; 84478; 84484; 85014; 85018; 85025; 85027; 85384; 85610; 85730; 86704; 86706; 86780; 86788; 86803; 86850; 86900; 86901; 86920; 87040; 87086; 87340; 87502; 87811; 92507; 92523; 92526; 92610; 92950; 93005; 93306; 93970; 94002; 94003; 95813; 95816; 96361; 96374; 97110; 97116; 97163; 97167; 97530; 97535; 99285; C1729; C1757; C1769; C1887; J2997; P9016; P9047; P9073; Q9950; Q9967